=== PATIENT | female | born 1960 | race Caucasian/White ===

== ENCOUNTER 2016-08-28 20:43 | Emergency (ER) | payer OTHER ==
--- NOTE | 2016-08-28 21:31 | UC ---
UC General HPI - HPI Summary HPI Summary: Patient is here tonight seeking Xanax refill- she 14 tabs 4 days ago and took the last one this morning - History of Current Complaint Hx Obtained From: Patient Onset/Duration: Gradual Onset, Still Present Timing: Constant Onset Severity: Moderate Current Severity: Moderate Pain Intensity: 0 Similar Episode/Dx as: hx of add and anxiety <Viv Lentz - Last Filed: 09/01/16 07:05> <Meeta Morel - Last Filed: 09/01/16 07:49> - History of Current Complaint Chief Complaint: UCGeneralIllness Stated Complaint: MED REFILL Time Seen by Provider: 08/28/16 21:00 - Allergy/Home Medications Allergies/Adverse Reactions: Allergies Allergy/AdvReac Type Severity Reaction Status Date / Time No Known Allergies Allergy Verified 08/31/16 15:23 PMH/Surg Hx/FS Hx/Imm Hx Previously Healthy: No Psychological History: Anxiety, Other - Add Other Psychological History: ADD - Surgical History Surgical History: Yes Surgery Procedure, Year, and Place: implants in - then removed - Family History Known Family History: Positive: Unknown - Social History Occupation: Unemployed Lives: With Family Alcohol Use: Rare Substance Use Type: None, Prescribed Smoking Status (MU): Never Smoked Tobacco <Viv Lentz - Last Filed: 09/01/16 07:05> Review of Systems Constitutional: Negative Skin: Negative Eyes: Negative ENT: Negative Respiratory: Negative Cardiovascular: Negative Gastrointestinal: Negative Genitourinary: Negative Motor: Negative Neurovascular: Negative Musculoskeletal: Negative Neurological: Negative Psychological: Anxious - hyper speech and grand explanations of events, denies HI/SI All Other Systems Reviewed And Are Negative: Yes <Viv Lentz - Last Filed: 09/01/16 07:05> Physical Exam Triage Information Reviewed: Yes Appearance: Well-Appearing, No Pain Distress, Well-Nourished Vital Signs: Initial Vital Signs Temp 98 F 08/28/16 20:46 Pulse 91 08/28/16 20:46 Resp 18 08/28/16 20:46 Pulse Ox 100 08/28/16 20:46 Vital Signs Reviewed: Yes Eye Exam: Normal Eyes: Positive: Conjunctiva Clear ENT Exam: Normal ENT: Positive: Normal ENT inspection, Hearing grossly normal. Negative: Nasal congestion, Nasal drainage, Trismus, Muffled/hoarse voice Dental Exam: Normal Neck exam: Normal Neck: Positive: Supple, Nontender Respiratory Exam: Normal Respiratory: Positive: Chest non-tender, Normal breath sounds, No respiratory distress Cardiovascular Exam: Normal Cardiovascular: Positive: RRR, Pulses Normal, Brisk Capillary Refill Musculoskeletal Exam: Normal Musculoskeletal: Positive: Strength Intact, ROM Intact, No Edema Neurological Exam: Normal Neurological: Positive: Alert, Muscle Tone Normal Psychological Exam: Other Psychological: Positive: Other: - pressured denies HI/SI Skin Exam: Normal <Viv Lentz - Last Filed: 09/01/16 07:05> Vital Signs: Initial Vital Signs Temp 98 F 08/28/16 20:46 Pulse 91 08/28/16 20:46 Resp 18 08/28/16 20:46 BP 123/95 08/28/16 20:46 Pulse Ox 100 08/28/16 20:46 <Meeta Morel - Last Filed: 09/01/16 07:49> Course/Dx - Course Course Of Treatment: supportive theraputic conversation for 30 minuntes, offered resourses and referrals for follow up in the community and for detoxing from Xanax - Differential Dx - Multi-Symptom Differential Diagnoses: Metabolic Abnormality, Other - anxiety, Benzodiazapine misuse, bipolar-Manaic Provider Diagnoses: Anxiety, Benzodiazapine misuse <Viv Lentz - Last Filed: 09/01/16 07:05> Discharge <Viv Lentz - Last Filed: 09/01/16 07:05> <Meeta Morel - Last Filed: 09/01/16 07:49> - Discharge Plan Condition: Stable Disposition: AGAINST MEDICAL ADVICE Referrals: Calin MILLER,Jose Laird [Primary Care Provider] - Attestation Statement User Type: Provider - I was available for consult. This patient was seen by the STEVEN. The patient was not presented to, seen by, or examined by me. -Heather <Meeta Morel - Last Filed: 09/01/16 07:49>
[2016-08-28 21:33] VITALS: BP 123/95
== END 2016-08-28 22:05 | disposition left against medical advice (07) ==
LOC: UCEAST 20:43
DX: F41.9 Anxiety disorder, unspecified (principal); F13.10 Sedative, hypnotic or anxiolytic abuse, uncomplicated; F98.8 Other specified behavioral and emotional disorders with onset usually occurring in childhood and adolescence
CPT/HCPCS: 99212; G0463

== ENCOUNTER 2016-08-30 19:29 | Emergency (ER) | payer OTHER ==
[2016-08-30 20:51] LABS: Hematocrit 39 % (35-47); Hemoglobin 12.8 g/dl (12.0-16.0); Mean Corpuscular HGB Conc 33 g/dl (31-36); Mean Corpuscular Hemoglobin 28 pg (27-31); Mean Corpuscular Volume 85 fL (80-97); Mean Platelet Volume 8 um3 (7.4-10.4); Red Blood Count 4.58 10^6/ul (4.0-5.4); Red Cell Distribution Width 15 % (10.5-15); White Blood Count 5.1 10^3/ul (3.5-10.8)
[2016-08-30 20:56] LABS: Urine Bacteria Absent (Absent); Urine Bilirubin Negative (Negative); Urine Glucose Negative (Negative); Urine Nitrite Negative (Negative)
[2016-08-30 21:10] LABS: ALT 13 U/L (7-52); AST 13 U/L (13-39); Albumin 3.6 g/dL (3.2-5.2); Alkaline Phosphatase 78 U/L (34-104); Anion Gap 4 mmol/L (2-11); BUN/Creatinine Ratio 15.5 (8-20); Blood Urea Nitrogen 11 mg/dL (6-24); CO2 Carbon Dioxide 28 mmol/L (22-32); Calcium 9.2 mg/dL (8.6-10.3); Chloride 106 mmol/L (101-111); EGFR African American 109.9 (>60); EGFR Non-African American 85.5 (>60); Globulin 3.1 g/dL (2-4); Glucose 118 mg/dL (70-100); Sodium 138 mmol/L (133-145); Total Protein 6.7 g/dL (6.4-8.9)
[2016-08-30 21:11] LABS: Acetaminophen 38 mcg/mL; Alcohol < 10 mg/dL (<10); Salicylate < 2.50 mg/dL (<30)
[2016-08-30 21:13] LABS: Benzodiazepine Urine Screen Presumptive Positive (None Detect)
[2016-08-30 21:17] LABS: TSH (Thyroid Stimulating Horm) 0.24 mcIU/mL (0.34-5.60)
[2016-08-30 21:58] VITALS: BP 109/61
--- NOTE | 2016-08-31 01:11 | ED ---
Arlen Scuhltz Rebecca, scribed for Mike Travis on 08/30/16 at 1953 . Substance Abuse/Use - HPI Summary HPI Summary: Pt is a 55 y/o F who presents to ED c/o withdrawal from Xanax. Pt reports that she is undergoing "severe withdrawal" from Xanax because she has taken half the prescribed dosage for the last 4 days, taking 1 tablet instead of 2. Pt states "I hate them, they screw around with your head." Notes anxiety at this time. Sx aggravated by medication noncompliance, alleviated by nothing. Denies auditory hallucinations, SIs, CP, SOB. Pt no longer has Xanax at home, reporting she gave them to a friend. PMHx dysthymia. No PMHx schizophrenia, bipolar disorder. - History Of Current Complaint Chief Complaint: EDDetoxRequest Stated Complaint: WITHDRAWAL FROM SEDATIVES Time Seen by Provider: 08/30/16 19:52 Hx Obtained From: Patient Hx Last Menstrual Period: a year ago Ingestion History: Type/Name Of Drug - Xanax, Amount Ingested - 1/2 of prescribed dose Overdose Characteristics: Oral Character: Anxious Aggravating Factor(s): Medication Non-compliance Alleviating Factor(s): Nothing Associated Signs And Symptoms: Other: - Xanax withdrawal - Allergies/Home Medications Allergies/Adverse Reactions: Allergies Allergy/AdvReac Type Severity Reaction Status Date / Time No Known Allergies Allergy Verified 08/30/16 19:36 PMH/Surg Hx/FS Hx/Imm Hx Endocrine/Hematology History: Denies: Hx Diabetes, Hx Thyroid Disease Cardiovascular History: Denies: Hx Hypertension Respiratory History: Denies: Hx Asthma, Hx Chronic Obstructive Pulmonary Disease (COPD) GI History: Denies: Hx Ulcer Psychiatric History: Reports: Other Psychiatric Issues/Disorders - Hx dysthymia Denies: Hx Schizophrenia, Hx Bipolar Disorder - Surgical History Surgery Procedure, Year, and Place: implants in - then removed Infectious Disease History: Reports: Hx Shingles Denies: Hx Clostridium Difficile, Hx Hepatitis, Hx Human Immunodeficiency Virus (HIV), Hx of Known/Suspected MRSA, Hx Tuberculosis, Hx Known/Suspected VRE , Hx Known/Suspected VRSA, History Other Infectious Disease, Traveled Outside the [place] in Last 30 Days - Family History Known Family History: Positive: Other - Lung CA - Social History Alcohol Use: Rare Substance Use Type: Reports: Prescribed Smoking Status (MU): Never Smoked Tobacco Review of Systems Positive: Other - Xanax withdrawal Negative: Chest Pain Negative: Shortness Of Breath Neurological: Other - Denies auditory hallucinations Positive: Anxious, Other - Denies SIs All Other Systems Reviewed And Are Negative: Yes Physical Exam Triage Information Reviewed: Yes Vital Signs On Initial Exam: Initial Vitals Temp Pulse Resp BP Pulse Ox 98.8 F 97 18 140/72 98 08/30/16 19:37 08/30/16 19:37 08/30/16 19:37 08/30/16 19:37 08/30/16 19:37 Vital Signs Reviewed: Yes Appearance: Positive: Well-Appearing, No Pain Distress Skin: Positive: Warm, Skin Color Reflects Adequate Perfusion, Dry Head/Face: Positive: Normal Head/Face Inspection Eyes: Positive: EOMI, DEYSI ENT: Positive: Normal ENT inspection Neck: Positive: Supple, Nontender Respiratory/Lung Sounds: Positive: Clear to Auscultation, Breath Sounds Present Cardiovascular: Positive: RRR, Pulses are Symmetrical in both Upper and Lower Extremities Abdomen Description: Positive: Nontender, Soft Bowel Sounds: Positive: Present Musculoskeletal: Positive: Normal, Strength/ROM Intact Neurological: Positive: Normal, Sensory/Motor Intact, Alert, Oriented to Person Place, Time Psychiatric: Positive: Depressed, Other - No eye contact; No suicidal ideation Diagnostics - Vital Signs Vital Signs Temp Pulse Resp BP Pulse Ox 08/30/16 19:37 98.8 F 97 18 140/72 98 - Laboratory Result Diagrams: 08/30/16 20:36 08/30/16 20:36 Lab Statement: Any lab studies that have been ordered have been reviewed, and results considered in the medical decision making process. Course/Dx - Course Assessment/Plan: Pt is a 55 y/o F who presents to ED c/o withdrawal from Xanax. Pt reports she has taken half the prescribed dosage for the last 4 days, taking 1 tablet instead of 2. Pt states "I hate them, they screw around with your head. " Notes anxiety at this time. Sx aggravated by medication noncompliance. Denies auditory hallucinations, SIs, CP, SOB. Pt no longer has Xanax at home, reporting she gave them to a friend. PMHx dysthymia. No PMHx schizophrenia, bipolar disorder. Medically cleared for MHE at 2142. After MHE, while psych project builder was calling the psychiatrist the pt left AMA, refusing to sign paperwork. Patient medications reviewed this visit. - Diagnoses Provider Diagnoses: Depression Discharge - Discharge Plan Condition: Good Disposition: AGAINST MEDICAL ADVICE Referrals: Calin MILLER,Jose Laird [Primary Care Provider] - The documentation as recorded by the Arlen lopez Rebecca accurately reflects the service I personally performed and the decisions made by , Mike Travis.
== END 2016-08-30 23:05 | disposition left against medical advice (07) ==
LOC: ED 19:29
DX: F32.9 Major depressive disorder, single episode, unspecified (principal); F41.9 Anxiety disorder, unspecified
CPT/HCPCS: 36415; 80053; 80307; 80320; 80329; 81003; 81015; 84443; 85025; 87086; 99283; G0480

== ENCOUNTER 2016-08-31 00:51 | Inpatient (IN) | payer OTHER ==
--- NOTE | 2016-08-31 04:25 | ED ---
Arlen Schultz Rebecca, scribed for Mike Travis on 08/31/16 at 0146 . Psychiatric Complaint - HPI Summary HPI Summary: Pt is a 55 y/o F [employer] who comes to ED p/w anxiety and requesting her typical medications of Effexor, Adderall and Xanax. Reports she has not had Effexor in 2 days. Denies SIs. Pt was evaluated by [facility] earlier today for withdrawal from Xanax after taking half her prescribed dose for the last 4 days. She left AMA and returns today to receive medication. She confirms Radha has filled her prescriptions, but she needs her night doses. Pt reports her friend called the police because she "doesn't understand withdrawal" and "felt nervous" after "scaring the shit out of her at 1130." - History Of Current Complaint Chief Complaint: EDPrescriptionNeeded Hx Obtained From: Patient Hx Last Menstrual Period: a year ago Onset/Duration: Still Present Severity Currently: Moderate Character: Anxious Aggravating Factor(s): Medication Non-compliance Alleviating Factor(s): Nothing Related History: Positive For: Prior Psychiatric Issues - Dysthymia Has Suicidal: Denies: Thoughts - Allergies/Home Medications Allergies/Adverse Reactions: Allergies Allergy/AdvReac Type Severity Reaction Status Date / Time No Known Allergies Allergy Verified 08/30/16 19:36 PMH/Surg Hx/FS Hx/Imm Hx Endocrine/Hematology History: Denies: Hx Diabetes, Hx Thyroid Disease Cardiovascular History: Denies: Hx Hypertension Respiratory History: Denies: Hx Asthma, Hx Chronic Obstructive Pulmonary Disease (COPD) GI History: Denies: Hx Ulcer Psychiatric History: Reports: Other Psychiatric Issues/Disorders - Hx dysthymia Denies: Hx Eating Disorder, Hx Schizophrenia, Hx Bipolar Disorder, Hx of Violent Episodes Against Others - Surgical History Surgery Procedure, Year, and Place: implants in - then removed Infectious Disease History: Reports: Hx Shingles Denies: Hx Clostridium Difficile, Hx Hepatitis, Hx Human Immunodeficiency Virus (HIV), Hx of Known/Suspected MRSA, Hx Tuberculosis, Hx Known/Suspected VRE , Hx Known/Suspected VRSA, History Other Infectious Disease, Traveled Outside the [place] in Last 30 Days - Family History Known Family History: Positive: Other - Lung CA - Social History Alcohol Use: Rare Substance Use Type: Reports: None, Prescribed Smoking Status (MU): Never Smoked Tobacco Review of Systems Positive: Other - Medication request Positive: Anxious, Other - Denies SIs All Other Systems Reviewed And Are Negative: Yes Physical Exam Triage Information Reviewed: Yes Vital Signs On Initial Exam: Initial Vitals Temp Pulse Resp BP Pulse Ox 100 F 79 18 127/76 98 08/31/16 01:07 08/31/16 01:07 08/31/16 01:07 08/31/16 01:07 08/31/16 01:07 Vital Signs Reviewed: Yes Appearance: Positive: Well-Appearing, No Pain Distress Skin: Positive: Warm, Skin Color Reflects Adequate Perfusion, Dry Head/Face: Positive: Normal Head/Face Inspection Eyes: Positive: EOMI, DEYSI ENT: Positive: Normal ENT inspection Neck: Positive: Supple, Nontender Respiratory/Lung Sounds: Positive: Clear to Auscultation, Breath Sounds Present Cardiovascular: Positive: RRR, Pulses are Symmetrical in both Upper and Lower Extremities Musculoskeletal: Positive: Normal, Strength/ROM Intact Neurological: Positive: Normal, Sensory/Motor Intact, Alert, Oriented to Person Place, Time Psychiatric: Positive: Anxious, Depressed, Other - Flight of ideas, no eye contact Diagnostics - Vital Signs Vital Signs Temp Pulse Resp BP Pulse Ox 08/31/16 01:07 100 F 79 18 127/76 98 - Laboratory Lab Statement: Any lab studies that have been ordered have been reviewed, and results considered in the medical decision making process. Course/Dx - Course Assessment/Plan: Pt is a 55 y/o F [employer] who comes to ED p/w anxiety and requesting her typical medications of Effexor, Adderall and Xanax. Reports she has not had Effexor in 2 days. Denies SIs. Pt was evaluated by [facility] earlier today for withdrawal from Xanax after taking half her prescribed dose for the last 4 days. She left AMA and returns today to receive medication. Pt reports her friend called the police because she "doesn't understand withdrawal" and "felt nervous" after "scaring the shit out of her at 1130." After MHE, it was determined the pt would be admitted to mental health with a Dx of acute psychosis. She understands and agrees. Patient medications reviewed this visit. - Differential Dx/Clinical Impression Provider Diagnosis: Acute psychosis Discharge - Discharge Plan Condition: Good Disposition: ADMITTED TO [facility] documentation as recorded by the Arlen lopez Rebecca accurately reflects the service I personally performed and the decisions made by , Mike Travis.
[2016-08-31] MEDS ORDERED: traZODone TAB* 50 MG TAB ONE (05:04)
[2016-08-31] MEDS ORDERED: Al Hydrox/Mg Hydrox/Simet LIQ* 30 ML UDC PO PRN (07:45)
[2016-08-31] MEDS ORDERED: LORazepam PO (enter doses in WAM protocol) PO SCH (08:00)
[2016-08-31] MEDS: Vitamin THERAPEUTIC TAB PO SCH (08:22)
[2016-08-31] MEDS ORDERED: Folic Acid TAB* 1 MG DAILY PO SCH (09:00)
[2016-08-31] MEDS ORDERED: Thiamine TAB* 100 MG TAB DAILY (@ T+1) PO SCH (09:00)
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
[2016-08-31] MEDS ORDERED: ALPRAZolam TAB* 0.5 MG PO SCH (16:00)
[2016-08-31] MEDS ORDERED: Venlafaxine EXT RELEASE CAP* 75 MG PO SCH (16:00)
[2016-08-31] MEDS: Venlafaxine EXT RELEASE CAP* 75 MG PO SCH (16:03)
[2016-08-31] MEDS: ALPRAZolam TAB* 0.5 MG PO SCH (16:04)
[2016-08-31] MEDS: Amphetamine/Dextroamph ER(NF) 10 MG CAP.ER PO SCH (17:13)
[2016-08-31] MEDS: traZODone TAB* 50 MG TAB PO PRN (23:08)
[2016-09-01] MEDS: Amphetamine/Dextroamph ER(NF) 10 MG CAP.ER PO SCH ×2 (08:38→13:15)
[2016-09-01] MEDS: Venlafaxine EXT RELEASE CAP* 75 MG PO SCH (08:39)
[2016-09-01] MEDS: ALPRAZolam TAB* 0.5 MG PO SCH (08:39)
[2016-09-01] MEDS: Vitamin THERAPEUTIC TAB PO SCH (08:40)
[2016-09-01 13:35] VITALS: BP 132/67
--- NOTE | 2016-09-01 13:58 | PN ---
Subjective - Subjective Service Type: 61720 Hosp care 15 min low complexity Subjective: Patient lying in bed on my approach. Patient reports she has been hypersomnolent since admission. Patient is linear and GD in conversation. She is A&Ox3. Patient denies episodes of confusion since admission. She is med compliant and denies benzo w/ d symptoms. Patient reports she believes the generic version of Adderall XR she is on inpatient is not absorbing like the brand name version. Patient reports she has not showered, brushed her teeth or been up for group today. She reports feeling more depressed today. She reports she is usually up after her am dose of Adderall XR and able to take care of ADLs. Patient informed we will monitor this over the weekend. Patient informed by this provider a Tx team meeting will be scheduled with [facility] and inpt SW for refinement of outpt Tx plan as she has hx of irratic and impulsive behavior along with suicidal behavior when in the process of tapering off Benzos. This scenerio was the same scenerio which led to her 2009 suicide attempt by OD on Klonopin while attempting taper by her outpt psychiatrist. Also discharge planning is needed as patient has recently been kicked out of the apartment she shares with her roommate. Patient again denies SI/HI and AH/VH. Appetite is wnl. Objective - Appearance Appearance: Thin Framed Dysmorphic Features: No Hygiene: Dirty Grooming: Disheveled - Behavior Psychomotor Activities: Abnormal-Decreased Exhibits Abnormal Movement: No - Attitude and Relatedness Attitude and Relatedness: Needy Eye Contact: Poor - Speech Quality: Unpressured Latencies: Normal Quantity: Copious - Mood Patient's Decription of Mood: "Upset" - Affect Observed Affect: Depressed Affect Consistent with: Dysphoria - Thought Process Patient's Thought Process: Coherent Thought Content: No Passive Wish, No Suicidal Planning, No Homicidal Ideation, No Paranoid Ideation - Sensorium Experiencing Hallucinations: No, Sensorium is Clear Type of Hallucinations: Visual: No, Auditory: No, Command: No - Level of Consciousness Level of Consciousness: Alert Orientation: Yes Intact, Yes Orientated to Time, Yes Orientated to Place, Yes Orientated to Person - Impulse Control Impulse Control: Intact - Insight and Judgement Insight and Judgement: Poor - Group Participation Particating in Group Activities: No - Medication Management Medication Management Adherence: Yes Assessment - Assessment Merits Inpatient Hospitalization: For Immediate Safety, For Stabilization Inpatient DSM-IV Dx: ASSESSMENT: . 1. Benzodiazepine withdrawal. 2. Amphetamine induced suly, now resolved. 3. MDD, R, S w/o PFs. 4. PTSD. 5. Borderline PD by Hx. 6. Benzodiazepine use d/o, severe. 7. Amphetamine use d/o, severe Plan - Plan Treatment Plan: Name: JOSE GÓMEZ Birthdate: 1960 [id number] PLAN: ------ 1. Continue admission to [facility] for safety and symptom mx. 2. Continue Celexa 20mg po daily for anxiety / mood symptoms. 3. D/C [facility] 4. Continue Xanax taper at next step down dose set in taper schedule set by patient's outpt psychiatrist Dr. Layton. 5. Continue Adderall XR at 60mg po qam and 30mg po q2pm for mx of TRD. 6. Continue home dose Effexor XR 300mg po qam for mood/anxiety. 7. Tx team meeting to be scheduled with patient, this provider, [facility] and inpt SW for refinement of outpt Tx plan. 8. Collateral information obtained from [facility] providers(psychiatrist and therapist). 9. Collateral information obtained from friend who transported patient to ED, [place](#[phone]). 10. Patient to participate in milieu activities and groups. Medications: Current Medications Acetaminophen (Tylenol Tab*) 650 mg PO Q4H PRN PRN Reason: PAIN or TEMP > 101 F Al Hydrox/Mg Hydrox/Simethicone (Maalox Plus*) 30 ml PO Q4H PRN PRN Reason: INDIGESTION Alprazolam (Xanax Tab*) 1.5 mg PO QPM KIRSTEN Amphetamine/Dextroamphetamine (Adderal Xr (Nf)) 60 mg PO 0800 KIRSTEN Last Admin: 09/01/16 08:38 Dose: 60 mg Amphetamine/Dextroamphetamine (Adderal Xr (Nf)) 30 mg PO 1400 KIRSTEN Last Admin: 09/01/16 13:15 Dose: 30 mg Multivitamins (Theragran Tab*) 1 tab PO DAILY KIRSTEN Last Admin: 09/01/16 08:40 Dose: Not Given Trazodone HCl (Desyrel Tab*) 50 mg PO BEDTIME PRN PRN Reason: INSOMNIA Last Admin: 08/31/16 23:08 Dose: 50 mg Venlafaxine HCl (Effexor Xr Cap*) 300 mg PO DAILY [facility] Last Admin: 09/01/16 08:39 Dose: 300 mg - Discharge Plan Discharge Plan: Outpatient Follow Up Outpatient Program: Adriana Phelps [facility]
[2016-09-01] MEDS: Acetaminophen TAB* 325 MG PO PRN ×2 (17:22→21:35)
[2016-09-01] MEDS: traZODone TAB* 50 MG TAB PO PRN (20:39)
[2016-09-01] MEDS ORDERED: traZODone TAB* 50 MG TAB PO ONE (22:30)
[2016-09-02] MEDS: Amphetamine/Dextroamph ER(NF) 10 MG CAP.ER PO SCH ×2 (08:23→14:12)
[2016-09-02] MEDS: Venlafaxine EXT RELEASE CAP* 75 MG PO SCH (08:24)
[2016-09-02] MEDS: Vitamin THERAPEUTIC TAB PO SCH (08:33)
[2016-09-02] MEDS ORDERED: ALPRAZolam TAB* 0.5 MG PO SCH (15:00)
[2016-09-02] MEDS: ALPRAZolam TAB* 0.5 MG PO SCH (15:50)
[2016-09-02] MEDS: Acetaminophen TAB* 325 MG PO PRN (21:10)
[2016-09-02] MEDS: traZODone TAB* 50 MG TAB PO PRN (21:10)
[2016-09-03] MEDS: Vitamin THERAPEUTIC TAB PO SCH ×2 (08:36→08:39)
[2016-09-03] MEDS: Amphetamine/Dextroamph ER(NF) 10 MG CAP.ER PO SCH ×2 (08:37→13:57)
[2016-09-03] MEDS: Venlafaxine EXT RELEASE CAP* 75 MG PO SCH (08:37)
[2016-09-03] MEDS: ALPRAZolam TAB* 0.5 MG PO SCH (15:54)
--- NOTE | 2016-09-03 20:07 | PN ---
Subjective - Subjective Service Type: 70017 Hosp care 15 min low complexity Subjective: Latisha approached me several times to speak with me. During my meeting with her she had a long story to tell and it kept going for more than 1/2 hour requiring interruption. All she was trying was to justify her use of sedatives and stimulants. Requested to make little adjustment to the timing of her meds and I politely asked her to run that by her Attending. Otherwise pleasent and easily redirectable. Objective - Appearance Appearance: Healthy Appearing Dysmorphic Features: No Hygiene: Normal Grooming: Fairly Well Kept - Behavior Psychomotor Activities: Normal Exhibits Abnormal Movement: No - Attitude and Relatedness Attitude and Relatedness: Appropriate Eye Contact: Good - Speech Quality: Pressured Latencies: Short Quantity: Copious - Mood Patient's Decription of Mood: "Fine" - Affect Observed Affect: Expansive - Thought Process Patient's Thought Process: Coherent, Loose Associations, Filght of Ideas, Circumstantial Thought Content: No Passive Wish, No Suicidal Planning, No Homicidal Ideation, No Paranoid Ideation - Sensorium Experiencing Hallucinations: No, Sensorium is Clear Type of Hallucinations: Visual: No, Auditory: No, Command: No - Level of Consciousness Level of Consciousness: Alert Orientation: Yes Intact, Yes Orientated to Time, Yes Orientated to Place, Yes Orientated to Person - Impulse Control Impulse Control: Tenuous - Insight and Judgement Insight and Judgement: Poor - Group Participation Particating in Group Activities: Yes - Medication Management Medication Management Adherence: Yes Assessment - Assessment Merits Inpatient Hospitalization: For Stabilization, Pending Safe DC Plan Inpatient DSM-IV Dx: ASSESSMENT: . 1. Benzodiazepine withdrawal. 2. Amphetamine induced suly, now resolved. 3. MDD, R, S w/o PFs. 4. PTSD. 5. Borderline PD by Hx. 6. Benzodiazepine use d/o, severe. 7. Amphetamine use d/o, severe Clinical Impression: Not stable yet. Plan - Plan Treatment Plan: Name: LATISHA GÓMEZ Birthdate: 1960 [id number] Continued Medication Management: Continue Outpt Medication Medications: Current Medications Acetaminophen (Tylenol Tab*) 650 mg PO Q4H PRN PRN Reason: PAIN or TEMP > 101 F Last Admin: 09/02/16 21:10 Dose: 650 mg Al Hydrox/Mg Hydrox/Simethicone (Maalox Plus*) 30 ml PO Q4H PRN PRN Reason: INDIGESTION Alprazolam (Xanax Tab*) 1.5 mg PO 1500 [facility] Last Admin: 09/03/16 15:54 Dose: 1.5 mg Amphetamine/Dextroamphetamine (Adderal Xr (Nf)) 60 mg PO 0800 KIRSTEN Last Admin: 09/03/16 08:37 Dose: 60 mg Amphetamine/Dextroamphetamine (Adderal Xr (Nf)) 30 mg PO 1400 [facility] Last Admin: 09/03/16 13:57 Dose: 30 mg Multivitamins (Theragran Tab*) 1 tab PO DAILY [facility] Last Admin: 09/03/16 08:39 Dose: Not Given Trazodone HCl (Desyrel Tab*) 50 mg PO BEDTIME PRN PRN Reason: INSOMNIA Last Admin: 09/02/16 21:10 Dose: 50 mg Venlafaxine HCl (Effexor Xr Cap*) 300 mg PO DAILY [facility] Last Admin: 09/03/16 08:37 Dose: 300 mg - Discharge Plan Discharge Plan: Outpatient Follow Up Outpatient Program: Adriana Phelps [facility]
[2016-09-03] MEDS: Acetaminophen TAB* 325 MG PO PRN (21:23)
[2016-09-03] MEDS: traZODone TAB* 50 MG TAB PO PRN (21:23)
[2016-09-04] MEDS: Venlafaxine EXT RELEASE CAP* 75 MG PO SCH (08:06)
[2016-09-04] MEDS: Amphetamine/Dextroamph ER(NF) 10 MG CAP.ER PO SCH ×2 (08:06→13:38)
[2016-09-04] MEDS: Vitamin THERAPEUTIC TAB PO SCH (08:07)
--- NOTE | 2016-09-04 11:37 | PN ---
[facility]: Group Therapy Note - Service Type Service Type: [id number] Group Psychotherapy - Cognitive Behavioral Group Therapy ( CBT):Patient was attentive and participatory in CBT programming this morning, and remained in good behavioral control. Patient expressed positive insights regarding relevant treatment interventions and goals.
[2016-09-04] MEDS: ALPRAZolam TAB* 0.5 MG PO SCH (15:23)
--- NOTE | 2016-09-04 17:17 | PN ---
Subjective - Subjective Service Type: 49971 Hosp care 15 min low complexity Subjective: The patient is no longer confused and presents as having intact abilities to handle her ADLs. Her speech is pressured and she is demanding discharge, so that she can return to her new apartment and follow up with outpatient psychiatrist, Dr. Layton. "I don't need to be here any further. I only came here because I was too eager to get off xanax and was taking one mg instead of two, like Dr. Layton wanted." This clinician spoke with Dr. Layton at [facility] and he states that she is highly demanding and personality disordered at baseline. He has never observed her as having suly, but can be anxious and pressured when not getting what she wants. The patient denies SI or HI. Objective - Appearance Appearance: Well Developed/Nourished Dysmorphic Features: No Hygiene: Normal Grooming: Well Kept - Behavior Psychomotor Activities: Normal Exhibits Abnormal Movement: No - Attitude and Relatedness Attitude and Relatedness: Needy Eye Contact: Good - Speech Quality: Pressured Latencies: Short Quantity: Copious - Mood Patient's Decription of Mood: "Fine" - Affect Observed Affect: Expansive Affect Consistent with: Euphoria - Thought Process Patient's Thought Process: Tangential Thought Content: No Passive Wish, No Suicidal Planning, No Homicidal Ideation, No Paranoid Ideation - Sensorium Experiencing Hallucinations: No, Sensorium is Clear Type of Hallucinations: Visual: No, Auditory: No, Command: No - Level of Consciousness Level of Consciousness: Alert Orientation: Yes Intact, Yes Orientated to Time, Yes Orientated to Place, Yes Orientated to Person - Impulse Control Impulse Control: Tenuous - Insight and Judgement Insight and Judgement: Fair - Group Participation Particating in Group Activities: Yes - Medication Management Medication Management Adherence: Yes Assessment - Assessment Merits Inpatient Hospitalization: For Immediate Safety, For Stabilization Inpatient DSM-IV Dx: ASSESSMENT: . 1. Benzodiazepine withdrawal. 2. Amphetamine induced suly, now resolved. 3. MDD, R, S w/o PFs. 4. PTSD. 5. Borderline PD by Hx. 6. Benzodiazepine use d/o, severe. 7. Amphetamine use d/o, severe Clinical Impression: 55 y.o. single, white female with a history of treatment refractory MDD and borderline PD who arrived seeking treatment for confusion and inability to care for herself in the setting of tapering off alprazolam more quickly than directed by her outpatient psychiatrist, Dr. Layton. Plan - Plan Treatment Plan: Name: JOSE GÓMEZ Birthdate: 1960 [id number] The patient is taking venlafaxine XR 300mg PO qday, alprazolam 1.5mg PO qday and Adderall 60mg PO qam, 30mg PO qnoon. She is pressured and anxious but no longer confused or disoriented. Consider d/c to home tomorrow. Continued Medication Management: Continue Outpt Medication Medications: Current Medications Acetaminophen (Tylenol Tab*) 650 mg PO Q4H PRN PRN Reason: PAIN or TEMP > 101 F Last Admin: 09/03/16 21:23 Dose: 650 mg Al Hydrox/Mg Hydrox/Simethicone (Maalox Plus*) 30 ml PO Q4H PRN PRN Reason: INDIGESTION Alprazolam (Xanax Tab*) 1.5 mg PO 1500 [facility] Last Admin: 09/04/16 15:23 Dose: 1.5 mg Amphetamine/Dextroamphetamine (Adderal Xr (Nf)) 60 mg PO 0800 KIRSTEN Last Admin: 09/04/16 08:06 Dose: 60 mg Amphetamine/Dextroamphetamine (Adderal Xr (Nf)) 30 mg PO 1400 KIRSTEN Last Admin: 09/04/16 13:38 Dose: 30 mg Multivitamins (Theragran Tab*) 1 tab PO DAILY KIRSTEN Last Admin: 09/04/16 08:07 Dose: 1 tab Trazodone HCl (Desyrel Tab*) 50 mg PO BEDTIME PRN PRN Reason: INSOMNIA Last Admin: 09/03/16 21:23 Dose: 50 mg Venlafaxine HCl (Effexor Xr Cap*) 300 mg PO DAILY [facility] Last Admin: 09/04/16 08:06 Dose: 300 mg - Discharge Plan Discharge Plan: Outpatient Follow Up Outpatient Program: Adriana Phelps [facility]
[2016-09-04] MEDS: traZODone TAB* 50 MG TAB PO PRN (20:04)
[2016-09-04] MEDS: Acetaminophen TAB* 325 MG PO PRN (20:04)
[2016-09-04] MEDS ORDERED: Gabapentin CAP(*) 300 MG PO PRN (21:07)
[2016-09-05] MEDS: Venlafaxine EXT RELEASE CAP* 75 MG PO SCH (07:58)
[2016-09-05] MEDS: Vitamin THERAPEUTIC TAB PO SCH (07:58)
[2016-09-05] MEDS: Amphetamine/Dextroamph ER(NF) 10 MG CAP.ER PO SCH (07:59)
--- NOTE | 2016-09-05 17:53 | DS ---
DISCHARGE SUMMARY: DATE OF ADMISSION: 08/31/16 DATE OF DISCHARGE: 09/05/16 DISCHARGE DIAGNOSES: [place] I: Benzodiazepine withdrawal with delirium; major depressive disorder, recurrent, mild. [place] II: Borderline personality disorder. [place] III: None. [place] IV: Moderate primary support and housing stressors. [place] V: At the time of admission was 30 and at the time of discharge is 60. CONDITION AT THE TIME OF DISCHARGE: As follows; the patient is calm and cooperative. She is reality oriented. She shows no further evidence of confusion or delirium and she is back to her psychiatric baseline, which is mildly depressed and anxious, but coherent and able to maintain her own activities of daily living. The patient continues to deny suicidal or homicidal ideations. She is safe on all checks. She has been consistently requesting discharge and she is agreeable to following up on an outpatient basis. The patient is enrolled in treatment with a therapist named Anthony and psychiatrist Dr. Layton, both at [facility] and she is very much agreeable to not making any changes in her medication regimen until she sees Dr. Layton again. MENTAL STATUS EXAM: At the time of discharge, the patient is a middle-aged white female with long brown hair. She is clean and well groomed wearing a black T-shirt and black tights. She is calm, cooperative, easy to establish a rapport with, appears to be less pressured than previously. Speech is mildly over productive, but otherwise fluent. Mood appears to be anxious with corresponding anxious affect. Thought process is linear to tangential. Thought content is significant for her desire to be discharged from the hospital so that she can complete her move into a new apartment. She is denying suicidal or homicidal ideation. She denies auditory or visual hallucinations. Insight and judgment appears to be fair given her willingness to follow up with outpatient treatment in the community. Cognitively she is awake and alert with what would appear to be an average intellect. DISCHARGE INSTRUCTIONS: To the patient are as follows: A. Medications. 1. She takes alprazolam 1.5 mg p.o. daily. 2. She takes Adderall 30 mg 3 times daily. 3. She takes Effexor XR 300 mg p.o. daily. B. Diet: Regular. C. Activities: As tolerated. The patient is a nonsmoker. There are no laboratory or diagnostic studies pending at the time of discharge. D. Followup Care: The patient will follow up later this week with her therapist, Anthony and psychiatrist, Dr. Jose Layton at the [facility]. HOSPITAL COURSE: A: Reason for admission: The patient is a 55-year-old single white female with history of treatment resistant major depressive disorder, PTSD , and borderline personality disorder who presented transported by her friend on a voluntary basis complaining of severe symptoms of Xanax withdrawal. The patient reports that she had been taking Xanax 3 mg daily as prescribed by Dr. Jose Layton at [facility]. However, they had mutually agreed to a taper due to symptoms of poor memory and perhaps an increase in her depressive mood symptoms since going on Xanax. The patient had been tapered down to 2 mg for several weeks, but states that she wanted to be more assertive and more aggressive with the tapering and so unbeknownst to her psychiatrist, she started taking only 1 mg. She notes that she started feeling confused and she was in the middle of a move where several of her belongings were placed in boxes. At the same time, she lost her Effexor prescription bottle in 1 of her packing boxes and started to withdrawal from that as well. When she arrived in our emergency room, she was disoriented, confused, could not calm down, was anxious, and although she was denying thoughts of suicide or homicidal ideations , it was felt that she was unsafe to be discharged and was therefore involuntarily admitted to our service. B. Psychiatric treatment rendered: The patient was admitted to the adult behavioral health unit initially under the service of Dr. Domo Ivy. Dr. Ivy had a long conversation with Dr. Layton and it was determined that they would stabilize the patient by putting her back on her venlafaxine and giving her an intermediate dose of Xanax at approximately 1.5 mg daily. The patient's mentation improved with the resumption of her medications. She had a friend sort through her boxes finding her medication at home, so that she will have that available upon discharge from the hospital. Throughout her hospitalization , she continued to deny any thoughts of hurting herself or others. We did observe her to be demanding and hyperverbal at times, appearing to be uncomfortable with the unit as she was no longer in control of her own medication or her coming and going. She was, however, agreeable with outpatient followup in the community and after speaking with Dr. Layton myself , her history is that she almost never misses appointments and that she is not typically particularly drug seeking. We kept her on her Effexor and her Adderall as currently prescribed by Dr. Layton making no changes in these. She has been safe on all checks and we no longer have rationale for keeping her involuntarily here on our unit. [id number]/[facility] #: [id number] [facility]ENT[facility]atherine
== END 2016-09-05 12:25 | disposition home or self-care (01) | DRG 776 ==
LOC: ED 00:51 → BSU 04:30
PROVIDERS: ADMIT Psychiatry & Neurology Psychiatry; ATTEND Psychiatry & Neurology Psychiatry
PROC: GZHZZZZ Group Psychotherapy (ICD-10-PCS; 2016-09-01)
PROC: HZ2ZZZZ Detoxification Services for Substance Abuse Treatment (ICD-10-PCS; principal; 2016-09-05)
DX: F19.931 Other psychoactive substance use, unspecified with withdrawal delirium (principal); F33.0 Major depressive disorder, recurrent, mild; F15.988 Other stimulant use, unspecified with other stimulant-induced disorder; F60.3 Borderline personality disorder; F43.10 Post-traumatic stress disorder, unspecified; Z62.811 Personal history of psychological abuse in childhood; Z81.8 Family history of other mental and behavioral disorders; F17.210 Nicotine dependence, cigarettes, uncomplicated; Z80.1 Family history of malignant neoplasm of trachea, bronchus and lung; F41.9 Anxiety disorder, unspecified
CPT/HCPCS: 90853; 99222; 99231; 99238; A9270-GY

== ENCOUNTER 2016-10-13 11:13 | Emergency (ER) | payer OTHER ==
[2016-10-13 11:38] VITALS: BP 114/90
[2016-10-13 12:22] LABS: Urine Bacteria Absent (Absent); Urine Bilirubin Negative (Negative); Urine Glucose Negative (Negative); Urine Nitrite Negative (Negative)
[2016-10-13 12:39] LABS: ALT 17 U/L (7-52); AST 13 U/L (13-39); Alkaline Phosphatase 90 U/L (34-104); Anion Gap 6 mmol/L (2-11); BUN/Creatinine Ratio 14.7 (8-20); Blood Urea Nitrogen 10 mg/dL (6-24); CO2 Carbon Dioxide 28 mmol/L (22-32); Calcium 9.4 mg/dL (8.6-10.3); Chloride 102 mmol/L (101-111); EGFR African American 115.1 (>60); EGFR Non-African American 89.5 (>60); Globulin 3.2 g/dL (2-4); Glucose 92 mg/dL (70-100); Potassium 3.7 mmol/L (3.5-5.0); Sodium 136 mmol/L (133-145); Total Protein 7.2 g/dL (6.4-8.9)
[2016-10-13 12:42] LABS: Benzodiazepine Urine Screen Presumptive Positive (None Detect)
[2016-10-13 12:46] LABS: Acetaminophen < 15 mcg/mL; Alcohol < 10 mg/dL (<10); Hematocrit 44 % (35-47); Hemoglobin 15.1 g/dl (12.0-16.0); Mean Corpuscular HGB Conc 34 g/dl (31-36); Mean Corpuscular Hemoglobin 29 pg (27-31); Mean Corpuscular Volume 84 fL (80-97); Mean Platelet Volume 7 um3 (7.4-10.4); Red Blood Count 5.28 10^6/ul (4.0-5.4); Red Cell Distribution Width 15 % (10.5-15); Salicylate < 2.50 mg/dL (<30); White Blood Count 7.5 10^3/ul (3.5-10.8)
[2016-10-13 12:55] LABS: TSH (Thyroid Stimulating Horm) 1.98 mcIU/mL (0.34-5.60)
--- NOTE | 2016-10-13 17:31 | ED ---
Salvador Schultz Alfonso, scribed for Henry Beach MD on 10/13/16 at 1123 . Substance Abuse/Use - HPI Summary HPI Summary: This patient is a 56 year old F brought in by police 945 to [facility] with a chief complaint of prescription substance withdrawal which began two days ago. She states my medicine is due on the 5th (in 4 days) and I am out to early. The patient rates the pain 0/10 in severity. Symptoms alleviated by nothing. Patient reports taking 2 mg of Xanax (prescribed) this morning and finishing her Adderall (prescribed) two days ago. Patient denies SI, and HI. Patient was admitted to [facility] [place] 09/05 with discharge diagnoses of Ashley I: Benzodiazepine withdrawal with delirium; major depressive disorder, recurrent, mild. Ashley II: Borderline personality disorder. Ashley III: None. Ashley IV: Moderate primary support and housing stressors. Ashley V: At the time of admission was 30 and at the time of discharge is 60. PMHx includes anxiety, and depression. Patient medically cleared for MHE at 1200. - History Of Current Complaint Stated Complaint: 945 Hx Obtained From: Patient Hx Last Menstrual Period: a year ago Onset/Duration of Drug/ETOH Abuse: Days - 2 Ingestion History: Type/Name Of Drug - Adderall and Xanax Overdose Characteristics: Oral Timing Of Abuse: Recent Cessation For A Period Of - 2 days Severity Initially: Moderate Severity Currently: Moderate Alleviating Factor(s): Nothing Associated Signs And Symptoms: Other: - Patient denies SI, and HI Related Hx: Prior Drug Abuse Counseling/Admission - [facility] [place] 09/05 with discharge diagnoses of Ashley I: Benzodiazepine withdrawal with delirium; major depressive disorder, recurrent, mild. Ashley II: Borderline personality disorder. Ashley III: None. Ashley IV: Moderate primary support and housing stressors. Ashley V: At the time of admission was 30 and at the time of discharge is 60. - Allergies/Home Medications Allergies/Adverse Reactions: Allergies Allergy/AdvReac Type Severity Reaction Status Date / Time No Known Allergies Allergy Verified 08/31/16 15:23 Home Medications: Home Medications Amphetamine-Dextroamphetamine [Adderall XR 30 mg-] 1 cap PO TID 10/13/16 [ History Confirmed 10/13/16] Venlafaxine ER (NF) [Effexor ER (NF)] 300 mg PO DAILY 10/13/16 [History Confirmed 10/13/16] PMH/Surg Hx/FS Hx/Imm Hx Endocrine/Hematology History: Denies: Hx Diabetes, Hx Thyroid Disease Cardiovascular History: Denies: Hx Hypertension Respiratory History: Denies: Hx Asthma, Hx Chronic Obstructive Pulmonary Disease (COPD) GI History: Denies: Hx Ulcer Sensory History: Denies: Hx Contacts or Glasses, Hx Hearing Aid Opthamlomology History: Denies: Hx Contacts or Glasses Psychiatric History: Reports: Hx Anxiety, Hx Depression, Hx Community Mental Health Tx, Other Psychiatric Issues/Disorders - Hx dysthymia Denies: Hx Eating Disorder, Hx Schizophrenia, Hx Bipolar Disorder, Hx of Violent Episodes Against Others - Surgical History Surgery Procedure, Year, and Place: implants in - then removed Infectious Disease History: Reports: Hx Shingles Denies: Hx Clostridium Difficile, Hx Hepatitis, Hx Human Immunodeficiency Virus (HIV), Hx of Known/Suspected MRSA, Hx Tuberculosis, Hx Known/Suspected VRE , Hx Known/Suspected VRSA, History Other Infectious Disease - Family History Known Family History: Positive: Other - Lung CA - Social History Alcohol Use: patient states that she is a non-drinker Substance Use Type: Reports: Prescribed Smoking Status (MU): Never Smoked Tobacco Have You Smoked in the Last Year: No Review of Systems Negative: Fever Neurological: Other - prescription substance withdrawal; Negative SI and HI. All Other Systems Reviewed And Are Negative: Yes Physical Exam Triage Information Reviewed: Yes Vital Signs On Initial Exam: Initial Vitals Temp Pulse Resp BP Pulse Ox 97.4 F 71 14 114/90 98 10/13/16 11:26 10/13/16 11:26 10/13/16 11:26 10/13/16 11:10/13/16 11:26 Vital Signs Reviewed: Yes Appearance: Positive: Well-Appearing, No Pain Distress Skin: Positive: Warm, Skin Color Reflects Adequate Perfusion, Dry Head/Face: Positive: Normal Head/Face Inspection Eyes: Positive: Normal ENT: Positive: Normal ENT inspection Neck: Positive: Supple, Nontender Respiratory/Lung Sounds: Positive: Clear to Auscultation, Breath Sounds Present Cardiovascular: Positive: RRR Abdomen Description: Positive: Nontender, Soft Bowel Sounds: Positive: Present Musculoskeletal: Positive: Normal Neurological: Positive: Normal, Sensory/Motor Intact, Alert, Oriented to Person Place, Time, CN Intact II-III Psychiatric: Positive: Other - Upset Diagnostics - Vital Signs Vital Signs Temp Pulse Resp BP Pulse Ox 10/13/16 11:26 97.4 F 71 14 114/90 98 - Laboratory Lab Results: Lab Results 10/13/16 10/13/16 10/13/16 Range/Units 11:45 11:45 11:59 WBC (3.5-10.8) 10^3/ul RBC (4.0-5.4) 10^6/ul Hgb (12.0-16.0) g/dl Hct (35-47) % MCV (80-97) fL MCH (27-31) pg MCHC (31-36) g/dl RDW (10.5-15) % Plt Count (150-450) 10^3/ul MPV (7.4-10.4) um3 Neut % (Auto) (38-83) % Lymph % (Auto) (25-47) % [place] % (Auto) (1-9) % Eos % (Auto) (0-6) % Baso % (Auto) (0-2) % Absolute Neuts (auto) (1.5-7.7) 10^3/ul Absolute Lymphs (auto) (1.0-4.8) 10^3/ul Absolute Monos (auto) (0-0.8) 10^3/ul Absolute Eos (auto) (0-0.6) 10^3/ul Absolute Basos (auto) (0-0.2) 10^3/ul Absolute Nucleated RBC 10^3/ul Nucleated RBC % Sodium 136 (133-145) mmol/L Potassium 3.7 (3.5-5.0) mmol/L Chloride 102 (101-111) mmol/L Carbon Dioxide 28 (22-32) mmol/L Anion Gap 6 (2-11) mmol/L BUN 10 (6-24) mg/dL Creatinine 0.68 (0.51-0.95) mg/dL Est GFR ( Amer) 115.1 (>60) Est GFR (Non-Af Amer) 89.5 (>60) BUN/Creatinine Ratio 14.7 (8-20) Glucose 92 (70-100) mg/dL Calcium 9.4 (8.6-10.3) mg/dL Total Bilirubin 0.40 (0.2-1.0) mg/dL AST 13 (13-39) U/L ALT 17 (7-52) U/L Alkaline Phosphatase 90 (34-104) U/L Total Protein 7.2 (6.4-8.9) g/dL Albumin 4.0 (3.2-5.2) g/dL Globulin 3.2 (2-4) g/dL Albumin/Globulin Ratio 1.3 (1-3) TSH 1.98 (0.34-5.60) mcIU/mL Urine Color Yellow Urine Appearance Clear Urine pH 5.0 (5-9) Ur Specific [place] 1.006 L (1.010-1.030) Urine Protein Negative (Negative) Urine Ketones Negative (Negative) Urine Blood Negative (Negative) Urine Nitrate Negative (Negative) Urine Bilirubin Negative (Negative) Urine Urobilinogen Negative (Negative) Ur Leukocyte Esterase 3+ H (Negative) Urine WBC (Auto) Trace(0-5/hpf) (Absent) Urine RBC (Auto) Trace(0-2/hpf) (Absent) Ur Squamous Epith Cells Present H (Absent) Urine Bacteria Absent (Absent) Hyaline Casts Present H (Absent) Urine Glucose Negative (Negative) Salicylates < 2.50 (<30) mg/dL Urine Opiates Screen None detected (None Detect) Acetaminophen < 15 mcg/mL Ur Barbiturates Screen None detected (None Detect) Ur Phencyclidine Scrn None detected (None Detect) Ur Amphetamines Screen Presumptive positive H (None Detect) U Benzodiazepines Scrn Presumptive positive H (None Detect) Urine Cocaine Screen None detected (None Detect) U Cannabinoids Screen None detected (None Detect) Serum Alcohol < 10 (<10) mg/dL 10/13/16 Range/Units 11:59 WBC 7.5 (3.5-10.8) 10^3/ul RBC 5.28 (4.0-5.4) 10^6/ul Hgb 15.1 (12.0-16.0) g/dl Hct 44 (35-47) % MCV 84 (80-97) fL MCH 29 (27-31) pg MCHC 34 (31-36) g/dl RDW 15 (10.5-15) % Plt Count 312 (150-450) 10^3/ul MPV 7 L (7.4-10.4) um3 Neut % (Auto) 66.7 (38-83) % Lymph % (Auto) 24.0 L (25-47) % [place] % (Auto) 6.2 (1-9) % Eos % (Auto) 2.3 (0-6) % Baso % (Auto) 0.8 (0-2) % Absolute Neuts (auto) 5.0 (1.5-7.7) 10^3/ul Absolute Lymphs (auto) 1.8 (1.0-4.8) 10^3/ul Absolute Monos (auto) 0.5 (0-0.8) 10^3/ul Absolute Eos (auto) 0.2 (0-0.6) 10^3/ul Absolute Basos (auto) 0.1 (0-0.2) 10^3/ul Absolute Nucleated RBC 0 10^3/ul Nucleated RBC % 0 Sodium (133-145) mmol/L Potassium (3.5-5.0) mmol/L Chloride (101-111) mmol/L Carbon Dioxide (22-32) mmol/L Anion Gap (2-11) mmol/L BUN (6-24) mg/dL Creatinine (0.51-0.95) mg/dL Est GFR ( Amer) (>60) Est GFR (Non-Af Amer) (>60) BUN/Creatinine Ratio (8-20) Glucose (70-100) mg/dL Calcium (8.6-10.3) mg/dL Total Bilirubin (0.2-1.0) mg/dL AST (13-39) U/L ALT (7-52) U/L Alkaline Phosphatase (34-104) U/L Total Protein (6.4-8.9) g/dL Albumin (3.2-5.2) g/dL Globulin (2-4) g/dL Albumin/Globulin Ratio (1-3) TSH (0.34-5.60) mcIU/mL Urine Color Urine Appearance Urine pH (5-9) Ur Specific [place] (1.010-1.030) Urine Protein (Negative) Urine Ketones (Negative) Urine Blood (Negative) Urine Nitrate (Negative) Urine Bilirubin (Negative) Urine Urobilinogen (Negative) Ur Leukocyte Esterase (Negative) Urine WBC (Auto) (Absent) Urine RBC (Auto) (Absent) Ur Squamous Epith Cells (Absent) Urine Bacteria (Absent) Hyaline Casts (Absent) Urine Glucose (Negative) Salicylates (<30) mg/dL Urine Opiates Screen (None Detect) Acetaminophen mcg/mL Ur Barbiturates Screen (None Detect) Ur Phencyclidine Scrn (None Detect) Ur Amphetamines Screen (None Detect) U Benzodiazepines Scrn (None Detect) Urine Cocaine Screen (None Detect) U Cannabinoids Screen (None Detect) Serum Alcohol (<10) mg/dL Result Diagrams: 10/13/16 11:59 10/13/16 11:59 Lab Statement: Any lab studies that have been ordered have been reviewed, and results considered in the medical decision making process. - EKG 1138 Cardiac Rate: NL - BPM 69 EKG Rhythm: Sinus Rhythm EKG Interpretation: QRS complexs in V1-V2 Course/Dx - Course Course Of Treatment: Ms. Almendarez was brought in 945 with the concern that she had just refilled her meds and taken an OD. She had called the [facility] and C/O that she was out of meds. She admits to having taken too many but not an OD. We called her pharmacy and she refilled her script 12 days ago for a 14 day quantity. Her story checks out and MH saw her and felt that she was safe for D/ C. - Diagnoses Provider Diagnoses: Anxiety and depression Discharge - Discharge Plan Condition: Stable Disposition: HOME Referrals: Calin MILLER,Jose Laird [Primary Care Provider] - The documentation as recorded by the Salvador lopez Alfonso accurately reflects the service I personally performed and the decisions made by me, Henry Beach MD.
== END 2016-10-13 14:36 | disposition home or self-care (01) ==
LOC: ED 11:13
DX: F41.8 Other specified anxiety disorders (principal)
CPT/HCPCS: 36415; 80053; 80307; 80320; 80329; 81003; 81015; 84443; 85025; 87086; 93005; 99282; G0480

== ENCOUNTER 2017-07-04 11:40 | Emergency (ER) | payer OTHER ==
[~2017-07-04 11:40] MED LIST: Amphetamine MIXED SALT TAB* 10 MG TAB ONE
[2017-07-04 12:09] LABS: ABS Basophils 0.1 10^3/ul (0-0.2); ABS Eosinophils 0.1 10^3/ul (0-0.6); ABS Lymphocytes 1.8 10^3/ul (1.0-4.8); ABS Monocytes 0.5 10^3/ul (0-0.8); ABS Neutrophils 6.9 10^3/ul (1.5-7.7); ABS Nucleated RBC 0 10^3/ul; Eosinophil % 1.6 % (0-6); Hematocrit 42 % (35-47); Hemoglobin 14.2 g/dl (12.0-16.0); Lymphocyte % 19.2 % (25-47); Mean Corpuscular HGB Conc 34 g/dl (31-36); Mean Corpuscular Hemoglobin 29 pg (27-31); Mean Corpuscular Volume 84 fL (80-97); Mean Platelet Volume 7.5 um3 (7.4-10.4); Nucleated Red Blood Cells % 0; Platelet Count 264 10^3/ul (150-450); Red Blood Count 4.98 10^6/ul (4.0-5.4); Red Cell Distribution Width 15 % (10.5-15); White Blood Count 9.4 10^3/ul (3.5-10.8)
[2017-07-04 13:29] LABS: Urine Appearance Clear; Urine Blood Negative (Negative); Urine Color Yellow; Urine Ketones Negative (Negative); Urine Protein Negative (Negative); Urine Specific Gravity 1.014 (1.010-1.030); Urine Urobilinogen Negative (Negative)
[2017-07-04] MEDS ORDERED: LORazepam TAB(*) 1 MG PO ONE ×2 (13:42→22:32)
[2017-07-04] MEDS ORDERED: Acetaminophen TAB* 325 MG PO ONE (13:44)
[2017-07-04] MEDS ORDERED: AMPHETAMINE PO ONE (13:44)
[2017-07-04] MEDS ORDERED: DEXTROAMPH PO ONE (13:44)
--- NOTE | 2017-07-04 20:24 | ED ---
Mathieu Schultz Julia, scribed for Keith Steele MD on 07/04/17 at 1152 . Psychiatric Complaint - HPI Summary HPI Summary: This is a 63 year old F BIBA to [facility] with a chief complaint of recently worsening depression. She reports over eating and over sleeping. She denies SI and HI in room. However, the triage note has various quotes indicating SI, with the patient repeating there is no purpose in living or receiving help. She states her regular depression medications are not helping. She has not taken any medication today. However, she does regularly take Adderall for ADHD. Dr. Layton is her psychiatrist. - History Of Current Complaint Time Seen by Provider: 07/04/17 11:44 Hx Obtained From: Patient Hx Last Menstrual Period: a year ago Onset/Duration: Gradual Onset Timing: Constant Character: Depressed Aggravating Factor(s): Medication Non-compliance Associated Signs And Symptoms: Positive: Sleep Disturbance, Appetite Change Has Suicidal: Denies: Thoughts Has Homicidal: Denies: Thoughts - Allergies/Home Medications Allergies/Adverse Reactions: Allergies Allergy/AdvReac Type Severity Reaction Status Date / Time No Known Allergies Allergy Verified 07/04/17 12:15 Home Medications: Home Medications Amphetamine MIXED SALTS TAB* [Adderall TAB*] 30 mg PO BID 07/04/17 [History Confirmed 07/04/17] Amphetamine/Dextroamph ER(NF) [Adderal XR (NF)] 30 mg PO DAILY 07/04/17 [ History Confirmed 07/04/17] clonazePAM TAB(*) [KlonoPIN TAB(*)] 1 mg PO BID 07/04/17 [History Confirmed ] PMH/Surg Hx/FS Hx/Imm Hx Endocrine/Hematology History: Denies: Hx Diabetes, Hx Thyroid Disease Cardiovascular History: Denies: Hx Hypertension Respiratory History: Denies: Hx Asthma, Hx Chronic Obstructive Pulmonary Disease (COPD) GI History: Denies: Hx Ulcer Sensory History: Denies: Hx Contacts or Glasses, Hx Hearing Aid Opthamlomology History: Denies: Hx Contacts or Glasses Psychiatric History: Reports: Hx Anxiety, Hx Attention Deficit Hyperactivity Disorder, Hx Depression, Hx Community Mental Health Tx, Other Psychiatric Issues /Disorders - Hx dysthymia Denies: Hx Eating Disorder, Hx Schizophrenia, Hx Bipolar Disorder, Hx of Violent Episodes Against Others - Surgical History Surgery Procedure, Year, and Place: implants in - then removed Infectious Disease History: Reports: Hx Shingles Denies: Hx Clostridium Difficile, Hx Hepatitis, Hx Human Immunodeficiency Virus (HIV), Hx of Known/Suspected MRSA, Hx Tuberculosis, Hx Known/Suspected VRE , Hx Known/Suspected VRSA, History Other Infectious Disease - Family History Known Family History: Positive: Other - Lung CA - Social History Alcohol Use: patient states that she is a non-drinker Substance Use Type: Reports: Prescribed Smoking Status (MU): Never Smoked Tobacco Have You Smoked in the Last Year: No Review of Systems Constitutional: Negative Positive: Depressed All Other Systems Reviewed And Are Negative: Yes Physical Exam - Summary Physical Exam Summary: VITAL SIGNS: Reviewed. GENERAL: Patient is a well-developed and nourished female who is lying comfortable in the stretcher. Patient is not in any acute respiratory distress. HEAD AND FACE: No signs of trauma. No ecchymosis, hematomas or skull depressions. No sinus tenderness. EYES: PERRLA, EOMI x 2, No injected conjunctiva, no nystagmus. EARS: Hearing grossly intact. Ear canals and tympanic membranes are within normal limits. MOUTH: Oropharynx within normal limits. NECK: Supple, trachea is midline, no adenopathy, no JVD, no carotid bruit, no c- spine tenderness, neck with full ROM. CHEST: Symmetric, no tenderness at palpation LUNGS: Clear to auscultation bilaterally. No wheezing or crackles. CVS: Regular rate and rhythm, S1 and S2 present, no murmurs or gallops appreciated. ABDOMEN: Soft, non-tender. No signs of distention. No rebound no guarding, and no masses palpated. Bowel sounds are normal. EXTREMITIES: FROM in all major joints, no edema, no cyanosis or clubbing. NEURO: Alert and oriented x 3. No acute neurological deficits. Speech is normal and follows commands. SKIN: Dry and warm PSYCH:Crying, Sobbing, Depressed. Denies any suicidal thoughts or plan. No homicidal thoughts or plan. No signs of psychosis or pressure speech. No tangential speech. Triage Information Reviewed: Yes Vital Signs On Initial Exam: Initial Vitals Temp Pulse Resp BP Pulse Ox 98.0 F 104 20 126/71 98 07/04/17 11:50 07/04/17 11:50 07/04/17 11:50 07/04/17 11:50 07/04/17 11:50 Vital Signs Reviewed: Yes Diagnostics - Vital Signs Vital Signs Temp Pulse Resp BP Pulse Ox 07/04/17 11:50 98.0 F 104 20 126/71 98 - Laboratory Lab Results: Lab Results 07/04/17 07/04/17 07/04/17 Range/Units 12:03 12:03 13:03 WBC 9.4 (3.5-10.8) 10^3/ul RBC 4.98 (4.0-5.4) 10^6/ul Hgb 14.2 (12.0-16.0) g/dl Hct 42 (35-47) % MCV 84 (80-97) fL MCH 29 (27-31) pg MCHC 34 (31-36) g/dl RDW 15 (10.5-15) % Plt Count 264 (150-450) 10^3/ul MPV 7.5 (7.4-10.4) um3 Neut % (Auto) 73.2 (38-83) % Lymph % (Auto) 19.2 L (25-47) % [place] % (Auto) 5.0 (0-7) % Eos % (Auto) 1.6 (0-6) % Baso % (Auto) 1.0 (0-2) % Absolute Neuts (auto) 6.9 (1.5-7.7) 10^3/ul Absolute Lymphs (auto) 1.8 (1.0-4.8) 10^3/ul Absolute Monos (auto) 0.5 (0-0.8) 10^3/ul Absolute Eos (auto) 0.1 (0-0.6) 10^3/ul Absolute Basos (auto) 0.1 (0-0.2) 10^3/ul Absolute Nucleated RBC 0 10^3/ul Nucleated RBC % 0 Sodium 139 (139-145) mmol/L Potassium 3.9 (3.5-5.0) mmol/L Chloride 108 (101-111) mmol/L Carbon Dioxide 25 (22-32) mmol/L Anion Gap 6 (2-11) mmol/L BUN 11 (6-24) mg/dL Creatinine 0.64 (0.51-0.95) mg/dL Est GFR ( Amer) 123.4 (>60) Est GFR (Non-Af Amer) 96.0 (>60) BUN/Creatinine Ratio 17.2 (8-20) Glucose 84 (70-100) mg/dL Calcium 9.2 (8.6-10.3) mg/dL Total Bilirubin 0.30 (0.2-1.0) mg/dL AST 15 (13-39) U/L ALT 15 (7-52) U/L Alkaline Phosphatase 108 H (34-104) U/L Total Protein 6.5 (6.4-8.9) g/dL Albumin 3.7 (3.2-5.2) g/dL Globulin 2.8 (2-4) g/dL Albumin/Globulin Ratio 1.3 (1-3) TSH 0.65 (0.34-5.60) mcIU/mL Urine Color Yellow Urine Appearance Clear Urine pH 7.0 (5-9) Ur Specific [place] 1.014 (1.010-1.030) Urine Protein Negative (Negative) Urine Ketones Negative (Negative) Urine Blood Negative (Negative) Urine Nitrate Negative (Negative) Urine Bilirubin Negative (Negative) Urine Urobilinogen Negative (Negative) Ur Leukocyte Esterase 2+ A (Negative) Urine WBC (Auto) 2+(11-20/hpf) A (Absent) Urine RBC (Auto) Trace(0-2/hpf) (Absent) Ur Squamous Epith Cells Present A (Absent) Urine Bacteria Absent (Absent) Urine Glucose Negative (Negative) Salicylates < 2.50 (<30) mg/dL Acetaminophen < 15 mcg/mL Serum Alcohol < 10 (<10) mg/dL Result Diagrams: 07/04/17 12:03 07/04/17 12:03 Lab Statement: Any lab studies that have been ordered have been reviewed, and results considered in the medical decision making process. Course/Dx - Course Assessment/Plan: This patient is a 56-year-old female who presents to the emergency department via ambulance with chief complaint of depression. She reports that she has been having depression for many years and she takes multiple medications. However she reports that these medications are not working and she feels more depressed. She is always sleeping and overeating. Blood work w/o a significant abnormality. She is medically cleared. She is awaiting for a MHE. Patient is hemodynamically stable and A+O x 3. Dr. Beck ecvaluated the patient and he recommends for the patient to be admitted. However, he recommends for the patient to be transferred to another facility. - Differential Dx/Clinical Impression Differential Diagnosis/HQI/PQRI: Positive: Anxiety, Depression Provider Diagnosis: Moderate mood disorder Discharge - Sign-Out/Discharge Documenting (check all that apply): Discharge/Admit/Transfer - Discharge Plan Condition: Stable Disposition: [facility] [place] Referrals: Calin MILLER,Jose Laird [Primary Care Provider] - - Billing Disposition and Condition Condition: STABLE Disposition: [facility] [place] The documentation as recorded by the Mathieu lopez Julia accurately reflects the service I personally performed and the decisions made by Cedric bach Walter, MD.
[2017-07-05 02:09] VITALS: BP 124/73
--- NOTE | 2017-07-05 04:08 | ED ---
Progress - Progress Note Progress Note: Patient was pending transfer when I assumed care. It was elected that she be transferred but bed was not available. Patient has remained stable throughout her stay up to this point. She was given Ativan as needed for sleep. I spoke doctor to doctor with accepting physician at [facility] , who accepted transfer. - Consult/PCP Time Called: 16:45 Course/Dx - Diagnoses Provider Diagnoses: Moderate mood disorder Discharge - Sign-Out/Discharge Documenting (check all that apply): Discharge/Admit/Transfer - Discharge Plan Condition: Stable Disposition: PSYCHIATRIC FACILITY-OTHER Discharge Disposition Comment: [facility], Dr Lugo. Referrals: Calin MILLER,Jose Laird [Primary Care Provider] - - Billing Disposition and Condition Condition: STABLE Disposition: PSY-OTH
== END 2017-07-05 05:50 ==
LOC: ED 11:40
DX: F39 Unspecified mood [affective] disorder (principal); F90.1 Attention-deficit hyperactivity disorder, predominantly hyperactive type; Z79.899 Other long term (current) drug therapy
CPT/HCPCS: 36415; 80053; 80307; 80320; 80329; 81003; 81015; 84443; 85025; 87086; 93005; 99285; A9270-GY; G0480

== ENCOUNTER 2017-07-17 15:29 | Emergency (ER) | payer OTHER ==
[2017-07-17 16:21] LABS: ABS Basophils 0.1 10^3/ul (0-0.2); ABS Eosinophils 0.2 10^3/ul (0-0.6); ABS Lymphocytes 1.7 10^3/ul (1.0-4.8); ABS Monocytes 0.5 10^3/ul (0-0.8); ABS Neutrophils 4.3 10^3/ul (1.5-7.7); ABS Nucleated RBC 0 10^3/ul; Eosinophil % 2.4 % (0-6); Hematocrit 41 % (35-47); Hemoglobin 13.8 g/dl (12.0-16.0); Lymphocyte % 25.7 % (25-47); Mean Corpuscular HGB Conc 34 g/dl (31-36); Mean Corpuscular Hemoglobin 29 pg (27-31); Mean Corpuscular Volume 84 fL (80-97); Mean Platelet Volume 7.3 um3 (7.4-10.4); Nucleated Red Blood Cells % 0; Platelet Count 294 10^3/ul (150-450); Red Blood Count 4.84 10^6/ul (4.0-5.4); Red Cell Distribution Width 15 % (10.5-15); White Blood Count 6.8 10^3/ul (3.5-10.8)
[2017-07-17 18:19] VITALS: BP 109/71
--- NOTE | 2017-07-19 11:50 | ED ---
Ron Schultz Angela, scribed for Keith Steele MD on 07/17/17 at 1615 . Psychiatric Complaint - HPI Summary HPI Summary: This pt is a 56 y/o female presenting to [facility] via EMS for difficulty concentrating and inability to stay focus s/p stopping Xanax medication. Pt reports she was weaned off Xanax successfully at [facility] and was discharged on July 11. She states that the last time she had Xanax was approximately 3 days before her discharge on 07/11. Pt notes that since then she has felt disoriented, uncomfortable, and unable to focus/concentrate. She reports "I just need help to stay off of it." Pt also states she is scared as she does not want to continue to take Xanax and wants to be completely off of it. Pt is on 60 mg Adderall and states the dose she is on feels too high without the Xanax. Pt notes she "cannot take it" and has only been taking as low as 30 mg. Today pt did not take any Adderall. - History Of Current Complaint Chief Complaint: EDGeneral Time Seen by Provider: 07/17/17 15:46 Hx Obtained From: Patient Hx Last Menstrual Period: a year ago Onset/Duration: Lasting Days, Still Present Timing: Days Severity Currently: Moderate Character: Fearful, Anxious Aggravating Factor(s): Nothing Alleviating Factor(s): Nothing Associated Signs And Symptoms: Positive: Paranoid Behavior Related History: Positive For: Prior Psychiatric Issues Has Suicidal: Denies: Thoughts, With A Plan Has Homicidal: Denies: Thoughts, With A Plan - Allergies/Home Medications Allergies/Adverse Reactions: Allergies Allergy/AdvReac Type Severity Reaction Status Date / Time No Known Allergies Allergy Verified 07/17/17 15:38 PMH/Surg Hx/FS Hx/Imm Hx Endocrine/Hematology History: Denies: Hx Diabetes, Hx Thyroid Disease Cardiovascular History: Denies: Hx Hypertension Respiratory History: Denies: Hx Asthma, Hx Chronic Obstructive Pulmonary Disease (COPD) GI History: Denies: Hx Ulcer Sensory History: Denies: Hx Contacts or Glasses, Hx Hearing Aid Opthamlomology History: Denies: Hx Contacts or Glasses Psychiatric History: Reports: Hx Anxiety, Hx Attention Deficit Hyperactivity Disorder, Hx Depression, Hx Community Mental Health Tx, Other Psychiatric Issues /Disorders - Hx dysthymia Denies: Hx Eating Disorder, Hx Schizophrenia, Hx Bipolar Disorder, Hx of Violent Episodes Against Others - Surgical History Surgery Procedure, Year, and Place: implants in - then removed Infectious Disease History: No Infectious Disease History: Reports: Hx Shingles Denies: Hx Clostridium Difficile, Hx Hepatitis, Hx Human Immunodeficiency Virus (HIV), Hx of Known/Suspected MRSA, Hx Tuberculosis, Hx Known/Suspected VRE , Hx Known/Suspected VRSA, History Other Infectious Disease, Traveled Outside the [place] in Last 30 Days - Family History Known Family History: Positive: Other - Lung CA - Social History Alcohol Use: patient states that she is a non-drinker Substance Use Type: Reports: Prescribed Smoking Status (MU): Never Smoked Tobacco Have You Smoked in the Last Year: No Review of Systems Negative: Fever Neurological: Other - difficulty concentration, unable to stay focused Positive: Anxious All Other Systems Reviewed And Are Negative: Yes Physical Exam - Summary Physical Exam Summary: VITAL SIGNS: Reviewed. GENERAL: Patient is a well-developed and nourished female who is lying comfortable in the stretcher. Patient is not in any acute respiratory distress. HEAD AND FACE: No signs of trauma. No ecchymosis, hematomas or skull depressions. No sinus tenderness. EYES: PERRLA, EOMI x 2, No injected conjunctiva, no nystagmus. EARS: Hearing grossly intact. Ear canals and tympanic membranes are within normal limits. MOUTH: Oropharynx within normal limits. NECK: Supple, trachea is midline, no adenopathy, no JVD, no carotid bruit, no c- spine tenderness, neck with full ROM. CHEST: Symmetric, no tenderness at palpation LUNGS: Clear to auscultation bilaterally. No wheezing or crackles. CVS: Regular rate and rhythm, S1 and S2 present, no murmurs or gallops appreciated. ABDOMEN: Soft, non-tender. No signs of distention. No rebound no guarding, and no masses palpated. Bowel sounds are normal. EXTREMITIES: FROM in all major joints, no edema, no cyanosis or clubbing. NEURO: Alert and oriented x 3. No acute neurological deficits. Speech is normal and follows commands. SKIN: Dry and warm PSYCH: anxious Triage Information Reviewed: Yes Vital Signs On Initial Exam: Initial Vitals Temp Pulse Resp BP Pulse Ox 98.2 F 92 16 121/96 96 07/17/17 15:35 07/17/17 15:35 07/17/17 15:35 07/17/17 15:35 07/17/17 15:35 Vital Signs Reviewed: Yes Diagnostics - Vital Signs Vital Signs Temp Pulse Resp BP Pulse Ox 07/17/17 15:35 98.2 F 92 16 121/96 96 - Laboratory Result Diagrams: 07/17/17 16:15 07/17/17 16:15 Lab Statement: Any lab studies that have been ordered have been reviewed, and results considered in the medical decision making process. Course/Dx - Course Assessment/Plan: Pt is a 56 y/o female who presents with difficulty concentrating and inability to stay focus s/p stopping Xanax medication. Pt reports she was weaned off Xanax successfully at [facility] and was discharged on July 11. She states that the last time she had Xanax was approximately 3 days before her discharge on 07/11. Pt notes that since then she has felt disoriented, uncomfortable, and unable to focus/concentrate. She reports "I just need help to stay off of it." Pt also states she is scared as she does not want to continue to take Xanax and wants to be completely off of it. Test results without any significant abnormalities. Toxicology screen is negative. The pt seems to be anxious. Therefore she will be discharged home with follow up from her PCP and her psychiatrist. I discussed all the findings and test results with the patient. All questions were answered to patient satisfaction. There were no further complaints or concerns. She is instructed to return to the ED for any worsening or new symptoms. Pt is hemodynamically stable, alert and oriented x3. - Differential Dx/Clinical Impression Provider Diagnosis: Anxiety Discharge - Sign-Out/Discharge Documenting (check all that apply): Discharge/Admit/Transfer - Discharge - Discharge Plan Condition: Stable Disposition: HOME Patient Education Materials: Anxiety (ED) Referrals: Calin MILLER,Jose Laird [Primary Care Provider] - Additional Instructions: Please follow up with your primary care provider. RETURN TO THE ED FOR ANY NEW OR WORSENING SYMPTOMS. The documentation as recorded by the Ron lopez Angela accurately reflects the service I personally performed and the decisions made by me, Keith Steele MD.
== END 2017-07-17 18:20 | disposition home or self-care (01) ==
LOC: ED 15:29
DX: F90.9 Attention-deficit hyperactivity disorder, unspecified type (principal); F41.9 Anxiety disorder, unspecified; F32.9 Major depressive disorder, single episode, unspecified; Z80.1 Family history of malignant neoplasm of trachea, bronchus and lung
CPT/HCPCS: 36415; 80053; 80320; 80329; 84443; 85025; 99283; G0480

== ENCOUNTER 2017-07-21 13:21 | Emergency (ER) | payer OTHER ==
[2017-07-21 14:03] VITALS: BP 149/61
[2017-07-21 14:03] LABS: ABS Basophils 0.1 10^3/ul (0-0.2); ABS Eosinophils 0.1 10^3/ul (0-0.6); ABS Lymphocytes 1.2 10^3/ul (1.0-4.8); ABS Monocytes 0.3 10^3/ul (0-0.8); ABS Neutrophils 5.6 10^3/ul (1.5-7.7); ABS Nucleated RBC 0 10^3/ul; Eosinophil % 1.2 % (0-6); Hematocrit 39 % (35-47); Hemoglobin 13.3 g/dl (12.0-16.0); Lymphocyte % 16.1 % (25-47); Mean Corpuscular HGB Conc 34 g/dl (31-36); Mean Corpuscular Hemoglobin 29 pg (27-31); Mean Corpuscular Volume 84 fL (80-97); Mean Platelet Volume 7.3 um3 (7.4-10.4); Nucleated Red Blood Cells % 0; Platelet Count 273 10^3/ul (150-450); Red Blood Count 4.64 10^6/ul (4.0-5.4); Red Cell Distribution Width 15 % (10.5-15); White Blood Count 7.3 10^3/ul (3.5-10.8)
[2017-07-21 14:19] LABS: EGFR Non-African American 103.4 (>60)
[2017-07-21 15:05] LABS: Urine Appearance Clear; Urine Blood Negative (Negative); Urine Color Yellow; Urine Ketones Negative (Negative); Urine Protein Negative (Negative); Urine Specific Gravity 1.015 (1.010-1.030); Urine Urobilinogen Negative (Negative)
--- NOTE | 2017-07-21 16:18 | ED ---
Mathieu Schultz Julia, scribed for Kieth Steele MD on 07/21/17 at 1415 . Psychiatric Complaint - HPI Summary HPI Summary: This patient is a 56 year old F BIBA to [facility] because she has been attempting to decrease her medications including Xanax and Adderall, without advisement of a PCP. She states she has not been to therapy recently. Complains of spinning mind. Denies SI and HI. - History Of Current Complaint Chief Complaint: EDMentalHealth Time Seen by Provider: 07/21/17 13:32 Hx Obtained From: Patient Hx Last Menstrual Period: a year ago Onset/Duration: Gradual Onset Timing: Constant Severity Initially: Mild Severity Currently: Moderate Character: Manic Aggravating Factor(s): Medication Non-compliance, Therapy Non-compliance Alleviating Factor(s): Medication, Counseling Related History: Positive For: Prior Psychiatric Issues Has Suicidal: Denies: Thoughts Has Homicidal: Denies: Thoughts - Allergies/Home Medications Allergies/Adverse Reactions: Allergies Allergy/AdvReac Type Severity Reaction Status Date / Time No Known Allergies Allergy Verified 07/17/17 15:38 PMH/Surg Hx/FS Hx/Imm Hx Endocrine/Hematology History: Denies: Hx Diabetes, Hx Thyroid Disease Cardiovascular History: Denies: Hx Hypertension Respiratory History: Denies: Hx Asthma, Hx Chronic Obstructive Pulmonary Disease (COPD) GI History: Denies: Hx Ulcer Sensory History: Denies: Hx Contacts or Glasses, Hx Hearing Aid Opthamlomology History: Denies: Hx Contacts or Glasses Psychiatric History: Reports: Hx Anxiety, Hx Attention Deficit Hyperactivity Disorder, Hx Depression, Hx Community Mental Health Tx, Other Psychiatric Issues /Disorders - Hx dysthymia Denies: Hx Eating Disorder, Hx Schizophrenia, Hx Bipolar Disorder, Hx of Violent Episodes Against Others - Surgical History Surgery Procedure, Year, and Place: implants in - then removed Infectious Disease History: No Infectious Disease History: Reports: Hx Shingles Denies: Hx Clostridium Difficile, Hx Hepatitis, Hx Human Immunodeficiency Virus (HIV), Hx of Known/Suspected MRSA, Hx Tuberculosis, Hx Known/Suspected VRE , Hx Known/Suspected VRSA, History Other Infectious Disease, Traveled Outside the [place] in Last 30 Days - Family History Known Family History: Positive: Other - Lung CA - Social History Alcohol Use: patient states that she is a non-drinker Substance Use Type: Reports: Prescribed Smoking Status (MU): Never Smoked Tobacco Have You Smoked in the Last Year: No Review of Systems Constitutional: Negative Positive: Other - manic All Other Systems Reviewed And Are Negative: Yes Physical Exam - Summary Physical Exam Summary: VITAL SIGNS: Reviewed. GENERAL: Patient is a well-developed and nourished female who is lying comfortable in the stretcher. Patient is not in any acute respiratory distress. HEAD AND FACE: No signs of trauma. No ecchymosis, hematomas or skull depressions. No sinus tenderness. EYES: PERRLA, EOMI x 2, No injected conjunctiva, no nystagmus. EARS: Hearing grossly intact. Ear canals and tympanic membranes are within normal limits. MOUTH: Oropharynx within normal limits. NECK: Supple, trachea is midline, no adenopathy, no JVD, no carotid bruit, no c- spine tenderness, neck with full ROM. CHEST: Symmetric, no tenderness at palpation LUNGS: Clear to auscultation bilaterally. No wheezing or crackles. CVS: Regular rate and rhythm, S1 and S2 present, no murmurs or gallops appreciated. ABDOMEN: Soft, non-tender. No signs of distention. No rebound no guarding, and no masses palpated. Bowel sounds are normal. EXTREMITIES: FROM in all major joints, no edema, no cyanosis or clubbing. NEURO: Alert and oriented x 3. No acute neurological deficits. Speech is normal and follows commands. SKIN: Dry and warm PSYCH: Manic. denies any suicidal thoughts or plan. No homicidal thoughts or plan. No signs of psychosis or pressure speech. No tangential speech. Triage Information Reviewed: Yes Vital Signs On Initial Exam: Initial Vitals Temp Pulse Resp BP Pulse Ox 98.4 F 75 18 149/61 99 07/21/17 13:53 07/21/17 13:53 07/21/17 13:53 07/21/17 13:53 07/21/17 13:53 Vital Signs Reviewed: Yes Diagnostics - Vital Signs Vital Signs Temp Pulse Resp BP Pulse Ox 07/21/17 13:53 98.4 F 75 18 149/61 99 - Laboratory Lab Results: Lab Results 07/21/17 Range/Units 13:57 WBC 7.3 (3.5-10.8) 10^3/ul RBC 4.64 (4.0-5.4) 10^6/ul Hgb 13.3 (12.0-16.0) g/dl Hct 39 (35-47) % MCV 84 (80-97) fL MCH 29 (27-31) pg MCHC 34 (31-36) g/dl RDW 15 (10.5-15) % Plt Count 273 (150-450) 10^3/ul MPV 7.3 L (7.4-10.4) um3 Neut % (Auto) 77.2 (38-83) % Lymph % (Auto) 16.1 L (25-47) % [place] % (Auto) 4.7 (0-7) % Eos % (Auto) 1.2 (0-6) % Baso % (Auto) 0.8 (0-2) % Absolute Neuts (auto) 5.6 (1.5-7.7) 10^3/ul Absolute Lymphs (auto) 1.2 (1.0-4.8) 10^3/ul Absolute Monos (auto) 0.3 (0-0.8) 10^3/ul Absolute Eos (auto) 0.1 (0-0.6) 10^3/ul Absolute Basos (auto) 0.1 (0-0.2) 10^3/ul Absolute Nucleated RBC 0 10^3/ul Nucleated RBC % 0 Result Diagrams: 07/21/17 13:57 07/21/17 13:57 Lab Statement: Any lab studies that have been ordered have been reviewed, and results considered in the medical decision making process. Course/Dx - Course Assessment/Plan: This patient is a 56-year-old female who presents to the emergency room requesting medications adjustment. In the physical exam the patient seems to be manic where she has pressured speech, worse out at a very energetic. Blood test results without any significant abnormality. The patient is medically clear. The patient was awaiting for mental health evaluation. Dr. Rocha from psychiatry did ventilation for the patient. He recommends for the patient to be discharged home with follow-up with primary care physician. - Differential Dx/Clinical Impression Differential Diagnosis/HQI/PQRI: Positive: Anxiety, Bipolar Disorder Provider Diagnosis: Substance use disorder Discharge - Sign-Out/Discharge Documenting (check all that apply): Discharge/Admit/Transfer - Discharge Plan Condition: Stable Disposition: HOME Referrals: Calin MILLER,Jose Laird [Medical Doctor] - - Billing Disposition and Condition Condition: STABLE Disposition: Home The documentation as recorded by the Mathieu lopez Julia accurately reflects the service I personally performed and the decisions made by me, Keith Steele MD.
== END 2017-07-21 17:26 | disposition home or self-care (01) ==
LOC: ED 13:21
DX: F19.10 Other psychoactive substance abuse, uncomplicated (principal)
CPT/HCPCS: 36415; 80053; 80307; 80320; 80329; 81003; 81015; 84443; 85025; 87086; 99284; G0480

== ENCOUNTER 2017-07-23 11:14 | Inpatient (IN) | payer OTHER ==
[2017-07-23 12:01] LABS: ABS Basophils 0.1 10^3/ul (0-0.2); ABS Eosinophils 0.1 10^3/ul (0-0.6); ABS Lymphocytes 1.3 10^3/ul (1.0-4.8); ABS Monocytes 0.3 10^3/ul (0-0.8); ABS Nucleated RBC 0 10^3/ul; Eosinophil % 2.3 % (0-6); Hematocrit 40 % (35-47); Hemoglobin 13.2 g/dl (12.0-16.0); Lymphocyte % 22.1 % (25-47); Mean Corpuscular HGB Conc 33 g/dl (31-36); Mean Corpuscular Hemoglobin 28 pg (27-31); Mean Corpuscular Volume 84 fL (80-97); Mean Platelet Volume 7.3 um3 (7.4-10.4); Nucleated Red Blood Cells % 0; Platelet Count 273 10^3/ul (150-450); Red Blood Count 4.72 10^6/ul (4.00-5.40); Red Cell Distribution Width 15 % (10.5-15); White Blood Count 5.8 10^3/ul (3.5-10.8)
[2017-07-23 12:18] LABS: EGFR Non-African American 75.3 (>60)
[2017-07-23 12:30] LABS: Urine Appearance Cloudy; Urine Blood Negative (Negative); Urine Color Yellow; Urine Ketones Negative (Negative); Urine Protein 1+(30 mg/dL) (Negative); Urine Red Blood Cell 2+(6-10/hpf) (Absent); Urine Urobilinogen Negative (Negative); Urine White Blood Cell 3+(>20/hpf) (Absent)
[2017-07-23] MEDS ORDERED: Venlafaxine EXT RELEASE CAP* 75 MG PO ONE (21:08)
[2017-07-23] MEDS ORDERED: hydrOXYzine HCL TAB* 25 MG PO ONE (22:15)
[2017-07-24] MEDS ORDERED: ALPRAZolam TAB* 0.5 MG PO ONE (03:15)
[2017-07-24] MEDS ORDERED: hydrOXYzine HCL TAB* 50 MG PO ONE ×3 (03:23→22:57)
[2017-07-24] MEDS ORDERED: hydrOXYzine HCL TAB* 50 MG ONE (03:24)
--- NOTE | 2017-07-24 07:34 | PN ---
ED Flex Patient Progress Note Subjective: This is a 56 year-old F who is pending re-evaluation by psychiatry secondary to ____anxiety . She was initially posted for admission here however insurance is not going to cover her stay unless they get more substantial information. Staff is contacting psych provider. Pt is anxious and yelling upon entrance to room - requesting no one else disturb her, she's trying to sleep. Objective: Vitals: Most recent vital signs documented below. General NAD, Alert and oriented x3. Heart: rrr S1/S2 Lungs: CTA BREATHING EASILY AB: +bs, soft NTTP Laboratory: Current laboratory results documented below. Assessment: 1) anxiety Plan: Pending psychiatric re-evaluation. will follow up daily __while in ED___. Vital Signs Temp Pulse Resp BP Pulse Ox 98.6 F 82 18 120/61 100 07/23/17 14:07 07/23/17 14:07 07/23/17 14:07 07/23/17 14:07 07/23/17 14:07 Lab Results - Entire Visit 07/23/17 07/23/17 07/23/17 12:04 12:04 11:53 WBC RBC Hgb Hct MCV MCH MCHC RDW Plt Count MPV Neut % (Auto) Lymph % (Auto) [place] % (Auto) Eos % (Auto) Baso % (Auto) Absolute Neuts (auto) Absolute Lymphs (auto) Absolute Monos (auto) Absolute Eos (auto) Absolute Basos (auto) Absolute Nucleated RBC Nucleated RBC % Sodium 140 Potassium 3.8 Chloride 105 Carbon Dioxide 28 Anion Gap 7 BUN 12 Creatinine 0.79 Est GFR ( Amer) 96.8 Est GFR (Non-Af Amer) 75.3 BUN/Creatinine Ratio 15.2 Glucose 93 Calcium 9.1 Total Bilirubin 0.30 AST 11 L ALT 13 Alkaline Phosphatase 73 Total Protein 6.4 Albumin 3.8 Globulin 2.6 Albumin/Globulin Ratio 1.5 TSH 1.30 Urine Color Yellow Urine Appearance Cloudy Urine pH 5.0 Ur Specific [place] 1.020 Urine Protein 1+(30 mg/dl) A Urine Ketones Negative Urine Blood Negative Urine Nitrate Negative Urine Bilirubin Negative Urine Urobilinogen Negative Ur Leukocyte Esterase 3+ A Urine WBC (Auto) 3+(>20/hpf) A Urine RBC (Auto) 2+(6-10/hpf) A Ur Squamous Epith Cells Present A Urine Bacteria Absent Hyaline Casts Present A Urine Glucose Negative Salicylates < 2.50 Urine Opiates Screen None detected Acetaminophen < 15 Ur Barbiturates Screen None detected Ur Phencyclidine Scrn None detected Ur Amphetamines Screen None detected U Benzodiazepines Scrn None detected Urine Cocaine Screen None detected U Cannabinoids Screen None detected Serum Alcohol < 10 07/23/17 11:53 WBC 5.8 RBC 4.72 Hgb 13.2 Hct 40 MCV 84 MCH 28 MCHC 33 RDW 15 Plt Count 273 MPV 7.3 L Neut % (Auto) 68.7 Lymph % (Auto) 22.1 L [place] % (Auto) 5.6 Eos % (Auto) 2.3 Baso % (Auto) 1.3 Absolute Neuts (auto) 4.0 Absolute Lymphs (auto) 1.3 Absolute Monos (auto) 0.3 Absolute Eos (auto) 0.1 Absolute Basos (auto) 0.1 Absolute Nucleated RBC 0 Nucleated RBC % 0 Sodium Potassium Chloride Carbon Dioxide Anion Gap BUN Creatinine Est GFR ( Amer) Est GFR (Non-Af Amer) BUN/Creatinine Ratio Glucose Calcium Total Bilirubin AST ALT Alkaline Phosphatase Total Protein Albumin Globulin Albumin/Globulin Ratio TSH Urine Color Urine Appearance Urine pH Ur Specific [place] Urine Protein Urine Ketones Urine Blood Urine Nitrate Urine Bilirubin Urine Urobilinogen Ur Leukocyte Esterase Urine WBC (Auto) Urine RBC (Auto) Ur Squamous Epith Cells Urine Bacteria Hyaline Casts Urine Glucose Salicylates Urine Opiates Screen Acetaminophen Ur Barbiturates Screen Ur Phencyclidine Scrn Ur Amphetamines Screen U Benzodiazepines Scrn Urine Cocaine Screen U Cannabinoids Screen Serum Alcohol
[2017-07-24] MEDS ORDERED: hydrOXYzine HCL TAB* 25 MG ONE (10:06)
--- NOTE | 2017-07-24 10:48 | ED ---
Odilon Schultz Tiffany, scribed for Keith Steele MD on 07/23/17 at 1139 . Psychiatric Complaint - HPI Summary HPI Summary: 56 year old F BIB police [facility] requesting to be transferred to [place] for inpatient treatment. Symptoms aggravated by nothing. Symptoms alleviated by nothing. Patient denies SI, HI. Seen here 2 days ago, after which she was discharged. Hx anxiety. Hx using Adderall and Xanax. Patient comes here today because she wants to wean off these meds, wants to go to [place] for rehab. - History Of Current Complaint Time Seen by Provider: 07/23/17 11:24 Hx Obtained From: Patient Onset/Duration: Still Present Aggravating Factor(s): Nothing Alleviating Factor(s): Nothing Associated Signs And Symptoms: Positive: Negative - SI, HI Has Suicidal: Denies: Thoughts Has Homicidal: Denies: Thoughts - Allergies/Home Medications Allergies/Adverse Reactions: Allergies Allergy/AdvReac Type Severity Reaction Status Date / Time No Known Allergies Allergy Verified 07/17/17 15:38 PMH/Surg Hx/FS Hx/Imm Hx Previously Healthy: No Endocrine/Hematology History: Denies: Hx Diabetes, Hx Thyroid Disease Cardiovascular History: Denies: Hx Hypertension Respiratory History: Denies: Hx Asthma, Hx Chronic Obstructive Pulmonary Disease (COPD) GI History: Denies: Hx Ulcer Sensory History: Denies: Hx Contacts or Glasses, Hx Hearing Aid Opthamlomology History: Denies: Hx Contacts or Glasses Psychiatric History: Reports: Hx Anxiety, Hx Attention Deficit Hyperactivity Disorder, Hx Depression, Hx Community Mental Health Tx, Other Psychiatric Issues /Disorders - Hx dysthymia Denies: Hx Eating Disorder, Hx Schizophrenia, Hx Bipolar Disorder, Hx of Violent Episodes Against Others - Surgical History Surgery Procedure, Year, and Place: implants in - then removed Infectious Disease History: Reports: Hx Shingles Denies: Hx Clostridium Difficile, Hx Hepatitis, Hx Human Immunodeficiency Virus (HIV), Hx of Known/Suspected MRSA, Hx Tuberculosis, Hx Known/Suspected VRE , Hx Known/Suspected VRSA, History Other Infectious Disease - Family History Known Family History: Positive: Other - Lung CA - Social History Alcohol Use: patient states that she is a non-drinker Hx Substance Use: Yes Substance Use Type: Reports: Prescribed Hx Tobacco Use: No Smoking Status (MU): Never Smoked Tobacco Have You Smoked in the Last Year: No Review of Systems Negative: Fever Positive: Other - NEGATIVE: SI, HI All Other Systems Reviewed And Are Negative: Yes Physical Exam - Summary Physical Exam Summary: VITAL SIGNS: Reviewed. GENERAL: Patient is a well-developed and nourished female who is lying comfortable in the stretcher. Patient is not in any acute respiratory distress. HEAD AND FACE: No signs of trauma. No ecchymosis, hematomas or skull depressions. No sinus tenderness. EYES: PERRLA, EOMI x 2, No injected conjunctiva, no nystagmus. EARS: Hearing grossly intact. Ear canals and tympanic membranes are within normal limits. MOUTH: Oropharynx within normal limits. NECK: Supple, trachea is midline, no adenopathy, no JVD, no carotid bruit, no c- spine tenderness, neck with full ROM. CHEST: Symmetric, no tenderness at palpation LUNGS: Clear to auscultation bilaterally. No wheezing or crackles. CVS: Regular rate and rhythm, S1 and S2 present, no murmurs or gallops appreciated. ABDOMEN: Soft, non-tender. No signs of distention. No rebound no guarding, and no masses palpated. Bowel sounds are normal. EXTREMITIES: FROM in all major joints, no edema, no cyanosis or clubbing. NEURO: Alert and oriented x 3. No acute neurological deficits. Speech is normal and follows commands. SKIN: Dry and warm PSYCH: Denies any suicidal thoughts or plan. No homicidal thoughts or plan. No signs of psychosis or pressure speech. No tangential speech. Triage Information Reviewed: Yes Vital Signs On Initial Exam: Initial Vitals Temp Pulse Resp BP Pulse Ox 97.5 F 72 16 145/70 96 07/23/17 11:28 07/23/17 11:28 07/23/17 11:28 07/23/17 11:28 07/23/17 11:28 Vital Signs Reviewed: Yes Diagnostics - Vital Signs Vital Signs Temp Pulse Resp BP Pulse Ox 07/23/17 11:28 97.5 F 72 16 145/70 96 - Laboratory Lab Results: Lab Results 07/23/17 Range/Units 11:53 WBC 5.8 (3.5-10.8) 10^3/ul RBC 4.72 (4.00-5.40) 10^6/ul Hgb 13.2 (12.0-16.0) g/dl Hct 40 (35-47) % MCV 84 (80-97) fL MCH 28 (27-31) pg MCHC 33 (31-36) g/dl RDW 15 (10.5-15) % Plt Count 273 (150-450) 10^3/ul MPV 7.3 L (7.4-10.4) um3 Neut % (Auto) 68.7 (38-83) % Lymph % (Auto) 22.1 L (25-47) % [place] % (Auto) 5.6 (0-7) % Eos % (Auto) 2.3 (0-6) % Baso % (Auto) 1.3 (0-2) % Absolute Neuts (auto) 4.0 (1.5-7.7) 10^3/ul Absolute Lymphs (auto) 1.3 (1.0-4.8) 10^3/ul Absolute Monos (auto) 0.3 (0-0.8) 10^3/ul Absolute Eos (auto) 0.1 (0-0.6) 10^3/ul Absolute Basos (auto) 0.1 (0-0.2) 10^3/ul Absolute Nucleated RBC 0 10^3/ul Nucleated RBC % 0 Result Diagrams: 07/23/17 11:53 07/23/17 11:53 Lab Statement: Any lab studies that have been ordered have been reviewed, and results considered in the medical decision making process. Course/Dx - Course Assessment/Plan: Blood work w/o a significant abnormality. She is medically cleared. She is awaiting for a MHE. Patient is hemodynamically stable and A+O x 3. This patient was evaluated by Dr. Leach from psychiatry and he agreed to admit the patient to his services for further workup and management. - Differential Dx/Clinical Impression Differential Diagnosis/HQI/PQRI: Positive: Acute Psychosis, Anxiety Provider Diagnosis: Depressive disorder Discharge - Sign-Out/Discharge Documenting (check all that apply): Discharge/Admit/Transfer - Discharge Plan Condition: Stable Disposition: PSYCHIATRIC FACILITY-[facility] [place] Referrals: No Primary Care Phys,NOPCP [Primary Care Provider] - The documentation as recorded by the Odilon lopez Tiffany accurately reflects the service I personally performed and the decisions made by Cedric bach Walter, MD.
--- NOTE | 2017-07-24 11:06 | PN ---
ED Flex Patient Progress Note Date of Service: 07/24/17 Subjective: ED Flex Day #1 for this 56 y.o. single, white female with a history of affective dysfunction who presents with pressured speech, SI and inability to contract for safety. Objective: Dishevelled, pressured white middle-aged female in ripped scrubs; manic with labile, anxious affect; SI if discharged without help Assessment: Unspecified bipolar DO Plan: Admit to psychiatry. Vital Signs Temp Pulse Resp BP Pulse Ox 97.5 F 79 17 119/77 99 07/24/17 08:18 07/24/17 08:18 07/24/17 08:18 07/24/17 08:18 07/24/17 08:18 Lab Results - Entire Visit 07/24/17 07/24/17 07/23/17 07:55 07:55 12:04 WBC RBC Hgb Hct MCV MCH MCHC RDW Plt Count MPV Neut % (Auto) Lymph % (Auto) [place] % (Auto) Eos % (Auto) Baso % (Auto) Absolute Neuts (auto) Absolute Lymphs (auto) Absolute Monos (auto) Absolute Eos (auto) Absolute Basos (auto) Absolute Nucleated RBC Nucleated RBC % Sodium Potassium Chloride Carbon Dioxide Anion Gap BUN Creatinine Est GFR ( Amer) Est GFR (Non-Af Amer) BUN/Creatinine Ratio Glucose Hemoglobin A1c 5.3 Calcium Total Bilirubin AST ALT Alkaline Phosphatase Total Protein Albumin Globulin Albumin/Globulin Ratio Triglycerides 246 Cholesterol 196 LDL Cholesterol 93 HDL Cholesterol 53.8 TSH Urine Color Urine Appearance Urine pH Ur Specific [place] Urine Protein Urine Ketones Urine Blood Urine Nitrate Urine Bilirubin Urine Urobilinogen Ur Leukocyte Esterase Urine WBC (Auto) Urine RBC (Auto) Ur Squamous Epith Cells Urine Bacteria Hyaline Casts Urine Glucose Salicylates Urine Opiates Screen None detected Acetaminophen Ur Barbiturates Screen None detected Ur Phencyclidine Scrn None detected Ur Amphetamines Screen None detected U Benzodiazepines Scrn None detected Urine Cocaine Screen None detected U Cannabinoids Screen None detected Serum Alcohol 07/23/17 07/23/17 07/23/17 12:04 11:53 11:53 WBC 5.8 RBC 4.72 Hgb 13.2 Hct 40 MCV 84 MCH 28 MCHC 33 RDW 15 Plt Count 273 MPV 7.3 L Neut % (Auto) 68.7 Lymph % (Auto) 22.1 L [place] % (Auto) 5.6 Eos % (Auto) 2.3 Baso % (Auto) 1.3 Absolute Neuts (auto) 4.0 Absolute Lymphs (auto) 1.3 Absolute Monos (auto) 0.3 Absolute Eos (auto) 0.1 Absolute Basos (auto) 0.1 Absolute Nucleated RBC 0 Nucleated RBC % 0 Sodium 140 Potassium 3.8 Chloride 105 Carbon Dioxide 28 Anion Gap 7 BUN 12 Creatinine 0.79 Est GFR ( Amer) 96.8 Est GFR (Non-Af Amer) 75.3 BUN/Creatinine Ratio 15.2 Glucose 93 Hemoglobin A1c Calcium 9.1 Total Bilirubin 0.30 AST 11 L ALT 13 Alkaline Phosphatase 73 Total Protein 6.4 Albumin 3.8 Globulin 2.6 Albumin/Globulin Ratio 1.5 Triglycerides Cholesterol LDL Cholesterol HDL Cholesterol TSH 1.30 Urine Color Yellow Urine Appearance Cloudy Urine pH 5.0 Ur Specific [place] 1.020 Urine Protein 1+(30 mg/dl) A Urine Ketones Negative Urine Blood Negative Urine Nitrate Negative Urine Bilirubin Negative Urine Urobilinogen Negative Ur Leukocyte Esterase 3+ A Urine WBC (Auto) 3+(>20/hpf) A Urine RBC (Auto) 2+(6-10/hpf) A Ur Squamous Epith Cells Present A Urine Bacteria Absent Hyaline Casts Present A Urine Glucose Negative Salicylates < 2.50 Urine Opiates Screen Acetaminophen < 15 Ur Barbiturates Screen Ur Phencyclidine Scrn Ur Amphetamines Screen U Benzodiazepines Scrn Urine Cocaine Screen U Cannabinoids Screen Serum Alcohol < 10
[2017-07-24] MEDS: Amphetamine MIXED SALT TAB* 10 MG TAB PO SCH (13:53)
--- NOTE | 2017-07-25 06:43 | ED ---
Mikaela Schultz Gabriel, scribed for Clement Villalba MD on 07/25/17 at 0634 . Progress - Progress Note Progress Note: This patient was signed out from Dr. Steele awaiting MHE. The patient will be signed out to Dr. Mistry at shift change awaiting MHE. - Consult/PCP Time Called: 15:00 Course/Dx - Diagnoses Provider Diagnoses: Depressive disorder Discharge - Sign-Out/Discharge Documenting (check all that apply): Sign-Out Patient, Receiving Sign-Out Signing out patient TO: Polo Mistry Receiving patient FROM: Keith Steele - Discharge Plan Condition: Stable Disposition: PSYCHIATRIC FACILITY-OTHER Referrals: No Primary Care Phys,NOPCP [Primary Care Provider] - The documentation as recorded by the Mikaela lopez Gabriel accurately reflects the service I personally performed and the decisions made by Orly bach Abdul, MD.
--- NOTE | 2017-07-25 06:59 | PN ---
ED Flex Patient Progress Note Date of Service: 07/23/17 Subjective: This is a 56 year-old F who is pending admission to [facility] / transfer to another psychiatric facility / discharge to home / or being observed secondary to anxiety. Pt. examined at 0655. She is sleeping comfortably. Objective: Laboratory: Current laboratory results documented below. Assessment: Pending BHE and disposition Plan: Pending psychiatric or medical consultation to observe / transfer / admit / discharge will follow up daily . Vital Signs Temp Pulse Resp BP Pulse Ox 98.7 F 99 16 114/40 100 07/24/17 21:29 07/24/17 21:29 07/24/17 21:29 07/24/17 21:29 07/24/17 21:29 Lab Results - Entire Visit 07/24/17 07/24/17 07/23/17 07:55 07:55 12:04 WBC RBC Hgb Hct MCV MCH MCHC RDW Plt Count MPV Neut % (Auto) Lymph % (Auto) [place] % (Auto) Eos % (Auto) Baso % (Auto) Absolute Neuts (auto) Absolute Lymphs (auto) Absolute Monos (auto) Absolute Eos (auto) Absolute Basos (auto) Absolute Nucleated RBC Nucleated RBC % Sodium Potassium Chloride Carbon Dioxide Anion Gap BUN Creatinine Est GFR ( Amer) Est GFR (Non-Af Amer) BUN/Creatinine Ratio Glucose Hemoglobin A1c 5.3 Calcium Total Bilirubin AST ALT Alkaline Phosphatase Total Protein Albumin Globulin Albumin/Globulin Ratio Triglycerides 246 Cholesterol 196 LDL Cholesterol 93 HDL Cholesterol 53.8 TSH Urine Color Urine Appearance Urine pH Ur Specific [place] Urine Protein Urine Ketones Urine Blood Urine Nitrate Urine Bilirubin Urine Urobilinogen Ur Leukocyte Esterase Urine WBC (Auto) Urine RBC (Auto) Ur Squamous Epith Cells Urine Bacteria Hyaline Casts Urine Glucose Salicylates Urine Opiates Screen None detected Acetaminophen Ur Barbiturates Screen None detected Ur Phencyclidine Scrn None detected Ur Amphetamines Screen None detected U Benzodiazepines Scrn None detected Urine Cocaine Screen None detected U Cannabinoids Screen None detected Serum Alcohol 07/23/17 07/23/17 07/23/17 12:04 11:53 11:53 WBC 5.8 RBC 4.72 Hgb 13.2 Hct 40 MCV 84 MCH 28 MCHC 33 RDW 15 Plt Count 273 MPV 7.3 L Neut % (Auto) 68.7 Lymph % (Auto) 22.1 L [place] % (Auto) 5.6 Eos % (Auto) 2.3 Baso % (Auto) 1.3 Absolute Neuts (auto) 4.0 Absolute Lymphs (auto) 1.3 Absolute Monos (auto) 0.3 Absolute Eos (auto) 0.1 Absolute Basos (auto) 0.1 Absolute Nucleated RBC 0 Nucleated RBC % 0 Sodium 140 Potassium 3.8 Chloride 105 Carbon Dioxide 28 Anion Gap 7 BUN 12 Creatinine 0.79 Est GFR ( Amer) 96.8 Est GFR (Non-Af Amer) 75.3 BUN/Creatinine Ratio 15.2 Glucose 93 Hemoglobin A1c Calcium 9.1 Total Bilirubin 0.30 AST 11 L ALT 13 Alkaline Phosphatase 73 Total Protein 6.4 Albumin 3.8 Globulin 2.6 Albumin/Globulin Ratio 1.5 Triglycerides Cholesterol LDL Cholesterol HDL Cholesterol TSH 1.30 Urine Color Yellow Urine Appearance Cloudy Urine pH 5.0 Ur Specific [place] 1.020 Urine Protein 1+(30 mg/dl) A Urine Ketones Negative Urine Blood Negative Urine Nitrate Negative Urine Bilirubin Negative Urine Urobilinogen Negative Ur Leukocyte Esterase 3+ A Urine WBC (Auto) 3+(>20/hpf) A Urine RBC (Auto) 2+(6-10/hpf) A Ur Squamous Epith Cells Present A Urine Bacteria Absent Hyaline Casts Present A Urine Glucose Negative Salicylates < 2.50 Urine Opiates Screen Acetaminophen < 15 Ur Barbiturates Screen Ur Phencyclidine Scrn Ur Amphetamines Screen U Benzodiazepines Scrn Urine Cocaine Screen U Cannabinoids Screen Serum Alcohol < 10
[2017-07-25] MEDS: Amphetamine MIXED SALT TAB* 10 MG TAB PO SCH (10:25)
--- NOTE | 2017-07-25 10:33 | ED ---
Rno Schultz Angela, scribed for Keith Steele MD on 07/24/17 at 0907 . Progress - Progress Note Progress Note: This pt was pending admission to [facility] psychiatric unit. Mental health plant electrical engineer reported Dr. Leach would like to discharge the pt home at this point because pt's insurance does not cover admission. I will speak with Dr. Leach as I don't think pt should be discharged and she needs admission. [10:54] Dr. Leach spoke with the pt's insurance company. Pt now agrees to admission and will be admitted for psychiatry. Currently there are no beds available at [facility] therefore pt will need to be transferred. At this point transfer to another psych facility is still pending. Therefore pt will be signed out to Dr. Villalba pending transfer. Course/Dx - Diagnoses Provider Diagnoses: Depressive disorder Discharge - Sign-Out/Discharge Documenting (check all that apply): Discharge/Admit/Transfer, Sign-Out Patient Signing out patient TO: Clement Villalba - pending transfer - Discharge Plan Condition: Stable Disposition: PSYCHIATRIC FACILITY-OTHER Referrals: No Primary Care Phys,NOPCP [Primary Care Provider] - The documentation as recorded by the Ron lopez Angela accurately reflects the service I personally performed and the decisions made by , Keith Steele MD.
[2017-07-25] MEDS ORDERED: Venlafaxine EXT RELEASE CAP* 75 MG PO ONE (10:55)
--- NOTE | 2017-07-25 13:28 | PN ---
ED Flex Patient Progress Note Date of Service: 07/25/17 Subjective: ED Flex Day #2 for this 56 y.o. single, white female with a history of affective dysfunction who presents with pressured speech, SI and inability to contract for safety. Objective: Dishevelled, pressured white middle-aged female in ripped scrubs; manic with labile, anxious affect; SI if discharged without help Assessment: Unspecified bipolar DO Plan: Admit to psychiatry. Female bed now available. Vital Signs Temp Pulse Resp BP Pulse Ox 97.3 F 96 18 140/79 100 07/25/17 08:55 07/25/17 08:55 07/25/17 08:55 07/25/17 08:55 07/25/17 08:55 Lab Results - Entire Visit 07/24/17 07/24/17 07/23/17 07:55 07:55 12:04 WBC RBC Hgb Hct MCV MCH MCHC RDW Plt Count MPV Neut % (Auto) Lymph % (Auto) [place] % (Auto) Eos % (Auto) Baso % (Auto) Absolute Neuts (auto) Absolute Lymphs (auto) Absolute Monos (auto) Absolute Eos (auto) Absolute Basos (auto) Absolute Nucleated RBC Nucleated RBC % Sodium Potassium Chloride Carbon Dioxide Anion Gap BUN Creatinine Est GFR ( Amer) Est GFR (Non-Af Amer) BUN/Creatinine Ratio Glucose Hemoglobin A1c 5.3 Calcium Total Bilirubin AST ALT Alkaline Phosphatase Total Protein Albumin Globulin Albumin/Globulin Ratio Triglycerides 246 Cholesterol 196 LDL Cholesterol 93 HDL Cholesterol 53.8 TSH Urine Color Urine Appearance Urine pH Ur Specific [place] Urine Protein Urine Ketones Urine Blood Urine Nitrate Urine Bilirubin Urine Urobilinogen Ur Leukocyte Esterase Urine WBC (Auto) Urine RBC (Auto) Ur Squamous Epith Cells Urine Bacteria Hyaline Casts Urine Glucose Salicylates Urine Opiates Screen None detected Acetaminophen Ur Barbiturates Screen None detected Ur Phencyclidine Scrn None detected Ur Amphetamines Screen None detected U Benzodiazepines Scrn None detected Urine Cocaine Screen None detected U Cannabinoids Screen None detected Serum Alcohol 07/23/17 07/23/17 07/23/17 12:04 11:53 11:53 WBC 5.8 RBC 4.72 Hgb 13.2 Hct 40 MCV 84 MCH 28 MCHC 33 RDW 15 Plt Count 273 MPV 7.3 L Neut % (Auto) 68.7 Lymph % (Auto) 22.1 L [place] % (Auto) 5.6 Eos % (Auto) 2.3 Baso % (Auto) 1.3 Absolute Neuts (auto) 4.0 Absolute Lymphs (auto) 1.3 Absolute Monos (auto) 0.3 Absolute Eos (auto) 0.1 Absolute Basos (auto) 0.1 Absolute Nucleated RBC 0 Nucleated RBC % 0 Sodium 140 Potassium 3.8 Chloride 105 Carbon Dioxide 28 Anion Gap 7 BUN 12 Creatinine 0.79 Est GFR ( Amer) 96.8 Est GFR (Non-Af Amer) 75.3 BUN/Creatinine Ratio 15.2 Glucose 93 Hemoglobin A1c Calcium 9.1 Total Bilirubin 0.30 AST 11 L ALT 13 Alkaline Phosphatase 73 Total Protein 6.4 Albumin 3.8 Globulin 2.6 Albumin/Globulin Ratio 1.5 Triglycerides Cholesterol LDL Cholesterol HDL Cholesterol TSH 1.30 Urine Color Yellow Urine Appearance Cloudy Urine pH 5.0 Ur Specific [place] 1.020 Urine Protein 1+(30 mg/dl) A Urine Ketones Negative Urine Blood Negative Urine Nitrate Negative Urine Bilirubin Negative Urine Urobilinogen Negative Ur Leukocyte Esterase 3+ A Urine WBC (Auto) 3+(>20/hpf) A Urine RBC (Auto) 2+(6-10/hpf) A Ur Squamous Epith Cells Present A Urine Bacteria Absent Hyaline Casts Present A Urine Glucose Negative Salicylates < 2.50 Urine Opiates Screen Acetaminophen < 15 Ur Barbiturates Screen Ur Phencyclidine Scrn Ur Amphetamines Screen U Benzodiazepines Scrn Urine Cocaine Screen U Cannabinoids Screen Serum Alcohol < 10
[2017-07-25] MEDS ORDERED: Al Hydrox/Mg Hydrox/Simet LIQ* 30 ML UDC PO PRN (14:15)
[2017-07-25] MEDS ORDERED: hydrOXYzine HCL TAB* 50 MG PO ONE (19:00)
[2017-07-26] MEDS: Vitamin THERAPEUTIC TAB PO SCH (09:15)
[2017-07-26] MEDS: Venlafaxine EXT RELEASE CAP* 75 MG PO SCH (09:16)
[2017-07-26] MEDS: Amphetamine MIXED SALT TAB* 10 MG TAB PO SCH (09:16)
--- NOTE | 2017-07-26 17:20 | HP ---
H&P (Free Text) History and Physical: Psychiatric Attending History and Physical NAME: Latisha Almendarez : 1960 AGE: 56 PROVIDER: Luigi Crespo D.O. DATE OF ADMISSION: 07/26/2017 JUSTIFICATION FOR ADMISSION: deterioration in patient's mental status with multiple ED visits in past week. Patient is in crisis due to multiple stressors. patient texted dSS worker with suicidal ideation. In emergency room patient exhibited agitation, flight of ideas, pressured speech, and was unable to contract for safety. Patient is gravely disabled and requires inpatient psychiatric admission for safety, assessment and stabalization. CHIEF COMPLAINT:".... I'm very impaired.... I need help.....I need to have supervision and adjustment of my medication...my family no longer supports me..." HISTORY OF THE PRESENT ILLNESS: 56 yo woman with history of anxiety, depression, ADHD who has been followed by Dr. Layton at [facility] for past 10 years. Patient has been treated with Adderall , Xanax and Effexor XR for many years. 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 over the past 3 years mental status has deteriorated. she reports cognitive decline and attributes this to effects of high dose adderall and xanax. Discharged from inpatient unit in [place] 2 weeks ago. left after 5 days due to meeting regarding losing her housing. xanax was discontinued (admitted on 0.5 mg xanax). she had been taking xanax for past two years as high as 3 mg daily. Adderall IR was lowered from 90 mg to 60 mg. Patient was discharged on 2017. she reports that she went to [facility] next day and was told that her services were being terminated. this has not been corroborated. patient will not give release of information for us to speak with her providers at that agency. Patient subsequently became increasingly agitated, obsessing about her adderall prescription, insisting that she needed to be in the hospital so her adderall could be further lowered, focused on adderall as being cause of her psychological distress. Patient came multiple times to the emergency room but did not meet criteria for admission and was therefore discharged. Patient called ambulance from home after texting Dss worker that she was suicidal and would committ suicide unless she got help. In emergency room patient was hyperverbal with pressured speech which was difficult to interrupt. mood highly labile. going from crying to laughing. Patient was disheveled, agitated,and highly anxious. She exhibited flight of ideas, rambling speech, tangential speech. family has become estranged from her because she refuses to consider medication change or to accept diagnosis other than depression and ADHD. patient has been living on savings for 3 years. she recently received an eviction notice. PAST PSYCHIATRIC HISTORY: history of adhd, depression, dysthymia. but only began psychiatric treatment at the age of 42. has been on effexor xr for 10 years. extensive psychotherapy history. sent for ECT to [facility] by private psychiatrist. had one treatment and alleges that she has severe cogntivie side effects which were irreversible. first admission was one year ago in august 2016 to [facility]. Patient was incoherent and psychotic. discharge diagnosis was benzodiazepine withdrawal , mood disorder nos stimulant and benzodiazepine abuse (abused prescribed meds). patient reports that she has been told that she has bipolar disorder by multiple psychiatrists. she is vehemently oppositional and refuses to accept this. She tells me that she cant be on any antipsychotic medications because they all make her depressed and suicidal. SHe also tells me that she cannot take lithium or depakote because she developed psychosis. patient is highly invested in believing that her psychiatric impairments are unrelated to psychosis or bipolar illness. denies past history of suicide attempt SUBSTANCE ABUSE HISTORY: denies alcohol or tobacco use history of benzodiazepine and adderall abuse (takes more than prescirbed and runs out early) PAST MEDICAL HISTORY: unremarkable CURRENT MEDICATIONS: Effexor XR 300 mg qam Adderall 40 mg daily ALLERGIES: NKDA FAMILY PSYCHIATRIC HISTORY: Mother committed suicide by overdose. long history of severe depression FAMILY/PSYCHOSOCIAL HISTORY: Grew up in [facility]. two older sisters. Father was murdered when she was 6 years of age. Mother committed suicide when patient was 9 years of age. Patient moved [facility] at the age of 10. raised extended family members. graduated [employer]. 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 denies history of trauma. denies legal problems. REVIEW OF SYSTEMS: 14 point review of systems non contributory PHYSICAL EXAMINATION: VITAL SIGNS: Reviewed. GENERAL: Patient is a well-developed and nourished female who is lying comfortable in the stretcher. Patient is not in any acute respiratory distress. HEAD AND FACE: No signs of trauma. No ecchymosis, hematomas or skull depressions. No sinus tenderness. EYES: PERRLA, EOMI x 2, No injected conjunctiva, no nystagmus. EARS: Hearing grossly intact. Ear canals and tympanic membranes are within normal limits. MOUTH: Oropharynx within normal limits. NECK: Supple, trachea is midline, no adenopathy, no JVD, no carotid bruit, no c- spine tenderness, neck with full ROM. CHEST: Symmetric, no tenderness at palpation LUNGS: Clear to auscultation bilaterally. No wheezing or crackles. CVS: Regular rate and rhythm, S1 and S2 present, no murmurs or gallops appreciated. ABDOMEN: Soft, non-tender. No signs of distention. No rebound no guarding, and no masses palpated. Bowel sounds are normal. EXTREMITIES: FROM in all major joints, no edema, no cyanosis or clubbing. NEURO: Alert and oriented x 3. No acute neurological deficits. Speech is normal and follows commands. SKIN: Dry and warm PSYCH: Denies any suicidal thoughts or plan. No homicidal thoughts or plan. MENTAL STATUS EXAMINATION: disheveled. indiscriminantly related. psychomotor behavior accelerated. adequate hygiene. speech: pressured, hyperverbal, rambling, flight of ideas. Mood: anxious, expansive, dysphoric (severely dysregulated) affect: severe anxiety TP: patient has mild thought disorder with flight of ideas,tangentiality, overinclusive TC: perseverates about medication, obsessional, repetetive theme of medication needing to be adjusted and monitored. loudness and forcefulness of her speech more salient than what she is actually trying to convey. patient displays high amount of psychologiical distress. denies hallucinations. she has overvalued ideas which border on delusions with regard to believing that her adderall dosage and xanax use are the cause of all of her emotional and cogntive deficits. patient denies that she is suicidal at present time. She refuses to consider that she is bipolar even when I point out the symptoms of suly that she displays she reports that she is here to have her adderall safely tapered further than it has already been tapered. she denies paranoid ideation. Alert and fully oriented. short term memory, concentration, attentiton span are all severely impaired. insight and judgment are impaired at present time. LABORATORY DATA: Laboratory Last Values WBC 5.8 10^3/ul (3.5-10.8) 07/23/17 11:53 RBC 4.72 10^6/ul (4.00-5.40) 07/23/17 11:53 Hgb 13.2 g/dl (12.0-16.0) 07/23/17 11:53 Hct 40 % (35-47) 07/23/17 11:53 MCV 84 fL (80-97) 07/23/17 11:53 MCH 28 pg (27-31) 07/23/17 11:53 MCHC 33 g/dl (31-36) 07/23/17 11:53 RDW 15 % (10.5-15) 07/23/17 11:53 Plt Count 273 10^3/ul (150-450) 07/23/17 11:53 MPV 7.3 um3 (7.4-10.4) L 07/23/17 11:53 Neut % (Auto) 68.7 % (38-83) 07/23/17 11:53 Lymph % (Auto) 22.1 % (25-47) L 07/23/17 11:53 [place] % (Auto) 5.6 % (0-7) 07/23/17 11:53 Eos % (Auto) 2.3 % (0-6) 07/23/17 11:53 Baso % (Auto) 1.3 % (0-2) 07/23/17 11:53 Absolute Neuts (auto) 4.0 10^3/ul (1.5-7.7) 07/23/17 11:53 Absolute Lymphs (auto) 1.3 10^3/ul (1.0-4.8) 07/23/17 11:53 Absolute Monos (auto) 0.3 10^3/ul (0-0.8) 07/23/17 11:53 Absolute Eos (auto) 0.1 10^3/ul (0-0.6) 07/23/17 11:53 Absolute Basos (auto) 0.1 10^3/ul (0-0.2) 07/23/17 11:53 Absolute Nucleated RBC 0 10^3/ul 07/23/17 11:53 Nucleated RBC % 0 07/23/17 11:53 Sodium 140 mmol/L (139-145) 07/23/17 11:53 Potassium 3.8 mmol/L (3.5-5.0) 07/23/17 11:53 Chloride 105 mmol/L (101-111) 07/23/17 11:53 Carbon Dioxide 28 mmol/L (22-32) 07/23/17 11:53 Anion Gap 7 mmol/L (2-11) 07/23/17 11:53 BUN 12 mg/dL (6-24) 07/23/17 11:53 Creatinine 0.79 mg/dL (0.51-0.95) 07/23/17 11:53 Est GFR ( Amer) 96.8 (>60) 07/23/17 11:53 Est GFR (Non-Af Amer) 75.3 (>60) 07/23/17 11:53 BUN/Creatinine Ratio 15.2 (8-20) 07/23/17 11:53 Glucose 93 mg/dL (70-100) 07/23/17 11:53 Hemoglobin A1c 5.3 % (4.0-5.6) 07/24/17 07:55 Calcium 9.1 mg/dL (8.6-10.3) 07/23/17 11:53 Total Bilirubin 0.30 mg/dL (0.2-1.0) 07/23/17 11:53 AST 11 U/L (13-39) L 07/23/17 11:53 ALT 13 U/L (7-52) 07/23/17 11:53 Alkaline Phosphatase 73 U/L (34-104) 07/23/17 11:53 Total Protein 6.4 g/dL (6.4-8.9) 07/23/17 11:53 Albumin 3.8 g/dL (3.2-5.2) 07/23/17 11:53 Globulin 2.6 g/dL (2-4) 07/23/17 11:53 Albumin/Globulin Ratio 1.5 (1-3) 07/23/17 11:53 Triglycerides 246 mg/dL 07/24/17 07:55 Cholesterol 196 mg/dL 07/24/17 07:55 LDL Cholesterol 93 mg/dL 07/24/17 07:55 HDL Cholesterol 53.8 mg/dL 07/24/17 07:55 TSH 1.30 mcIU/mL (0.34-5.60) 07/23/17 11:53 Urine Color Yellow 07/23/17 12:04 Urine Appearance Cloudy 07/23/17 12:04 Urine pH 5.0 (5-9) 07/23/17 12:04 Ur Specific [place] 1.020 (1.010-1.030) 07/23/17 12:04 Urine Protein 1+(30 mg/dl) (Negative) A 07/23/17 12:04 Urine Ketones Negative (Negative) 07/23/17 12:04 Urine Blood Negative (Negative) 07/23/17 12:04 Urine Nitrate Negative (Negative) 07/23/17 12:04 Urine Bilirubin Negative (Negative) 07/23/17 12:04 Urine Urobilinogen Negative (Negative) 07/23/17 12:04 Ur Leukocyte Esterase 3+ (Negative) A 07/23/17 12:04 Urine WBC (Auto) 3+(>20/hpf) (Absent) A 07/23/17 12:04 Urine RBC (Auto) 2+(6-10/hpf) (Absent) A 07/23/17 12:04 Ur Squamous Epith Cells Present (Absent) A 07/23/17 12:04 Urine Bacteria Absent (Absent) 07/23/17 12:04 Hyaline Casts Present (Absent) A 07/23/17 12:04 Urine Glucose Negative (Negative) 07/23/17 12:04 Salicylates < 2.50 mg/dL (<30) 07/23/17 11:53 Urine Opiates Screen None detected (None Detect) 07/23/17 12:04 Acetaminophen < 15 mcg/mL 07/23/17 11:53 Ur Barbiturates Screen None detected (None Detect) 07/23/17 12:04 Ur Phencyclidine Scrn None detected (None Detect) 07/23/17 12:04 Ur Amphetamines Screen None detected (None Detect) 07/23/17 12:04 U Benzodiazepines Scrn None detected (None Detect) 07/23/17 12:04 Urine Cocaine Screen None detected (None Detect) 07/23/17 12:04 U Cannabinoids Screen None detected (None Detect) 07/23/17 12:04 Serum Alcohol < 10 mg/dL (<10) 07/23/17 11:53 IMPRESSION: 56 yo with deterioration in mental status characterized by pressured speech, flight of ideas, miild thought disorder, insomnia, increased speech, psychomotor agitation, perseveration, poor insight, poor judgment, alienation of family, termination of services by her outpatient provider, recent eviction notice, inability to work due to emotional and cogntive impairment. Patient has history of episodic and persistent depression, adhd and anxiety. Patient's mental status and history consistent with bipolar disorder. Patient has refused to accept treatment for this disorder. she continues to take stimulant medication and ANGELINA which are both likely exacerbating her symptoms. patient meets criteria for mixed episode of bipolar disorder. she is gravely disabled and requires inpatient level of care for safety, assessment and stabalization. she is unlikely to accept her diagnosis and is unlikely to accept changes to her treatment regimen. DIAGNOSES: Bipolar disorder unspecified (likely type I) ADHD by history anxiety disorder unspecified. history of stimulant abuse history of benzodiazepine abuse. unspecified personality disorder PLAN: patient will be admitted to [facility] on 939 involuntary status. she will be full code. patient will be afforded individual, group, and milieu therapies. social work consult. MMPI and psychological evaluation with Dr. Irvin. Adderall 20 mg BID. effexor XR 300 mg daily. patient insists that she needs these medications. it will be very challenging to convince her that she needs change in her medication regimen. hydroxyzine 50 mg q4h prn anxiety and also qhs prn insomnia. contact family for collateral information. will call [facility] to get psychiatric history and coordinate treatment. patient likely will not meet criteria for involuntary committment on 2pc once 939 has . d/c planning per social worker psychiatric. q 15 min observation for now.
[2017-07-26] MEDS: hydrOXYzine HCL TAB* 50 MG PO PRN ×2 (17:30→22:28)
[2017-07-27] MEDS: Venlafaxine EXT RELEASE CAP* 75 MG PO SCH (08:27)
[2017-07-27] MEDS: Vitamin THERAPEUTIC TAB PO SCH (08:27)
[2017-07-27] MEDS: Amphetamine MIXED SALT TAB* 10 MG TAB PO SCH ×2 (08:27→12:37)
--- NOTE | 2017-07-27 12:53 | PN ---
Subjective - Subjective Subjective: Psychiatric Attending Progress Note keeping to herself mostly. highly oppositional with social service liaison entitled. told social service liaison to make phone calls to DSS which patient can make on her own. Met with patient x 30 min. she is delusional (believes that her cogntive and manic symptoms are all due to "too much adderall and xanax and one ect treatment that she received 7 years ago". MSE: remarkable for excessive speech, obsessional preoccupation with medication (somatic delusion) as cause of her mental illness. profound thought disorder with derailment, tangentiality, irrelvant and illogic reasoning, sense of entitlement, unable to stay on topic, patient also has paranoid ideation she will not allow me to speak to her providers at [facility]. she believes that they terminated services because they are being audited. she told me that they attempted to back date the termination to make it look like they had terminated her earlier. patient has very poor insight and judgment. she agreed to discontinue adderall all togehter. she refuses to take any and all antipsychotic or mood stabalizer drugs. Impression: bipolar disorder suly with psychotic featuers (paranoia) s/p benzodiazepine discontiuation 2 weeks ago patient has been unable to work x 3 years. she is in crisis. she is homeless. she has alienated her family. she has been so difficult to work with that outpatient clinic has terminated services. I explained to patient that I was starting her on trilafon and I explained why I was giving her that medication.. patient agrees with discontinuation of her adderall and lowering of her effexor to 225 mg. I explained that I will re evaluate her next sunday. I explained that depending on her mental status over weekend and on sunday I will determine whether I intend to pursue involuntary committment with treatment over objection. Plan: d/c adderall continue effexor xr 300 mg for now start Trilafon 2 mg BID to target suly and psychosis hydroxyxine prn insomnia and anxiety Plan - Plan Treatment Plan: Name: JOSE GÓMEZ Birthdate: 1960 [id number] Medications: Current Medications Acetaminophen (Tylenol Tab*) 650 mg PO Q4H PRN PRN Reason: PAIN or TEMP > 101 F Al Hydrox/Mg Hydrox/Simethicone (Maalox Plus*) 30 ml PO Q4H PRN PRN Reason: INDIGESTION Amphetamine/Dextroamphetamine (Adderall Tab*) 20 mg PO BID@08,12 [facility] Last Admin: 07/27/17 12:37 Dose: 20 mg Hydroxyzine HCl (Atarax Tab*) 50 mg PO Q4H PRN PRN Reason: ANXIETY Last Admin: 07/26/17 22:28 Dose: 50 mg Hydroxyzine HCl (Atarax Tab*) 50 mg PO BEDTIME PRN PRN Reason: INSOMNIA Multivitamins (Theragran Tab*) 1 tab PO DAILY [facility] Last Admin: 07/27/17 08:27 Dose: 1 tab Venlafaxine HCl (Effexor Xr Cap*) 300 mg PO DAILY [facility] Last Admin: 07/27/17 08:27 Dose: 300 mg
[2017-07-27] MEDS: hydrOXYzine HCL TAB* 50 MG PO PRN ×2 (13:58→20:15)
[2017-07-28] MEDS: Vitamin THERAPEUTIC TAB PO SCH (09:21)
[2017-07-28] MEDS: Venlafaxine EXT RELEASE CAP* 75 MG PO SCH (09:21)
[2017-07-28] MEDS: hydrOXYzine HCL TAB* 50 MG PO PRN ×4 (12:27→22:56)
[2017-07-28] MEDS: Acetaminophen TAB* 325 MG PO PRN (22:56)
[2017-07-29] MEDS: Vitamin THERAPEUTIC TAB PO SCH (10:06)
[2017-07-29] MEDS: Venlafaxine EXT RELEASE CAP* 75 MG PO SCH (10:06)
[2017-07-29] MEDS: Acetaminophen TAB* 325 MG PO PRN ×2 (10:06→16:14)
[2017-07-29] MEDS: hydrOXYzine HCL TAB* 50 MG PO PRN ×4 (10:07→22:28)
--- NOTE | 2017-07-29 16:48 | PN ---
Subjective - Subjective Date of Service: 07/29/17 Service Type: [id number] Hosp care 15 min low complexity Subjective: No change of mental status as she continues to claim that her problems are all resolved as she is not taking Xanax or addrall anymore. Somewhat entitled and grandiose but not a management problem on the unit. Objective - Appearance Appearance: Healthy Appearing Dysmorphic Features: No Hygiene: Normal Grooming: Well Kept - Behavior Psychomotor Activities: Abnormal-Increased Exhibits Abnormal Movement: No - Attitude and Relatedness Attitude and Relatedness: Superficially Cooperative Eye Contact: Good - Speech Quality: Pressured Latencies: Short Quantity: Copious - Mood Patient's Decription of Mood: "Great" - Affect Observed Affect: Expansive Affect Consistent with: Euphoria - Thought Process Patient's Thought Process: Coherent, Filght of Ideas, Circumstantial, Over Inclusive Thought Content: No Passive Wish, No Suicidal Planning, No Homicidal Ideation, No Paranoid Ideation - Sensorium Experiencing Hallucinations: No, Sensorium is Clear Type of Hallucinations: Visual: No, Auditory: No, Command: No - Level of Consciousness Level of Consciousness: Alert Orientation: Yes Intact, Yes Orientated to Time, Yes Orientated to Place, Yes Orientated to Person - Impulse Control Impulse Control: Tenuous - Insight and Judgement Insight and Judgement: Poor - Group Participation Particating in Group Activities: No - Medication Management Medication Management Adherence: No Assessment - Assessment Merits Inpatient Hospitalization: For Stabilization, For Ongoing Evaluation, Pending Safe DC Plan Plan - Plan Treatment Plan: Name: JOSE GÓMEZ Birthdate: 1960 [id number] Continued Medication Management: Continue Outpt Medication Medications: Current Medications Acetaminophen (Tylenol Tab*) 650 mg PO Q4H PRN PRN Reason: PAIN or TEMP > 101 F Last Admin: 07/29/17 16:14 Dose: 650 mg Al Hydrox/Mg Hydrox/Simethicone (Maalox Plus*) 30 ml PO Q4H PRN PRN Reason: INDIGESTION Hydroxyzine HCl (Atarax Tab*) 50 mg PO Q4H PRN PRN Reason: ANXIETY Last Admin: 07/29/17 14:14 Dose: 50 mg Hydroxyzine HCl (Atarax Tab*) 50 mg PO BEDTIME PRN PRN Reason: INSOMNIA Last Admin: 07/28/17 22:56 Dose: 50 mg Multivitamins (Theragran Tab*) 1 tab PO DAILY [facility] Last Admin: 07/29/17 10:06 Dose: 1 tab Venlafaxine HCl (Effexor Xr Cap*) 300 mg PO DAILY [facility] Last Admin: 07/29/17 10:06 Dose: 300 mg - Discharge Plan Discharge Plan: Outpatient Follow Up Outpatient Program: [facility]
[2017-07-30] MEDS: hydrOXYzine HCL TAB* 50 MG PO PRN ×5 (00:51→20:12)
[2017-07-30] MEDS: Venlafaxine EXT RELEASE CAP* 75 MG PO SCH (08:50)
[2017-07-30] MEDS: Vitamin THERAPEUTIC TAB PO SCH (08:50)
[2017-07-30] MEDS ORDERED: Venlafaxine EXT RELEASE CAP* 75 MG ONE (08:52)
--- NOTE | 2017-07-30 12:09 | PN ---
Subjective - Subjective Subjective: Psychiatric Attending Progress Note: over weekend per nurses report patient complained of being more tired during the day then she normally is. Had argument with room mate and was unkind telling room mate "you are evicted". patient did not have visitors. She stayed mostly to herself over weekend. She was not loud, excessively intrusive, disorganized, or expansive. She slept throught the night. normal appetite. I met with Latisha along with floor social science research assistant today. There was a significant change in her overall mental status. speech was not loud, pressured or excessive. patient was better related. her mood was less irritible. thought processes were well organized. there was no agitation. Patient was able to carry on goal directed and linear conversation. she was not overinclusive and repetetive. She listened better and appeared less rigid and more able to accept suggestions from others. She expressed that she prefers not to return to [facility] even though she is aware that she is entitled to return there for services. [facility] However, there is a waiting list at that clinic at the present time. She would like to see PCP in [facility] for medication follow up. We explained that because of complexity of her case it would be preferable to see psychiatrist. She insists on seeing PCP at [place]. She will wait to hear from children and family as social science research assistant will put her on waiting list. we discussed adderall. patient reports that being off adderall, she has noticed greater mental clarity. more stable mood. she feels less pressured and calmer. she does howevere, report that her mood has been sadder, her energy low, and she is lethargic and sleepy during the day. 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 unspecified anxiety disorder history of benzodiazepine and stimulant misuse Plan: restart adderall 10 mg BID continue Effexor XR 300 mg qam hydroxyzine 50 mg q 4 h prn anxiety and qhs prn insomnia patient requires further monitoring on new adderall dosage potential discharge will be sunday08/01/2017 Plan - Plan Treatment Plan: Name: LATISHA GÓMEZ Birthdate: 1960 [id number] Medications: Current Medications Acetaminophen (Tylenol Tab*) 650 mg PO Q4H PRN PRN Reason: PAIN or TEMP > 101 F Last Admin: 07/29/17 16:14 Dose: 650 mg Al Hydrox/Mg Hydrox/Simethicone (Maalox Plus*) 30 ml PO Q4H PRN PRN Reason: INDIGESTION Hydroxyzine HCl (Atarax Tab*) 50 mg PO Q4H PRN PRN Reason: ANXIETY Last Admin: 07/30/17 08:50 Dose: 50 mg Hydroxyzine HCl (Atarax Tab*) 50 mg PO BEDTIME PRN PRN Reason: INSOMNIA Last Admin: 07/29/17 22:28 Dose: 50 mg Multivitamins (Theragran Tab*) 1 tab PO DAILY [facility] Last Admin: 07/30/17 08:50 Dose: 1 tab Venlafaxine HCl (Effexor Xr Cap*) 300 mg PO DAILY [facility] Last Admin: 07/30/17 08:50 Dose: 300 mg
[2017-07-30] MEDS ORDERED: Amphetamine MIXED SALT TAB* 10 MG TAB PO ONE ×2 (12:59→16:00)
[2017-07-30] MEDS: Acetaminophen TAB* 325 MG PO PRN (19:17)
[2017-07-31] MEDS: hydrOXYzine HCL TAB* 50 MG PO PRN ×4 (00:07→19:09)
[2017-07-31] MEDS: Vitamin THERAPEUTIC TAB PO SCH (08:36)
[2017-07-31] MEDS: Amphetamine MIXED SALT TAB* 10 MG TAB PO SCH ×2 (08:36→12:13)
[2017-07-31] MEDS: Venlafaxine EXT RELEASE CAP* 75 MG PO SCH (08:36)
[2017-07-31] MEDS: Acetaminophen TAB* 325 MG PO PRN (10:29)
[2017-07-31] MEDS ORDERED: Amphetamine MIXED SALT TAB* 10 MG TAB PO ONE ×2 (14:12→16:00)
--- NOTE | 2017-07-31 14:19 | ED ---
I, Fitz Andersen, scribed for Polo Mistry MD on 07/25/17 at 1220 . Progress - Progress Note Progress Note: This pt was pending admission to [facility] psychiatric unit. Mental health allergy nurse reported Dr. Leach would like to discharge the pt home at this point because pt's insurance does not cover admission. I will speak with Dr. Leach as I don't think pt should be discharged and she needs admission. [10:54] Dr. Leach spoke with the pt's insurance company. Pt now agrees to admission and will be admitted for psychiatry. Currently there are no beds available at [facility] therefore pt will need to be transferred. At this point transfer to another psych facility is still pending. Therefore pt will be signed out to Dr. Villalba pending transfer. [11:50] Pt is anxious, requesting modification with her meds. Pt is suspected to have SI. - Consult/PCP Time Called: 15:00 Course/Dx - Diagnoses Provider Diagnoses: Depressive disorder Discharge - Sign-Out/Discharge Documenting (check all that apply): Discharge/Admit/Transfer, Receiving Sign-Out Receiving patient FROM: Clement Villalba - awaiting [facility] - Discharge Plan Condition: Stable Disposition: PSYCHIATRIC FACILITY-OTHER Referrals: No Primary Care Phys,NOPCP [Primary Care Provider] - The documentation as recorded by the Ganesh lopez Tenzin accurately reflects the service I personally performed and the decisions made by me, Polo Mistry MD.
--- NOTE | 2017-07-31 14:19 | PN ---
Subjective - Subjective Subjective: PSYCHIATRIC ATTENDING PROGRESS NOTE Patient not showing manic symptoms past two days on unit. mostly entitled, devaluing, demanding that needs be met, critical with nursing, patient has attended only a few groups. she stays in her room most of day, complaining that since lowering her adderall to 20 mg nerissa she is more tired and more depressed. she has not been pressured, loud, or disorganized since first day I saw her. I have spoken with several individuals who have been treatiner her for many years who have informed me that patient has not really presented as manic but can be appear hypomanic at times. She has long history of narcissistic traits. she has been preoccupied with micromanaging her medications and often has used her adderall and xanax up too early. she will then call the clinic relentlessly in an effort to get more medication prescribed-insistent that the only medications for her are adderall and xanax. patient presents now in a similar fashion. she is in crisis. she is obsessed with finding just the right dosage of adderall. she refuses any and all other medications. to nursing patient is hostile, demanding, manipulative. she makes mean comments about other patients. ie. "tell her to stop looking at me". With this provider patient has been pleasant, coooperative, and articulate past two days. no psychotic symptoms at present time. no SI no HI. patient agrees to be discharged tomorrow Impression: mixed personality disroder with narcissistic, borderline and histrionic traits Bipolar disorder unspecified history of stimulant and benzodiazepine misuse Plan: increase adderall back to 20 mg BID effexor xr 300 mg qam hydroxyzine 50 mg q4h prn anxiety or insomnia discharge home tomorrow f/u with PCP. [facility] [place] Plan - Plan Treatment Plan: Name: JOSE GÓMEZ Birthdate: 1960 [id number] Medications: Current Medications Acetaminophen (Tylenol Tab*) 650 mg PO Q4H PRN PRN Reason: PAIN or TEMP > 101 F Last Admin: 07/31/17 10:29 Dose: 650 mg Al Hydrox/Mg Hydrox/Simethicone (Maalox Plus*) 30 ml PO Q4H PRN PRN Reason: INDIGESTION Amphetamine/Dextroamphetamine (Adderall Tab*) 10 mg PO ONCE ONE Stop: 08/01/17 16:01 Amphetamine/Dextroamphetamine (Adderall Tab*) 20 mg PO BID@08,13 [facility] Hydroxyzine HCl (Atarax Tab*) 50 mg PO Q4H PRN PRN Reason: ANXIETY Last Admin: 07/31/17 10:29 Dose: 50 mg Hydroxyzine HCl (Atarax Tab*) 50 mg PO BEDTIME PRN PRN Reason: INSOMNIA Last Admin: 07/30/17 20:12 Dose: 50 mg Multivitamins (Theragran Tab*) 1 tab PO DAILY [facility] Last Admin: 07/31/17 08:36 Dose: 1 tab Venlafaxine HCl (Effexor Xr Cap*) 300 mg PO DAILY [facility] Last Admin: 07/31/17 08:36 Dose: 300 mg
[2017-08-01] MEDS: hydrOXYzine HCL TAB* 50 MG PO PRN ×4 (00:11→10:34)
[2017-08-01] MEDS: Acetaminophen TAB* 325 MG PO PRN (00:15)
[2017-08-01 08:08] VITALS: BP 120/66
[2017-08-01] MEDS: Amphetamine MIXED SALT TAB* 10 MG TAB PO SCH ×2 (08:11→12:07)
[2017-08-01] MEDS: Vitamin THERAPEUTIC TAB PO SCH (08:11)
[2017-08-01] MEDS: Venlafaxine EXT RELEASE CAP* 75 MG PO SCH (08:11)
--- NOTE | 2017-08-01 11:24 | DS ---
Subjective - Subjective Subjective: DISCHARGE SUMMARY PATIENT: Latisha Almendarez : 1960 AGE: 56 PROVIDER: Luigi Crespo D.O DATE OF ADMISSION: 07/23/2017 DATE OF DISCHARGE: 08/01/2017 DISCHARGE DIAGNOSES: Bipolar disorder unspecified anxiety disorder unspecified. history of stimulant abuse history of benzodiazepine abuse. unspecified personality disorder CONDITION AT THE TIME OF DISCHARGE: Stable, Improved MENTAL STATUS EXAM AT DISCHARGE: speech normal rate and volume. mood: hypomanic affect: full range Thought process goal directed, mostly logical with occasional circumstantiality and tangentiality. Thought content: no evidence of hallucinations, delusions, or paranoia. patient has over valued ideas about cause of her mental problems being related to single past ECT treatment and past prescribed xanax. denies SI and HI. insight is limited. judgment fair. Patient is alert and fully oriented in all spheres. She feels ready for discharge and agrees to attend follow up mental health appointments that have been set up for her. DISCHARGE INSTRUCTIONS: A. MEDICATIONS: Adderall 20 mg po BID Effexor XR 300 mg po QAM Hydroxyzine 50 mg po q4-6 hours B. DIET: Regular C. ACTIVITIES: TOLERATED NICOTINE REPLACEMENT THERAPY/SMOKING CESSATION REFERRAL NOT INDICATED PATIENT IS A NONSMOKER. THERE ARE NO LABORATORY OR DIAGNOSTIC STUDIES PENDING AT THE TIME OF DISCHARGE. D. FOLLOW UP CARE: Recommendation would be to follow up with [facility] and to see the clinical social worker aide on staff for mental health follow up. You are scheduled for an initial appointment on: August 14 at 3:40PM with Dr. Odonnell.OW UP CARE: E. SUBSTANCE ABUSE FOLLOWUP: NOT APPLICABLE ATTENDING PSYCHIATRIST HOSPITAL COURSE: PART A. JUSTIFICATION FOR ADMISSION: deterioration in patient's mental status with multiple ED visits in past week. Patient is in crisis due to multiple stressors. patient texted dSS worker with suicidal ideation. In emergency room patient exhibited agitation, flight of ideas, pressured speech, and was unable to contract for safety. Patient is gravely disabled and requires inpatient psychiatric admission for safety, assessment and stabalization. CHIEF COMPLAINT:".... I'm very impaired.... I need help.....I need to have supervision and adjustment of my medication...my family no longer supports me..." HISTORY OF THE PRESENT ILLNESS: 56 yo woman with history of anxiety, depression, ADHD who has been followed by Dr. Layton at [facility] for past 10 years. Patient has been treated with Adderall , Xanax and Effexor XR for many years. 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 over the past 3 years mental status has deteriorated. she reports cognitive decline and attributes this to effects of high dose adderall and xanax. Discharged from inpatient unit in [place] 2 weeks ago. left after 5 days due to meeting regarding losing her housing. xanax was discontinued (admitted on 0.5 mg xanax). she had been taking xanax for past two years as high as 3 mg daily. Adderall IR was lowered from 90 mg to 60 mg. Patient was discharged on 2017. she reports that she went to [facility] next day and was told that her services were being terminated. this has not been corroborated. patient will not give release of information for us to speak with her providers at that agency. Patient subsequently became increasingly agitated, obsessing about her adderall prescription, insisting that she needed to be in the hospital so her adderall could be further lowered, focused on adderall as being cause of her psychological distress. Patient came multiple times to the emergency room but did not meet criteria for admission and was therefore discharged. Patient called ambulance from home after texting Dss worker that she was suicidal and would committ suicide unless she got help. In emergency room patient was hyperverbal with pressured speech which was difficult to interrupt. mood highly labile. going from crying to laughing. Patient was disheveled, agitated,and highly anxious. She exhibited flight of ideas, rambling speech, tangential speech. family has become estranged from her because she refuses to consider medication change or to accept diagnosis other than depression and ADHD. patient has been living on savings for 3 years. she recently received an eviction notice. PAST PSYCHIATRIC HISTORY: history of adhd, depression, dysthymia. but only began psychiatric treatment at the age of 42. has been on effexor xr for 10 years. extensive psychotherapy history. sent for ECT to [place] by private psychiatrist. had one treatment and alleges that she has severe cogntivie side effects which were irreversible. first admission was one year ago in august 2016 to [facility]. Patient was incoherent and psychotic. discharge diagnosis was benzodiazepine withdrawal , mood disorder nos stimulant and benzodiazepine abuse (abused prescribed meds). patient reports that she has been told that she has bipolar disorder by multiple psychiatrists. she is vehemently oppositional and refuses to accept this. She tells me that she cant be on any antipsychotic medications because they all make her depressed and suicidal. SHe also tells me that she cannot take lithium or depakote because she developed psychosis. patient is highly invested in believing that her psychiatric impairments are unrelated to psychosis or bipolar illness. denies past history of suicide attempt SUBSTANCE ABUSE HISTORY: denies alcohol or tobacco use history of benzodiazepine and adderall abuse (takes more than prescirbed and runs out early) PAST MEDICAL HISTORY: unremarkable CURRENT MEDICATIONS: Effexor XR 300 mg qam Adderall 40 mg daily ALLERGIES: NKDA FAMILY PSYCHIATRIC HISTORY: Mother committed suicide by overdose. long history of severe depression FAMILY/PSYCHOSOCIAL HISTORY: Grew up in [place]. two older sisters. Father was murdered when she was 6 years of age. Mother committed suicide when patient was 9 years of age. Patient moved [facility] at the age of 10. raised extended family members. graduated [employer]. 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 denies history of trauma. denies legal problems. PHYSICAL EXAMINATION ON ADMISSION: VITAL SIGNS: Reviewed. GENERAL: Patient is a well-developed and nourished female who is lying comfortable in the stretcher. Patient is not in any acute respiratory distress. HEAD AND FACE: No signs of trauma. No ecchymosis, hematomas or skull depressions. No sinus tenderness. EYES: PERRLA, EOMI x 2, No injected conjunctiva, no nystagmus. EARS: Hearing grossly intact. Ear canals and tympanic membranes are within normal limits. MOUTH: Oropharynx within normal limits. NECK: Supple, trachea is midline, no adenopathy, no JVD, no carotid bruit, no c- spine tenderness, neck with full ROM. CHEST: Symmetric, no tenderness at palpation LUNGS: Clear to auscultation bilaterally. No wheezing or crackles. CVS: Regular rate and rhythm, S1 and S2 present, no murmurs or gallops appreciated. ABDOMEN: Soft, non-tender. No signs of distention. No rebound no guarding, and no masses palpated. Bowel sounds are normal. EXTREMITIES: FROM in all major joints, no edema, no cyanosis or clubbing. NEURO: Alert and oriented x 3. No acute neurological deficits. Speech is normal and follows commands. SKIN: Dry and warm MENTAL STATUS EXAMINATION ON ADMISSION: disheveled. indiscriminantly related. psychomotor behavior accelerated. adequate hygiene. speech: pressured, hyperverbal, rambling, flight of ideas. Mood: anxious, expansive, dysphoric (severely dysregulated) affect: severe anxiety TP: patient has mild thought disorder with flight of ideas,tangentiality, overinclusive TC: perseverates about medication, obsessional, repetetive theme of medication needing to be adjusted and monitored. loudness and forcefulness of her speech more salient than what she is actually trying to convey. patient displays high amount of psychological distress. denies hallucinations. she has overvalued ideas which border on delusions with regard to believing that her adderall dosage and Xanax use are the cause of all of her emotional and cogntive deficits. patient denies that she is suicidal at present time. She refuses to consider that she is bipolar even when I point out the symptoms of suly that she displays she reports that she is here to have her adderall safely tapered further than it has already been tapered. she denies paranoid ideation. Alert and fully oriented. short term memory, concentration, attentiton span are all severely impaired. insight and judgment are impaired at present time. HOSPITAL COURSE : PART B PSYCHIATRIC TREATMENT RENDERED: Patient was admitted to [facility] on voluntary status. She was integrated into the structured milieu and afforded individual and group therapies taught by the units interdisciplinary team of mental health professionals. mental status checks and vitals were closely monitored by 24 hour nursing staff with the assistance of mental health technical staff. Patient was evaluated and reassessed daily by a psychiatrist which included medication adjustment in order to ameliorate target symptoms. Patient was also seen on a daily basisby social worker aide for therapy and to solidify optimal discharge plan. HIstory was gathered by contacting her outpatient providers at [facility] where she has been treated for many years by a therapist and psychiatrist (Dr. Layton). providers reported that patient has long standing history of severe personality disorder with borderline, narcissistic and histrionic traits. Other behavioral symptoms reported by her former providers include: impulsivity, erratic behaviors, overvalued ideas especially related to specific medications (namely, that adderall is the only medication that she requires for her psychiatric symptoms). patient also diagnosed with PTSD from another previous therapist. On the unit patient's initial mental status remarkable for labilify, affective dysregulation, pressured and rambling speech , racing thoughts, tangentiality, flight of ideas, perseveration, hyperverbal speech, inflated self image, inflexible, rigid and obsessional in her thinking paterns. She had great difficult accepting constructinve criticism and hearing professional points of view which differed from her own. She rejected any possibility that she had bipolar disrder. She refused any and all changes to her medication regimen including the use of mood stabalizers and antipsychotic medication. Numerous attempts were made by psychiatrist to help her understand why bipolar disorder was most appropriate diagnosis but patient was impervious and maintained that she has unipolar recurrent depression and insisted on being treated with Adderall only Patient was preoccupied with notion that Adderall needed to be adjusted or tapered and that this required inpatient level of care for close monitoring due to potential for withdrawal syndrome. This overvalued idea persisted and patient was obsessed with adderall medication despite numerous attempts by psychiatrist to explain that there were no withdrawal symptoms with tapering of stimulant medication. Patient agreed to discontinuatin of adderall for two day period to see if her mental status would improve. During this two day period off adderall, she made numerous complaints to nursing taht she felt lethargic, more depressed and had thoughts of suicide. Adderall was therfore restarted at 20 mg po BID. Patient was maintained on her Effexor XR 300 mg once daily. She was also prescribed Hydroxyzine 50 mg q4h prn anxiety or insomnia which she reported was effective. Patient's slept an average of 4 to 7 hours nightly during her hospital stay. During the final several days of her hospital stay, patient's mental status significantly improved. Thought processes reverted to being organized. irritibility remitted and patient's psychomotor behavior went from agitated and accelerated to normal. Patient reported that she felt ready for discharge and denied having any suicidal thoughts or impulses. Patient met with social worker aide on numerous occasions during her hospital stay. patient was high on waiting list for section 8 housing and although facing eviction she had a plan in place for temporary housing in the event that she is evicted in the immediate post hospital discharge period. Patient refused follow up at [facility] which was the recommendation of the treatment team. She was given an appointment to see PCP in [facility] for medication management. Social work services are also provided at this office and an appointment with social worker aide was given to patient prior to discharge from our unit. patient knows she can return to ED or call 911 if she feels unsafe or in need of emergency mental health services. medically patient was cleared by hospitalist on admission. She had normal physical examination. Routine admission blood work including CBC, comprehensive metabolic panel, and lipid profile were within normal limits. Urinalysis revealed 3+ leukoesterase, 3+wbc and 3+RBC negative for all other parameters. reflex urine culture was negative. patient denied all symptoms of UTI. Urine toxicology screen was negative for all substances of abuse. LUIGI CRESPO DO Discharge Planning - Discharge Planning Discharge Planning: Prescriptions provided for discharge [] Yes [] No Follow up care details as per social work arrangements. Patient response to discharge plan: [] eager for discharge [] agreeable with discharge plan [] ambivalent about discharge [] disagrees with discharge today
[2017-08-01] MEDS ORDERED: Amphetamine MIXED SALT TAB* 10 MG TAB PO ONE (16:00)
== END 2017-08-01 13:00 | disposition home or self-care (01) | DRG 753 ==
LOC: ED 11:14 → BSU 07-25 13:35
PROVIDERS: ADMIT Psychiatry & Neurology Psychiatry; ATTEND Psychiatry & Neurology Psychiatry
DX: F31.2 Bipolar disorder, current episode manic severe with psychotic features (principal); R45.851 Suicidal ideations; F90.9 Attention-deficit hyperactivity disorder, unspecified type; F41.9 Anxiety disorder, unspecified; F60.9 Personality disorder, unspecified; Z79.899 Other long term (current) drug therapy; F15.21 Other stimulant dependence, in remission; Z81.8 Family history of other mental and behavioral disorders
CPT/HCPCS: 36415; 80053; 80061; 80307; 80320; 80329; 81003; 81015; 83036; 84443; 85025; 87086; 99222; 99231; 99232; 99238; 99284; A9270-GY; G0480

== ENCOUNTER 2017-08-07 12:26 | Inpatient (IN) | payer OTHER ==
[2017-08-07 13:25] LABS: ABS Basophils 0.1 10^3/ul (0-0.2); ABS Eosinophils 0.1 10^3/ul (0-0.6); ABS Lymphocytes 1.6 10^3/ul (1.0-4.8); ABS Monocytes 0.4 10^3/ul (0-0.8); ABS Neutrophils 4.7 10^3/ul (1.5-7.7); ABS Nucleated RBC 0 10^3/ul; Eosinophil % 1.6 % (0-6); Hematocrit 43 % (35-47); Lymphocyte % 23.9 % (25-47); Mean Corpuscular HGB Conc 35 g/dl (31-36); Mean Corpuscular Hemoglobin 29 pg (27-31); Mean Corpuscular Volume 83 fL (80-97); Mean Platelet Volume 7.1 um3 (7.4-10.4); Nucleated Red Blood Cells % 0.1; Platelet Count 301 10^3/ul (150-450); Red Blood Count 5.17 10^6/ul (4.00-5.40); Red Cell Distribution Width 15 % (10.5-15); White Blood Count 6.8 10^3/ul (3.5-10.8)
[2017-08-07 13:26] LABS: Urine Appearance Clear; Urine Blood Negative (Negative); Urine Color Yellow; Urine Ketones Negative (Negative); Urine Protein Negative (Negative); Urine Specific Gravity 1.014 (1.010-1.030); Urine Urobilinogen Negative (Negative)
[2017-08-07 13:34] LABS: EGFR Non-African American 83.8 (>60)
[2017-08-07] MEDS ORDERED: Venlafaxine EXT RELEASE CAP* 75 MG PO ONE (14:36)
[2017-08-07] MEDS ORDERED: diPHENhydraMINE PO* 50 MG PO ONE (16:13)
[2017-08-07] MEDS ORDERED: Al Hydrox/Mg Hydrox/Simet LIQ* 30 ML UDC PO PRN (19:47)
[2017-08-07] MEDS: Acetaminophen TAB* 325 MG PO PRN (20:29)
[2017-08-07] MEDS: hydrOXYzine HCL TAB* 50 MG PO PRN (20:30)
[2017-08-08] MEDS: hydrOXYzine HCL TAB* 50 MG PO PRN ×5 (01:05→23:45)
[2017-08-08] MEDS ORDERED: chlorproMAZINE TAB* 50 MG PO ONE (02:00)
[2017-08-08] MEDS: Amphetamine MIXED SALT TAB* 10 MG TAB PO SCH ×2 (08:16→13:50)
[2017-08-08] MEDS: Venlafaxine EXT RELEASE CAP* 75 MG PO SCH (08:16)
[2017-08-08] MEDS: Vitamin THERAPEUTIC TAB PO SCH (08:16)
--- NOTE | 2017-08-08 10:13 | HP ---
H&P (Free Text) History and Physical: Psychiatric Attending History and Physical NAME: Latisha Almednarez : 1960 AGE: 56 PROVIDER: Luigi Crespo D.O. DATE OF ADMISSION: 08/07/2017 JUSTIFICATION FOR ADMISSION: Patient came to hospital for severe anxiety, depression, and suicidal ideation. she claims to be overwhelmed by psychologically based symptoms and unable to care for herself she requires admission to inpatient psychiatric unit to for safety and to stabalize her mental status CHIEF COMPLAINT: "Im frightened. Im very stressed. Im in danger, because im dangerously depressed. im unable to function correctly, unable to take care of myself." HISTORY OF THE PRESENT ILLNESS: Patient is a 56 yo single woman well known to me as patient was discharged from our behavioral Health unit last week after one week stay for symptoms similar to those she presented with yesterday. 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 She has a history of PTSD, Severe Personality Disorder, Abuse of Prescription stimulant and benzodiazpine medications, and Bipolar Mood Disorder which patient rejects in favor of a diagnosis of recurrent Major depressive disorder. Significant psychiatric illness which affected her functioining began in her early 40's with recurrent depressive episodes, several suicide attempts, intermittent suicidal ideation necessitating multiple psychiatric hospitalilzations in past 15 years. Patient has been unable to work for many years and has alienated her family. She has extremely poor insight with regard to her psychiatric symptoms. Patient has been followed bypsychiatrist Dr. Layton at [facility] for past 10 years. Patient has been treated with Adderall , Xanax and Effexor XR for many years. She has refused attempt to treat her with psychiatric medication other than adderall and xanax. past 3 years patient has had increased periods of crisis often with mixed symptoms of suly and depression. Patient often obsesses about her stimulant medication, misuses her adderall , taking higher doses than prescirbed, whichcauses her to run out early. she will then show increased goal directed behavior by calling multiple clnic staff in an attempt to have her medications refilled. patient will not take no for an answer and persists in her drug seeking behavior which has resulted in her going to ED due to her severe psychomotor agitation. She further reports cognitive decline and attributes this to effects of high dose adderall and xanax. in the past. patient was other than depression and ADHD. patient has been living on savings for 3 years. she recently received an eviction notice. PAST PSYCHIATRIC HISTORY: Discharged from inpatient unit in [place] 2 weeks ago. left after 5 days due to meeting regarding losing her housing. xanax was discontinued (admitted on 0.5 mg xanax). she had been taking xanax for past two years as high as 3 mg daily. Adderall IR was lowered from 90 mg to 60 mg. Patient was discharged on 2017. she reports that she went to [facility] next day and was told that her services were being terminated. this has not been corroborated. patient will not give release of information for us to speak with her providers at that agency. Patient subsequently became increasingly agitated, obsessing about her adderall prescription, insisting that she needed to be in the hospital so her adderall could be further lowered, focused on adderall as being cause of her psychological distress. Patient came multiple times to the emergency room but did not meet criteria for admission and was therefore discharged. Patient called ambulance from home after texting Dss worker that she was suicidal and would committ suicide unless she got help. In emergency room patient was hyperverbal with pressured speech which was difficult to interrupt. mood highly labile. going from crying to laughing. Patient was disheveled, agitated,and highly anxious. She exhibited flight of ideas, rambling speech, tangential speech. family has become estranged from her because she refuses to consider medication change or to accept diagnosis history of adhd, depression, dysthymia. but only began psychiatric treatment at the age of 42. has been on effexor xr for 10 years. extensive psychotherapy history. sent for ECT to [place] by private psychiatrist. had one treatment and alleges that she has severe cogntivie side effects which were irreversible. first [facility] admission was one year ago in august 2016. Patient was incoherent and psychotic. discharge diagnosis was benzodiazepine withdrawal , mood disorder nos stimulant and benzodiazepine abuse (abused prescribed meds). patient reports that she has been told that she has bipolar disorder by multiple psychiatrists. she is vehemently oppositional and refuses to accept this. She tells me that she cant be on any antipsychotic medications because they all make her depressed and suicidal. SHe also tells me that she cannot take lithium or depakote because she developed psychosis. patient is highly invested in believing that her psychiatric impairments are unrelated to psychosis or bipolar illness. Patient reports several suicide attempts by overdose in past but declined to give details or dates about suicidal behavior. SUBSTANCE ABUSE HISTORY: denies alcohol or tobacco use history of benzodiazepine and adderall abuse (takes more than prescirbed and runs out early) PAST MEDICAL HISTORY: unremarkable CURRENT MEDICATIONS: Effexor XR 300 mg qam Adderall 20 mg po BID ALLERGIES: NKDA FAMILY PSYCHIATRIC HISTORY: Mother committed suicide by overdose. long history of severe depression FAMILY/PSYCHOSOCIAL HISTORY: Grew up in [facility]. two older sisters. Father was murdered when she was 6 years of age. Mother committed suicide when patient was 9 years of age. [facility] the age of 10. raised extended family members. graduated [employer]. 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 denies history of trauma. denies legal problems. REVIEW OF SYSTEMS: 14 point review of systems non contributory PHYSICAL EXAMINATION: VITAL SIGNS: Reviewed. GENERAL: Patient is a well-developed and nourished female who is lying comfortable in the stretcher. Patient is not in any acute respiratory distress. HEAD AND FACE: No signs of trauma. No ecchymosis, hematomas or skull depressions. No sinus tenderness. EYES: PERRLA, EOMI x 2, No injected conjunctiva, no nystagmus. EARS: Hearing grossly intact. Ear canals and tympanic membranes are within normal limits. MOUTH: Oropharynx within normal limits. NECK: Supple, trachea is midline, no adenopathy, no JVD, no carotid bruit, no c- spine tenderness, neck with full ROM. CHEST: Symmetric, no tenderness at palpation LUNGS: Clear to auscultation bilaterally. No wheezing or crackles. CVS: Regular rate and rhythm, S1 and S2 present, no murmurs or gallops appreciated. ABDOMEN: Soft, non-tender. No signs of distention. No rebound no guarding, and no masses palpated. Bowel sounds are normal. EXTREMITIES: FROM in all major joints, no edema, no cyanosis or clubbing. NEURO: Alert and oriented x 3. No acute neurological deficits. Speech is normal and follows commands. SKIN: Dry and warm PSYCH: Denies any suicidal thoughts or plan. No homicidal thoughts or plan. MENTAL STATUS EXAMINATION: 56 yo woman with fair to poor hygiene, uncombed hair, dressed casually but disheveled. patient is relatedness is indiscriminant. she is mildly irritible. psychomotor behavior accelerated. speech: pressured, hyperverbal, rambling, flight of ideas, . Mood: anxious, expansive, dysphoric (severely dysregulated) affect: severe anxiety TP: patient has mild thought disorder with flight of ideas,tangentiality, overinclusiveness, racing thoughts TC: perseverates about medication, obsessional, repetetive theme of medication needing to be adjusted and monitored. loudness and forcefulness of her speech more salient than what she is actually trying to convey. patient displays high amount of psychologiical distress. denies hallucinations. she has overvalued ideas which border on delusions with regard to believing that her adderall dosage and xanax use are the cause of all of her emotional and cogntive deficits. patient denies that she is suicidal at present time. She refuses to consider that she is bipolar even when I point out the symptoms of suly that she displays she reports that she is here because she lacks adequate support services. she denies paranoid ideation but clearly has paranoid thoughts. she believes that something strange is going on at former outpatient clinic where she was receiving mental health services. she will not return there. she tells me like she did last admission, that the clinic therapist came to her house and askedher to sign a paper which stated that they were no longer going to proivde her with sevices. we spoke to staff at clinic who told us that this was false belief and that this never in fact occurred. Alert and fully oriented. short term memory, concentration, attentiton span are all severely impaired. severely distractible. insight and judgment are impaired at present time. LABORATORY DATA: Laboratory Results - last 24 hr 08/07/17 08/07/17 08/07/17 13:05 13:05 13:07 WBC 6.8 RBC 5.17 Hgb 15.0 Hct 43 MCV 83 MCH 29 MCHC 35 RDW 15 Plt Count 301 MPV 7.1 L Neut % (Auto) 68.3 Lymph % (Auto) 23.9 L [place] % (Auto) 5.4 Eos % (Auto) 1.6 Baso % (Auto) 0.8 Absolute Neuts (auto) 4.7 Absolute Lymphs (auto) 1.6 Absolute Monos (auto) 0.4 Absolute Eos (auto) 0.1 Absolute Basos (auto) 0.1 Absolute Nucleated RBC 0 Nucleated RBC % 0.1 Sodium 139 Potassium 4.0 Chloride 104 Carbon Dioxide 24 Anion Gap 11 BUN 12 Creatinine 0.72 Est GFR ( Amer) 101.4 Est GFR (Non-Af Amer) 83.8 BUN/Creatinine Ratio 16.7 Glucose 111 H Calcium 9.8 Total Bilirubin 0.50 AST 13 ALT 18 Alkaline Phosphatase 123 H Total Protein 7.0 Albumin 4.0 Globulin 3.0 Albumin/Globulin Ratio 1.3 Triglycerides 173 Cholesterol 283 LDL Cholesterol 176 HDL Cholesterol 72.7 TSH 1.45 Urine Color Yellow Urine Appearance Clear Urine pH 6.0 Ur Specific [place] 1.014 Urine Protein Negative Urine Ketones Negative Urine Blood Negative Urine Nitrate Negative Urine Bilirubin Negative Urine Urobilinogen Negative Ur Leukocyte Esterase Trace A Urine WBC (Auto) Trace(0-5/hpf) Urine RBC (Auto) Absent Ur Squamous Epith Cells Present A Urine Bacteria Absent Hyaline Casts Present A Urine Glucose Negative Salicylates < 2.50 Urine Opiates Screen Acetaminophen < 15 Ur Barbiturates Screen Ur Phencyclidine Scrn Ur Amphetamines Screen U Benzodiazepines Scrn Urine Cocaine Screen U Cannabinoids Screen Serum Alcohol < 10 08/07/17 13:07 WBC RBC Hgb Hct MCV MCH MCHC RDW Plt Count MPV Neut % (Auto) Lymph % (Auto) [place] % (Auto) Eos % (Auto) Baso % (Auto) Absolute Neuts (auto) Absolute Lymphs (auto) Absolute Monos (auto) Absolute Eos (auto) Absolute Basos (auto) Absolute Nucleated RBC Nucleated RBC % Sodium Potassium Chloride Carbon Dioxide Anion Gap BUN Creatinine Est GFR ( Amer) Est GFR (Non-Af Amer) BUN/Creatinine Ratio Glucose Calcium Total Bilirubin AST ALT Alkaline Phosphatase Total Protein Albumin Globulin Albumin/Globulin Ratio Triglycerides Cholesterol LDL Cholesterol HDL Cholesterol TSH Urine Color Urine Appearance Urine pH Ur Specific [place] Urine Protein Urine Ketones Urine Blood Urine Nitrate Urine Bilirubin Urine Urobilinogen Ur Leukocyte Esterase Urine WBC (Auto) Urine RBC (Auto) Ur Squamous Epith Cells Urine Bacteria Hyaline Casts Urine Glucose Salicylates Urine Opiates Screen None detected Acetaminophen Ur Barbiturates Screen None detected Ur Phencyclidine Scrn None detected Ur Amphetamines Screen Presumptive positive A U Benzodiazepines Scrn None detected Urine Cocaine Screen None detected U Cannabinoids Screen None detected Serum Alcohol Laboratory Last Values WBC 6.8 10^3/ul (3.5-10.8) 08/07/17 13:05 RBC 5.17 10^6/ul (4.00-5.40) 08/07/17 13:05 Hgb 15.0 g/dl (12.0-16.0) 08/07/17 13:05 Hct 43 % (35-47) 08/07/17 13:05 MCV 83 fL (80-97) 08/07/17 13:05 MCH 29 pg (27-31) 08/07/17 13:05 MCHC 35 g/dl (31-36) 08/07/17 13:05 RDW 15 % (10.5-15) 08/07/17 13:05 Plt Count 301 10^3/ul (150-450) 08/07/17 13:05 MPV 7.1 um3 (7.4-10.4) L 08/07/17 13:05 Neut % (Auto) 68.3 % (38-83) 08/07/17 13:05 Lymph % (Auto) 23.9 % (25-47) L 08/07/17 13:05 [place] % (Auto) 5.4 % (0-7) 08/07/17 13:05 Eos % (Auto) 1.6 % (0-6) 08/07/17 13:05 Baso % (Auto) 0.8 % (0-2) 08/07/17 13:05 Absolute Neuts (auto) 4.7 10^3/ul (1.5-7.7) 08/07/17 13:05 Absolute Lymphs (auto) 1.6 10^3/ul (1.0-4.8) 08/07/17 13:05 Absolute Monos (auto) 0.4 10^3/ul (0-0.8) 08/07/17 13:05 Absolute Eos (auto) 0.1 10^3/ul (0-0.6) 08/07/17 13:05 Absolute Basos (auto) 0.1 10^3/ul (0-0.2) 08/07/17 13:05 Absolute Nucleated RBC 0 10^3/ul 08/07/17 13:05 Nucleated RBC % 0.1 08/07/17 13:05 Sodium 139 mmol/L (135-145) 08/07/17 13:05 Potassium 4.0 mmol/L (3.5-5.0) 08/07/17 13:05 Chloride 104 mmol/L (101-111) 08/07/17 13:05 Carbon Dioxide 24 mmol/L (22-32) 08/07/17 13:05 Anion Gap 11 mmol/L (2-11) 08/07/17 13:05 BUN 12 mg/dL (6-24) 08/07/17 13:05 Creatinine 0.72 mg/dL (0.51-0.95) 08/07/17 13:05 Est GFR ( Amer) 101.4 (>60) 08/07/17 13:05 Est GFR (Non-Af Amer) 83.8 (>60) 08/07/17 13:05 BUN/Creatinine Ratio 16.7 (8-20) 08/07/17 13:05 Glucose 111 mg/dL (70-100) H 08/07/17 13:05 Calcium 9.8 mg/dL (8.6-10.3) 08/07/17 13:05 Total Bilirubin 0.50 mg/dL (0.2-1.0) 08/07/17 13:05 AST 13 U/L (13-39) 08/07/17 13:05 ALT 18 U/L (7-52) 08/07/17 13:05 Alkaline Phosphatase 123 U/L (34-104) H 08/07/17 13:05 Total Protein 7.0 g/dL (6.4-8.9) 08/07/17 13:05 Albumin 4.0 g/dL (3.2-5.2) 08/07/17 13:05 Globulin 3.0 g/dL (2-4) 08/07/17 13:05 Albumin/Globulin Ratio 1.3 (1-3) 08/07/17 13:05 Triglycerides 173 mg/dL 08/07/17 13:05 Cholesterol 283 mg/dL 08/07/17 13:05 LDL Cholesterol 176 mg/dL 08/07/17 13:05 HDL Cholesterol 72.7 mg/dL 08/07/17 13:05 TSH 1.45 mcIU/mL (0.34-5.60) 08/07/17 13:05 Urine Color Yellow 08/07/17 13:07 Urine Appearance Clear 08/07/17 13:07 Urine pH 6.0 (5-9) 08/07/17 13:07 Ur Specific [place] 1.014 (1.010-1.030) 08/07/17 13:07 Urine Protein Negative (Negative) 08/07/17 13:07 Urine Ketones Negative (Negative) 08/07/17 13:07 Urine Blood Negative (Negative) 08/07/17 13:07 Urine Nitrate Negative (Negative) 08/07/17 13:07 Urine Bilirubin Negative (Negative) 08/07/17 13:07 Urine Urobilinogen Negative (Negative) 08/07/17 13:07 Ur Leukocyte Esterase Trace (Negative) A 08/07/17 13:07 Urine WBC (Auto) Trace(0-5/hpf) (Absent) 08/07/17 13:07 Urine RBC (Auto) Absent (Absent) 08/07/17 13:07 Ur Squamous Epith Cells Present (Absent) A 08/07/17 13:07 Urine Bacteria Absent (Absent) 08/07/17 13:07 Hyaline Casts Present (Absent) A 08/07/17 13:07 Urine Glucose Negative (Negative) 08/07/17 13:07 Salicylates < 2.50 mg/dL (<30) 08/07/17 13:05 Urine Opiates Screen None detected (None Detect) 08/07/17 13:07 Acetaminophen < 15 mcg/mL 08/07/17 13:05 Ur Barbiturates Screen None detected (None Detect) 08/07/17 13:07 Ur Phencyclidine Scrn None detected (None Detect) 08/07/17 13:07 Ur Amphetamines Screen Presumptive positive (None Detect) A 08/07/17 13:07 U Benzodiazepines Scrn None detected (None Detect) 08/07/17 13:07 Urine Cocaine Screen None detected (None Detect) 08/07/17 13:07 U Cannabinoids Screen None detected (None Detect) 08/07/17 13:07 Serum Alcohol < 10 mg/dL (<10) 08/07/17 13:05 IMPRESSION: 56 yo woman presents with long standing bipolar disorder. patient has past history of multiple recurrent depressive episodes with good psycho social functioning up until past 3 to 4 years when she has had onset of sluy with prominent thought disorder. Patient mental status has deteriorated in past few years with sequelae of homelessness, estrangement from family, separation from health providers. Patient has severely impaired insight and judgment. She has been unable to function in the community in past several mnonths with numerous emergency room visits due to high degree of agitation, mood instability, anxiety. she feels fearful to be alone. DIAGNOSES: Bipolar Disorder unspecified PTSD (by history) Benzodiazepine Use Disorder (last use one month ago) Stimulant Use Disorder Unspecified Personality Disorder with narcissistic, borderline and histrionic traits PLAN: Admit to [facility] on Voluntary status. patient is full code Milieu, individual and group therapy q 15 minute checks and advance observation status according to mental status/ level of safety social work consultation for discharge planning, assessment and therapy psych. med regimen: effexor xr 300 mg qam, hyrdroxyzine 50 mg q4h prn insomnia/ anxiety, Adderall 15 mg po BID, will start Lamictal 25 mg po Qdaily Ativan 1 mg po Q4h prn anxiety/insomnia will continue to approach patient with agreeing to trial of low dose antipsychotic medication. patient will likely require temporary housing by DSS after discharge patient has put in 72 hour letter. will reevaluate mental status daily and determine whether patient's condition warrants application to court for involuntary committment.
--- NOTE | 2017-08-08 12:04 | ED ---
Ron Schultz Angela, scribed for Ahsan Alan MD on 08/07/17 at 1239 . Psychiatric Complaint - HPI Summary HPI Summary: This pt is a 56 y/o female presenting to [facility] via EMS for increased stress and feeling overwhelmed. Pt reports she has been withdrawing from Xanax for the past 2 years. She completely went off Xanax on July 06. Currently pt states she feels very overwhelmed and has cognitive impairment. She reports she is unable to think straight. Pt notes she was admitted last week at [facility] for mental health. PMHx includes depression. Denies tobacco or drug use. She is currently on Effexor. Pt is no longer getting her periods. She is requesting Dr. Leach to be her evaluating psychiatrist today. - History Of Current Complaint Hx Obtained From: Patient Hx Last Menstrual Period: a year ago Onset/Duration: Lasting Days, Still Present Timing: Days Severity Currently: Severe Character: Anxious Aggravating Factor(s): Nothing Alleviating Factor(s): Nothing Associated Signs And Symptoms: Positive: Negative Related History: Positive For: Prior Psychiatric Issues Has Suicidal: Denies: Thoughts, With A Plan Has Homicidal: Denies: Thoughts, With A Plan - Allergies/Home Medications Allergies/Adverse Reactions: Allergies Allergy/AdvReac Type Severity Reaction Status Date / Time No Known Allergies Allergy Verified 07/17/17 15:38 PMH/Surg Hx/FS Hx/Imm Hx Endocrine/Hematology History: Denies: Hx Diabetes, Hx Thyroid Disease Cardiovascular History: Denies: Hx Hypertension Respiratory History: Denies: Hx Asthma, Hx Chronic Obstructive Pulmonary Disease (COPD) GI History: Denies: Hx Ulcer Sensory History: Reports: Hx Contacts or Glasses - reading only Denies: Hx Hearing Aid Opthamlomology History: Reports: Hx Contacts or Glasses - reading only Psychiatric History: Reports: Hx Anxiety, Hx Attention Deficit Hyperactivity Disorder, Hx Depression, Hx Post Traumatic Stress Disorder, Hx Inpatient Treatment - 6th [facility] admission, Hx Community Mental Health Tx, Hx Suicide Attempt , Other Psychiatric Issues/Disorders - Hx dysthymia, Hx ECT Denies: Hx Eating Disorder, Hx Schizophrenia, Hx Bipolar Disorder, Hx of Violent Episodes Against Others - Surgical History Surgery Procedure, Year, and Place: implants in - then removed Infectious Disease History: Reports: Hx Shingles Denies: Hx Clostridium Difficile, Hx Hepatitis, Hx Human Immunodeficiency Virus (HIV), Hx of Known/Suspected MRSA, Hx Tuberculosis, Hx Known/Suspected VRE , Hx Known/Suspected VRSA, History Other Infectious Disease - Family History Known Family History: Positive: Unknown, Other - Lung CA - Social History Alcohol Use: Rare Hx Substance Use: Yes Substance Use Type: Reports: None, Prescribed Hx Tobacco Use: No Smoking Status (MU): Never Smoked Tobacco Have You Smoked in the Last Year: No Review of Systems Negative: Fever, Chills Negative: Erythema Negative: Sore Throat Negative: Chest Pain Negative: Shortness Of Breath, Cough Negative: Abdominal Pain, Vomiting, Nausea Negative: dysuria, hematuria Negative: Myalgia, Edema Negative: Rash Neurological: Other - NEG: dizziness Psychological: Other - overwhelmed, cognitive impaired Positive: Anxious All Other Systems Reviewed And Are Negative: Yes Physical Exam - Summary Physical Exam Summary: Constitutional: Well-developed, Well-nourished, Alert. (-) Distressed Skin: Warm, Dry HENT: Normocephalic; Atraumatic Eyes: Conjunctiva normal Neck: Musculoskeletal ROM normal neck. (-) JVD, (-) Stridor, (-) Tracheal deviation Cardio: Rhythm regular, rate normal, Heart sounds normal; Intact distal pulses; The pedal pulses are 2+ and symmetric. Radial pulses are 2+ and symmetric. (-) Murmur Pulmonary/Chest wall: Effort normal. (-) Respiratory distress, (-) Wheezes, (-) Rales Abd: Soft, (-) Tenderness, (-) Distension, (-) Guarding, (-) Rebound Musculoskeletal: (-) Edema Lymph: (-) Cervical adenopathy Neuro: Alert, Oriented x3 Psych: Anxious appearing Triage Information Reviewed: Yes Vital Signs On Initial Exam: Initial Vitals Temp Pulse Resp BP Pulse Ox 36.7 C 81 16 142/96 98 08/07/17 12:39 08/07/17 12:39 08/07/17 12:39 08/07/17 12:39 08/07/17 12:39 Vital Signs Reviewed: Yes Diagnostics - Vital Signs Vital Signs Temp Pulse Resp BP Pulse Ox 08/07/17 12:39 36.7 C 81 16 142/96 98 - Laboratory Lab Results: Lab Results 08/07/17 08/07/17 08/07/17 Range/Units 13:05 13:05 13:07 WBC 6.8 (3.5-10.8) 10^3/ul RBC 5.17 (4.00-5.40) 10^6/ul Hgb 15.0 (12.0-16.0) g/dl Hct 43 (35-47) % MCV 83 (80-97) fL MCH 29 (27-31) pg MCHC 35 (31-36) g/dl RDW 15 (10.5-15) % Plt Count 301 (150-450) 10^3/ul MPV 7.1 L (7.4-10.4) um3 Neut % (Auto) 68.3 (38-83) % Lymph % (Auto) 23.9 L (25-47) % [place] % (Auto) 5.4 (0-7) % Eos % (Auto) 1.6 (0-6) % Baso % (Auto) 0.8 (0-2) % Absolute Neuts (auto) 4.7 (1.5-7.7) 10^3/ul Absolute Lymphs (auto) 1.6 (1.0-4.8) 10^3/ul Absolute Monos (auto) 0.4 (0-0.8) 10^3/ul Absolute Eos (auto) 0.1 (0-0.6) 10^3/ul Absolute Basos (auto) 0.1 (0-0.2) 10^3/ul Absolute Nucleated RBC 0 10^3/ul Nucleated RBC % 0.1 Sodium 139 (135-145) mmol/L Potassium 4.0 (3.5-5.0) mmol/L Chloride 104 (101-111) mmol/L Carbon Dioxide 24 (22-32) mmol/L Anion Gap 11 (2-11) mmol/L BUN 12 (6-24) mg/dL Creatinine 0.72 (0.51-0.95) mg/dL Est GFR ( Amer) 101.4 (>60) Est GFR (Non-Af Amer) 83.8 (>60) BUN/Creatinine Ratio 16.7 (8-20) Glucose 111 H (70-100) mg/dL Calcium 9.8 (8.6-10.3) mg/dL Total Bilirubin 0.50 (0.2-1.0) mg/dL AST 13 (13-39) U/L ALT 18 (7-52) U/L Alkaline Phosphatase 123 H (34-104) U/L Total Protein 7.0 (6.4-8.9) g/dL Albumin 4.0 (3.2-5.2) g/dL Globulin 3.0 (2-4) g/dL Albumin/Globulin Ratio 1.3 (1-3) Triglycerides 173 mg/dL Cholesterol 283 mg/dL LDL Cholesterol 176 mg/dL HDL Cholesterol 72.7 mg/dL TSH 1.45 (0.34-5.60) mcIU/mL Urine Color Yellow Urine Appearance Clear Urine pH 6.0 (5-9) Ur Specific [place] 1.014 (1.010-1.030) Urine Protein Negative (Negative) Urine Ketones Negative (Negative) Urine Blood Negative (Negative) Urine Nitrate Negative (Negative) Urine Bilirubin Negative (Negative) Urine Urobilinogen Negative (Negative) Ur Leukocyte Esterase Trace A (Negative) Urine WBC (Auto) Trace(0-5/hpf) (Absent) Urine RBC (Auto) Absent (Absent) Ur Squamous Epith Cells Present A (Absent) Urine Bacteria Absent (Absent) Hyaline Casts Present A (Absent) Urine Glucose Negative (Negative) Salicylates < 2.50 (<30) mg/dL Urine Opiates Screen (None Detect) Acetaminophen < 15 mcg/mL Ur Barbiturates Screen (None Detect) Ur Phencyclidine Scrn (None Detect) Ur Amphetamines Screen (None Detect) U Benzodiazepines Scrn (None Detect) Urine Cocaine Screen (None Detect) U Cannabinoids Screen (None Detect) Serum Alcohol < 10 (<10) mg/dL 08/07/17 Range/Units 13:07 WBC (3.5-10.8) 10^3/ul RBC (4.00-5.40) 10^6/ul Hgb (12.0-16.0) g/dl Hct (35-47) % MCV (80-97) fL MCH (27-31) pg MCHC (31-36) g/dl RDW (10.5-15) % Plt Count (150-450) 10^3/ul MPV (7.4-10.4) um3 Neut % (Auto) (38-83) % Lymph % (Auto) (25-47) % [place] % (Auto) (0-7) % Eos % (Auto) (0-6) % Baso % (Auto) (0-2) % Absolute Neuts (auto) (1.5-7.7) 10^3/ul Absolute Lymphs (auto) (1.0-4.8) 10^3/ul Absolute Monos (auto) (0-0.8) 10^3/ul Absolute Eos (auto) (0-0.6) 10^3/ul Absolute Basos (auto) (0-0.2) 10^3/ul Absolute Nucleated RBC 10^3/ul Nucleated RBC % Sodium (135-145) mmol/L Potassium (3.5-5.0) mmol/L Chloride (101-111) mmol/L Carbon Dioxide (22-32) mmol/L Anion Gap (2-11) mmol/L BUN (6-24) mg/dL Creatinine (0.51-0.95) mg/dL Est GFR ( Amer) (>60) Est GFR (Non-Af Amer) (>60) BUN/Creatinine Ratio (8-20) Glucose (70-100) mg/dL Calcium (8.6-10.3) mg/dL Total Bilirubin (0.2-1.0) mg/dL AST (13-39) U/L ALT (7-52) U/L Alkaline Phosphatase (34-104) U/L Total Protein (6.4-8.9) g/dL Albumin (3.2-5.2) g/dL Globulin (2-4) g/dL Albumin/Globulin Ratio (1-3) Triglycerides mg/dL Cholesterol mg/dL LDL Cholesterol mg/dL HDL Cholesterol mg/dL TSH (0.34-5.60) mcIU/mL Urine Color Urine Appearance Urine pH (5-9) Ur Specific [place] (1.010-1.030) Urine Protein (Negative) Urine Ketones (Negative) Urine Blood (Negative) Urine Nitrate (Negative) Urine Bilirubin (Negative) Urine Urobilinogen (Negative) Ur Leukocyte Esterase (Negative) Urine WBC (Auto) (Absent) Urine RBC (Auto) (Absent) Ur Squamous Epith Cells (Absent) Urine Bacteria (Absent) Hyaline Casts (Absent) Urine Glucose (Negative) Salicylates (<30) mg/dL Urine Opiates Screen None detected (None Detect) Acetaminophen mcg/mL Ur Barbiturates Screen None detected (None Detect) Ur Phencyclidine Scrn None detected (None Detect) Ur Amphetamines Screen Presumptive positive A (None Detect) U Benzodiazepines Scrn None detected (None Detect) Urine Cocaine Screen None detected (None Detect) U Cannabinoids Screen None detected (None Detect) Serum Alcohol (<10) mg/dL Result Diagrams: 08/07/17 13:05 08/07/17 13:05 Lab Statement: Any lab studies that have been ordered have been reviewed, and results considered in the medical decision making process. Course/Dx - Course Assessment/Plan: Pt is a 56 y/o female who presents with increased stress and feeling overwhelmed. Pt reports she has been withdrawing from Xanax for the past 2 years. She completely went off Xanax on July 06. Currently pt states she feels very overwhelmed and has cognitive impairment. Pt is medically cleared at 15:24. She is waiting for a mental health evaluation. In the ED course the pt was given Benadryl and Effexor. Pt was evaluated by the mental health heater installer and her case was reviewed by Dr. Leach. Dr. Leach recommends for the pt to be admitted. Pt will be admitted to [facility] psych in stable condition. - Differential Dx/Clinical Impression Provider Diagnosis: Mood disorder Discharge - Sign-Out/Discharge Documenting (check all that apply): Discharge/Admit/Transfer - Admit - Discharge Plan Condition: St[facility] [place] Disposition and Condition Condition: STABLE Disposition: Psychiatric Facility [facility] The documentation as recorded by the Ron lopez Angela accurately reflects the service I personally performed and the decisions made by , Ahsan Alan MD.
[2017-08-08] MEDS: LORazepam TAB(*) 1 MG PO PRN (16:00)
[2017-08-09] MEDS: Venlafaxine EXT RELEASE CAP* 75 MG PO SCH (10:47)
[2017-08-09] MEDS: Vitamin THERAPEUTIC TAB PO SCH (10:47)
[2017-08-09] MEDS: Amphetamine MIXED SALT TAB* 10 MG TAB PO SCH ×2 (10:48→13:25)
[2017-08-09] MEDS: LORazepam TAB(*) 1 MG PO PRN ×3 (12:06→22:58)
[2017-08-09] MEDS: Acetaminophen TAB* 325 MG PO PRN (12:07)
[2017-08-09] MEDS: lamoTRIgine TAB(*) 25 MG PO SCH (13:24)
[2017-08-09] MEDS: hydrOXYzine HCL TAB* 50 MG PO PRN ×2 (17:15→21:40)
--- NOTE | 2017-08-09 18:12 | PN ---
Subjective - Subjective Subjective: Psychiatric Progress Note: Met with patient x 45 min. she continues with significant lability. speech: hyperverbal, racing thoughts, tangential mood: irritible, dysphoric suly very poor insight about her illness. became very angry when I confronted her with past behaviors of calling clinic over and over again in order to get her medication filled. externalizes blame to clinic staff as being incompetent rather than seeing the severity of her addictive behavior. In a similar fashion, I pointed out that her sister no longer is a support to her because Latisha's behavior has alienated sister. She refuses to acknowledge this. she then became angry with me insisting that I had told her that she was crazy. I reiterated that I had only suggested that her diagnosis in my opinion was bipolar. she became very agitated. patient is highly threatened by any version other than her own. she remains very fragile and labile. she is very anxious about discharge disposition as she is homeless. I attempted to allay her anxiety by telling her that licensed social worker will solidify discharge placement even if that is a temporary placement. she did not seem to trust this completely and remains easily agitated, easily frustrated and severely anxious. MSE: no SI no psychotic symptoms Impression: bipolar disorder nos. with mixed symptoms/dysphoric suly severe stressor: homelessness unspecified anxiety disorder Plan: patient requires further stabalization. unfortunately she is resistant to taking antipsychotic medications but has agreed to trial of lamictal which helped her in the past. lamictal 25 mg qam ativan 1 mg q4 h prn anxiety/insomnia (slept better last night with ativan 1 mg before bed) effexor xr 300 mg qam adderall 15 mg po BID Plan - Plan Treatment Plan: Name: LATISHA GÓMEZ Birthdate: 1960 [id number] Medications: Current Medications Acetaminophen (Tylenol Tab*) 650 mg PO Q4H PRN PRN Reason: PAIN or TEMP > 101 F Last Admin: 08/09/17 12:07 Dose: 650 mg Al Hydrox/Mg Hydrox/Simethicone (Maalox Plus*) 30 ml PO Q4H PRN PRN Reason: INDIGESTION Amphetamine/Dextroamphetamine (Adderall Tab*) 15 mg PO BID@0800,1300 KIRSTEN Last Admin: 08/09/17 13:25 Dose: 15 mg Hydroxyzine HCl (Atarax Tab*) 50 mg PO Q4H PRN PRN Reason: ANXIETY/ INSOMNIA Last Admin: 08/09/17 17:15 Dose: 50 mg Lamotrigine (Lamictal Tab(*)) 25 mg PO DAILY [facility] Last Admin: 08/09/17 13:24 Dose: 25 mg Lorazepam (Ativan Tab(*)) 1 mg PO Q4H PRN PRN Reason: anxiety/insomnia Last Admin: 08/09/17 17:15 Dose: 1 mg Multivitamins (Theragran Tab*) 1 tab PO DAILY [facility] Last Admin: 08/09/17 10:47 Dose: 1 tab Venlafaxine HCl (Effexor Xr Cap*) 300 mg PO DAILY [facility] Last Admin: 08/09/17 10:47 Dose: 300 mg
[2017-08-10] MEDS: Amphetamine MIXED SALT TAB* 10 MG TAB PO SCH ×2 (08:47→12:20)
[2017-08-10] MEDS: Vitamin THERAPEUTIC TAB PO SCH (08:47)
[2017-08-10] MEDS: lamoTRIgine TAB(*) 25 MG PO SCH (08:47)
[2017-08-10] MEDS: Venlafaxine EXT RELEASE CAP* 75 MG PO SCH (08:47)
[2017-08-10] MEDS: LORazepam TAB(*) 1 MG PO PRN ×3 (10:45→21:15)
[2017-08-10] MEDS: hydrOXYzine HCL TAB* 50 MG PO PRN ×3 (10:45→20:08)
[2017-08-10] MEDS: Acetaminophen TAB* 325 MG PO PRN ×2 (16:39→21:15)
--- NOTE | 2017-08-10 17:57 | PN ---
Subjective - Subjective Subjective: Pscychiatric Attending Progress Note: patient spends majority of her time in room. she has not attended groups. I reviewed social workers note from today. I met with patient today. she was quite annoyed with me and hostile. she begins conversation in a very adversarial way by pointing out that she still disagrees with me about her diagnosis. insists that she is not bipolar but has "anhedonic depression". I attempted to move conversation to discharge plan. Patient had already had meeting with social insurance analyst earlier in the day and was explained the specific housing options available to her upon discharge. despite this patient began questioning me in a very angry and forceful manner to explain the specific options available to her. I reminded her that she had already spoken with jo earlier today that she would go to [facility] after discharge and [facility]. patient denied that she had ever been provided with this information. she then began an angry tirade about not returning to [facility]. I told patient that I would not be engaging in this discussion as she had already agreed to reengage with [facility] in an earlier conversation today with Jo Acosta. Patient abruptly ended the meeting. I attempted to point out that patient was angry and requested that she this is the exact behavior which has resulted in interpersonal conflict in past. patient did not return to interview. Objective - Appearance Appearance: Healthy Appearing Dysmorphic Features: No Hygiene: Dirty Grooming: Disheveled - Behavior Psychomotor Activities: Normal Exhibits Abnormal Movement: No - Attitude and Relatedness Attitude and Relatedness: Hostile - irritible Eye Contact: Poor - Speech Quality: Pressured Latencies: Normal Quantity: Copious - Mood Patient's Decription of Mood: "Anxious" - irritible - Affect Observed Affect: Expansive - and depressed Affect Consistent with: Dysphoria - Thought Process Patient's Thought Process: Tangential, Filght of Ideas, Circumstantial, Over Inclusive Thought Content: No Passive Wish, No Suicidal Planning, No Homicidal Ideation, No Paranoid Ideation - Sensorium Experiencing Hallucinations: No, Sensorium is Clear Type of Hallucinations: Visual: No, Auditory: No, Command: No - Level of Consciousness Level of Consciousness: Agitated Orientation: Yes Intact, Yes Orientated to Time, Yes Orientated to Place, Yes Orientated to Person - Impulse Control Impulse Control: Impaired - Insight and Judgement Insight and Judgement: Poor - Group Participation Particating in Group Activities: No - Medication Management Medication Management Adherence: Partial Plan - Plan Treatment Plan: Plan: continue medicaton regimen unchanged discharge likely for sunday Medications: Current Medications Acetaminophen (Tylenol Tab*) 650 mg PO Q4H PRN PRN Reason: PAIN or TEMP > 101 F Last Admin: 08/10/17 16:39 Dose: 650 mg Al Hydrox/Mg Hydrox/Simethicone (Maalox Plus*) 30 ml PO Q4H PRN PRN Reason: INDIGESTION Amphetamine/Dextroamphetamine (Adderall Tab*) 15 mg PO BID@0800,1300 [facility] Last Admin: 08/10/17 12:20 Dose: 15 mg Hydroxyzine HCl (Atarax Tab*) 50 mg PO Q4H PRN PRN Reason: ANXIETY/ INSOMNIA Last Admin: 08/10/17 15:34 Dose: 50 mg Lamotrigine (Lamictal Tab(*)) 25 mg PO DAILY [facility] Last Admin: 08/10/17 08:47 Dose: 25 mg Lorazepam (Ativan Tab(*)) 1 mg PO Q4H PRN PRN Reason: anxiety/insomnia Last Admin: 08/10/17 16:38 Dose: 1 mg Multivitamins (Theragran Tab*) 1 tab PO DAILY [facility] Last Admin: 08/10/17 08:47 Dose: 1 tab Venlafaxine HCl (Effexor Xr Cap*) 300 mg PO DAILY [facility] Last Admin: 08/10/17 08:47 Dose: 300 mg
[2017-08-11] MEDS: LORazepam TAB(*) 1 MG PO PRN ×4 (05:16→19:09)
[2017-08-11] MEDS: Amphetamine MIXED SALT TAB* 10 MG TAB PO SCH ×2 (10:35→12:36)
[2017-08-11] MEDS: Venlafaxine EXT RELEASE CAP* 75 MG PO SCH (10:35)
[2017-08-11] MEDS: Vitamin THERAPEUTIC TAB PO SCH (10:38)
[2017-08-11] MEDS: lamoTRIgine TAB(*) 25 MG PO SCH (10:38)
[2017-08-11] MEDS: hydrOXYzine HCL TAB* 50 MG PO PRN ×4 (10:39→23:16)
[2017-08-11] MEDS: Acetaminophen TAB* 325 MG PO PRN ×2 (14:00→18:41)
[2017-08-12] MEDS: hydrOXYzine HCL TAB* 50 MG PO PRN ×3 (07:20→19:22)
[2017-08-12] MEDS: LORazepam TAB(*) 1 MG PO PRN ×3 (07:21→19:22)
[2017-08-12] MEDS: Venlafaxine EXT RELEASE CAP* 75 MG PO SCH (07:25)
[2017-08-12] MEDS: Vitamin THERAPEUTIC TAB PO SCH (07:26)
[2017-08-12] MEDS: Amphetamine MIXED SALT TAB* 10 MG TAB PO SCH ×2 (07:26→13:32)
[2017-08-12] MEDS: lamoTRIgine TAB(*) 25 MG PO SCH (07:26)
[2017-08-12] MEDS: Acetaminophen TAB* 325 MG PO PRN (13:31)
--- NOTE | 2017-08-12 18:21 | PN ---
Subjective - Subjective Date of Service: 08/12/17 Service Type: 28653 Hosp care 15 min low complexity Subjective: No change of thoughts and drug seeking behaviors. Comes out of her room only to the med. window asking for one or other control substance. Insists that the doctor must see her now and increase her Adderall as her doctor is trying to decrease the dose too abruptly. Has taken MDD of her Ativan within hours and wants that to be increased. Claims that she has been anhedonic meaning suicidal because of wrong diagnosis. Overall says she has not been feeling good. Objective - Appearance Appearance: Healthy Appearing Dysmorphic Features: No Hygiene: Normal Grooming: Fairly Well Kept - Behavior Psychomotor Activities: Normal Exhibits Abnormal Movement: No - Attitude and Relatedness Attitude and Relatedness: Manipulative Eye Contact: Poor - Speech Quality: Unpressured Latencies: Normal Quantity: Appropriate - Mood Patient's Decription of Mood: "Terrible" - Affect Observed Affect: Tense Affect Consistent with: Dysphoria - Thought Process Patient's Thought Process: Coherent, Goal Directed Thought Content: Yes Passive Wish, No Suicidal Planning, No Homicidal Ideation, No Paranoid Ideation - Sensorium Experiencing Hallucinations: No, Sensorium is Clear Type of Hallucinations: Visual: No, Auditory: No, Command: No - Level of Consciousness Level of Consciousness: Alert Orientation: Yes Intact, Yes Orientated to Time, Yes Orientated to Place, Yes Orientated to Person - Impulse Control Impulse Control: Tenuous - Insight and Judgement Insight and Judgement: Poor - Group Participation Particating in Group Activities: No - Medication Management Medication Management Adherence: Yes Assessment - Assessment Merits Inpatient Hospitalization: For Immediate Safety, For Stabilization, For Discharge Planning Clinical Impression: Drug seeking behaviors. Plan - Plan Treatment Plan: Name: JOSE GÓMEZ Birthdate: 1960 [id number] Continued Medication Management: Continue Outpt Medication Medications: Current Medications Acetaminophen (Tylenol Tab*) 650 mg PO Q4H PRN PRN Reason: PAIN or TEMP > 101 F Last Admin: 08/12/17 13:31 Dose: 650 mg Al Hydrox/Mg Hydrox/Simethicone (Maalox Plus*) 30 ml PO Q4H PRN PRN Reason: INDIGESTION Amphetamine/Dextroamphetamine (Adderall Tab*) 15 mg PO BID@0800,1300 KIRSTEN Last Admin: 08/12/17 13:32 Dose: 15 mg Hydroxyzine HCl (Atarax Tab*) 50 mg PO Q4H PRN PRN Reason: ANXIETY/ INSOMNIA Last Admin: 08/12/17 11:23 Dose: 50 mg Lamotrigine (Lamictal Tab(*)) 25 mg PO DAILY [facility] Last Admin: 08/12/17 07:26 Dose: 25 mg Lorazepam (Ativan Tab(*)) 1 mg PO Q4H PRN PRN Reason: anxiety/insomnia Last Admin: 08/12/17 11:23 Dose: 1 mg Multivitamins (Theragran Tab*) 1 tab PO DAILY [facility] Last Admin: 08/12/17 07:26 Dose: 1 tab Venlafaxine HCl (Effexor Xr Cap*) 300 mg PO DAILY [facility] Last Admin: 08/12/17 07:25 Dose: 300 mg - Discharge Plan Discharge Plan: Outpatient Follow Up [facility]
[2017-08-12] MEDS: chlorproMAZINE TAB* 25 MG PO PRN (20:14)
[2017-08-13] MEDS: Venlafaxine EXT RELEASE CAP* 75 MG PO SCH (08:53)
[2017-08-13] MEDS: lamoTRIgine TAB(*) 25 MG PO SCH (08:53)
[2017-08-13] MEDS: Vitamin THERAPEUTIC TAB PO SCH (08:53)
[2017-08-13] MEDS: Amphetamine MIXED SALT TAB* 10 MG TAB PO SCH ×2 (08:53→12:57)
[2017-08-13] MEDS: LORazepam TAB(*) 1 MG PO PRN (10:05)
[2017-08-13] MEDS: Acetaminophen TAB* 325 MG PO PRN ×2 (10:05→14:30)
[2017-08-13] MEDS ORDERED: [UNRECOGNIZED DRUG - OTHER] PO ONE (11:08)
[2017-08-13] MEDS ORDERED: Gabapentin CAP(*) 100 MG PO PRN (11:13)
--- NOTE | 2017-08-13 11:15 | PN ---
Subjective - Subjective Subjective: Psychiatric Attending Progress Note: weekend nursing and physician notes reviewed. patient does not actively participate in her own care. Patient secluded herself in her room, slept during the day and did not attend any groups. Patient frequently came up to the medication window requesting prn ativan. Patient requested ativan every 3 hours until maximum daily dose was reached. Her interactions with staff and other patients are highly self centered. mood described as agitated and irritable. Frequent complaints about staff and medications, frequent demands made. Told nurse that she refuses to be discharged on Sunday unless her Adderall dose is increased. Patient sleeps through meals at times she will get up for medication administratin and then return to sleep until the next medication pass. patient is highly entitled. She asks nursing to save a lunch for her in case she sleeps through the meal. She is preoccupied with both prn and schedueled medicaiton She comes up to [place] asking for prn of ativan and hyroxyzine before they are due. Mental STatus Exam: patient was interviewed today. nursing woke patient up from nap She was squinting and holding her hands over her eyes during the entire session. patient is disheveled and has poor hygiene. mood is quite irritible. TP coherent. more organized today. TC denies SI, HI, no evidence of psychotic symptoms. patient immediately began arguing telling this provider that she wasnt ready to leave because she felt too lethargic and needed her adderall adjusted upward. (once again patient has requested numerous changes in her adderall dosage during this admission and last admission. she believes that her psychiatric sympotms will get better if she has just the right amount of adderall in her system. she also believes that all of her psychiatric difficulties have arisen from past medications that she was started on by her very first psychiatrist. she believes past medicaiton trials have caused irreversible damage to her brain (ie. 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 Mood: dysphoric today. affect is incongruent with mood. patient denies hallucinatiuons. she has no paranoid ideation. Patient endorses anhedonia, lethargy, dsyphoria but denies suicidal or homicidal ideaiton. Impression: Narcissistic Personality Disorder Bipolar Disorder currently mixed (with rapid cycling_ severe stressors: homelessnes, estranged from family, no family supports, incapable of working Plan: Effexor XR 300 mg QAM will Increase patient back to Adderall IR 20 mg po BID from 15 mg BID continue Lamictal 25 mg qam Start Wellbutrin SR 100 mg qam patient gave informed consent for the above mediaiton chanliborio. tentative discharge for tomorrow. Patient will be referred to [facility] for emergency housing. she will also get a case specialist through [facility] services.
[2017-08-13] MEDS: hydrOXYzine HCL TAB* 50 MG PO PRN ×3 (12:00→20:27)
[2017-08-13] MEDS: buPROPion SR TAB.SR* 100 MG PO SCH (12:00)
[2017-08-13] MEDS ORDERED: Amphetamine MIXED SALT TAB* 10 MG TAB PO ONE (12:00)
[2017-08-13] MEDS ORDERED: clonazePAM TAB(*) 0.5 MG PO ONE (14:33)
[2017-08-13] MEDS ORDERED: LORazepam TAB(*) 1 MG PO ONE (14:50)
[2017-08-13] MEDS: LORazepam TAB(*) 0.5 MG PO PRN ×2 (16:48→21:02)
[2017-08-13] MEDS: chlorproMAZINE TAB* 25 MG PO PRN (21:24)
[2017-08-14] MEDS: LORazepam TAB(*) 0.5 MG PO PRN ×4 (04:25→22:04)
[2017-08-14] MEDS: hydrOXYzine HCL TAB* 50 MG PO PRN ×4 (04:25→22:04)
[2017-08-14] MEDS: Acetaminophen TAB* 325 MG PO PRN ×3 (05:40→19:01)
[2017-08-14] MEDS: Vitamin THERAPEUTIC TAB PO SCH (08:35)
[2017-08-14] MEDS: lamoTRIgine TAB(*) 25 MG PO SCH (08:35)
[2017-08-14] MEDS: Venlafaxine EXT RELEASE CAP* 75 MG PO SCH (08:35)
[2017-08-14] MEDS: buPROPion SR TAB.SR* 100 MG PO SCH (08:35)
[2017-08-14] MEDS: Amphetamine MIXED SALT TAB* 10 MG TAB PO SCH ×2 (08:36→12:00)
--- NOTE | 2017-08-14 14:06 | PN ---
Subjective - Subjective Subjective: Psychiatric attending progress note: better today than yesterday. out in milieu although she remains very depressed. we had 45 min session today patient shared that she has always had depression, in her 20's and 30's she was able to push through it more. 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 It was called "[employer] [employer]". 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 reports she rented a 1500.00 dollar a month apartment in [facility]. furthermore states that she was friends with Chalino Tsai and Rony Rafy. remembers feeling better on lamictal and elavil and did well with Selegeline patch for a while. Objective - Appearance Appearance: Well Developed/Nourished Dysmorphic Features: No Hygiene: Dirty Grooming: Disheveled - Behavior Psychomotor Activities: Abnormal-Increased Exhibits Abnormal Movement: No - Attitude and Relatedness Attitude and Relatedness: Irritable - dysphoric Eye Contact: Good - Speech Quality: Unpressured Latencies: Normal Quantity: Copious - Mood Patient's Decription of Mood: "Anxious" - Affect Observed Affect: Expansive - and labile Affect Consistent with: Dysphoria - Thought Process Patient's Thought Process: Over Inclusive Thought Content: No Passive Wish, No Suicidal Planning, No Homicidal Ideation, No Paranoid Ideation - Sensorium Experiencing Hallucinations: No, Sensorium is Clear Type of Hallucinations: Visual: No, Auditory: No, Command: No - Level of Consciousness Level of Consciousness: Agitated Orientation: Yes Intact, Yes Orientated to Time, Yes Orientated to Place, Yes Orientated to Person - Impulse Control Impulse Control: Tenuous - Insight and Judgement Insight and Judgement: Fair - Group Participation Particating in Group Activities: Yes - Medication Management Medication Management Adherence: Yes Assessment - Assessment Merits Inpatient Hospitalization: For Stabilization, Consolidate Improvements Plan - Plan Treatment Plan: Taper Effexor and then d/c over next 7 days Replace Effexor with Imipramine as patient did well on Tricyclics in past target dose is 200 mg. increase by 25 mg daily untiil 200 mg reached. Patient was on 300 mg of Lamictal in past. will increase every 10 days rather than every two weeks. increase to 25 mg tomorrow and then by 25 mg every 10 days thereafter continue adderall 20 mg BID Increase Wellbutrin SR from 100 mg to 150 mg QAM Free T4 and T4 still pending. Medications: Current Medications Acetaminophen (Tylenol Tab*) 650 mg PO Q4H PRN PRN Reason: PAIN or TEMP > 101 F Last Admin: 08/14/17 12:00 Dose: 650 mg Al Hydrox/Mg Hydrox/Simethicone (Maalox Plus*) 30 ml PO Q4H PRN PRN Reason: INDIGESTION Amphetamine/Dextroamphetamine (Adderall Tab*) 20 mg PO BID@0800,1300 [facility] Last Admin: 08/14/17 12:00 Dose: 20 mg Bupropion HCl (Wellbutrin Sr Tab*) 100 mg PO DAILY [facility] Last Admin: 08/14/17 08:35 Dose: 100 mg Chlorpromazine HCl (Thorazine Tab*) 25 mg PO Q6H PRN PRN Reason: AGITATION Last Admin: 08/13/17 21:24 Dose: 25 mg Hydroxyzine HCl (Atarax Tab*) 50 mg PO Q4H PRN PRN Reason: ANXIETY/ INSOMNIA Last Admin: 08/14/17 14:01 Dose: 50 mg Imipramine HCl (Imipramine (Nf)) 25 mg PO BEDTIME [facility] Lamotrigine (Lamictal Tab(*)) 25 mg PO DAILY [facility] Last Admin: 08/14/17 08:35 Dose: 25 mg Lorazepam (Ativan Tab(*)) 0.5 mg PO Q4H PRN PRN Reason: ANXIETY Last Admin: 08/14/17 09:44 Dose: 0.5 mg Multivitamins (Theragran Tab*) 1 tab PO DAILY [facility] Last Admin: 08/14/17 08:35 Dose: 1 tab Venlafaxine HCl (Effexor Xr Cap*) 225 mg PO DAILY [facility] Last Admin: 08/14/17 08:35 Dose: 225 mg
[2017-08-14] MEDS ORDERED: CMCS:Imipramine (NF) 25 MG TAB PO SCH (21:00)
[2017-08-15] MEDS: LORazepam TAB(*) 0.5 MG PO PRN ×3 (04:30→17:51)
[2017-08-15] MEDS: hydrOXYzine HCL TAB* 50 MG PO PRN ×4 (04:30→22:18)
[2017-08-15] MEDS: Amphetamine MIXED SALT TAB* 10 MG TAB PO SCH ×2 (08:21→12:51)
[2017-08-15] MEDS: Venlafaxine EXT RELEASE CAP* 75 MG PO SCH (08:21)
[2017-08-15] MEDS: buPROPion SR TAB.SR* 150 MG PO SCH (08:22)
[2017-08-15] MEDS: lamoTRIgine TAB(*) 25 MG PO SCH (08:22)
[2017-08-15] MEDS: Vitamin THERAPEUTIC TAB PO SCH (08:22)
[2017-08-15] MEDS: IMIPRAMINE 25 MG PO SCH (20:40)
[2017-08-15] MEDS: Acetaminophen TAB* 325 MG PO PRN (20:42)
[2017-08-16] MEDS: hydrOXYzine HCL TAB* 50 MG PO PRN ×4 (04:02→22:36)
[2017-08-16] MEDS: LORazepam TAB(*) 0.5 MG PO PRN ×3 (04:02→18:08)
[2017-08-16] MEDS ORDERED: Venlafaxine EXT RELEASE CAP* 75 MG PO SCH (09:00)
[2017-08-16] MEDS: Vitamin THERAPEUTIC TAB PO SCH (09:04)
[2017-08-16] MEDS: Amphetamine MIXED SALT TAB* 10 MG TAB PO SCH ×2 (09:05→12:51)
[2017-08-16] MEDS: buPROPion SR TAB.SR* 150 MG PO SCH (09:05)
[2017-08-16] MEDS: lamoTRIgine TAB(*) 25 MG PO SCH ×2 (09:08→21:06)
[2017-08-16] MEDS: IMIPRAMINE 25 MG PO SCH (21:05)
[2017-08-16] MEDS: Acetaminophen TAB* 325 MG PO PRN (22:35)
[2017-08-17] MEDS: LORazepam TAB(*) 0.5 MG PO PRN ×4 (01:05→22:40)
[2017-08-17] MEDS: Amphetamine MIXED SALT TAB* 10 MG TAB PO SCH ×2 (08:46→14:40)
[2017-08-17] MEDS: lamoTRIgine TAB(*) 25 MG PO SCH ×2 (08:47→21:03)
[2017-08-17] MEDS: buPROPion SR TAB.SR* 150 MG PO SCH (08:47)
[2017-08-17] MEDS: Vitamin THERAPEUTIC TAB PO SCH (08:47)
[2017-08-17] MEDS ORDERED: Venlafaxine EXT RELEASE CAP* 37.5 MG PO ONE (09:00)
--- NOTE | 2017-08-17 10:08 | PN ---
[facility]HU: Group Therapy Note - Service Type Service Type: [id number] Group Psychotherapy - late entry for 08/16/17: Medication Education Group: Patient was attentive and participatory in group, and remained in good behavioral control. Patient expressed positive insights regarding relevant treatment interventions. Patient stated understanding of material discussed and had appropriate questions.
[2017-08-17] MEDS: hydrOXYzine HCL TAB* 50 MG PO PRN ×3 (11:33→22:40)
[2017-08-17] MEDS: Acetaminophen TAB* 325 MG PO PRN ×2 (11:34→21:01)
--- NOTE | 2017-08-17 13:38 | PN ---
Subjective - Subjective Subjective: Psychiatric Attending Progress Note: Mild headache today but otherwise denies any withdrawal symptoms or adverse effects from Effexor taper/Imipramine Titration. Met with patient X 30 minutes. Patient has no manic symptoms. She continues to show prominent narcissistic character flaws. 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 Patient is optimistic that change to Imipramine will help with mood and anxiety symptoms. I explained that she needs to allow the Imipramine time to work as it can take up to 8 weeks. also educated patient about need for serum Imipramine level to be in therapeutic range Vital Signs stable Objective - Appearance Appearance: Healthy Appearing Dysmorphic Features: No Hygiene: Normal Grooming: Fairly Well Kept - Behavior Psychomotor Activities: Normal Exhibits Abnormal Movement: No - Attitude and Relatedness Attitude and Relatedness: Cooperative Eye Contact: Good - Speech Quality: Unpressured Latencies: Normal Quantity: Appropriate - Mood Patient's Decription of Mood: "Okay" - Affect Observed Affect: Good Affect Consistent with: Dysphoria - Thought Process Patient's Thought Process: Coherent Thought Content: No Passive Wish, No Suicidal Planning, No Homicidal Ideation, No Paranoid Ideation - Sensorium Experiencing Hallucinations: No, Sensorium is Clear Type of Hallucinations: Visual: No, Auditory: No, Command: No - Level of Consciousness Level of Consciousness: Alert Orientation: Yes Intact, Yes Orientated to Time, Yes Orientated to Place, Yes Orientated to Person - Impulse Control Impulse Control: Intact - Insight and Judgement Insight and Judgement: Good - Group Participation Particating in Group Activities: Yes - Medication Management Medication Management Adherence: Yes Assessment - Assessment Merits Inpatient Hospitalization: For Stabilization, Consolidate Improvements Plan - Plan Treatment Plan: Continue Effexor XR taper. last dose of effexor 37.5 mg will be on 08/19/2017 Imipramine titration to target moderate depression. Imipramine currently at 75 mg and to increase by 25 mg until it is at 150mg qhs which will be on 08/20/2017 (patient did well on tricyclics in past) Would leave patient on 150 mg QHS and discharge patient on Sunday or Sunday Continue Lamictal 25 mg BID and would increase by 25 mg every 10 days (as an outpatient) Continue Adderall 20 mg po BID Continue Wellbutrin SR 150 mg po QAM Discharge on Sunday or sunday once patient has reached Imipramine 150 mg qhs [facility] with [facility]. Mohamud. patient will need Imipramine trough (late afternoon blood draw as patient takes it at bed) one week after discharge. will get temp penitentiary housing on discharge. Medications: Current Medications Acetaminophen (Tylenol Tab*) 650 mg PO Q4H PRN PRN Reason: PAIN or TEMP > 101 F Last Admin: 08/17/17 11:34 Dose: 650 mg Al Hydrox/Mg Hydrox/Simethicone (Maalox Plus*) 30 ml PO Q4H PRN PRN Reason: INDIGESTION Amphetamine/Dextroamphetamine (Adderall Tab*) 20 mg PO BID@0800,1300 [facility] Last Admin: 08/17/17 08:46 Dose: 20 mg Bupropion HCl (Wellbutrin Sr Tab*) 150 mg PO DAILY [facility] Last Admin: 08/17/17 08:47 Dose: 150 mg Hydroxyzine HCl (Atarax Tab*) 50 mg PO Q4H PRN PRN Reason: ANXIETY/ INSOMNIA Last Admin: 08/17/17 11:33 Dose: 50 mg Imipramine HCl (Imipramine (Nf)) 75 mg PO ONCE ONE; Protocol Stop: 08/17/17 21:01 Imipramine HCl (Imipramine (Nf)) 100 mg PO ONCE ONE; Protocol Stop: 08/18/17 21:01 Imipramine HCl (Imipramine (Nf)) 125 mg PO ONCE ONE; Protocol Stop: 08/19/17 21:01 Imipramine HCl (Imipramine (Nf)) 150 mg PO BEDTIME [facility]; Protocol Lamotrigine (Lamictal Tab(*)) 25 mg PO BID@, [facility] Last Admin: 08/17/17 08:47 Dose: 25 mg Lorazepam (Ativan Tab(*)) 0.5 mg PO Q4H PRN PRN Reason: ANXIETY Last Admin: 08/17/17 11:33 Dose: 0.5 mg Multivitamins (Theragran Tab*) 1 tab PO DAILY [facility] Last Admin: 08/17/17 08:47 Dose: 1 tab Venlafaxine HCl (Effexor Xr Cap*) 75 mg PO ONCE ONE Stop: 08/18/17 09:01 Venlafaxine HCl (Effexor Xr Cap*) 37.5 mg PO ONCE ONE Stop: 08/19/17 09:01
[2017-08-17] MEDS ORDERED: IMIPRAMINE 25 MG PO ONE (21:00)
[2017-08-18] MEDS: Amphetamine MIXED SALT TAB* 10 MG TAB PO SCH ×2 (08:51→12:32)
[2017-08-18] MEDS: lamoTRIgine TAB(*) 25 MG PO SCH ×2 (08:51→21:04)
[2017-08-18] MEDS: Vitamin THERAPEUTIC TAB PO SCH (08:52)
[2017-08-18] MEDS: buPROPion SR TAB.SR* 150 MG PO SCH (08:52)
[2017-08-18] MEDS ORDERED: Venlafaxine EXT RELEASE CAP* 75 MG PO ONE (09:00)
[2017-08-18] MEDS: LORazepam TAB(*) 0.5 MG PO PRN ×3 (11:41→21:04)
[2017-08-18] MEDS: hydrOXYzine HCL TAB* 50 MG PO PRN ×3 (11:41→21:04)
--- NOTE | 2017-08-18 13:11 | PN ---
Subjective - Subjective Date of Service: 08/18/17 Service Type: 71528 Hosp care 15 min low complexity Subjective: Patient is seen per her request due to troubling side effects from imipramine. She notes that as the dose has been titrated her voice has become hoarse and she is having some difficulty swallowing. She requests resumption of venlafaxine XR, albeit at a lower dose than the 300mg she arrived on. She denies SI and states her continued desire to be discharged home this July 21. Objective - Appearance Appearance: Well Developed/Nourished Dysmorphic Features: No Hygiene: Normal Grooming: Well Kept - Behavior Psychomotor Activities: Normal Exhibits Abnormal Movement: No - Attitude and Relatedness Attitude and Relatedness: Cooperative Eye Contact: Good - Speech Quality: Unpressured Latencies: Normal Quantity: Appropriate - Mood Patient's Decription of Mood: "Good" - Affect Observed Affect: Good Affect Consistent with: Euthymia - Thought Process Patient's Thought Process: Coherent Thought Content: No Passive Wish, No Suicidal Planning, No Homicidal Ideation, No Paranoid Ideation - Sensorium Experiencing Hallucinations: No, Sensorium is Clear Type of Hallucinations: Visual: No, Auditory: No, Command: No - Level of Consciousness Level of Consciousness: Alert Orientation: Yes Intact, Yes Orientated to Time, Yes Orientated to Place, Yes Orientated to Person - Impulse Control Impulse Control: Tenuous - Insight and Judgement Insight and Judgement: Fair - Group Participation Particating in Group Activities: Yes - Medication Management Medication Management Adherence: Yes Assessment - Assessment Merits Inpatient Hospitalization: Consolidate Improvements, Pending Safe DC Plan Inpatient DSM-V Dx: F31.81 Clinical Impression: 56 y.o. , white female with a history of bipolar disorder admitted on a voluntary 13 status due to worsening depression, agitation and thoughts of self-harm. Plan - Plan Treatment Plan: Name: JOSE GÓMEZ Birthdate: 1960 [id number] The patient is currently improving on a regimen of lamotrigine 25mg PO BID, bupropion SR 150mg PO qam, Adderall 20mg PO BID, venlafaxine 37.5mg PO qam and imipramine 150mg PO qday, however, the imipramine is having tolerability issues. We will discontinue imipramine and increase her venlafaxine XR to 150mg PO qam. The patient denies SI and we are targeting August 20 for discharge home. Continued Medication Management: Different Medication Medications: Current Medications Acetaminophen (Tylenol Tab*) 650 mg PO Q4H PRN PRN Reason: PAIN or TEMP > 101 F Last Admin: 08/17/17 21:01 Dose: 650 mg Al Hydrox/Mg Hydrox/Simethicone (Maalox Plus*) 30 ml PO Q4H PRN PRN Reason: INDIGESTION Amphetamine/Dextroamphetamine (Adderall Tab*) 20 mg PO BID@0800,1300 [facility] Last Admin: 08/18/17 12:32 Dose: 20 mg Bupropion HCl (Wellbutrin Sr Tab*) 150 mg PO DAILY [facility] Last Admin: 08/18/17 08:52 Dose: 150 mg Hydroxyzine HCl (Atarax Tab*) 50 mg PO Q4H PRN PRN Reason: ANXIETY/ INSOMNIA Last Admin: 08/18/17 11:41 Dose: 50 mg Lamotrigine (Lamictal Tab(*)) 25 mg PO BID@,21 [facility] Last Admin: 08/18/17 08:51 Dose: 25 mg Lorazepam (Ativan Tab(*)) 0.5 mg PO Q4H PRN PRN Reason: ANXIETY Last Admin: 08/18/17 11:41 Dose: 0.5 mg Multivitamins (Theragran Tab*) 1 tab PO DAILY [facility] Last Admin: 08/18/17 08:52 Dose: 1 tab Venlafaxine HCl (Effexor Xr Cap*) 150 mg PO DAILY [facility] - Discharge Plan Discharge Plan: Outpatient Follow Up Outpatient Program: [facility]
[2017-08-18] MEDS ORDERED: IMIPRAMINE 25 MG PO ONE (21:00)
[2017-08-19] MEDS: Amphetamine MIXED SALT TAB* 10 MG TAB PO SCH ×2 (08:34→13:25)
[2017-08-19] MEDS: Vitamin THERAPEUTIC TAB PO SCH (08:35)
[2017-08-19] MEDS: lamoTRIgine TAB(*) 25 MG PO SCH ×2 (08:35→20:35)
[2017-08-19] MEDS: buPROPion SR TAB.SR* 150 MG PO SCH (08:35)
[2017-08-19] MEDS: Venlafaxine EXT RELEASE CAP* 75 MG PO SCH (08:35)
[2017-08-19] MEDS ORDERED: Venlafaxine EXT RELEASE CAP* 37.5 MG PO ONE (09:00)
[2017-08-19] MEDS: hydrOXYzine HCL TAB* 50 MG PO PRN ×3 (11:15→21:53)
[2017-08-19] MEDS: LORazepam TAB(*) 0.5 MG PO PRN ×3 (11:15→21:53)
[2017-08-19] MEDS: Benzocaine/Menthol LOZ* 1 LOZENGE PO PRN ×3 (13:25→20:37)
[2017-08-19] MEDS ORDERED: IMIPRAMINE 25 MG PO ONE (21:00)
[2017-08-20] MEDS: Vitamin THERAPEUTIC TAB PO SCH (09:54)
[2017-08-20] MEDS: Amphetamine MIXED SALT TAB* 10 MG TAB PO SCH ×2 (09:54→12:06)
[2017-08-20] MEDS: Venlafaxine EXT RELEASE CAP* 75 MG PO SCH (09:54)
[2017-08-20 11:28] VITALS: BP 136/78
[2017-08-20] MEDS: buPROPion SR TAB.SR* 150 MG PO SCH (11:35)
[2017-08-20] MEDS: lamoTRIgine TAB(*) 25 MG PO SCH (11:35)
[2017-08-20] MEDS: hydrOXYzine HCL TAB* 50 MG PO PRN (11:38)
[2017-08-20] MEDS: LORazepam TAB(*) 0.5 MG PO PRN (12:48)
--- NOTE | 2017-08-20 13:24 | DS ---
DATE OF ADMISSION: 08/07/2017. DATE OF DISCHARGE: 08/20/2017. DISCHARGE DIAGNOSES: AXIS I: Bipolar disorder type 2. AXIS II: Narcissistic personality disorder. CONDITION AT THE TIME OF DISCHARGE: Stable. Latisha has been safe on all checks. She has been denying suicidal ideations for several days and requesting outpatient treatment. Initially, the patient was reluctant to accept a referral back to the [facility]; however, upon being reassured that they are still willing to work with her, she is agreeable to follow-up. She has been compliant with medications and tolerating them well. She is, in particular, accepting the use of mood stabilizer medication and has been started on Lamotrigine and has no side effects thus far. The patient has also been referred to case management services through the [facility] and she is agreeable to being discharged directly to the Department of Patient Care here in [facility] so that she can pursue emergency housing. The patient is future oriented at the time of discharge, saying that she is looking forward to getting a different place to live, re- engaging in treatment, and perhaps regaining her functioning so that she can begin work again and pay for her own housing in the future. MENTAL STATUS EXAM AT THE TIME OF ADMISSION: Latisha is a middle-aged, white female with brown hair in a white shirt who is clean, well-groomed, calm, cooperative, makes good eye contact, engages well with this observer. She is euthymic with a full affect. Thought process is linear and goal-directed. Thought content is significant for her desire to be discharged from the hospital. She denies suicidal ideations and has done so for several days. She denies homicidality. She denies auditory or visual hallucinations. Insight and judgment are fair given her acceptance of her bipolar diagnosis and her willingness to take mood stabilizer treatments. Cognitively, she is awake and alert with what would appear to be an average intellect. DISCHARGE DIAGNOSES: A. Medications: She is on Venlafaxine XR 150 mg p.o. daily. She is on Wellbutrin SR 150 mg p.o. q.a.m. She is on Lamictal 25 mg p.o. b.i.d. She is on Adderall 20 mg p.o. b.i.d. She is on hydroxyzine 50mg PO TID prn for anxiety. B. Diet: Regular. C. Activities: As tolerated. The patient is a nonsmoker. There are no laboratory or diagnostic studies pending at the time of discharge. D. Follow-up care: The patient will follow-up at the [facility] with psychiatrist Dr. Jose Layton on August 23 at 2: 00 p.m. She also has an appointment with her therapist Anita Middleton on SundayAugust 24 at 10:45 a.m. E. Substance abuse follow-up: Nonapplicable. HOSPITAL COURSE - PART A: Reason for admission: The patient is a 56-year-old, , white female, well- known to our unit as she was recently discharged one week prior from the [facility] who re- presented to the hospital due to anxiety, depression, and suicidal ideation. The patient was stating that she was overwhelmed by psychologically based symptoms and unable to care for herself in the community. She was requesting voluntary psychiatric treatment back on the unit and was admitted for this reason. Her chief complaint was "I'm frightened , I'm very stressed, I'm in danger because I'm dangerously depressed and unable to function correctly; I just can't do this anymore." Apparently, the patient has had a relationship with [facility] for the past ten years that has been problematic, most due to the patient's med seeking behaviors. Although she was recently taken off of controlled Xanax, she remains on Adderall and tends to be quite fixated on this medication. At this time, she is reporting cognitive decline and attributes this to Adderall and she is looking to be weaned off of this; however, she reported comorbid depressive symptoms of low mood, poor energy, difficulty sleeping, irritability , anxiety, psychomotor agitation, and thoughts of taking her own life. HOSPITAL COURSE - PART B: Psychiatric treatment rendered: The patient was admitted to the [facility] Unit under the care of Dr. Luigi Crespo and placed on q.15 minute checks for her own safety. Dr. Crespo did convince her that her diagnosis was more likely to be on the bipolar spectrum and he convinced her further to accept a trial of low dose Lamotrigine which was started at 25 mg once daily and titrated to 25 mg twice daily. The patient was warned of the risks of Noel-Adriel syndrome and never reported any significant rash events throughout her hospitalization. In addition, she was started on a trial of Bupropion SR 150 mg once daily which she tolerated well. Dr. Crespo felt that her Effexor was not helpful and started weaning her off of this, simultaneously starting her on atrial of Imipramine which he titrated as high as 100 mg daily; however, she did not tolerate this medication complaining of some hoarseness in her throat and difficulty swallowing which resolved when Imipramine was discontinued. At that point, we decided to stop tapering off Venlafaxine and to keep her on Venlafaxine XR 150 mg daily. In addition, at times Dr. Crespo tried to reduce her Adderall dose which she claims that she wants; however, every time this was operationalized, she had myriad complaints of difficulty thinking and difficulty with anxiety. For this reason, Adderall was resumed at the dose of 20 mg twice a day. One of the main issues I gather from this hospitalization was her reluctance to accept follow-up treatment at [facility]. We had to assure her that she has not been fired from that clinic and that our conversations with their representatives indicate that they are happy to continue the treatment relationship. The patient finally accepted this and was agreeable to discharge. She is homeless, having unfortunately been evicted from her apartment, and will need to attend an immediate meeting for emergency fci at the Department of Patient Care , which she agrees to. Dr. Crespo is no longer employed by this hospital and for that reason was not here on the Sunday of her discharge. Over the weekend, on the 19 of August, I took over the patient's care and I am now the discharging clinician. In my two interactions with the patient she steadfastly denied thoughts of harming herself and promises that she will return to the hospital in the event that any suicidal thoughts resurface. [id number]/[facility] #: [id number] NORIS
[2017-08-20] MEDS ORDERED: IMIPRAMINE 25 MG PO SCH (21:00)
== END 2017-08-20 13:54 | disposition home or self-care (01) | DRG 753 ==
LOC: ED 12:26 → BSU 17:06
PROVIDERS: ADMIT Psychiatry & Neurology Psychiatry; ATTEND Psychiatry & Neurology Psychiatry
PROC: GZHZZZZ Group Psychotherapy (ICD-10-PCS; principal; 2017-08-17)
DX: F31.81 Bipolar II disorder (principal); R45.851 Suicidal ideations; F60.81 Narcissistic personality disorder; F90.9 Attention-deficit hyperactivity disorder, unspecified type; R51 Headache; F41.9 Anxiety disorder, unspecified; F43.10 Post-traumatic stress disorder, unspecified; Z91.5 Personal history of self-harm; Z81.8 Family history of other mental and behavioral disorders; Z80.1 Family history of malignant neoplasm of trachea, bronchus and lung; Z59.0 Homelessness; Z63.8 Other specified problems related to primary support group
CPT/HCPCS: 36415; 80053; 80061; 80307; 80320; 80329; 81003; 81015; 83036; 84436; 84439; 84443; 85025; 87086; 90853; 99222; 99231; 99232; 99238; 99284; A9270-GY; G0480

== ENCOUNTER 2017-09-03 22:56 | Emergency (ER) | payer OTHER ==
[2017-09-03] MEDS ORDERED: LORazepam TAB(*) 1 MG PO ONE (23:35)
[2017-09-03 23:54] LABS: Urine Appearance Cloudy; Urine Blood Negative (Negative); Urine Color Yellow; Urine Ketones Negative (Negative); Urine Protein 1+(30 mg/dL) (Negative); Urine Red Blood Cell Absent (Absent); Urine Specific Gravity 1.025 (1.010-1.030); Urine Urobilinogen Negative (Negative); Urine White Blood Cell Trace(0-5/hpf) (Absent)
--- NOTE | 2017-09-04 | ED ---
Psychiatric Complaint - HPI Summary HPI Summary: This is mke Luciana Babb documenting for attending physician Clement Villalba M.D. Pt is a 56 y/o female who presents to [facility] c/o depression. She states she stopped taking her Adderall for her depression a few days ago, and now feels suicidal with thoughts of self-harm, anxious, and stressed. She denies any HI. Pt states the Adderall was originally at a dose of 90, and was recently brought down to 40. She has been admitted to [facility] for psych, with a dx of anergic dysthymia. PMHx anxiety, ADHD, depression, PTSD, suicide attempt. - History Of Current Complaint Chief Complaint: EDMentalHealth Time Seen by Provider: 09/03/17 23:17 Hx Obtained From: Patient Hx Last Menstrual Period: a year ago Onset/Duration: Gradual Onset, Lasting Days - 1, Still Present Timing: Constant Character: Depressed, Anxious Aggravating Factor(s): Medication Non-compliance - Stopped taking Adderall Alleviating Factor(s): Nothing Related History: Positive For: Prior Psychiatric Issues - Depression, anergic dysthmia Has Suicidal: Reports: Thoughts Has Homicidal: Denies: Thoughts - Allergies/Home Medications Allergies/Adverse Reactions: Allergies Allergy/AdvReac Type Severity Reaction Status Date / Time No Known Allergies Allergy Verified 09/03/17 23:07 PMH/Surg Hx/FS Hx/Imm Hx Endocrine/Hematology History: Denies: Hx Diabetes, Hx Thyroid Disease Cardiovascular History: Denies: Hx Hypertension Respiratory History: Denies: Hx Asthma, Hx Chronic Obstructive Pulmonary Disease (COPD) GI History: Denies: Hx Ulcer Sensory History: Reports: Hx Contacts or Glasses - reading only Denies: Hx Hearing Aid Opthamlomology History: Reports: Hx Contacts or Glasses - reading only Psychiatric History: Reports: Hx Anxiety, Hx Attention Deficit Hyperactivity Disorder, Hx Depression, Hx Post Traumatic Stress Disorder, Hx Inpatient Treatment - 6th [facility] admission, Hx Community Mental Health Tx, Hx Suicide Attempt , Other Psychiatric Issues/Disorders - Hx dysthymia, Hx ECT Denies: Hx Eating Disorder, Hx Schizophrenia, Hx Bipolar Disorder, Hx of Violent Episodes Against Others - Surgical History Surgery Procedure, Year, and Place: implants in - then removed Infectious Disease History: No Infectious Disease History: Reports: Hx Shingles Denies: Hx Clostridium Difficile, Hx Hepatitis, Hx Human Immunodeficiency Virus (HIV), Hx of Known/Suspected MRSA, Hx Tuberculosis, Hx Known/Suspected VRE , Hx Known/Suspected VRSA, History Other Infectious Disease, Traveled Outside the [place] in Last 30 Days - Family History Known Family History: Positive: Other - Lung CA - Social History Lives: Alone Alcohol Use: Rare Hx Substance Use: Yes Substance Use Type: Reports: None, Prescribed Hx Tobacco Use: No Smoking Status (MU): Never Smoked Tobacco Have You Smoked in the Last Year: No Review of Systems Negative: Fever Positive: Anxious, Depressed, Other - Suicidal, self-harm thoughts All Other Systems Reviewed And Are Negative: Yes Physical Exam - Summary Physical Exam Summary: VITAL SIGNS: Reviewed. GENERAL: Patient is a well-developed and nourished FEMALE who is lying comfortable in the stretcher. Patient is not in any acute respiratory distress. HEAD AND FACE: No signs of trauma. No ecchymosis, hematomas or skull depressions. No sinus tenderness. EYES: PERRLA, EOMI x 2, No injected conjunctiva, no nystagmus. EARS: Hearing grossly intact. Ear canals and tympanic membranes are within normal limits. MOUTH: Oropharynx within normal limits. NECK: Supple, trachea is midline, no adenopathy, no JVD, no carotid bruit, no c- spine tenderness, neck with full ROM. CHEST: Symmetric, no tenderness at palpation LUNGS: Clear to auscultation bilaterally. No wheezing or crackles. CVS: Regular rate and rhythm, S1 and S2 present, no murmurs or gallops appreciated. ABDOMEN: Soft, non-tender. No signs of distention. No rebound no guarding, and no masses palpated. Bowel sounds are normal. EXTREMITIES: FROM in all major joints, no edema, no cyanosis or clubbing. NEURO: Alert and oriented x 3. No acute neurological deficits. Speech is normal and follows commands. SKIN: Dry and warm PSYCH: tearful, suicidal Triage Information Reviewed: Yes Vital Signs On Initial Exam: Initial Vitals Temp Pulse Resp BP Pulse Ox 96.4 F 96 24 147/78 98 09/03/17 23:03 09/03/17 23:03 09/03/17 23:03 09/03/17 23:03 09/03/17 23:03 Vital Signs Reviewed: Yes Diagnostics - Vital Signs Vital Signs Temp Pulse Resp BP Pulse Ox 09/03/17 23:03 96.4 F 96 24 147/78 98 - Laboratory Lab Results: Lab Results 09/03/17 Range/Units 23:25 Urine Color Yellow Urine Appearance Cloudy Urine pH 6.0 (5-9) Ur Specific [place] 1.025 (1.010-1.030) Urine Protein 1+(30 mg/dl) A (Negative) Urine Ketones Negative (Negative) Urine Blood Negative (Negative) Urine Nitrate Negative (Negative) Urine Bilirubin Negative (Negative) Urine Urobilinogen Negative (Negative) Ur Leukocyte Esterase 1+ A (Negative) Urine WBC (Auto) Trace(0-5/hpf) (Absent) Urine RBC (Auto) Absent (Absent) Ur Squamous Epith Cells Present A (Absent) Urine Bacteria Absent (Absent) Hyaline Casts Present A (Absent) Urine Glucose Negative (Negative) Result Diagrams: 09/03/17 23:44 09/03/17 23:44 Lab Statement: Any lab studies that have been ordered have been reviewed, and results considered in the medical decision making process. Re-Evaluation - Re-Evaluation First Eval Re-Evaluation Time: 03:50 Change: Unchanged Comment: Sewer Maintenance Supervisor discussed pt with Ebony. Pt will be held until morning to be re-evaluated and get collatorals. Course/Dx - Course Course Of Treatment: Pt is a 56 y/o female who presents to [facility] c/o depression. She states she stopped taking her Adderall for her depression a few days ago, and now feels suicidal with thoughts of self-harm, anxious, and stressed. She denies any HI. She has been admitted to [facility] for psych, with a dx of anergic dysthymia. PMHx anxiety, ADHD, depression, PTSD, suicide attempt. A physical exam revealed tearful, suicidal. Pt will be signed out to Dr. Alan pending evaluation. - Differential Dx/Clinical Impression Provider Diagnosis: Bipolar disorder, unspecified Discharge - Sign-Out/Discharge Documenting (check all that apply): Sign-Out Patient Signing out patient TO: Ahsan Alan - Discharge Plan Condition: Stable Disposition: HOME Referrals: No Primary Care Phys,NOPCP [Primary Care Provider] - - Billing Disposition and Condition Condition: STABLE Disposition: Home
[2017-09-04 00:12] LABS: ABS Basophils 0.1 10^3/ul (0-0.2); ABS Eosinophils 0.1 10^3/ul (0-0.6); ABS Lymphocytes 1.7 10^3/ul (1.0-4.8); ABS Monocytes 0.5 10^3/ul (0-0.8); ABS Neutrophils 5.6 10^3/ul (1.5-7.7); ABS Nucleated RBC 0 10^3/ul; Eosinophil % 1.3 % (0-6); Hematocrit 42 % (35-47); Hemoglobin 14.1 g/dl (12.0-16.0); Lymphocyte % 21.5 % (25-47); Mean Corpuscular HGB Conc 34 g/dl (31-36); Mean Corpuscular Hemoglobin 28 pg (27-31); Mean Corpuscular Volume 84 fL (80-97); Mean Platelet Volume 7.2 um3 (7.4-10.4); Nucleated Red Blood Cells % 0.1; Platelet Count 336 10^3/ul (150-450); Red Blood Count 5.01 10^6/ul (4.00-5.40); Red Cell Distribution Width 15 % (10.5-15)
[2017-09-04 00:30] LABS: EGFR Non-African American 74.2 (>60)
[2017-09-04 01:28] VITALS: BP 126/73
--- NOTE | 2017-09-04 09:30 | PN ---
ED Flex Patient Progress Note Date of Service: 09/03/17 Subjective: This is a 56 year-old F who is pending admission to [facility] / transfer to another psychiatric facility / discharge to home / or being observed secondary to depression. Pt. examined in F4 around 0830. She is talking to her friend in room. Objective: Vitals: Most recent vital signs documented below. Laboratory: Current laboratory results documented below. Assessment: Pending MHE. Plan: Pending psychiatric or medical consultation to observe / transfer / admit / discharge will follow up daily . Vital Signs Temp Pulse Resp BP Pulse Ox 97.2 F 91 16 126/73 100 09/04/17 01:27 09/04/17 01:27 09/04/17 04:53 09/04/17 01:27 09/04/17 01:27 Lab Results - Entire Visit 09/03/17 09/03/17 09/03/17 23:44 23:44 23:25 WBC 8.0 RBC 5.01 Hgb 14.1 Hct 42 MCV 84 MCH 28 MCHC 34 RDW 15 Plt Count 336 MPV 7.2 L Neut % (Auto) 69.8 Lymph % (Auto) 21.5 L [place] % (Auto) 6.5 Eos % (Auto) 1.3 Baso % (Auto) 0.9 Absolute Neuts (auto) 5.6 Absolute Lymphs (auto) 1.7 Absolute Monos (auto) 0.5 Absolute Eos (auto) 0.1 Absolute Basos (auto) 0.1 Absolute Nucleated RBC 0 Nucleated RBC % 0.1 Sodium 140 Potassium 4.1 Chloride 105 Carbon Dioxide 25 Anion Gap 10 BUN 16 Creatinine 0.80 Est GFR ( Amer) 89.8 Est GFR (Non-Af Amer) 74.2 BUN/Creatinine Ratio 20.0 Glucose 98 Calcium 9.3 Total Bilirubin 0.30 AST 14 ALT 15 Alkaline Phosphatase 116 H Total Protein 7.2 Albumin 4.1 Globulin 3.1 Albumin/Globulin Ratio 1.3 TSH 0.86 Urine Color Urine Appearance Urine pH Ur Specific [place] Urine Protein Urine Ketones Urine Blood Urine Nitrate Urine Bilirubin Urine Urobilinogen Ur Leukocyte Esterase Urine WBC (Auto) Urine RBC (Auto) Ur Squamous Epith Cells Urine Bacteria Hyaline Casts Urine Glucose Salicylates < 2.50 Urine Opiates Screen None detected Acetaminophen < 15 Ur Barbiturates Screen None detected Ur Phencyclidine Scrn None detected Ur Amphetamines Screen Presumptive positive A U Benzodiazepines Scrn None detected Urine Cocaine Screen None detected U Cannabinoids Screen None detected Serum Alcohol < 10 09/03/17 23:25 WBC RBC Hgb Hct MCV MCH MCHC RDW Plt Count MPV Neut % (Auto) Lymph % (Auto) [place] % (Auto) Eos % (Auto) Baso % (Auto) Absolute Neuts (auto) Absolute Lymphs (auto) Absolute Monos (auto) Absolute Eos (auto) Absolute Basos (auto) Absolute Nucleated RBC Nucleated RBC % Sodium Potassium Chloride Carbon Dioxide Anion Gap BUN Creatinine Est GFR ( Amer) Est GFR (Non-Af Amer) BUN/Creatinine Ratio Glucose Calcium Total Bilirubin AST ALT Alkaline Phosphatase Total Protein Albumin Globulin Albumin/Globulin Ratio TSH Urine Color Yellow Urine Appearance Cloudy Urine pH 6.0 Ur Specific [place] 1.025 Urine Protein 1+(30 mg/dl) A Urine Ketones Negative Urine Blood Negative Urine Nitrate Negative Urine Bilirubin Negative Urine Urobilinogen Negative Ur Leukocyte Esterase 1+ A Urine WBC (Auto) Trace(0-5/hpf) Urine RBC (Auto) Absent Ur Squamous Epith Cells Present A Urine Bacteria Absent Hyaline Casts Present A Urine Glucose Negative Salicylates Urine Opiates Screen Acetaminophen Ur Barbiturates Screen Ur Phencyclidine Scrn Ur Amphetamines Screen U Benzodiazepines Scrn Urine Cocaine Screen U Cannabinoids Screen Serum Alcohol
== END 2017-09-04 13:12 | disposition home or self-care (01) ==
LOC: ED 22:56
DX: F31.9 Bipolar disorder, unspecified (principal); R45.851 Suicidal ideations; Z80.1 Family history of malignant neoplasm of trachea, bronchus and lung
CPT/HCPCS: 36415; 80053; 80307; 80320; 80329; 81003; 81015; 84443; 85025; 87086; 99283; A9270-GY; G0480

== ENCOUNTER 2017-09-04 23:47 | Emergency (ER) | payer OTHER ==
--- NOTE | 2017-09-05 02:58 | ED ---
Psychiatric Complaint - HPI Summary HPI Summary: Pt is a 56 y/o F p/w psychiatric complaint. She says she feels "alive but " . Assoc. Sx: Nervous. She was here late last night with the same issue. - History Of Current Complaint Chief Complaint: EDMentalHealth Time Seen by Provider: 09/05/17 00:11 Hx Obtained From: Patient Hx Last Menstrual Period: a year ago Onset/Duration: Gradual Onset, Still Present Timing: Constant Related History: Positive For: Prior Psychiatric Issues Has Suicidal: Reports: Thoughts Ingestion History: Type/Name Of Drug - Tylenol, Approximate Time Of Ingestion - ~8649-4515 last night - Allergies/Home Medications Allergies/Adverse Reactions: Allergies Allergy/AdvReac Type Severity Reaction Status Date / Time No Known Allergies Allergy Verified 09/03/17 23:07 PMH/Surg Hx/FS Hx/Imm Hx Endocrine/Hematology History: Denies: Hx Diabetes, Hx Thyroid Disease Cardiovascular History: Denies: Hx Hypertension Respiratory History: Denies: Hx Asthma, Hx Chronic Obstructive Pulmonary Disease (COPD) GI History: Denies: Hx Ulcer Sensory History: Reports: Hx Contacts or Glasses - reading only Denies: Hx Hearing Aid Opthamlomology History: Reports: Hx Contacts or Glasses - reading only Psychiatric History: Reports: Hx Anxiety, Hx Attention Deficit Hyperactivity Disorder, Hx Depression, Hx Post Traumatic Stress Disorder, Hx Inpatient Treatment - 6th [facility] admission, Hx Community Mental Health Tx, Hx Suicide Attempt , Other Psychiatric Issues/Disorders - Hx dysthymia, Hx ECT Denies: Hx Eating Disorder, Hx Schizophrenia, Hx Bipolar Disorder, Hx of Violent Episodes Against Others - Surgical History Surgery Procedure, Year, and Place: implants in - then removed Infectious Disease History: No Infectious Disease History: Reports: Hx Shingles Denies: Hx Clostridium Difficile, Hx Hepatitis, Hx Human Immunodeficiency Virus (HIV), Hx of Known/Suspected MRSA, Hx Tuberculosis, Hx Known/Suspected VRE , Hx Known/Suspected VRSA, History Other Infectious Disease, Traveled Outside the [place] in Last 30 Days - Family History Known Family History: Positive: Other - Lung CA - Social History Occupation: Unemployed Lives: With Family Alcohol Use: Rare Hx Substance Use: Yes Substance Use Type: Reports: None Hx Tobacco Use: No Smoking Status (MU): Never Smoked Tobacco Have You Smoked in the Last Year: No Review of Systems Negative: Fever Positive: Anxious, Other - nervous All Other Systems Reviewed And Are Negative: Yes Physical Exam - Summary Physical Exam Summary: VITAL SIGNS: Reviewed. GENERAL: Patient is a well-developed and nourished (MALE OR FEMALE) who is lying comfortable in the stretcher. Patient is not in any acute respiratory distress. HEAD AND FACE: No signs of trauma. No ecchymosis, hematomas or skull depressions. No sinus tenderness. EYES: PERRLA, EOMI x 2, No injected conjunctiva, no nystagmus. EARS: Hearing grossly intact. Ear canals and tympanic membranes are within normal limits. MOUTH: Oropharynx within normal limits. NECK: Supple, trachea is midline, no adenopathy, no JVD, no carotid bruit, no c- spine tenderness, neck with full ROM. CHEST: Symmetric, no tenderness at palpation LUNGS: Clear to auscultation bilaterally. No wheezing or crackles. CVS: Regular rate and rhythm, S1 and S2 present, no murmurs or gallops appreciated. ABDOMEN: Soft, non-tender. No signs of distention. No rebound no guarding, and no masses palpated. Bowel sounds are normal. EXTREMITIES: FROM in all major joints, no edema, no cyanosis or clubbing. NEURO: Alert and oriented x 3. No acute neurological deficits. Speech is normal and follows commands. SKIN: Dry and warm Triage Information Reviewed: Yes Vital Signs On Initial Exam: Initial Vitals Temp Pulse Resp BP Pulse Ox 97.8 F 99 24 143/100 99 09/04/17 23:52 09/04/17 23:52 09/04/17 23:52 09/04/17 23:52 09/04/17 23:52 Vital Signs Reviewed: Yes Diagnostics - Vital Signs Vital Signs Temp Pulse Resp BP Pulse Ox 09/04/17 23:52 97.8 F 99 24 143/100 99 - Laboratory Lab Statement: Any lab studies that have been ordered have been reviewed, and results considered in the medical decision making process. - EKG 0350 Cardiac Rate: NL - 79 bpm EKG Rhythm: Sinus Rhythm EKG Interpretation: Normal axis. Normal interval. No T-wave changes Course/Dx - Course Course Of Treatment: Pt was seen in ED for SI. She was medically cleared. An MHE was done at 0303. She will be admitted to Dr. Rocha with a Dx of unspecified psychosis. Pt understands and agrees. Provider ordered bloodwork for patient: Pt refused. - Differential Dx/Clinical Impression Differential Diagnosis/HQI/PQRI: Positive: Depression Discharge - Sign-Out/Discharge Documenting (check all that apply): Patient Departure - Discharge Plan Condition: Stable Disposition: ADMITTED TO [facility] Referrals: No Primary Care Phys,NOPCP [Primary Care Provider] -
[2017-09-05] MEDS ORDERED: hydrOXYzine HCL TAB* 50 MG PO ONE ×2 (03:15→15:29)
[2017-09-05] MEDS ORDERED: LORazepam TAB(*) 1 MG PO ONE ×2 (05:09→13:52)
--- NOTE | 2017-09-05 07:33 | ED ---
Progress - Progress Note Progress Note: This patient is signed out from Dr. Villalba, awaiting disposition. - Consult/PCP Time Called: 00:00 Course/Dx - Course Course Of Treatment: Pt was seen in ED for SI. She was medically cleared. An MHE was done at 0303, prior to shift change and sign out. While in ED patient rested comfortably without complaints. Patient is given Ativan. Patient will be transfered with a diagnosis of suicidal ideation. - Diagnoses Provider Diagnoses: Suicidal ideation Discharge - Sign-Out/Discharge Documenting (check all that apply): Receiving Sign-Out Receiving patient FROM: Clement Villalba - Discharge Plan Condition: Stable Disposition: PSYCHIATRIC FACILITY-OTHER Referrals: No Primary Care Phys,NOPCP [Primary Care Provider] -
--- NOTE | 2017-09-05 11:02 | PN ---
ED Flex Patient Progress Note Date of Service: 09/04/17 Subjective: This is a 56 year-old F who is pending admission to [facility] / transfer to another psychiatric facility / discharge to home / or being observed secondary to SI. Pt. examined in room 7 in the ED. She is resting comfortably and offers no complaints. Request a diet bo belle. Objective: Vitals: Most recent vital signs documented below. General NAD, Alert and oriented x3. Laboratory: Current laboratory results documented below. Assessment: Pending bed placement. Plan: Pending psychiatric or medical consultation to observe / transfer / admit / discharge will follow up daily . Vital Signs Temp Pulse Resp BP Pulse Ox 97.9 F 85 18 130/82 96 09/05/17 05:18 09/05/17 05:18 09/05/17 05:18 09/05/17 05:18 09/05/17 05:18
[2017-09-05 11:07] LABS: ABS Basophils 0 10^3/ul (0-0.2); ABS Eosinophils 0.1 10^3/ul (0-0.6); ABS Lymphocytes 1.8 10^3/ul (1.0-4.8); ABS Monocytes 0.5 10^3/ul (0-0.8); ABS Nucleated RBC 0 10^3/ul; Eosinophil % 1.8 % (0-6); Hematocrit 41 % (35-47); Hemoglobin 13.8 g/dl (12.0-16.0); Lymphocyte % 28.3 % (25-47); Mean Corpuscular HGB Conc 34 g/dl (31-36); Mean Corpuscular Hemoglobin 28 pg (27-31); Mean Corpuscular Volume 83 fL (80-97); Mean Platelet Volume 7.1 um3 (7.4-10.4); Nucleated Red Blood Cells % 0; Platelet Count 307 10^3/ul (150-450); Red Blood Count 4.86 10^6/ul (4.00-5.40); Red Cell Distribution Width 14 % (10.5-15); White Blood Count 6.4 10^3/ul (3.5-10.8)
[2017-09-05 11:26] LABS: EGFR Non-African American 79.9 (>60)
--- NOTE | 2017-09-05 12:15 | PN ---
ED Flex Patient Progress Note Date of Service: 09/05/17 Subjective: This is a 56 year-old F who is pending admission to [facility] / transfer to another psychiatric facility or being observed secondary to feeling depressed and suicidal in the context of trying to stop Adderall XR (After going through a 12-day prescription for 40 mg daily in less then 6 days). She was seen in the ED the day before, she became frustrated as she was not given a prescription for Adderall and left. She continues to decline referral to [facility], "they don't want me there." She called the Mobile Integration Team (KARIN) last night)from a motel she's staying to report feeling depressed, anhedonic and suicidal and she did not contract for safety and she was returned to the ED. She wants to be referred to [facility] in [place] "because I was there before and Dr. Hassan is the only doctor who understands me." Objective: Alert, oriented x 3, irritable affect, dysphoric mood. she endorses suicidal ideation, denies specific plan but does not contract for safety. Assessment: Amphetamines use disorder, severe. Plan: Pending psychiatric transfer / admit . We will follow up daily. Vital Signs Temp Pulse Resp BP Pulse Ox 98 F 76 16 104/46 97 09/05/17 11:05 09/05/17 11:05 09/05/17 11:05 09/05/17 11:05 09/05/17 11:05 Lab Results - Entire Visit 09/05/17 09/05/17 10:54 10:54 WBC 6.4 RBC 4.86 Hgb 13.8 Hct 41 MCV 83 MCH 28 MCHC 34 RDW 14 Plt Count 307 MPV 7.1 L Neut % (Auto) 62.0 Lymph % (Auto) 28.3 Cloud % (Auto) 7.2 H Eos % (Auto) 1.8 Baso % (Auto) 0.7 Absolute Neuts (auto) 4.0 Absolute Lymphs (auto) 1.8 Absolute Monos (auto) 0.5 Absolute Eos (auto) 0.1 Absolute Basos (auto) 0 Absolute Nucleated RBC 0 Nucleated RBC % 0 Sodium 140 Potassium 3.8 Chloride 107 Carbon Dioxide 27 Anion Gap 6 BUN 20 Creatinine 0.75 Est GFR ( Amer) 96.7 Est GFR (Non-Af Amer) 79.9 BUN/Creatinine Ratio 26.7 H Glucose 100 Calcium 9.0 Total Bilirubin 0.20 AST 13 ALT 12 Alkaline Phosphatase 109 H Total Protein 6.7 Albumin 3.8 Globulin 2.9 Albumin/Globulin Ratio 1.3 Salicylates < 2.50 Acetaminophen < 15 Serum Alcohol < 10
[2017-09-05 14:15] LABS: Urine Appearance Cloudy; Urine Blood Negative (Negative); Urine Color Amber; Urine Ketones Trace (Negative); Urine Protein 1+(30 mg/dL) (Negative); Urine Red Blood Cell Absent (Absent); Urine Urobilinogen Negative (Negative); Urine White Blood Cell 3+(>20/hpf) (Absent)
[2017-09-05] MEDS ORDERED: Nitrofurantoin Macrocrystals* 100 MG CAP PO ONE (14:23)
[2017-09-05 16:24] VITALS: BP 113/68
== END 2017-09-05 16:22 ==
LOC: ED 23:47
DX: R45.851 Suicidal ideations (principal)
CPT/HCPCS: 36415; 80053; 80307; 80320; 80329; 81003; 81015; 84443; 85025; 87086; 93005; 99285; A9270-GY; G0480

== ENCOUNTER 2017-09-24 14:47 | Emergency (ER) | payer OTHER ==
[2017-09-24 16:18] LABS: ABS Basophils 0 10^3/ul (0-0.2); ABS Eosinophils 0.1 10^3/ul (0-0.6); ABS Lymphocytes 1.7 10^3/ul (1.0-4.8); ABS Monocytes 0.4 10^3/ul (0-0.8); ABS Neutrophils 4.2 10^3/ul (1.5-7.7); ABS Nucleated RBC 0 10^3/ul; Hematocrit 44 % (35-47); Hemoglobin 14.7 g/dl (12.0-16.0); Lymphocyte % 25.5 % (25-47); Mean Corpuscular HGB Conc 33 g/dl (31-36); Mean Corpuscular Hemoglobin 28 pg (27-31); Mean Corpuscular Volume 85 fL (80-97); Mean Platelet Volume 7.4 um3 (7.4-10.4); Nucleated Red Blood Cells % 0.1; Platelet Count 284 10^3/ul (150-450); Red Cell Distribution Width 15 % (10.5-15); White Blood Count 6.5 10^3/ul (3.5-10.8)
[2017-09-24 17:04] LABS: Urine Appearance Cloudy; Urine Blood Negative (Negative); Urine Color Yellow; Urine Ketones Trace (Negative); Urine Protein Negative (Negative); Urine Urobilinogen Negative (Negative)
[2017-09-24] MEDS ORDERED: hydrOXYzine HCL TAB* 50 MG PO ONE (17:13)
[2017-09-24 17:18] LABS: Urine Red Blood Cell Trace(0-2/hpf) (Absent); Urine White Blood Cell Trace(0-5/hpf) (Absent)
--- NOTE | 2017-09-24 17:27 | ED ---
Psychiatric Complaint - HPI Summary HPI Summary: This is scribe Hay Alonso documenting for attending Keith Steele MD. This patient is a 56 year old F presenting to [facility] with a chief complaint of SI. She reports depression and wanting to harm herself. She states, I cant cope anymore and I just dont want to be here. She is currently on Effexor and Depakote. Patient reported that she stopped taking her usual medications because the sedatives were making her forgetful. She does not have a current counselor. She has been admitted here before. Patient does not smoke, drink alcohol, or use other substances. I, Dr. Steele, personally performed the services described in this documentation as scribed in my presence, and it is both accurate and complete. - History Of Current Complaint Chief Complaint: EDMentalHealth Time Seen by Provider: 09/24/17 15:35 Hx Obtained From: Patient Hx Last Menstrual Period: a year ago Onset/Duration: Still Present Timing: Constant Character: Depressed Aggravating Factor(s): Nothing Alleviating Factor(s): Nothing Has Suicidal: Reports: Thoughts - Allergies/Home Medications Allergies/Adverse Reactions: Allergies Allergy/AdvReac Type Severity Reaction Status Date / Time No Known Allergies Allergy Verified 09/24/17 14:59 Home Medications: Home Medications Amphetamine MIXED SALT TAB* [Adderall TAB*] 20 mg PO DAILY 09/24/17 [History Confirmed 09/24/17] PMH/Surg Hx/FS Hx/Imm Hx Endocrine/Hematology History: Denies: Hx Diabetes, Hx Thyroid Disease Cardiovascular History: Denies: Hx Hypertension Respiratory History: Denies: Hx Asthma, Hx Chronic Obstructive Pulmonary Disease (COPD) GI History: Denies: Hx Ulcer Sensory History: Reports: Hx Contacts or Glasses - reading only Denies: Hx Hearing Aid Opthamlomology History: Reports: Hx Contacts or Glasses - reading only Psychiatric History: Reports: Hx Anxiety, Hx Attention Deficit Hyperactivity Disorder, Hx Depression, Hx Post Traumatic Stress Disorder, Hx Inpatient Treatment - [facility]th [facility] [place], Hx Community Mental Health Tx, Hx Suicide Attempt , Other Psychiatric Issues/Disorders - Hx dysthymia, Hx ECT Denies: Hx Eating Disorder, Hx Schizophrenia, Hx Bipolar Disorder, Hx of Violent Episodes Against Others - Surgical History Surgery Procedure, Year, and Place: implants in - then removed Infectious Disease History: No Infectious Disease History: Reports: Hx Shingles Denies: Hx Clostridium Difficile, Hx Hepatitis, Hx Human Immunodeficiency Virus (HIV), Hx of Known/Suspected MRSA, Hx Tuberculosis, Hx Known/Suspected VRE , Hx Known/Suspected VRSA, History Other Infectious Disease, Traveled Outside the [place] in Last 30 Days - Family History Known Family History: Positive: Other - Lung CA - Social History Occupation: Unemployed Alcohol Use: Rare Hx Substance Use: Yes Substance Use Type: Reports: None Hx Tobacco Use: No Smoking Status (MU): Never Smoked Tobacco Have You Smoked in the Last Year: No Review of Systems Negative: Fever Positive: Depressed, Other - SI. Wants to harm herself. All Other Systems Reviewed And Are Negative: Yes Physical Exam - Summary Physical Exam Summary: VITAL SIGNS: Reviewed. GENERAL: Patient is a well-developed and nourished FEMALE who is lying comfortable in the stretcher. Patient is not in any acute respiratory distress. HEAD AND FACE: No signs of trauma. No ecchymosis, hematomas or skull depressions. No sinus tenderness. EYES: PERRLA, EOMI x 2, No injected conjunctiva, no nystagmus. EARS: Hearing grossly intact. Ear canals and tympanic membranes are within normal limits. MOUTH: Oropharynx within normal limits. NECK: Supple, trachea is midline, no adenopathy, no JVD, no carotid bruit, no c- spine tenderness, neck with full ROM. CHEST: Symmetric, no tenderness at palpation LUNGS: Clear to auscultation bilaterally. No wheezing or crackles. CVS: Regular rate and rhythm, S1 and S2 present, no murmurs or gallops appreciated. ABDOMEN: Soft, non-tender. No signs of distention. No rebound no guarding, and no masses palpated. Bowel sounds are normal. EXTREMITIES: FROM in all major joints, no edema, no cyanosis or clubbing. NEURO: Alert and oriented x 3. No acute neurological deficits. Speech is normal and follows commands. SKIN: Dry and warm PSYCH: Crying, seems to be anxious and depressed. She confirms she wants to harm herself. No homicidal thoughts or plan. No signs of psychosis or pressure speech. No tangential speech. Triage Information Reviewed: Yes Vital Signs On Initial Exam: Initial Vitals Temp Pulse Resp BP Pulse Ox 98.2 F 97 20 173/89 98 09/24/17 14:53 09/24/17 14:53 09/24/17 14:53 09/24/17 14:53 09/24/17 14:53 Vital Signs Reviewed: Yes Diagnostics - Vital Signs Vital Signs Temp Pulse Resp BP Pulse Ox 09/24/17 14:53 98.2 F 97 20 173/89 98 - Laboratory Lab Results: Lab Results 09/24/17 09/24/17 09/24/17 Range/Units 16:08 16:09 16:09 WBC 6.5 (3.5-10.8) 10^3/ul RBC 5.20 (4.00-5.40) 10^6/ul Hgb 14.7 (12.0-16.0) g/dl Hct 44 (35-47) % MCV 85 (80-97) fL MCH 28 (27-31) pg MCHC 33 (31-36) g/dl RDW 15 (10.5-15) % Plt Count 284 (150-450) 10^3/ul MPV 7.4 (7.4-10.4) um3 Neut % (Auto) 65.4 (38-83) % Lymph % (Auto) 25.5 (25-47) % Robertson % (Auto) 6.4 (0-7) % Eos % (Auto) 2.0 (0-6) % Baso % (Auto) 0.7 (0-2) % Absolute Neuts (auto) 4.2 (1.5-7.7) 10^3/ul Absolute Lymphs (auto) 1.7 (1.0-4.8) 10^3/ul Absolute Monos (auto) 0.4 (0-0.8) 10^3/ul Absolute Eos (auto) 0.1 (0-0.6) 10^3/ul Absolute Basos (auto) 0 (0-0.2) 10^3/ul Absolute Nucleated RBC 0 10^3/ul Nucleated RBC % 0.1 Sodium Pending Potassium Pending Chloride Pending Carbon Dioxide Pending Anion Gap Pending BUN Pending Creatinine Pending Est GFR ( Amer) Pending Est GFR (Non-Af Amer) Pending BUN/Creatinine Ratio Pending Glucose Pending Calcium Pending Total Bilirubin Pending AST Pending ALT Pending Alkaline Phosphatase Pending Total Protein Pending Albumin Pending Globulin Pending Albumin/Globulin Ratio Pending TSH 1.93 (0.34-5.60) mcIU/mL Urine Color Yellow Urine Appearance Cloudy Urine pH 5.0 (5-9) Ur Specific [place] 1.030 (1.010-1.030) Urine Protein Negative (Negative) Urine Ketones Trace A (Negative) Urine Blood Negative (Negative) Urine Nitrate Negative (Negative) Urine Bilirubin Negative (Negative) Urine Urobilinogen Negative (Negative) Ur Leukocyte Esterase Negative (Negative) Urine WBC (Auto) Trace(0-5/hpf) (Absent) Urine RBC (Auto) Trace(0-2/hpf) (Absent) Ur Squamous Epith Cells Present A (Absent) Urine Bacteria Absent (Absent) Urine Glucose Negative (Negative) Salicylates < 2.50 (<30) mg/dL Acetaminophen < 15 mcg/mL Serum Alcohol < 10 (<10) mg/dL Result Diagrams: 09/24/17 16:09 09/24/17 16:09 Lab Statement: Any lab studies that have been ordered have been reviewed, and results considered in the medical decision making process. Course/Dx - Course Assessment/Plan: Patient is a 56-year-old female who presents to the emergency department with chief complaint of having depression and suicidal ideation. Patient only takes gabapentin for the depression. Blood test results without any significant abnormality. Patient is awaiting for mental health evaluation. Patient was ablated by Dr. Beck from psychiatry and he recommends for the patient to be discharged home with follow-up with family and childrens at [facility]. - Differential Dx/Clinical Impression Differential Diagnosis/HQI/PQRI: Positive: Anxiety, Depression, Suicidal Ideation Provider Diagnosis: Depression Discharge - Sign-Out/Discharge Documenting (check all that apply): Patient Departure - D/C - Discharge Plan Condition: Stable Disposition: HOME Referrals: Family/[facility] [Outside] - As Soon As Possible (Call tomorrow morning to complete an intake to establish yourself with their office for outpatient treatment and possible medication management.) No Primary Care Phys,NOPCP [Primary Care Provider] -
[2017-09-24 17:38] LABS: EGFR Non-African American 75.3 (>60)
[2017-09-24 18:02] VITALS: BP 108/75
== END 2017-09-24 19:36 | disposition home or self-care (01) ==
LOC: ED 14:47
DX: F32.9 Major depressive disorder, single episode, unspecified (principal); R45.851 Suicidal ideations; Z79.899 Other long term (current) drug therapy
CPT/HCPCS: 36415; 80053; 80307; 80320; 80329; 81003; 84443; 85025; 87086; 99285; A9270-GY; G0480

== ENCOUNTER 2017-09-25 21:44 | Inpatient (IN) | payer OTHER ==
--- NOTE | 2017-09-25 22:14 | ED ---
Psychiatric Complaint - HPI Summary HPI Summary: This is scribe Homer Xiong documenting for attending Dr. Orly Loaiza This patient is a 56 year old F presenting to [facility] with a chief complaint of depression since 1999. Pt endorses passive SI with no plan, I dont want to kill myself, but I want to . She states that she just got off a high dose of Adderall and a sedative, and she stopped after a very long time of being prescribed. Pt is still currently prescribed Depakote as of 1 week ago, 500mg 2x /day, and Effexor, prescribed at her previous stay at [facility] at [facility]. Pt endorses anhedonia; feeling while Im alive. Pt denies drinking tonight, and denies substance abuse. Pt lives alone. I, Dr. Villalba personally performed the services described in this documentation as scribed in my presence and it is both accurate and complete. - History Of Current Complaint Time Seen by Provider: 09/25/17 21:48 Hx Obtained From: Patient Hx Last Menstrual Period: a year ago Onset/Duration: Sudden Onset, Lasting Hours, Still Present Timing: Constant Severity Initially: Moderate Severity Currently: Moderate Character: Depressed Aggravating Factor(s): Other - recent discontinuation of both stimulants and sedatives that she had been taking for a long time. Alleviating Factor(s): Nothing Associated Signs And Symptoms: Positive: Negative Related History: Positive For: Prior Psychiatric Issues Has Suicidal: Reports: Thoughts, Has Prior Attempt(s). Denies: With A Plan, Demonstrates Gesture Has Homicidal: Denies: Thoughts - Allergies/Home Medications Allergies/Adverse Reactions: Allergies Allergy/AdvReac Type Severity Reaction Status Date / Time No Known Allergies Allergy Verified 09/24/17 14:59 Home Medications: Home Medications Depakote 500 mg PO BID 09/25/17 [History Confirmed 09/25/17] Venlafaxine EXT RELEASE CAP* [Effexor Xr CAP*] 300 mg PO DAILY 09/25/17 [ History Confirmed 09/25/17] PMH/Surg Hx/FS Hx/Imm Hx Endocrine/Hematology History: Denies: Hx Diabetes, Hx Thyroid Disease Cardiovascular History: Denies: Hx Hypertension Respiratory History: Denies: Hx Asthma, Hx Chronic Obstructive Pulmonary Disease (COPD) GI History: Denies: Hx Ulcer History: Denies: Hx Dialysis Sensory History: Reports: Hx Contacts or Glasses - reading only Denies: Hx Deafness, Hx Hearing Aid Opthamlomology History: Reports: Hx Contacts or Glasses - reading only EENT History: Denies: Hx Deafness Psychiatric History: Reports: Hx Anxiety, Hx Attention Deficit Hyperactivity Disorder, Hx Depression, Hx Post Traumatic Stress Disorder, Hx Inpatient Treatment - 6th [facility] admission, Hx Community Mental Health Tx, Hx Suicide Attempt , Other Psychiatric Issues/Disorders - Hx dysthymia, Hx ECT Denies: Hx Eating Disorder, Hx Schizophrenia, Hx Bipolar Disorder, Hx of Violent Episodes Against Others - Surgical History Surgery Procedure, Year, and Place: implants in - then removed Infectious Disease History: No Infectious Disease History: Reports: Hx Shingles Denies: Hx Clostridium Difficile, Hx Hepatitis, Hx Human Immunodeficiency Virus (HIV), Hx of Known/Suspected MRSA, Hx Tuberculosis, Hx Known/Suspected VRE , Hx Known/Suspected VRSA, History Other Infectious Disease, Traveled Outside the in Last 30 Days - Family History Known Family History: Positive: Other - Lung CA - Social History Lives: Alone Alcohol Use: None Hx Substance Use: No Substance Use Type: Reports: None Hx Tobacco Use: No Smoking Status (MU): Never Smoked Tobacco Have You Smoked in the Last Year: No Review of Systems Negative: Fever Positive: no symptoms reported Positive: Depressed, Other - Passive SI All Other Systems Reviewed And Are Negative: Yes Physical Exam - Summary Physical Exam Summary: VITAL SIGNS: Reviewed. GENERAL: Patient is a well-developed and nourished female who is lying comfortable in the stretcher. Patient is not in any acute respiratory distress. Tearful. HEAD AND FACE: No signs of trauma. No ecchymosis, hematomas or skull depressions. No sinus tenderness. EYES: PERRLA, EOMI x 2, No injected conjunctiva, no nystagmus. EARS: Hearing grossly intact. Ear canals and tympanic membranes are within normal limits. MOUTH: Oropharynx within normal limits. NECK: Supple, trachea is midline, no adenopathy, no JVD, no carotid bruit, no c- spine tenderness, neck with full ROM. CHEST: Symmetric, no tenderness at palpation LUNGS: Clear to auscultation bilaterally. No wheezing or crackles. CVS: Regular rate and rhythm, S1 and S2 present, no murmurs or gallops appreciated. ABDOMEN: Soft, non-tender. No signs of distention. No rebound no guarding, and no masses palpated. Bowel sounds are normal. EXTREMITIES: FROM in all major joints, no edema, no cyanosis or clubbing. NEURO: Alert and oriented x 3. No acute neurological deficits. Speech is normal and follows commands. SKIN: Dry and warm PSYCH: Depressed, passive SI, tearful. Triage Information Reviewed: Yes Vital Signs On Initial Exam: Initial Vitals Temp Pulse Resp BP Pulse Ox 97.9 F 89 16 129/93 98 09/25/17 21:53 09/25/17 21:53 09/25/17 21:53 09/25/17 21:53 09/25/17 21:53 Vital Signs Reviewed: Yes Diagnostics - Vital Signs Vital Signs Temp Pulse Resp BP Pulse Ox 09/25/17 21:53 97.9 F 89 16 129/93 98 - Laboratory Result Diagrams: 09/25/17 22:09 09/25/17 22:09 Lab Statement: Any lab studies that have been ordered have been reviewed, and results considered in the medical decision making process. Course/Dx - Course Course Of Treatment: A 56-year-old F presents to the ED with a CC of depression since 1999. (+) Passive SI, tearful, deperssed. (-) Plan for SI. She has hx of depression and substance abuse. Recent [facility] admission and has had multiple visits to the ED for depression, Rx effexor and depakote, does not drink or use substances, recently discontinued rx stimulant and sedative. Patient will be signed out to Dr. Alan, awaiting MHE. - Differential Dx/Clinical Impression Differential Diagnosis/HQI/PQRI: Positive: Depression Provider Diagnosis: Depression Discharge - Sign-Out/Discharge Documenting (check all that apply): Sign-Out Patient Signing out patient TO: Ahsan Alan - MHE/hold - Discharge Plan Referrals: No Primary Care Phys,NOPCP [Primary Care Provider] -
[2017-09-25 22:19] LABS: ABS Basophils 0.1 10^3/ul (0-0.2); ABS Eosinophils 0.2 10^3/ul (0-0.6); ABS Lymphocytes 1.9 10^3/ul (1.0-4.8); ABS Monocytes 0.8 10^3/ul (0-0.8); ABS Neutrophils 6.1 10^3/ul (1.5-7.7); ABS Nucleated RBC 0 10^3/ul; Eosinophil % 2.2 % (0-6); Hematocrit 45 % (35-47); Hemoglobin 15.2 g/dl (12.0-16.0); Lymphocyte % 21.1 % (25-47); Mean Corpuscular HGB Conc 34 g/dl (31-36); Mean Corpuscular Hemoglobin 29 pg (27-31); Mean Corpuscular Volume 85 fL (80-97); Mean Platelet Volume 7.4 um3 (7.4-10.4); Nucleated Red Blood Cells % 0.1; Platelet Count 320 10^3/ul (150-450); Red Blood Count 5.32 10^6/ul (4.00-5.40); Red Cell Distribution Width 15 % (10.5-15)
[2017-09-25 22:31] LABS: Urine Appearance Cloudy; Urine Blood Negative (Negative); Urine Color Yellow; Urine Ketones Trace (Negative); Urine Protein 1+(30 mg/dL) (Negative); Urine Red Blood Cell 2+(6-10/hpf) (Absent); Urine Specific Gravity 1.027 (1.010-1.030); Urine Urobilinogen Negative (Negative); Urine White Blood Cell 3+(>20/hpf) (Absent)
[2017-09-26] MEDS ORDERED: hydrOXYzine HCL TAB* 50 MG PO ONE ×2 (00:37→08:40)
--- NOTE | 2017-09-26 08:30 | PN ---
ED Flex Patient Progress Note Date of Service: 09/25/17 Subjective: This is a 56 year-old F who is pending admission to [facility] / transfer to another psychiatric facility / discharge to home / or being observed secondary to depression and SI. Pt. examined in F2 around 0825. She is lying in bed in NAD. Pt. is very irritated though and wants to know what the plan is. She as otherwise no complaints. Objective: Vitals: Most recent vital signs documented below. General NAD, Alert and oriented x3. Laboratory: Current laboratory results documented below. Assessment: Pending MHE. Plan: Pending psychiatric or medical consultation to observe / transfer / admit / discharge will follow up daily . Morning medication ordered-pt. notes she is no longer taking effexor. Depakote ordered. Vital Signs Temp Pulse Resp BP Pulse Ox 97.9 F 89 16 129/93 98 09/25/17 21:53 09/25/17 21:53 09/25/17 21:53 09/25/17 21:53 09/25/17 21:53 Lab Results - Entire Visit 09/25/17 09/25/17 09/25/17 22:15 22:15 22:09 WBC RBC Hgb Hct MCV MCH MCHC RDW Plt Count MPV Neut % (Auto) Lymph % (Auto) Major % (Auto) Eos % (Auto) Baso % (Auto) Absolute Neuts (auto) Absolute Lymphs (auto) Absolute Monos (auto) Absolute Eos (auto) Absolute Basos (auto) Absolute Nucleated RBC Nucleated RBC % Sodium 139 Potassium 3.9 Chloride 103 Carbon Dioxide 30 Anion Gap 6 BUN 16 Creatinine 0.69 Est GFR ( Amer) 106.5 Est GFR (Non-Af Amer) 88.0 BUN/Creatinine Ratio 23.2 H Glucose 85 Calcium 9.2 Total Bilirubin 0.30 AST 13 ALT 12 Alkaline Phosphatase 99 Total Protein 7.4 Albumin 4.2 Globulin 3.2 Albumin/Globulin Ratio 1.3 TSH 1.86 Urine Color Yellow Urine Appearance Cloudy Urine pH 6.0 Ur Specific [place] 1.027 Urine Protein 1+(30 mg/dl) A Urine Ketones Trace A Urine Blood Negative Urine Nitrate Negative Urine Bilirubin Negative Urine Urobilinogen Negative Ur Leukocyte Esterase 3+ A Urine WBC (Auto) 3+(>20/hpf) A Urine RBC (Auto) 2+(6-10/hpf) A Ur Squamous Epith Cells Present A Urine Bacteria Absent Urine Glucose Negative Salicylates < 2.50 Urine Opiates Screen None detected Acetaminophen < 15 Ur Barbiturates Screen None detected Valproic Acid 49.0 L Ur Phencyclidine Scrn None detected Ur Amphetamines Screen None detected U Benzodiazepines Scrn None detected Urine Cocaine Screen None detected U Cannabinoids Screen None detected Serum Alcohol < 10 09/25/17 22:09 WBC 9.0 RBC 5.32 Hgb 15.2 Hct 45 MCV 85 MCH 29 MCHC 34 RDW 15 Plt Count 320 MPV 7.4 Neut % (Auto) 67.5 Lymph % (Auto) 21.1 L Major % (Auto) 8.4 H Eos % (Auto) 2.2 Baso % (Auto) 0.8 Absolute Neuts (auto) 6.1 Absolute Lymphs (auto) 1.9 Absolute Monos (auto) 0.8 Absolute Eos (auto) 0.2 Absolute Basos (auto) 0.1 Absolute Nucleated RBC 0 Nucleated RBC % 0.1 Sodium Potassium Chloride Carbon Dioxide Anion Gap BUN Creatinine Est GFR ( Amer) Est GFR (Non-Af Amer) BUN/Creatinine Ratio Glucose Calcium Total Bilirubin AST ALT Alkaline Phosphatase Total Protein Albumin Globulin Albumin/Globulin Ratio TSH Urine Color Urine Appearance Urine pH Ur Specific [place] Urine Protein Urine Ketones Urine Blood Urine Nitrate Urine Bilirubin Urine Urobilinogen Ur Leukocyte Esterase Urine WBC (Auto) Urine RBC (Auto) Ur Squamous Epith Cells Urine Bacteria Urine Glucose Salicylates Urine Opiates Screen Acetaminophen Ur Barbiturates Screen Valproic Acid Ur Phencyclidine Scrn Ur Amphetamines Screen U Benzodiazepines Scrn Urine Cocaine Screen U Cannabinoids Screen Serum Alcohol
--- NOTE | 2017-09-26 09:47 | ED ---
Progress - Progress Note Progress Note: This is scribe Garrett Romero documenting for attending Ahsan Alan M.D. Patient was received as a sign-out from Dr. Villalba to Dr. Alan. 938 -- Dr. Leach reviewed patient's case with Dr. Alan. Patient will be admitted to hospital by Dr. Leach w/ Dx of depressive disorder, nos. [id number] -- Dr. Alan signs off on involuntary admission of patient. I, Dr. Alan, personally performed the services described in this documentation as scribed in my presence and it is both accurate and complete. - Consult/PCP Time Called: 23:00 Course/Dx - Course Course Of Treatment: A 56-year-old F presents to the ED with a CC of depression since 1999. (+) Passive SI, tearful, deperssed. (-) Plan for SI. She has hx of depression and substance abuse. Recent [facility] admission and has had multiple visits to the ED for depression, Rx effexor and depakote, does not drink or use substances, recently discontinued rx stimulant and sedative. Patient will be signed out to Dr. Alan, awaiting MHE. 0700-- Patient was received as a sign- out from Dr. Villalba to Dr. Alan. 938 -- Dr. Leach reviewed patient's case with Dr. Alan. Patient will be admitted to hospital by Dr. Leach w/ Dx of depressive disorder, nos. [id number] -- Dr. Alan signs off on involuntary admission of patient. - Diagnoses Provider Diagnoses: Depression, Depressive disorder - Provider Notifications Discussed Care Of Patient With: Paramjit Leach Time Discussed With Above Provider: 09:39 Instructed by Provider To: Other - 938 -- Dr. Leach reviewed patient's case with Dr. Alan. Patient will be admitted to hospital by Dr. Leach w/ Dx of depressive disorder, nos. Discharge - Sign-Out/Discharge Documenting (check all that apply): Patient Departure - admit - Discharge Plan Condition: Fair Disposition: ADMITTED TO [facility] Referrals: No Primary Care Phys,NOPCP [Primary Care Provider] -
[2017-09-26] MEDS ORDERED: Divalproex DR TAB(*) 500 MG PO ONE (09:57)
[2017-09-26] MEDS ORDERED: Al Hydrox/Mg Hydrox/Simet LIQ* 30 ML UDC PO PRN (10:00)
[2017-09-26] MEDS ORDERED: Divalproex DR TAB(*) 250 MG PO ONE (15:20)
--- NOTE | 2017-09-26 15:55 | HP ---
H&P (Free Text) History and Physical: JUSTIFICATION FOR ADMISSION: Patient presented to emergency room with suicidal ideation and plan to overdose , questionable Adderall abuse, worsening depression and irritability, feelings of worthless. She requires inpatient psychiatric admission in order to provide treatment and stabilization as she is a danger to herself. CHIEF COMPLAINT: "I want to change my medications HISTORY OF THE PRESENT ILLNESS: Patient is a 56 y/o female, single, living by self, unemployed, with history of disorder. Patient was admitted to inpatient unit for worsening of depression and anxiety, anhedonia, kept perseverating on her struggle with medications abuse of benzodiazepine and stimulant. Patient reports having no to limited support system and also lost her apartment. Patient was overwhelmed with her situation and reports losing all her finances on stimulant and benzodiazepine abuse. Patient was overwhelmed and was having suicidal thoughts and hence came to the hospital. Patient has been compliant with her medication. Patient reports no manic symptoms during this hospitalization but had history of it. Patient reports no psychotic symptoms of delusions and hallucinations. Patient reported suicidal ideation but no intent or plan in the hospital, no homicidal ideation reported on the unit. Patient continued to exhibit behavior in control but is noted to be somewhat irritable and demanding towards staff, dysregulated in her mood and emotions. PAST PSYCHIATRIC HISTORY: Patient was discharged from inpatient psychiatric unit from [facility] about a month ago and also had another visit to [facility] at [facility] before this hospitalization. Patient was discharged from last hospitalization on venlafaxine XR 150 mg PO QAM , Wellbutrin SR 150 mg Po QAM, Lamictal 25 mg BID, Adderall 20 mg BID, Hydroxyzine 50 mg TID PRN for anxiety. Patient has history of being increasingly agitated, obsessing about her adderall prescription. Patient came to the emergency room demanding Adderall but was discharged as she did not meet criteria for admission. Patient has history of personality B traits with pervasive periods of affective instability, warren and white thinking, and poor impulsive behavior. Patient was history of hyperverbal and pressured speech, tangential thoughts with flight of ideas, labile affect, disheveled, agitated, and highly anxious. Patient started psychiatric treatment at the age of 42 and has been on Effexor XR for 10 years with psychotherapy. Patient received ECT at [facility] but reportedly after one treatment she alleges having severe cognitive side effects which were irreversible. Patients first [facility] admission was in August of 2016. Patient was incoherent and psychotic. Discharge diagnosis was benzodiazepine withdrawal, mood disorder nos , stimulant and benzodiazepine abuse (abused prescribed meds). Patient has shown limited insight in her Bipolar Disorder and choice of medications. Patient has been reluctant in the past to be on any antipsychotic medications because they all make her depressed and suicidal. Patient also rationalizes that she cannot try lithium or depakote because she developed psychosis from it. As per records patient has mentioned several suicide attempts by overdose in past but denied during this hospitalization and stated this is the first time I am having suicidal thoughts. Patient denied history of trauma. Patient denied legal problems. SUBSTANCE ABUSE HISTORY: Patient denies alcohol or tobacco use or other illicit substance abuse. Patient has history of benzodiazepine and adderall abuse and reportedly has taken more than prescribed in the past. Urine toxicology was negative. Patient has been in no inpatient and outpatient treatment for drugs. PAST MEDICAL HISTORY: Patient reports having BPPV and requesting 2 pillows ALLERGIES: NKA FAMILY PSYCHIATRIC HISTORY: Patient has family history of depression in her mother that from suicide. No substance abuse in the family reported. FAMILY/PSYCHOSOCIAL HISTORY: Patient grew up in [place]. Patient has two older sisters. Father was murdered when she was 6 years of age. Mother of suicide when patient was 9 years of age. Patient moved [facility] at the age of 10 raised by extended family members. Patient graduated from high school. 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 REVIEW OF SYSTEMS: Patients review of symptoms was negative for any physical complaint. Patient vital signs are stable. Patients ED physical exam was reviewed which is grossly normal with no active medical problem. GENERAL: Patient is a well-developed and nourished female who is lying comfortable in the stretcher. Patient is not in any acute respiratory distress. Tearful. HEAD AND FACE: No signs of trauma. No ecchymosis, hematomas or skull depressions. No sinus tenderness. EYES: PERRLA, EOMI x 2, No injected conjunctiva, no nystagmus. EARS: Hearing grossly intact. Ear canals and tympanic membranes are within normal limits. MOUTH: Oropharynx within normal limits. NECK: Supple, trachea is midline, no adenopathy, no JVD, no carotid bruit, no c- spine tenderness, neck with full ROM. CHEST: Symmetric, no tenderness at palpation LUNGS: Clear to auscultation bilaterally. No wheezing or crackles. CVS: Regular rate and rhythm, S1 and S2 present, no murmurs or gallops appreciated. ABDOMEN: Soft, non-tender. No signs of distention. No rebound no guarding, and no masses palpated. Bowel sounds are normal. EXTREMITIES: FROM in all major joints, no edema, no cyanosis or clubbing. NEURO: Alert and oriented x 3. No acute neurological deficits. Speech is normal and follows commands. SKIN: Dry and warm MENTAL STATUS EXAMINATION: Appearance: appear stated age, dressed in hospital gown, making poor eye contact , fair hygiene Behavior: superficially cooperative Gait: normal Abnormal motor activity: none Speech: normal rate and rhythm Mood: suicidal depressed Affect: depressed to irritable, labile Thought process: goal directed Thought Content: Suicidal/Homicidal ideation: suicidal ideation but no intent or plan, feel safe in the hospital Delusions: none Obsessive thoughts about her stimulant and benzodiazepine abuse Phobia: none Perceptual disturbance: none Attention: fair Orientation: grossly intact Concentration: limited Memory: fair Insight: limited Judgment: poor Impulse control: fair at time of evaluation IMPRESSION: 56 yo woman presents with long standing symptoms of bipolar disorder with recurrent depressive episodes with good psycho social functioning up until past 3 to 4 years when she has had 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 Patient continues to be abusing Adderall despite understanding of it worsening her mood and behavior. Patient mental status has deteriorated in past few years with sequelae of homelessness, estrangement from family, separation from health providers. Patient has severely impaired insight and judgment. She has was recently discharged from inpatient unit and then from E.D. Patient continues to struggle with mood instability, anxiety, demanding to be given Adderall, feelings of worthless and suicidal thoughts. Patient feels fearful to be alone. DIAGNOSES: Bipolar Disorder unspecified, Personality B Disorder, PTSD by history , Stimulant and Benzodiazepine Use Disorder PLAN: [facility] Q 15 min observation. Patient is full code. Patient is on involuntary admission status Integrate patient into the milieu Individual and group psychotherapy MMPI and psychological consult with Dr. Campa. Social work consult for therapy and discharge planning Will hold family meeting to increase Data base. Patient gave informed consent to start the following medications: Depakote was increased to 750 mg BID and was given one dose of 250 mg now. Patient was kept on Hydroxyzine 50 mg PO Q6HRS PRN anxiety. Patient was reduced on Effexor XR to 225 mg a day and educated about 300 mg a day was above recommended dose of the medication. Will continue to monitor and f/u for improvement and side effects. Spike Brasher MD Attending Psychiatrist
[2017-09-26] MEDS: hydrOXYzine HCL TAB* 50 MG PO PRN ×2 (16:07→22:16)
[2017-09-26] MEDS: Venlafaxine EXT RELEASE CAP* 75 MG PO SCH (16:07)
[2017-09-26] MEDS ORDERED: Divalproex DR TAB(*) 500 MG PO SCH (21:00)
[2017-09-26] MEDS: Divalproex DR TAB(*) 250 MG PO SCH (21:20)
[2017-09-27] MEDS: Venlafaxine EXT RELEASE CAP* 75 MG PO SCH (08:47)
[2017-09-27] MEDS: hydrOXYzine HCL TAB* 50 MG PO PRN ×3 (08:50→21:24)
[2017-09-27] MEDS: Divalproex DR TAB(*) 250 MG PO SCH ×2 (09:13→12:02)
[2017-09-27] MEDS: Acetaminophen TAB* 325 MG PO PRN (12:00)
--- NOTE | 2017-09-27 15:19 | PN ---
Subjective - Subjective Date of Service: 09/27/17 Service Type: 16497 Hosp care 15 min low complexity Subjective: Patient was seen by self, discussed with treatment team, chart was reviewed. Patient has been ambivalent about her taking Depakote. Patient was educated about history of manic symptoms in the E.D but patient continues to be resitant and denied any hypomanic or manic symptoms and reportedly has been using Adderall in the past that can mimic symptoms of manic or hypomania. Patient reprots being in depression since she has been off of Stimulant and Benzodiazepine. Patient reported depakote is making her depressed and do not want to take it. Patient continues to be dysregulated in her mood and emotions and asking for Trazodone to help her with sleep. No manic symptoms noted in the hospital. Patient sleeping has been disturbed at night but stays in bed during the day. Patient eating has been fair. Patient has been cooperative with staff. Patient behavior has been in control. Patient mood was anxious and dysphoric with passive suicidal thoughts but no intent or plan. Patient has been reporting no homicidal ideation. No psychotic symptoms of delusions or hallucinations. Objective - Appearance Appearance: Healthy Appearing Dysmorphic Features: No Hygiene: Normal Grooming: Fairly Well Kept - Behavior Psychomotor Activities: Normal Exhibits Abnormal Movement: No - Attitude and Relatedness Attitude and Relatedness: Superficially Cooperative Eye Contact: Fair - Speech Quality: Unpressured Latencies: Normal Quantity: Appropriate - Mood Patient's Decription of Mood: "Upset" - Affect Observed Affect: Depressed Affect Consistent with: Dysphoria - Thought Process Patient's Thought Process: Goal Directed Thought Content: Yes Passive Wish, No Suicidal Planning, No Homicidal Ideation, No Paranoid Ideation - Sensorium Experiencing Hallucinations: No, Sensorium is Clear Type of Hallucinations: Visual: No, Auditory: No, Command: No - Level of Consciousness Level of Consciousness: Alert Orientation: Yes Intact, Yes Orientated to Time, Yes Orientated to Place, Yes Orientated to Person - Impulse Control Impulse Control: Intact - Insight and Judgement Insight and Judgement: Poor - but improving - Medication Management Medication Management Adherence: Partial Assessment - Assessment Merits Inpatient Hospitalization: For Immediate Safety, For Stabilization, For Discharge Planning Inpatient DSM-V Dx: F39 Clinical Impression: 56 yo woman presents with long standing symptoms of bipolar disorder with recurrent depressive episodes with good psycho social functioning up until past 3 to 4 years when she has had 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 Patient continues to be abusing Adderall despite understanding of it worsening her mood and behavior. Patient mental status has deteriorated in past few years with sequelae of homelessness, estrangement from family, separation from health providers. Patient has severely impaired insight and judgment. She has was recently discharged from inpatient unit and then from E.D. Patient continues to struggle with mood instability, anxiety, demanding to be given Adderall, feelings of worthless and suicidal thoughts. Patient feels safe in the hospital. Plan - Plan Treatment Plan: Name: JOSE GÓMEZ Birthdate: 1960 [id number] - Patient continues to be hospitalized due to recent suicidal thoughts with plan , mood instability, anxiety and impulsivity. - Patient's medications were adjusted after informed consent with Effexor XR 225 mg PO QAM, patient still ambivalent about Depakote stating that it is making her feel depressed and wants to lower it down. Patient has personality B traits and demanding of what she thinks is beneficial and requesting Trazodone to help her with sleep. - Patient will be monitored for improvement and side effects. Risk and benefits were discussed. - Patient was encouraged to continue his participation in the milieu, group and individual therapy. Medications: Current Medications Acetaminophen (Tylenol Tab*) 650 mg PO Q4H PRN PRN Reason: for pain; or Temp >101 F Last Admin: 09/27/17 12:00 Dose: 650 mg Al Hydrox/Mg Hydrox/Simethicone (Maalox Plus*) 30 ml PO Q4H PRN PRN Reason: INDIGESTION Divalproex Sodium (Depakote Dr Tab(*)) 750 mg PO BID [facility] Last Admin: 09/27/17 12:02 Dose: 750 mg Hydroxyzine HCl (Atarax Tab*) 50 mg PO Q6H PRN PRN Reason: ANXIETY Last Admin: 09/27/17 15:04 Dose: 50 mg Trazodone HCl (Desyrel Tab*) 50 mg PO BEDTIME [facility] Venlafaxine HCl (Effexor Xr Cap*) 225 mg PO DAILY [facility] Last Admin: 09/27/17 08:47 Dose: 225 mg
[2017-09-27] MEDS ORDERED: traZODone TAB* 100 MG PO SCH (21:00)
[2017-09-27] MEDS ORDERED: traZODone TAB* 50 MG TAB PO SCH (21:00)
[2017-09-27] MEDS ORDERED: Divalproex ER TAB(*) 250 MG PO SCH (21:00)
[2017-09-28] MEDS: hydrOXYzine HCL TAB* 50 MG PO PRN ×3 (04:32→17:40)
[2017-09-28] MEDS: Venlafaxine EXT RELEASE CAP* 75 MG PO SCH (08:19)
[2017-09-28] MEDS: Acetaminophen TAB* 325 MG PO PRN (10:35)
--- NOTE | 2017-09-28 12:01 | PN ---
Subjective - Subjective Date of Service: 09/28/17 Service Type: 94622 Hosp care 15 min low complexity Subjective: Patient was seen by self, discussed with treatment team, chart was reviewed. Patient was adamant about not taking Depakote and is angry about being diagnosed with Bipolar Disorder. Patient has affective and emotional dysregulation with more like of borderline personality disorder in this hospitalization. Patient was again educated about history of manic symptoms in the E.D but patient continues to be resistant and denied any hypomanic or manic symptoms and reportedly has been using Adderall in the past that can mimic symptoms of suly or hypomania. Patient reprots being in depression since she has been off of Stimulant and Benzodiazepine. Patient continues to be dysregulated in her mood and emotions and asking for increment in Trazodone to help her with sleep as it was disturbed last night. Patient is in her bed during the day as well but do come out for meals. Patient is manipulative and do not want to listen about sleep hygeine or therapy to help with her thinking, emotions and behaviors. No manic symptoms noted in the hospital. Patient has been good at splitting to help get her needs from staff. Patient behavior has been in control. Patient makes passive suicidal statement but no intent or plan. Patient behavior has not displayed any dangerous behavior to self and others. Patient has been reporting no homicidal ideation. No psychotic symptoms of delusions or hallucinations. Objective - Appearance Appearance: Healthy Appearing Dysmorphic Features: No Grooming: Disheveled - Behavior Psychomotor Activities: Abnormal-Increased - Attitude and Relatedness Attitude and Relatedness: Minimally Cooperative Eye Contact: Poor - Speech Quality: Unpressured Latencies: Normal Quantity: Appropriate - Mood Patient's Decription of Mood: "Angry" - Affect Observed Affect: Depressed Affect Consistent with: Dysphoria - Thought Process Patient's Thought Process: Coherent, Circumstantial Thought Content: Yes Passive Wish, No Suicidal Planning, No Homicidal Ideation, No Paranoid Ideation - Sensorium Experiencing Hallucinations: No, Sensorium is Clear Type of Hallucinations: Visual: No, Auditory: No, Command: No - Level of Consciousness Level of Consciousness: Alert Orientation: Yes Intact, Yes Orientated to Time, Yes Orientated to Place, Yes Orientated to Person - Impulse Control Impulse Control: Poor - Insight and Judgement Insight and Judgement: Poor - Group Participation Particating in Group Activities: No - Medication Management Medication Management Adherence: Partial Assessment - Assessment Merits Inpatient Hospitalization: For Immediate Safety, For Stabilization, For Discharge Planning Inpatient DSM-V Dx: F39 Clinical Impression: 56 yo woman presents with long standing symptoms of bipolar disorder with recurrent depressive episodes with good psycho social functioning up until past 3 to 4 years when she has had 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 Patient continues to be abusing Adderall despite understanding of it worsening her mood and behavior. Patient mental status has deteriorated in past few years with sequelae of homelessness, estrangement from family, separation from health providers. Patient has severely impaired insight and judgment. She has was recently discharged from inpatient unit and then from E.D. Patient continues to struggle with mood instability, anxiety, demanding to be given Adderall, feelings of worthless and suicidal thoughts. Patient feels safe in the hospital. Plan - Plan Treatment Plan: Name: JOSE GÓMEZ Birthdate: 1960 [id number] - Patient continues to be hospitalized due to recent suicidal thoughts with plan , mood instability, anxiety and impulsivity. - Patient's medications were adjusted after informed consent with Effexor XR 225 mg PO QAM, patient still ambivalent about Depakote stating that it is making her feel depressed and wants to lower it down. Patient Depakote ER was lowered to 500 mg HS. Patient has personality B traits and demanding of what she thinks is beneficial and demanding increment in Trazodone to 100mg HS. - Patient will be monitored for improvement and side effects. Risk and benefits were discussed. - Patient was encouraged to continue his participation in the milieu, group and individual therapy. Medications: Current Medications Acetaminophen (Tylenol Tab*) 650 mg PO Q4H PRN PRN Reason: for pain; or Temp >101 F Last Admin: 09/28/17 10:35 Dose: 650 mg Al Hydrox/Mg Hydrox/Simethicone (Maalox Plus*) 30 ml PO Q4H PRN PRN Reason: INDIGESTION Divalproex Sodium (Depakote Er Tab(*)) 500 mg PO BEDTIME [facility] Hydroxyzine HCl (Atarax Tab*) 50 mg PO Q6H PRN PRN Reason: ANXIETY Last Admin: 09/28/17 10:35 Dose: 50 mg Trazodone HCl (Desyrel Tab*) 100 mg PO BEDTIME [facility] Venlafaxine HCl (Effexor Xr Cap*) 225 mg PO DAILY [facility] Last Admin: 09/28/17 08:19 Dose: 225 mg
[2017-09-28] MEDS: traZODone TAB* 100 MG PO SCH (20:42)
[2017-09-28] MEDS: Divalproex ER TAB(*) 250 MG PO SCH ×2 (20:43→21:28)
[2017-09-29] MEDS: hydrOXYzine HCL TAB* 50 MG PO PRN ×3 (00:11→18:31)
[2017-09-29] MEDS: Venlafaxine EXT RELEASE CAP* 75 MG PO SCH (12:01)
[2017-09-29] MEDS: Acetaminophen TAB* 325 MG PO PRN (17:10)
[2017-09-29] MEDS ORDERED: Ondansetron TAB* 4 MG PO ONE (18:00)
[2017-09-29] MEDS: Divalproex ER TAB(*) 250 MG PO SCH (20:02)
[2017-09-29] MEDS: traZODone TAB* 100 MG PO SCH (20:02)
[2017-09-30] MEDS: hydrOXYzine HCL TAB* 50 MG PO PRN ×3 (03:01→16:41)
[2017-09-30] MEDS: Venlafaxine EXT RELEASE CAP* 75 MG PO SCH (08:32)
[2017-09-30] MEDS: Acetaminophen TAB* 325 MG PO PRN (16:40)
[2017-09-30] MEDS ORDERED: diPHENhydraMINE PO* 25 MG PO PRN (18:00)
--- NOTE | 2017-09-30 18:53 | PN ---
Subjective - Subjective Subjective: Latisha c/o of being too suicidally depressed to leave her room, she expreses irritation when informed that Trazodone and Atarax are being held as hospitalist who consulted for her her rash, suspected either one could be the culprit. She requested Seroquel for sleep. She engages in med-seeking stances and become angry when redirected. Per staff, she has been seclusive to her room. Objective - Appearance Appearance: Healthy Appearing Dysmorphic Features: No Hygiene: Normal Grooming: Well Kept - Behavior Psychomotor Activities: Abnormal-Decreased - Attitude and Relatedness Attitude and Relatedness: Manipulative Eye Contact: Fair - Speech Quality: Unpressured Latencies: Normal Quantity: Appropriate - Mood Patient's Decription of Mood: "Upset" - Affect Observed Affect: Non-labile Affect Consistent with: Dysphoria - Thought Process Patient's Thought Process: Coherent, Goal Directed Thought Content: No Passive Wish, No Suicidal Planning, No Homicidal Ideation, No Paranoid Ideation - Sensorium Experiencing Hallucinations: No, Sensorium is Clear - Level of Consciousness Level of Consciousness: Alert Orientation: Yes Intact - Impulse Control Impulse Control: Intact - Insight and Judgement Insight and Judgement: Poor - Group Participation Particating in Group Activities: No - Medication Management Medication Management Adherence: Yes Assessment - Assessment Merits Inpatient Hospitalization: Consolidate Improvements, For Discharge Planning Inpatient DSM-V Dx: F39 Clinical Impression: poor therapeutic engagement, med seeking, will hold trazodone and hydroxyzine and write a one time dose of Seroquel HS. Patient should be encouraged to participate in treatment as a condition for continued admission. Plan - Plan Treatment Plan: Name: LATISHA GÓMEZ Birthdate: 1960 [id number] Continued Medication Management: Continue Outpt Medication Medications: Current Medications Acetaminophen (Tylenol Tab*) 650 mg PO Q4H PRN PRN Reason: for pain; or Temp >101 F Last Admin: 09/30/17 16:40 Dose: 650 mg Al Hydrox/Mg Hydrox/Simethicone (Maalox Plus*) 30 ml PO Q4H PRN PRN Reason: INDIGESTION Last Admin: 09/29/17 13:43 Dose: 30 ml Diphenhydramine HCl (Benadryl Po*) 25 mg PO Q6H PRN PRN Reason: ITCHING Divalproex Sodium (Depakote Er Tab(*)) 500 mg PO BEDTIME [facility] Last Admin: 09/29/17 20:02 Dose: Not Given Venlafaxine HCl (Effexor Xr Cap*) 225 mg PO DAILY [facility] Last Admin: 09/30/17 08:32 Dose: 225 mg - Discharge Plan Discharge Plan: Outpatient Follow Up Outpatient Program: [facility]
[2017-09-30] MEDS: QUEtiapine TAB* 100 MG PO SCH (21:38)
[2017-09-30] MEDS: Divalproex ER TAB(*) 250 MG PO SCH (21:41)
--- NOTE | 2017-09-30 21:52 | CONS ---
CONSULTATION REPORT: DATE OF CONSULT: 09/30/17 PROVIDER: Darren Bentley NP ATTENDING PHYSICIAN: Dr. Mart (report dictated by Darren Bnetley NP). REASON FOR CONSULT: Rash. CHIEF COMPLAINT: The patient is complaining of rash x2 to 3 days. HISTORY OF PRESENT ILLNESS: Ms. Almendarez is a 57-year-old female who was admitted to the psychiatric unit on 09/26/17 for suicidal ideation and worsening depression. Today, Hospital Medicine was asked to evaluate the patient for a complaint of rash by the psychiatrist corrections nurse. The patient was seen and evaluated in her room in the psych unit where she was found to be lying in bed, alert and oriented x3. She reports that she started to develop small, red, circular rashes first on her right arm, reporting multiple other similar circular red areas popped up on her left arm, leg, and back. She reports that these are very itchy. She reports she started 2 new medications during this hospitalization, Atarax and trazodone. She denies any recent illnesses. Denying any fevers, chills, rhinorrhea, cough. She does report she had some nausea yesterday, but denies vomiting or abdominal pain. Denies any urinary symptoms. Reports normal bowel movements. Denies body aches. Denies headache. Currently, the patient reports that she feels depressed; however, she does state that she feels better than when she was first admitted. Her only complaint at this time is that her "rash itches." She denies ever having a rash like this in the past. PAST MEDICAL HISTORY: 1. History of BPPV. 2. History of depression. 3. Anxiety. 4. Suicidal ideation. 5. PTSD. 6. Personality disorder. 5. Dysosmia. PAST SURGICAL HISTORY: Status post breast augmentation surgery. CURRENT MEDICATIONS: 1. Acetaminophen 650 mg p.o. q.4 hours p.r.n. 2. Depakote 500 mg p.o. at bedtime. 3. Atarax 50 mg p.o. q.6 hours p.r.n. 4. Zofran 4 mg p.o. once. 5. Trazodone 100 mg p.o. at bedtime. 6. Effexor 225 mg p.o. daily. FAMILY HISTORY: Mother with history of CVA. SOCIAL HISTORY: Denies tobacco abuse or alcohol use. Her surrogate decision maker is her sister. REVIEW OF SYSTEMS: A 14-point review of systems was performed. All the pertinent positives and negatives are mentioned in the history of present illness, otherwise are negative. PHYSICAL EXAM: Vital Signs: Temperature 98.3, heart rate 81, respirations 16, O2 sat 100% on room air, blood pressure 99/79. General Appearance: A 57-year- old female, lying in bed, alert and oriented x3, appears to be a good historian , appropriate to situation. Flat affect. HEENT: Head is normocephalic and atraumatic. Pupils are equal and reactive to light. Oropharynx is clear, no noted lesions in oral mucosa. Moist mucous membranes. Neck: Supple. Cardiac : S1, S2. Regular rate and rhythm. No murmur, rub, or gallop appreciated. Lungs are clear to auscultation bilaterally with good aeration throughout. Abdomen: Soft, nontender, nondistended. Extremities: Moves all extremities. Strength is 5/5 throughout. Skin: The patient has multiple 2 to 5 cm round erythema, flat-type areas on her right arm approximately 4 to 5 and 3 to 4 on the left arm as well as 2 noted in her posterior lower lumbar area as well as 2- 3 on her hands bilaterally, appearing to have a darker small dot in the middle of the circular rash. Neuro: Alert and oriented x3. No focal deficits noted. ASSESSMENT AND PLAN: Ms. Almendarez is a 57-year-old female, currently admitted to the psychiatric unit for depression and suicidal ideation, who reports developing a rash starting 2 to 3 days. Hospital Medicine was asked to consult. Rash. This appears to be erythema multiforme, suspect secondary to a drug reaction, appears to be mild at this time. Both Atarax and trazodone can cause this drug reaction, therefore both of these have been discontinued at this time. Discussed this with the charge nurse, who will notify the psychiatric physician corrections nurse to notify that these medications have been discontinued. As well, a virus can cause erythema multiforme; however, I have the patient doesnt appears to have any other viral symptoms. Will send a CBC and CMP. Benadryl p.r.n. as oral histamines can help with symptom relief. If she develops further lesions and has increased symptoms,we could try prednisone course. Hospital Medicine will continue to follow along at this time and will follow up tomorrow with the patient. TIME SPENT: Approximately 60 minutes was spent on this consultation. DARREN BENTLEY, CONCRETE MIXER OPERATOR [id number]/[facility] #: [id number] NORIS
[2017-10-01] MEDS: Venlafaxine EXT RELEASE CAP* 75 MG PO SCH (08:11)
[2017-10-01 11:43] LABS: ABS Basophils 0.1 10^3/ul (0-0.2); ABS Eosinophils 0.2 10^3/ul (0-0.6); ABS Lymphocytes 1.9 10^3/ul (1.0-4.8); ABS Monocytes 0.5 10^3/ul (0-0.8); ABS Nucleated RBC 0 10^3/ul; Eosinophil % 2.8 % (0-6); Hematocrit 40 % (35-47); Hemoglobin 13.3 g/dl (12.0-16.0); Lymphocyte % 33.7 % (25-47); Mean Corpuscular HGB Conc 33 g/dl (31-36); Mean Corpuscular Hemoglobin 28 pg (27-31); Mean Corpuscular Volume 85 fL (80-97); Mean Platelet Volume 8.2 um3 (7.4-10.4); Nucleated Red Blood Cells % 0.2; Platelet Count 226 10^3/ul (150-450); Red Blood Count 4.72 10^6/ul (4.00-5.40); Red Cell Distribution Width 15 % (10.5-15); White Blood Count 5.6 10^3/ul (3.5-10.8)
[2017-10-01 11:56] LABS: EGFR Non-African American 92.3 (>60)
[2017-10-01] MEDS ORDERED: diPHENhydraMINE PO* 50 MG ONE (13:39)
--- NOTE | 2017-10-01 14:45 | PN ---
Subjective - Subjective Date of Service: 10/01/17 Service Type: 40216 Hosp care 15 min low complexity Subjective: Patient was seen by self, discussed with treatment team, chart was reviewed. Patient continues to have long list of complaints against staff at the hospital. Patient continues to use premature defenses including splitting, projection, passive aggressive. Patient over the weekend developed a rash and Trazodone and Atarax were discontinued. Patient has not been taking her Depakote and it was discontinued as well. Patient was started on Seroquel that helped her with sleep. Patient has affective and emotional dysregulation due to her borderline personality disorder and was given psychoeducation around that. Patient is in her bed during the day as well but do come out for meals. Patient is manipulative and do not want to listen about sleep hygeine or therapy to help with her thinking, emotions and behaviors. No manic symptoms noted in the hospital. Patient has been good at splitting to help get her needs from staff. Patient behavior has been in control. Patient behavior has not displayed any dangerous behavior to self and others. Patient has been reporting no suicidal or homicidal ideation. No psychotic symptoms of delusions or hallucinations. Objective - Appearance Appearance: Healthy Appearing Dysmorphic Features: No Hygiene: Normal Grooming: Fairly Well Kept - Behavior Psychomotor Activities: Normal Exhibits Abnormal Movement: No - Attitude and Relatedness Attitude and Relatedness: Dismissive Eye Contact: Fair - Speech Quality: Unpressured Latencies: Normal Quantity: Appropriate - Mood Patient's Decription of Mood: "not good, staff is rude to me" - Affect Observed Affect: Fair Affect Consistent with: Euthymia - Thought Process Patient's Thought Process: Goal Directed Thought Content: No Passive Wish, No Suicidal Planning, No Homicidal Ideation, No Paranoid Ideation - Sensorium Experiencing Hallucinations: No, Sensorium is Clear Type of Hallucinations: Visual: No, Auditory: No, Command: No - Level of Consciousness Level of Consciousness: Alert Orientation: Yes Intact, Yes Orientated to Time, Yes Orientated to Place, Yes Orientated to Person - Impulse Control Impulse Control: Intact - no out of control behavior in the hospital - Insight and Judgement Insight and Judgement: Poor - but improving - Group Participation Particating in Group Activities: No - Medication Management Medication Management Adherence: Yes Assessment - Assessment Merits Inpatient Hospitalization: For Immediate Safety, For Stabilization, For Discharge Planning Inpatient DSM-V Dx: F39 Clinical Impression: 56 yo woman presents with long standing symptoms of Borderline Personality Diosrder with bipolar disorder(Patient denial of having any manic or hypomanic symptoms in the past) recently admitted for depressive episodes. Patient reports getting her off of Adderall. Patient mental status has deteriorated in past few years with sequelae of homelessness, estrangement from family, separation from health providers. Patient has severely impaired insight and judgment. She was recently discharged from inpatient unit and then from E.D. Patient continues to struggle with mood instability, anxiety, feelings of worthless and passive suicidal thoughts. Patient feels safe in the hospital but has been uncooperative with treatment. Plan - Plan Treatment Plan: Name: JOSE GÓMEZ Birthdate: 1960 [id number] - Patient continues to be hospitalized due to recent suicidal thoughts with plan , mood instability, anxiety and impulsivity. - Patient's medications were continued with Effexor XR 225 mg PO QAM, Seroquel 100mg at Bedtime, Depakote was discontinued. Patient requested increment in Benadryl PRN which was increased to 50 mg Q6HRS. Patient has personality B traits and was given psychoeducation on that and offered therapy/DBT on the unit , and also offered substance use treatment and DBT outpatient upon discharge but shows limited interest in any therapy or substance use treatment. - Patient will be monitored for improvement and side effects. Risk and benefits were discussed. - Patient was encouraged to continue his participation in the milieu, group and individual therapy. Medications: Current Medications Acetaminophen (Tylenol Tab*) 650 mg PO Q4H PRN PRN Reason: for pain; or Temp >101 F Last Admin: 09/30/17 16:40 Dose: 650 mg Al Hydrox/Mg Hydrox/Simethicone (Maalox Plus*) 30 ml PO Q4H PRN PRN Reason: INDIGESTION Last Admin: 09/29/17 13:43 Dose: 30 ml Diphenhydramine HCl (Benadryl Po*) 50 mg PO Q6H PRN PRN Reason: ITCHING Quetiapine Fumarate (Seroquel Tab*) 100 mg PO BEDTIME [facility] Last Admin: 09/30/17 21:38 Dose: 100 mg Venlafaxine HCl (Effexor Xr Cap*) 225 mg PO DAILY [facility] Last Admin: 10/01/17 08:11 Dose: 225 mg
[2017-10-01] MEDS: Acetaminophen TAB* 325 MG PO PRN (16:31)
[2017-10-01] MEDS: QUEtiapine TAB* 100 MG PO SCH (19:58)
[2017-10-01] MEDS: diPHENhydraMINE PO* 50 MG PO PRN (20:37)
--- NOTE | 2017-10-01 20:54 | CONS ---
CONSULTATION FOLLOWUP: DATE OF CONSULT: 10/01/17 PROVIDER: Darren Bentley NP ATTENDING PHYSICIAN: Dr. Mart (report dictated by Darren Bentley NP). REASON FOR CONSULT: Rash. HISTORY OF PRESENT ILLNESS: Ms. Almendarez is a 57-year-old female, who was admitted to the psych unit on 09/26/17 for suicidal ideation, worsening depression in which Hospital Medicine was asked for consult yesterday for rash in which she was found to most likely have erythema multiforme secondary to either trazodone or Atarax. The patient was seen on followup today in the psych unit where she was found to be sitting up in a chair, alert and oriented x3, in no acute distress. The patient reports the affected areas are now faded and she has not developed any new areas. The patient reports that she has had Atarax in the past and has not had a reaction and trazodone was the new medication that she was given on this admission. Most likely, the cause of the erythema multiforme is the trazodone. The patient reports that the affected areas are still pruritic, but much less so today. She denies any oropharyngeal involvement. Denies any fevers or chills. I reviewed CBC and CMP today, which were unremarkable. REVIEW OF SYSTEMS: A 14-point review of systems was performed. All the pertinent positives and negatives are mentioned in the HPI, otherwise are negative. PHYSICAL EXAM: Vital Signs: Temperature 98.1, heart rate 68, respirations 18, pulse oximetry 100% on room air, blood pressure 126/55. General Appearance: A 57- year-old female, alert and oriented x3, appears unkempt, in no acute distress. Appropriate to situation, good historian. HEENT: Head is normocephalic, atraumatic. Pupils are equal and reactive to light. Oropharynx is clear. Moist mucous membranes. No noted lesions. Cardiac: S1, S2. Regular rate and rhythm. No murmur, rub, or gallop appreciated. No lower extremity edema noted. Lungs are clear to auscultation bilaterally with good aeration throughout. Skin: The patient has multiple faded 2 to 5 cm round, very light erythematous flat type lesions on her arms bilateral, hands bilateral and 2 noted to be approximately 3 to 5 cm on her lower lumbar area. All of these appear to be much improved from yesterday's assessment. Neuro: Alert and oriented x3. RECOMMENDATIONS: Erythema multiforme. I suspect this is secondary to the trazodone. Discussed with the patient this should be listed as an allergy for her in the future. I did instruct the patient that she could try Atarax again in the future as most likely this is not the causative agent as she has had this before in the past and has tolerated it well. The patient is to follow up with her primary care provider. Hospital Medicine will sign off for now. No further recommendations. The patient can use Benadryl p.r.n. if these continue to be pruritic. TIME SPENT: Approximately 45 minutes was spent on this consultation. DARREN BENTLEY, CHUY [id number]/[facility] #: [id number] NORIS
[2017-10-02] MEDS: diPHENhydraMINE PO* 50 MG PO PRN (04:34)
[2017-10-02] MEDS: Venlafaxine EXT RELEASE CAP* 75 MG PO SCH (08:24)
[2017-10-02 14:10] VITALS: BP 159/117
--- NOTE | 2017-10-02 15:16 | DS ---
Subjective - Subjective Service Types: [address] [facility] Day Mgmt complex over 30 min Discharge Date: 10/02/17 Subjective: JUSTIFICATION FOR ADMISSION: Patient presented to emergency room with suicidal ideation and plan to overdose , questionable Adderall abuse, worsening depression and irritability, feelings of worthless. She requires inpatient psychiatric admission in order to provide treatment and stabilization as she is a danger to herself. CHIEF COMPLAINT: "I want to change my medications HISTORY OF THE PRESENT ILLNESS: Patient is a 56 y/o female, single, living by self, unemployed, with history of disorder. Patient was admitted to inpatient unit for worsening of depression and anxiety, anhedonia, kept perseverating on her struggle with medications abuse of benzodiazepine and stimulant. Patient reports having no to limited support system and also lost her apartment. Patient was overwhelmed with her situation and reports losing all her finances on stimulant and benzodiazepine abuse. Patient was overwhelmed and was having suicidal thoughts and hence came to the hospital. Patient has been compliant with her medication. Patient reports no manic symptoms during this hospitalization but had history of it. Patient reports no psychotic symptoms of delusions and hallucinations. Patient reported suicidal ideation but no intent or plan in the hospital, no homicidal ideation reported on the unit. Patient continued to exhibit behavior in control but is noted to be somewhat irritable and demanding towards staff, dysregulated in her mood and emotions. PAST PSYCHIATRIC HISTORY: Patient was discharged from inpatient psychiatric unit from [facility] about a month ago and also had another visit to Maggie at [facility] before this hospitalization. Patient was discharged from last hospitalization on venlafaxine XR 150 mg PO QAM , Wellbutrin SR 150 mg Po QAM, Lamictal 25 mg BID, Adderall 20 mg BID, Hydroxyzine 50 mg TID PRN for anxiety. Patient has history of being increasingly agitated, obsessing about her adderall prescription. Patient came to the emergency room demanding Adderall but was discharged as she did not meet criteria for admission. Patient has history of personality B traits with pervasive periods of affective instability, warren and white thinking, and poor impulsive behavior. Patient was history of hyperverbal and pressured speech, tangential thoughts with flight of ideas, labile affect, disheveled, agitated, and highly anxious. Patient started psychiatric treatment at the age of 42 and has been on Effexor XR for 10 years with psychotherapy. Patient received ECT at [facility] but reportedly after one treatment she alleges having severe cognitive side effects which were irreversible. Patients first [facility] admission was in August of 2016. Patient was incoherent and psychotic. Discharge diagnosis was benzodiazepine withdrawal, mood disorder nos , stimulant and benzodiazepine abuse (abused prescribed meds). Patient has shown limited insight in her Bipolar Disorder and choice of medications. Patient has been reluctant in the past to be on any antipsychotic medications because they all make her depressed and suicidal. Patient also rationalizes that she cannot try lithium or depakote because she developed psychosis from it. As per records patient has mentioned several suicide attempts by overdose in past but denied during this hospitalization and stated this is the first time I am having suicidal thoughts. Patient denied history of trauma. Patient denied legal problems. SUBSTANCE ABUSE HISTORY: Patient denies alcohol or tobacco use or other illicit substance abuse. Patient has history of benzodiazepine and adderall abuse and reportedly has taken more than prescribed in the past. Urine toxicology was negative. Patient has been in no inpatient and outpatient treatment for drugs. PAST MEDICAL HISTORY: Patient reports having BPPV and requesting 2 pillows ALLERGIES: NKA FAMILY PSYCHIATRIC HISTORY: Patient has family history of depression in her mother that from suicide. No substance abuse in the family reported. FAMILY/PSYCHOSOCIAL HISTORY: Patient grew up in [place]. Patient has two older sisters. Father was murdered when she was 6 years of age. Mother of suicide when patient was 9 years of age. Patient moved [facility] the age of 10 raised by extended family members. Patient graduated from high school. 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 REVIEW OF SYSTEMS: Patients review of symptoms was negative for any physical complaint. Patient vital signs are stable. Patients ED physical exam was reviewed which is grossly normal with no active medical problem. GENERAL: Patient is a well-developed and nourished female who is lying comfortable in the stretcher. Patient is not in any acute respiratory distress. Tearful. HEAD AND FACE: No signs of trauma. No ecchymosis, hematomas or skull depressions. No sinus tenderness. EYES: PERRLA, EOMI x 2, No injected conjunctiva, no nystagmus. EARS: Hearing grossly intact. Ear canals and tympanic membranes are within normal limits. MOUTH: Oropharynx within normal limits. NECK: Supple, trachea is midline, no adenopathy, no JVD, no carotid bruit, no c- spine tenderness, neck with full ROM. CHEST: Symmetric, no tenderness at palpation LUNGS: Clear to auscultation bilaterally. No wheezing or crackles. CVS: Regular rate and rhythm, S1 and S2 present, no murmurs or gallops appreciated. ABDOMEN: Soft, non-tender. No signs of distention. No rebound no guarding, and no masses palpated. Bowel sounds are normal. EXTREMITIES: FROM in all major joints, no edema, no cyanosis or clubbing. NEURO: Alert and oriented x 3. No acute neurological deficits. Speech is normal and follows commands. SKIN: Dry and warm MENTAL STATUS EXAMINATION ON ADMISSION: Appearance: appear stated age, dressed in hospital gown, making poor eye contact , fair hygiene Behavior: superficially cooperative Gait: normal Abnormal motor activity: none Speech: normal rate and rhythm Mood: suicidal depressed Affect: depressed to irritable, labile Thought process: goal directed Thought Content: Suicidal/Homicidal ideation: suicidal ideation but no intent or plan, feel safe in the hospital Delusions: none Obsessive thoughts about her stimulant and benzodiazepine abuse Phobia: none Perceptual disturbance: none Attention: fair Orientation: grossly intact Concentration: limited Memory: fair Insight: limited Judgment: poor Impulse control: fair at time of evaluation DIAGNOSES ON ADMISSION: Bipolar Disorder unspecified, Personality B Disorder, PTSD by history, Stimulant and Benzodiazepine Use Disorder DIAGNOSES ON DISCHARGE: Mood Disorder unspecified, Borderline Personality Disorder, Stimulant and Benzodiazepine Use Disorder in Remission Objective - Appearance Appearance: Healthy Appearing Dysmorphic Features: No Hygiene: Normal Grooming: Fairly Well Kept - Behavior Psychomotor Activities: Normal Exhibits Abnormal Movement: No - Attitude and Relatedness Attitude and Relatedness: Cooperative Eye Contact: Fair - Speech Quality: Unpressured Latencies: Normal Quantity: Appropriate - Affect Observed Affect: Fair Affect Consistent with: Euthymia - Thought Process Patient's Thought Process: Coherent Thought Content: No Passive Wish, No Suicidal Planning, No Homicidal Ideation, No Paranoid Ideation - Sensorium Experiencing Hallucinations: No, Sensorium is Clear Type of Hallucinations: Visual: No, Auditory: No, Command: No - Level of Consciousness Level of Consciousness: Alert Orientation: Yes Intact, Yes Orientated to Time, Yes Orientated to Place, Yes Orientated to Person - Impulse Control Impulse Control: Intact - Insight and Judgement Insight and Judgement: Fair - Medication Management Medication Management Adherence: Yes Treatment Course & Assessment Clinical Course & Impression: 56 yo woman presents with long standing symptoms of Borderline Personality Diosrder with bipolar disorder(Patient denial of having any manic or hypomanic symptoms in the past) recently admitted for depressive episodes. Patient reports getting her off of Adderall. Patient mental status has deteriorated in past few years with sequelae of homelessness, estrangement from family, separation from health providers. Patient has severely impaired insight and judgment. She was recently discharged from inpatient unit and then from E.D. Patient continues to struggle with mood instability, anxiety, feelings of worthless and passive suicidal thoughts. Patient feels safe in the hospital but was uncooperative with treatment during initial days of hospitalization. Shalomn was admit to [facility] on Q 15 min observation. Patient was on involuntary admission status. Patient was encouraged to participate in milieu and therapy but showed limited interest in that and was dismissive to therapy rationalizing that she has done that in the past. Patient gave informed consent to start the following medications initially i.e Depakote which was increased to 750 mg BID and was given one dose of 250 mg now. Patient was kept on Hydroxyzine 50 mg PO Q6HRS PRN anxiety. Patient was reduced on Effexor XR to 225 mg a day and educated about 300 mg a day was above recommended dose of the medication and agreed to it. During the initial days of hospitalization, patient was ambivalent about her taking Depakote. Patient was educated about history of manic symptoms in the E.D but patient continues to be resistant and denied any hypomanic or manic symptoms and reportedly has been using Adderall in the past that can mimic symptoms of manic or hypomania. Patient reported being in depression since she has been off of Stimulant and Benzodiazepine. Patient reported that depakote was making her depressed and do not want to take it. Patient continued to be dysregulated in her mood and emotions and asking for Trazodone to help her with sleep. No manic symptoms were noted in the hospital. Patient was disturbed at night and stayed in bed during the day. Patient eating was fair. Patient mood was anxious and dysphoric with passive suicidal thoughts but no intent or plan. Patient was reporting no homicidal ideation, no psychotic symptoms. Patient's medications were adjusted after informed consent with Effexor XR 225 mg PO QAM, patient was still ambivalent about Depakote stating that it is making her feel depressed and wanted it to be lower down. Patient has personality B traits and demanding of what she thinks is beneficial and requesting Trazodone to help her with sleep. Patient reported that she is too suicidally depressed to leave her room, she expresed irritation when informed that Trazodone and Atarax are being held as hospitalist who consulted for her her rash, suspected either one could be the culprit. Patient requested Seroquel for sleep. She engaged in med-seeking stances and become angry when redirected. Patient continued to have long list of complaints against staff at the hospital. Patient continues to use defenses including splitting, projection, passive aggressive. Patient over the weekend developed a rash and Trazodone and Atarax were discontinued. Patient has not been taking her Depakote and it was discontinued as well. Patient was started on Seroquel that helped her with sleep. Patient likely has affective and emotional dysregulation due to her borderline personality disorder and was given psychoeducation around that. Patient's medications were continued with Effexor XR 225 mg PO QAM, Seroquel 100mg at Bedtime, Depakote was discontinued. Patient requested increment in Benadryl PRN which was increased to 50 mg Q6HRS. Patient was given psychoeducation around personality B traits and offered therapy/DBT on the unit , and also offered substance use treatment and DBT outpatient upon discharge but shows limited interest in any therapy or substance use treatment and reporting that she has never abused her medications and currently has no craving for them but will work with her DSS worker and ACT team for any need for it in the future. Patient was compliant with medications but dismissive to therapy despite of constant educations. Patient mood improved and was stable, patient slept better at the hospital. Patient was able to verbalize her plans following her discharge and to maintain safety. Patient behavior was in control and did not display any self injurious behavior. Patient tolerated her medications well but was resistant to be prescribe Seroquel at bedtime on discharge instead requested for Benadryl 50 mg HS for her sleep. Patient was doing well, was not a danger to self and others, caring for herself. Patient denied si/hi. Patient agreed to follow up with ACT team for her medications management and treatment and also to work with DSS worker to establish her housing. Patient was educated to return to E.D or call 911 in event of safety concern or worsening of her symptoms. Patient was discussed with team and discharged today. Patient was given 2 weeks of medications. Merits Inpatient Hospitalization: Yes Clear for Discharge: Adequate Clinical Respons, Acceptable Safety Profile Inpatient DSM-V Dx: F39 Discharge Planning - Discharge Planning Discharge Plan: Outpatient Follow Up Recommendations for Continuing Care: Medication Management, Psychotherapy Medications: Discharge Medications Diphenhydramine HCl (Benadryl Po*) 50 mg PO HS PRN PRN Reason:Sleep Venlafaxine HCl (Effexor Xr Cap*) 225 mg PO DAILY KIRSTEN Last Admin: 10/02/17 08:24 Dose: 225 mg Patient given 2 weeks of medications Discharge Planning: Prescriptions provided for discharge [x] Yes [] No Follow up care details as per social work arrangements. Patient response to discharge plan: [x] eager for discharge [] agreeable with discharge plan [] ambivalent about discharge [] disagrees with discharge today
== END 2017-10-02 13:46 | disposition home or self-care (01) | DRG 753 ==
LOC: ED 21:44 → BSU 09-26 10:00
PROVIDERS: ADMIT Psychiatry & Neurology Psychiatry; ATTEND Psychiatry & Neurology Psychiatry
DX: F39 Unspecified mood [affective] disorder (principal); R45.851 Suicidal ideations; F32.9 Major depressive disorder, single episode, unspecified; F41.9 Anxiety disorder, unspecified; H81.10 Benign paroxysmal vertigo, unspecified ear; F60.3 Borderline personality disorder; F19.11 Other psychoactive substance abuse, in remission; F90.9 Attention-deficit hyperactivity disorder, unspecified type; F43.10 Post-traumatic stress disorder, unspecified; L51.9 Erythema multiforme, unspecified; Z56.0 Unemployment, unspecified; Z81.8 Family history of other mental and behavioral disorders; Z91.5 Personal history of self-harm; Z80.1 Family history of malignant neoplasm of trachea, bronchus and lung
CPT/HCPCS: 36415; 80053; 80061; 80164; 80307; 80320; 80329; 81003; 81015; 83036; 84443; 85025; 87086; 99222; 99231; 99238; 99285; A9270-GY; G0480

== ENCOUNTER 2017-10-14 01:27 | Inpatient (IN) | payer OTHER ==
[2017-10-14 02:05] LABS: ABS Basophils 0.1 10^3/ul (0-0.2); ABS Eosinophils 0.2 10^3/ul (0-0.6); ABS Lymphocytes 1.9 10^3/ul (1.0-4.8); ABS Monocytes 0.5 10^3/ul (0-0.8); ABS Neutrophils 5.7 10^3/ul (1.5-7.7); ABS Nucleated RBC 0 10^3/ul; Eosinophil % 2.2 % (0-6); Hematocrit 43 % (35-47); Hemoglobin 14.5 g/dl (12.0-16.0); Lymphocyte % 22.7 % (25-47); Mean Corpuscular HGB Conc 34 g/dl (31-36); Mean Corpuscular Hemoglobin 29 pg (27-31); Mean Corpuscular Volume 85 fL (80-97); Mean Platelet Volume 7.5 um3 (7.4-10.4); Nucleated Red Blood Cells % 0.2; Platelet Count 313 10^3/ul (150-450); Red Blood Count 5.03 10^6/ul (4.00-5.40); Red Cell Distribution Width 15 % (10.5-15); White Blood Count 8.3 10^3/ul (3.5-10.8)
[2017-10-14 02:23] LABS: EGFR Non-African American 82.2 (>60)
[2017-10-14] MEDS ORDERED: LORazepam TAB(*) 1 MG PO ONE (03:26)
--- NOTE | 2017-10-14 03:28 | ED ---
Psychiatric Complaint - HPI Summary HPI Summary: Pt is a 57 year old female presenting to the emergency department with a history of mental health issues. She states she is currently more depressed than she has ever been, and keeps saying that she does not want to do this anymore and that she does not want to be in her own skin anymore. She always has to drag herself out of bed to do things, and never has any motivation. Many doctors think she is bipolar, but she has never had an "up side" of the bipolar disorder. The pt denies any other medical problems. - History Of Current Complaint Chief Complaint: EDMentalHealth Time Seen by Provider: 10/14/17 02:19 Hx Obtained From: Patient Hx Last Menstrual Period: a year ago Onset/Duration: Gradual Onset, Lasting Weeks, Still Present Severity Initially: Moderate Severity Currently: Severe Character: Depressed, Anxious Aggravating Factor(s): Nothing Alleviating Factor(s): Nothing Related History: Positive For: Prior Psychiatric Issues Has Suicidal: Reports: Thoughts - Allergies/Home Medications Allergies/Adverse Reactions: Allergies Allergy/AdvReac Type Severity Reaction Status Date / Time No Known Allergies Allergy Verified 09/24/17 14:59 PMH/Surg Hx/FS Hx/Imm Hx Previously Healthy: No Endocrine/Hematology History: Denies: Hx Diabetes, Hx Thyroid Disease Cardiovascular History: Denies: Hx Hypertension Respiratory History: Denies: Hx Asthma, Hx Chronic Obstructive Pulmonary Disease (COPD) GI History: Denies: Hx Ulcer History: Denies: Hx Dialysis Sensory History: Reports: Hx Contacts or Glasses - reading glasses Denies: Hx Deafness, Hx Hearing Aid Opthamlomology History: Reports: Hx Contacts or Glasses - reading glasses Psychiatric History: Reports: Hx Anxiety, Hx Attention Deficit Hyperactivity Disorder, Hx Depression, Hx Post Traumatic Stress Disorder, Hx Inpatient Treatment - 6th [facility] admission, Hx Community Mental Health Tx, Hx Suicide Attempt , Other Psychiatric Issues/Disorders - Hx dysthymia, Hx ECT Denies: Hx Eating Disorder, Hx Schizophrenia, Hx Bipolar Disorder, Hx of Violent Episodes Against Others - Surgical History Surgery Procedure, Year, and Place: implants in - then removed Infectious Disease History: No Infectious Disease History: Reports: Hx Shingles Denies: Hx Clostridium Difficile, Hx Hepatitis, Hx Human Immunodeficiency Virus (HIV), Hx of Known/Suspected MRSA, Hx Tuberculosis, Hx Known/Suspected VRE , Hx Known/Suspected VRSA, History Other Infectious Disease, Traveled Outside the [place] in Last 30 Days - Family History Known Family History: Positive: Other - Lung CA - Social History Alcohol Use: None Hx Substance Use: No Substance Use Type: Reports: None Hx Tobacco Use: No Smoking Status (MU): Never Smoked Tobacco Have You Smoked in the Last Year: No Review of Systems Negative: Fever Positive: Depressed All Other Systems Reviewed And Are Negative: Yes Physical Exam - Summary Physical Exam Summary: Appearance: Well-appearing, Well-nourished, lying in bed comfortable Skin: Warm, dry, no obvious rash Eyes: sclera anicteric, no conjunctival pallor ENT: mucous membranes moist Neck: deferred Respiratory: No signs of respiratory distress Cardiovascular: Appears well perfused, pulses are nml Abdomen: deferred Musculoskeletal: Moving all 4 extremities without obvious discomfort Neurological: Awake and alert, mentation is normal, speech is fluent and appropriate Psychiatric: affect is normal, does not appear anxious or depressed Triage Information Reviewed: Yes Vital Signs On Initial Exam: Initial Vitals Temp Pulse Resp BP Pulse Ox 98 F 102 20 130/69 96 10/14/17 01:30 10/14/17 01:30 10/14/17 01:30 10/14/17 01:30 10/14/17 01:30 Vital Signs Reviewed: Yes Diagnostics - Vital Signs Vital Signs Temp Pulse Resp BP Pulse Ox 10/14/17 01:30 98 F 102 20 130/69 96 - Laboratory Lab Results: Lab Results 10/14/17 10/14/17 Range/Units 01:55 01:55 WBC 8.3 (3.5-10.8) 10^3/ul RBC 5.03 (4.00-5.40) 10^6/ul Hgb 14.5 (12.0-16.0) g/dl Hct 43 (35-47) % MCV 85 (80-97) fL MCH 29 (27-31) pg MCHC 34 (31-36) g/dl RDW 15 (10.5-15) % Plt Count 313 (150-450) 10^3/ul MPV 7.5 (7.4-10.4) um3 Neut % (Auto) 67.9 (38-83) % Lymph % (Auto) 22.7 L (25-47) % Sac % (Auto) 6.3 (0-7) % Eos % (Auto) 2.2 (0-6) % Baso % (Auto) 0.9 (0-2) % Absolute Neuts (auto) 5.7 (1.5-7.7) 10^3/ul Absolute Lymphs (auto) 1.9 (1.0-4.8) 10^3/ul Absolute Monos (auto) 0.5 (0-0.8) 10^3/ul Absolute Eos (auto) 0.2 (0-0.6) 10^3/ul Absolute Basos (auto) 0.1 (0-0.2) 10^3/ul Absolute Nucleated RBC 0 10^3/ul Nucleated RBC % 0.2 Sodium 139 (135-145) mmol/L Potassium 3.5 (3.5-5.0) mmol/L Chloride 104 (101-111) mmol/L Carbon Dioxide 28 (22-32) mmol/L Anion Gap 7 (2-11) mmol/L BUN 13 (6-24) mg/dL Creatinine 0.73 (0.51-0.95) mg/dL Est GFR ( Amer) 99.4 (>60) Est GFR (Non-Af Amer) 82.2 (>60) BUN/Creatinine Ratio 17.8 (8-20) Glucose 120 H (70-100) mg/dL Calcium 9.3 (8.6-10.3) mg/dL Total Bilirubin 0.30 (0.2-1.0) mg/dL AST 13 (13-39) U/L ALT 20 (7-52) U/L Alkaline Phosphatase 105 H (34-104) U/L Total Protein 7.2 (6.4-8.9) g/dL Albumin 4.2 (3.2-5.2) g/dL Globulin 3.0 (2-4) g/dL Albumin/Globulin Ratio 1.4 (1-3) TSH 1.30 (0.34-5.60) mcIU/mL Salicylates < 2.50 (<30) mg/dL Acetaminophen < 15 mcg/mL Serum Alcohol < 10 (<10) mg/dL Result Diagrams: 10/14/17 01:55 10/14/17 01:55 Lab Statement: Any lab studies that have been ordered have been reviewed, and results considered in the medical decision making process. Re-Evaluation - Re-Evaluation First Eval Re-Evaluation Time: 05:42 Change: Unchanged Comment: Pt is stable, will be admitted to [facility] mental health for bipolar disorder, per flex nurse. Course/Dx - Differential Dx/Clinical Impression Provider Diagnosis: Bipolar disorder, unspecified Discharge - Sign-Out/Discharge Documenting (check all that apply): Patient Departure - Discharge Plan Condition: Stable Disposition: ADMITTED TO [facility] - Billing Disposition and Condition Condition: STABLE Disposition: Admitted to [facility] - Attestation Statements Document Initiated by Scribe: Yes Documenting Scribe: Kristie Jackson Provider For Whom Emmanuel is Documenting (Include Credential): Henry Romero MD. Scribe Attestation: Kristie Schultz scribed for Henry Romero MD. on 10/18/17 at 2151. Scribe Documentation Reviewed: Yes Provider Attestation: The documentation as recorded by the scribeKristie accurately reflects the service I personally performed and the decisions made by , Henry Romero MD.
[2017-10-14 04:14] LABS: Urine Appearance Clear; Urine Blood Negative (Negative); Urine Color Yellow; Urine Ketones Negative (Negative); Urine Protein Negative (Negative); Urine Red Blood Cell Trace(0-2/hpf) (Absent); Urine Urobilinogen Negative (Negative); Urine White Blood Cell 1+(6-10/hpf) (Absent)
[2017-10-14] MEDS: QUEtiapine TAB* 25 MG PO SCH (20:27)
[2017-10-14] MEDS: Venlafaxine EXT RELEASE CAP* 75 MG PO SCH (20:28)
--- NOTE | 2017-10-14 22:24 | HP ---
HISTORY AND PHYSICAL: DATE OF ADMISSION: 10/14/17 IDENTIFYING DATA: Latisha is a 57-year-old single, white female who was discharged from this unit about a week ago, came back to the emergency room stating that she was more depressed than before and she wanted to . CHIEF COMPLAINT: "I am suicidal with a secret plan." HISTORY OF PRESENT ILLNESS: This patient known to this unit for repeated hospitalizations comes back to the emergency department within a week of her discharge from this unit seeking hospitalization because she cannot function in the community. She claims to be more depressed than before and her life is a mess. She also states that she has been feeling horrible, feel ugly with self- load and pity on herself. She is hopeless, worthless, and she should kill herself. She is very dramatic and crying continuously during the evaluation. She does not want to get back on her stimulant or sedatives; however, she wants help. She denies any hallucinations, delusions, or homicidal ideation at this time. Reportedly, she was discharged to a motel without any support system. She was supposed to be followed up by ACT team, which they came to see her, but that was not helpful according to Latisha. PAST PSYCHIATRIC HISTORY: Multiple prior psychiatric hospitalizations and trial on different medications including stimulants and sedatives. She started abusing both stimulants and sedatives and she was taken off of everything last time when she was here and she did fairly well without any of those. She was discharged on venlafaxine 225 mg in the morning and diphenhydramine (Benadryl) 50 mg at bedtime p.r.n. for insomnia. Latisha reports that the meds were not helping. She was more depressed and overwhelmed with her emotions and needed to come back for rehospitalization. Past medical history, family history, personal and social history are dictated by Dr. Brasher in detail. Please refer to his admission H and P done on 09/26/17. Physical exam was offered and being postponed because of the patient's request saying that she was not up to it tonight. Review of physical and labs done in the emergency department were unremarkable. She showed a blood pressure of 130/69, pulse 102, temperature 98 degrees Fahrenheit, respirations 20, pulse ox 96% on room air. Labs show WBC count of 8.3, hemoglobin 14.5, hematocrit 43, platelet count 313. Sodium level 139, potassium 3.5, chloride 104, carbon dioxide 28, BUN 13, creatinine 0.73. Rest of the lab reports were unremarkable. Once again, she does not appear to be in any kind of physical distress at the time of evaluation. MENTAL STATUS EXAMINATION: Average height, healthy-appearing, appropriately dressed, fairly groomed female who is alert and oriented to time, place, and person. She describes the mood as terrible. Observed affect is constricted and tearful at the time of evaluation. Her speech is normal in all spheres. She makes poor eye contact. Verbalizes a suicidal ideation with a secret plan, but no homicidal ideation. Also, denies any hallucinations or delusions. Her intelligence appears to be average as evidenced by her vocabulary and fund of knowledge. Memory functions are intact in all spheres. Insight and judgement impaired. SUMMARY: This 57-year-old female with known history of multiple controlled substance abuse in the past, drug-seeking behavior, and emotional lability is readmitted a week after her discharge from this unit in a very labile state. DIAGNOSTIC IMPRESSION: Unspecified mood disorder, rule out bipolar disorder, rule out cluster B personality disorder. There is a history of PTSD, stimulant and sedative hypnotics use disorder. PHYSICAL HEALTH DIAGNOSES: No known physical health diagnoses. TREATMENT/RECOMMENDATIONS: The patient will remain hospitalized on the behavioral science unit for her safety and rapid stabilization of mental health symptoms. Her code status will remain full. Supportive milieu, individual and group therapy will be initiated. A discussion about medication management with risks, benefits, and alteratives resulted in her deciding to switch her antidepressant from Effexor, which she took for 20 years without any benefit to Prozac. Hence, I will lower the dose of Effexor XR 250 mg and then start her on Prozac 10 mg every morning and the cross titration will be deferred to her assigned psychiatrist on the unit. I will prescribe her very low dose of Seroquel 25 mg once daily at bedtime to see how she tolerates it and that can be adjusted up as she tolerates. I will recommend avoiding any controlled substances on her because of the history of controlled substance abuse in the past. [id number]/[facility] #: [id number] [facility]
[2017-10-15] MEDS ORDERED: QUEtiapine TAB* 25 MG PO ONE ×2 (03:40→21:00)
[2017-10-15] MEDS ORDERED: QUEtiapine TAB* 25 MG ONE (03:44)
[2017-10-15] MEDS: Venlafaxine EXT RELEASE CAP* 75 MG PO SCH (09:34)
[2017-10-15] MEDS: FLUoxetine CAP* 10 MG PO SCH (09:35)
[2017-10-15] MEDS: QUEtiapine TAB* 25 MG PO SCH (09:35)
[2017-10-15] MEDS ORDERED: hydrOXYzine HCL TAB* 50 MG PO PRN (15:48)
--- NOTE | 2017-10-15 16:28 | PN ---
Subjective - Subjective Subjective: Latisha complains of high anxiety, depressed mood and suicidal ideation. She contracts for safety. She engages in her typical med-seeking stances but is redirectable. Per staff, she is seclusive to her room. Objective - Appearance Appearance: Healthy Appearing Dysmorphic Features: No Hygiene: Normal Grooming: Well Kept - Behavior Psychomotor Activities: Normal Exhibits Abnormal Movement: No - Attitude and Relatedness Attitude and Relatedness: Manipulative Eye Contact: Fair - Speech Quality: Unpressured Latencies: Normal Quantity: Terse - Mood Patient's Decription of Mood: "Anxious" - Affect Observed Affect: Non-labile - Thought Process Patient's Thought Process: Coherent, Goal Directed Thought Content: No Passive Wish, No Suicidal Planning, No Homicidal Ideation, No Paranoid Ideation - Sensorium Experiencing Hallucinations: No, Sensorium is Clear - Level of Consciousness Level of Consciousness: Alert Orientation: Yes Intact - Impulse Control Impulse Control: Intact - Insight and Judgement Insight and Judgement: Poor - Group Participation Particating in Group Activities: Yes - Medication Management Medication Management Adherence: Yes Assessment - Assessment Inpatient DSM-V Dx: F33.1 Clinical Impression: Poor therapeutic engagement, poor insight, med-seeking. Does not benefit from inpatient care but return to ED seeking readmission after each previous discharges Plan - Plan Treatment Plan: Name: LATISHA GÓMEZ Birthdate: 1960 [id number] Continued Medication Management: Continue Outpt Medication Medications: Current Medications Fluoxetine HCl (Prozac Cap*) 10 mg PO DAILY [facility] Last Admin: 10/15/17 09:35 Dose: 10 mg Quetiapine Fumarate (Seroquel Tab*) 25 mg PO Q6H PRN PRN Reason: ANXIETY/INSOMNIA Venlafaxine HCl (Effexor Xr Cap*) 150 mg PO DAILY [facility] Last Admin: 10/15/17 09:34 Dose: 150 mg - Discharge Plan Discharge Plan: Outpatient Follow Up Outpatient Program: [facility]
[2017-10-15] MEDS: QUEtiapine TAB* 25 MG PO PRN (16:54)
[2017-10-16] MEDS: QUEtiapine TAB* 25 MG PO PRN ×2 (02:25→08:31)
[2017-10-16] MEDS: Venlafaxine EXT RELEASE CAP* 75 MG PO SCH (08:31)
[2017-10-16] MEDS: FLUoxetine CAP* 10 MG PO SCH (08:33)
[2017-10-16] MEDS ORDERED: Venlafaxine EXT RELEASE CAP* 75 MG PO ONE (13:24)
--- NOTE | 2017-10-16 13:48 | PN ---
Subjective - Subjective Date of Service: 10/16/17 Service Type: 16320 Hosp care 15 min low complexity Subjective: Patient was seen by self, discussed with treatment team, chart was reviewed. Patient has been med seeking and dictates her treatment. Patient reported that she started taking more than prescribed amount of Effexor upon discharge and was taking 300 mg a day. Patient have significant emotional dysregulation and is catastrophic in her thinking especially when things are not the way she wants. Patient was having suicidal thoughts when admitted through Emergency department. And today patient was talking and preoccupied with her discharge. Patient has been partially compliant with her PO medications on the unit, refusing Prozac and restrictive of what she think she needs, no reported side effects. Patient reports continued depression, isolated, seclusive, not interested in activities, disturbed sleep. Patient eating has been fair. Patient has been superficially cooperative with staff. Patient behavior requires redirections as gets easily agitated and dysregulated towards staff and complains that they are mean towards her. Patient mood continues to be unstable and anxious. Patient has been reporting no homicidal ideation but when admitted reported having a secret plan. No psychotic symptoms of delusions or hallucinations but has chronic trust issues. Objective - Appearance Appearance: Healthy Appearing Dysmorphic Features: No Hygiene: Normal Grooming: Disheveled - Behavior Psychomotor Activities: Abnormal-Increased Exhibits Abnormal Movement: No - Attitude and Relatedness Attitude and Relatedness: Superficially Cooperative Eye Contact: Poor - Speech Quality: Unpressured Latencies: Normal Quantity: Terse - Mood Patient's Decription of Mood: "Anxious" - Affect Observed Affect: Tense Affect Consistent with: Dysphoria - Thought Process Patient's Thought Process: Goal Directed Thought Content: No Passive Wish, No Suicidal Planning, No Homicidal Ideation, No Paranoid Ideation - Sensorium Experiencing Hallucinations: No, Sensorium is Clear Type of Hallucinations: Visual: No, Auditory: No, Command: No - Level of Consciousness Level of Consciousness: Agitated Orientation: Yes Intact, Yes Orientated to Time, Yes Orientated to Place, Yes Orientated to Person - Impulse Control Impulse Control: Poor - Insight and Judgement Insight and Judgement: Poor - was preoccupied with discharge despite of her recent si and limite engagement in treatment and improvement seen - Group Participation Particating in Group Activities: No - Medication Management Medication Management Adherence: Partial Assessment - Assessment Merits Inpatient Hospitalization: For Immediate Safety, For Stabilization, For Discharge Planning Inpatient DSM-V Dx: F33.1 Clinical Impression: 56 yo woman presents with long standing symptoms of bipolar disorder with recurrent depressive episodes with good psycho social functioning up until past 3 to 4 years when she has had 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 Patient continues to be abusing Adderall despite understanding of it worsening her mood and behavior. Patient mental status has deteriorated in past few years with sequelae of homelessness, estrangement from family, separation from health providers, multiple ED visit and re hospitalization. Patient has severely impaired insight and judgment. She was recently discharged from inpatient unit and failesd to follow up with Health providers recommendations and continues to struggle with mood instability, anxiety, med seeking, and was having suicidal thoughts with "a secret plan". Plan - Plan Treatment Plan: Name: JOSE GÓMEZ Birthdate: 1960 [id number] - Patient continues to be hospitalized due to recent suicidal thoughts with "a secret plan", mood instability, anxiety and impulsivity. - Patient's medications were adjusted after informed consent as patient is very restricted in her choice of medications and gets agitated and dysregulated easily when requests are not made. Patient demanded her Effexor XR to be increased to 300 mg QAM and was educated about its increase to 225 mg QAM will be acceptable due to maximum dosage approved. Patient Seroquel was increased to 100mg at Bedtime and as needed Seroquel was reduced to 25 mg Q8HRS prn for agitation. Also added Benadryl PRN for anxiety. - Patient will be monitored for improvement and side effects. Risk and benefits were discussed. - Patient was encouraged to continue his participation in the milieu, group and individual therapy. Medications: Current Medications Diphenhydramine HCl (Benadryl Po*) 50 mg PO Q6H PRN PRN Reason: ANXIETY Quetiapine Fumarate (Seroquel Tab*) 100 mg PO BEDTIME [facility] Quetiapine Fumarate (Seroquel Tab*) 25 mg PO Q8HR [facility] Venlafaxine HCl (Effexor Xr Cap*) 225 mg PO DAILY [facility]
[2017-10-16] MEDS: QUEtiapine TAB* 25 MG PO SCH ×2 (14:40→21:48)
[2017-10-16] MEDS: diPHENhydraMINE PO* 50 MG PO PRN ×2 (14:40→22:55)
[2017-10-16] MEDS ORDERED: QUEtiapine TAB* 100 MG PO SCH (21:00)
[2017-10-17] MEDS: QUEtiapine TAB* 25 MG PO SCH ×4 (01:48→22:46)
[2017-10-17] MEDS: diPHENhydraMINE PO* 50 MG PO PRN ×3 (04:59→21:21)
[2017-10-17] MEDS: Venlafaxine EXT RELEASE CAP* 75 MG PO SCH (08:58)
--- NOTE | 2017-10-17 12:28 | PN ---
Subjective - Subjective Date of Service: 10/17/17 Service Type: 27055 Hosp care 15 min low complexity Subjective: Patient was seen by self, discussed with treatment team, chart was reviewed. Patient has been less med seeking and is showing some effort to work with team on her treatment and is more accepting. Patient reports "terrified" with idea of being transferred to a state facility. Patient had less emotional dysregulation and was less catastrophic in her thinking. Patient was reporting no suicidal thoughts today and stated that she knows the exact word to get help at the hospital as she was not feeling right. Patient was less preoccupied with her discharge and wanted to work with treatment team and recommendations. Patient has been compliant with her medications, no reported side effects. Patient reports minimal improvement in her depression, still isolated, seclusive , not interested in activities, had better sleep. Patient eating has been fair. Patient has been superficially cooperative with staff. Patient behavior required less redirections, less easily agitated and less dysregulated towards staff and did not complain about staff today. Patient mood showing some more stability and less anxious. Patient reporting no homicidal ideation. No psychotic symptoms of delusions or hallucinations and was able to trust fiction writer more today Objective - Appearance Appearance: Healthy Appearing Dysmorphic Features: No Hygiene: Normal Grooming: Disheveled - less - Behavior Psychomotor Activities: Normal Exhibits Abnormal Movement: No - Attitude and Relatedness Attitude and Relatedness: Cooperative - more Eye Contact: Poor - Speech Quality: Unpressured Latencies: Normal Quantity: Appropriate - Mood Patient's Decription of Mood: "Anxious" - Affect Observed Affect: Fair Affect Consistent with: Dysphoria - Thought Process Patient's Thought Process: Coherent, Goal Directed Thought Content: No Passive Wish, No Suicidal Planning, No Homicidal Ideation, No Paranoid Ideation - Sensorium Experiencing Hallucinations: No, Sensorium is Clear Type of Hallucinations: Visual: No, Auditory: No, Command: No - Level of Consciousness Level of Consciousness: Alert Orientation: Yes Intact, Yes Orientated to Time, Yes Orientated to Place, Yes Orientated to Person - Impulse Control Impulse Control: Intact - Insight and Judgement Insight and Judgement: Poor - but improving - Medication Management Medication Management Adherence: Yes Assessment - Assessment Merits Inpatient Hospitalization: For Immediate Safety, For Stabilization, For Discharge Planning Inpatient DSM-V Dx: F33.1 Clinical Impression: 56 yo woman presents with long standing symptoms of bipolar disorder with recurrent depressive episodes with good psycho social functioning up until past 3 to 4 years when she has had 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 Patient continues to be abusing Adderall despite understanding of it worsening her mood and behavior. Patient mental status has deteriorated in past few years with sequelae of homelessness, estrangement from family, separation from health providers, multiple ED visit and re hospitalization. Patient has severely impaired insight and judgment. She was recently discharged from inpatient unit and failesd to follow up with Health providers recommendations and continues to struggle with mood instability, anxiety, med seeking, and was having suicidal thoughts with "a secret plan". Plan - Plan Treatment Plan: Name: JOSE GÓMEZ Birthdate: 1960 [id number] - Patient continues to be hospitalized due to recent suicidal thoughts, mood instability, anxiety and impulsivity. - Patient's medications were adjusted after informed consent as patient is very restricted in her choice of medications and gets agitated and dysregulated easily. Patient agreed to to 225 mg QAM. Patient Seroquel was increased to 125mg at Bedtime and as needed Seroquel was kept at 25 mg Q8HRS prn for agitation. Also added Benadryl PRN for anxiety. - Patient will be monitored for improvement and side effects. Risk and benefits were discussed. - Patient was encouraged to continue his participation in the milieu, group and individual therapy. Medications: Current Medications Diphenhydramine HCl (Benadryl Po*) 50 mg PO Q6H PRN PRN Reason: ANXIETY Last Admin: 10/17/17 04:59 Dose: 50 mg Quetiapine Fumarate (Seroquel Tab*) 100 mg PO BEDTIME [facility] Last Admin: 10/16/17 20:13 Dose: 100 mg Quetiapine Fumarate (Seroquel Tab*) 25 mg PO Q8HR [facility] Last Admin: 10/17/17 07:37 Dose: 25 mg Venlafaxine HCl (Effexor Xr Cap*) 225 mg PO DAILY [facility] Last Admin: 10/17/17 08:58 Dose: 225 mg
--- NOTE | 2017-10-17 16:03 | PN ---
[facility]: Group Therapy Note - Service Type Service Type: 77204 Group Psychotherapy - Medication Education Group: Patient was attentive and participatory in group, and remained in good behavioral control. Patient expressed positive insights regarding relevant treatment interventions. Patient stated understanding of material discussed and had appropriate questions.
[2017-10-17] MEDS ORDERED: QUEtiapine TAB* 25 MG PO SCH (21:00)
[2017-10-18] MEDS: diPHENhydraMINE PO* 50 MG PO PRN (04:11)
[2017-10-18] MEDS: Venlafaxine EXT RELEASE CAP* 75 MG PO SCH (09:17)
[2017-10-18] MEDS: QUEtiapine TAB* 25 MG PO SCH ×3 (09:17→21:36)
--- NOTE | 2017-10-18 12:34 | PN ---
Subjective - Subjective Date of Service: 10/18/17 Service Type: 33896 Hosp care 15 min low complexity Subjective: Patient was seen by self, discussed with treatment team, chart was reviewed. Patient has been doing much better and putting effort to work with team on her treatment and is more accepting. Patient has difficulty accepting rules setting but has been working around that during this hospitalization. Patient had less emotional dysregulation and was less catastrophic in her thinking. Patient was reporting no suicidal thoughts. Patient was less preoccupied with her discharge and wanted to work with treatment team and recommendations. Patient has been compliant with her medications, no reported side effects. Patient reports more improvement in her depression, less isolated, less seclusive, some interest in activities, had better sleep last night. Patient eating has been fair. Patient has been superficially cooperative with staff. Patient behavior required less redirections, less easily agitated and less dysregulated towards staff and less complains about staff. Patient mood showing some more stability and less anxious. Patient reporting no homicidal ideation. No psychotic symptoms of delusions or hallucinations. Objective - Appearance Appearance: Healthy Appearing Dysmorphic Features: No Hygiene: Normal Grooming: Fairly Well Kept - Behavior Psychomotor Activities: Normal Exhibits Abnormal Movement: No - Attitude and Relatedness Attitude and Relatedness: Cooperative - more Eye Contact: Fair - and improving - Speech Quality: Unpressured Latencies: Normal Quantity: Copious - Mood Patient's Decription of Mood: "Upset" - Affect Observed Affect: Depressed Affect Consistent with: Dysphoria - Thought Process Patient's Thought Process: Goal Directed, Circumstantial Thought Content: No Passive Wish, No Suicidal Planning, No Homicidal Ideation, No Paranoid Ideation - Sensorium Type of Hallucinations: Visual: No, Auditory: No, Command: No - Level of Consciousness Level of Consciousness: Alert Orientation: Yes Intact, Yes Orientated to Time, Yes Orientated to Place, Yes Orientated to Person - Impulse Control Impulse Control: Intact - at time of evaluation - Insight and Judgement Insight and Judgement: Fair - improving - Group Participation Particating in Group Activities: Yes - Medication Management Medication Management Adherence: Yes Assessment - Assessment Merits Inpatient Hospitalization: For Immediate Safety, For Stabilization, For Discharge Planning Inpatient DSM-V Dx: F33.1 Clinical Impression: 56 yo woman presents with long standing symptoms of bipolar disorder with recurrent depressive episodes with good psycho social functioning up until past 3 to 4 years when she has had 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 Patient continues to be abusing Adderall despite understanding of it worsening her mood and behavior. Patient mental status has deteriorated in past few years with sequelae of homelessness, estrangement from family, separation from health providers, multiple ED visit and re hospitalization. Patient has severely impaired insight and judgment. She was recently discharged from inpatient unit and failesd to follow up with Health providers recommendations and continues to struggle with mood instability, anxiety, med seeking, and was having suicidal thoughts with "a secret plan". Plan - Plan Treatment Plan: Name: JOSE GÓMEZ Birthdate: 1960 [id number] - Patient continues to be hospitalized due to recent suicidal thoughts, mood instability, anxiety and impulsivity. - Patient's medications were adjusted after informed consent as patient is very restricted in her choice of medications and gets agitated and dysregulated easily. Patient agreed to to 225 mg QAM. Patient Seroquel was increased to 150mg at Bedtime and as needed Seroquel was kept at 25 mg Q8HRS prn for agitation. Also continued with Benadryl PRN for anxiety. - Patient will be monitored for improvement and side effects. Risk and benefits were discussed. - Patient was encouraged to continue his participation in the milieu, group and individual therapy. Medications: Current Medications Diphenhydramine HCl (Benadryl Po*) 50 mg PO Q6H PRN PRN Reason: ANXIETY Last Admin: 10/18/17 04:11 Dose: 50 mg Quetiapine Fumarate (Seroquel Tab*) 25 mg PO Q8HR [facility] Last Admin: 10/18/17 09:17 Dose: 25 mg Quetiapine Fumarate (Seroquel Tab*) 125 mg PO BEDTIME [facility] Last Admin: 10/17/17 20:34 Dose: 125 mg Venlafaxine HCl (Effexor Xr Cap*) 225 mg PO DAILY [facility] Last Admin: 10/18/17 09:17 Dose: 225 mg
[2017-10-18] MEDS ORDERED: Al Hydrox/Mg Hydrox/Simet LIQ* 30 ML UDC PO PRN (15:36)
[2017-10-18] MEDS ORDERED: QUEtiapine TAB* 25 MG PO SCH (21:00)
[2017-10-19] MEDS: diPHENhydraMINE PO* 50 MG PO PRN ×2 (04:42→12:51)
[2017-10-19] MEDS: QUEtiapine TAB* 25 MG PO SCH ×3 (06:05→23:05)
[2017-10-19] MEDS: Venlafaxine EXT RELEASE CAP* 75 MG PO SCH (08:26)
--- NOTE | 2017-10-19 12:26 | PN ---
Subjective - Subjective Date of Service: 10/19/17 Service Type: 14678 Hosp care 15 min low complexity Subjective: Patient was seen by self, discussed with treatment team, chart was reviewed. Patient has been doing much better and putting effort to work with team on her treatment and is more accepting. Patient has difficulty accepting rules setting but has been working around that during this hospitalization. Patient had less emotional dysregulation and was less catastrophic in her thinking. Patient although last night did not take her Seroquel thinking that it will be too much of a dose at bedtime as it was increased to 150 mg HS. Patient has disrupted sleep and was given education on that and agree to comply with that tonight. Patient was reporting no suicidal thoughts. Patient was less preoccupied with her discharge and wanted to work with treatment team and recommendations. Patient has been compliant with her medications other than last night apprehension about Seroquel increment, no reported side effects. Patient reports more improvement in her depression, less isolated, less seclusive, better interest in activities, had better sleep last night. Patient eating has been fair. Patient has been more cooperative with staff. Patient behavior required less redirections, less easily agitated and less dysregulated towards staff and no complains about staff. Patient mood showing some more stability gradually and less anxious. Patient reporting no homicidal ideation. No psychotic symptoms of delusions or hallucinations. Objective - Appearance Appearance: Healthy Appearing Dysmorphic Features: No Hygiene: Normal Grooming: Fairly Well Kept - Behavior Psychomotor Activities: Abnormal-Decreased Exhibits Abnormal Movement: No - Attitude and Relatedness Attitude and Relatedness: Cooperative - more Eye Contact: Fair - Speech Quality: Unpressured Latencies: Normal Quantity: Appropriate - Mood Patient's Decription of Mood: "Okay" - Affect Observed Affect: Tense - less Affect Consistent with: Dysphoria - less - Thought Process Patient's Thought Process: Coherent Thought Content: No Passive Wish, No Suicidal Planning, No Homicidal Ideation, No Paranoid Ideation - Sensorium Experiencing Hallucinations: No, Sensorium is Clear Type of Hallucinations: Visual: No, Auditory: No, Command: No - Level of Consciousness Level of Consciousness: Alert Orientation: Yes Intact, Yes Orientated to Time, Yes Orientated to Place, Yes Orientated to Person - Impulse Control Impulse Control: Intact - Insight and Judgement Insight and Judgement: Fair - Medication Management Medication Management Adherence: Yes Assessment - Assessment Merits Inpatient Hospitalization: For Immediate Safety, For Stabilization, For Discharge Planning Inpatient DSM-V Dx: F33.1 Clinical Impression: 56 yo woman presents with long standing symptoms of bipolar disorder with recurrent depressive episodes with good psycho social functioning up until past 3 to 4 years when she has had 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 Patient continues to be abusing Adderall despite understanding of it worsening her mood and behavior. Patient mental status has deteriorated in past few years with sequelae of homelessness, estrangement from family, separation from health providers, multiple ED visit and re hospitalization. Patient has severely impaired insight and judgment. She was recently discharged from inpatient unit and failesd to follow up with Health providers recommendations and continues to struggle with mood instability, anxiety, med seeking, and was having suicidal thoughts with "a secret plan". Plan - Plan Treatment Plan: Name: JOSE GÓMEZ Birthdate: 1960 [id number] - Patient continues to be hospitalized due to recent suicidal thoughts, mood instability, anxiety and impulsivity. - Patient's medications were adjusted after informed consent and patient agreed to to 225 mg QAM. Patient Seroquel was switched to extended release 150mg at Bedtime and as needed Seroquel was kept at 25 mg Q8HRS prn for agitation. Also continued with Benadryl PRN for anxiety. - Patient will be monitored for improvement and side effects. Risk and benefits were discussed. - Patient was encouraged to continue his participation in the milieu, group and individual therapy. Medications: Current Medications Al Hydrox/Mg Hydrox/Simethicone (Maalox Plus*) 30 ml PO Q4H PRN PRN Reason: INDIGESTION Last Admin: 10/18/17 16:08 Dose: 30 ml Diphenhydramine HCl (Benadryl Po*) 50 mg PO Q6H PRN PRN Reason: ANXIETY Last Admin: 10/19/17 04:42 Dose: 50 mg Quetiapine Fumarate (Seroquel Tab*) 25 mg PO Q8HR KIRSTEN Last Admin: 10/19/17 06:05 Dose: 25 mg Quetiapine Fumarate (Seroquel Xr Tab*) 150 mg PO QPM KIRSTEN Venlafaxine HCl (Effexor Xr Cap*) 225 mg PO DAILY [facility] Last Admin: 10/19/17 08:26 Dose: 225 mg
[2017-10-19] MEDS: Multivitamins/Minerals TAB PO SCH (14:02)
[2017-10-19] MEDS: QUEtiapine XR TAB* 50 MG PO SCH (17:26)
[2017-10-20] MEDS: Multivitamins/Minerals TAB PO SCH (08:35)
[2017-10-20] MEDS: Venlafaxine EXT RELEASE CAP* 75 MG PO SCH (08:35)
[2017-10-20] MEDS: QUEtiapine TAB* 25 MG PO SCH ×3 (08:36→21:15)
[2017-10-20] MEDS: diPHENhydraMINE PO* 50 MG PO PRN ×3 (09:15→21:18)
[2017-10-20] MEDS: QUEtiapine XR TAB* 50 MG PO SCH (17:39)
[2017-10-21] MEDS: diPHENhydraMINE PO* 50 MG PO PRN ×3 (05:22→21:27)
[2017-10-21] MEDS: Multivitamins/Minerals TAB PO SCH (08:03)
[2017-10-21] MEDS: Venlafaxine EXT RELEASE CAP* 75 MG PO SCH (08:03)
[2017-10-21] MEDS: QUEtiapine TAB* 25 MG PO SCH ×4 (08:05→21:25)
[2017-10-21] MEDS: QUEtiapine XR TAB* 50 MG PO SCH (19:12)
[2017-10-22] MEDS: QUEtiapine TAB* 25 MG PO SCH ×2 (07:53→13:38)
[2017-10-22] MEDS: Venlafaxine EXT RELEASE CAP* 75 MG PO SCH (07:53)
[2017-10-22] MEDS: Multivitamins/Minerals TAB PO SCH (07:53)
[2017-10-22] MEDS ORDERED: Acetaminophen TAB* 325 MG ONE (12:30)
--- NOTE | 2017-10-22 12:30 | PN ---
Subjective - Subjective Date of Service: 10/22/17 Service Type: 68921 Hosp care 15 min low complexity Subjective: Patient was seen by self, discussed with treatment team, chart was reviewed. Patient has been feeling better with low dose of Seroquel. Patient reports that Seroquel XR 150 mg at bedtime got her got her low in energy, seclusive, difficulty getting out of bed. Patient reports doing much better after she took Seroquel 25 mg three times a day. Patient insisted on having it scheduled that way. Patient was not happy with her room change and had many complaints regarding that. Patient has been somewhat working better around rules during this hospitalization. Patient had been regulating her emotions better and using coping strategies to manage her catastrophic thinking. Patient has disrupted sleep last night. Patient was reporting no suicidal thoughts. Patient was preoccupied with her discharge but was redirectable and work with treatment team and recommendations. Patient eating has been fair. Patient has been more cooperative with staff. Patient behavior required less redirections and more in control. Patient mood showing more stability. Patient reporting no homicidal ideation. No psychotic symptoms of delusions or hallucinations. Patient reporting headache and requesting tylenol. Objective - Appearance Appearance: Healthy Appearing Dysmorphic Features: No Hygiene: Normal Grooming: Fairly Well Kept - Behavior Psychomotor Activities: Normal Exhibits Abnormal Movement: No - Attitude and Relatedness Attitude and Relatedness: Cooperative Eye Contact: Fair - Speech Quality: Unpressured Latencies: Normal Quantity: Appropriate - Mood Patient's Decription of Mood: "Upset" - Affect Observed Affect: Fair Affect Consistent with: Dysphoria - Thought Process Patient's Thought Process: Coherent, Goal Directed Thought Content: No Passive Wish, No Suicidal Planning, No Homicidal Ideation, No Paranoid Ideation - Sensorium Experiencing Hallucinations: No, Sensorium is Clear Type of Hallucinations: Visual: No, Auditory: No, Command: No - Level of Consciousness Level of Consciousness: Alert Orientation: Yes Intact, Yes Orientated to Time, Yes Orientated to Place, Yes Orientated to Person - Impulse Control Impulse Control: Intact - Insight and Judgement Insight and Judgement: Fair - Group Participation Particating in Group Activities: Yes - Medication Management Medication Management Adherence: Yes Assessment - Assessment Merits Inpatient Hospitalization: For Immediate Safety, For Stabilization, For Discharge Planning Inpatient DSM-V Dx: F33.1 Clinical Impression: 56 yo woman presents with long standing symptoms of bipolar disorder with recurrent depressive episodes with good psycho social functioning up until past 3 to 4 years when she has had 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 Patient continues to be abusing Adderall despite understanding of it worsening her mood and behavior. Patient mental status has deteriorated in past few years with sequelae of homelessness, estrangement from family, separation from health providers, multiple ED visit and re hospitalization. Patient has severely impaired insight and judgment. She was recently discharged from inpatient unit and failesd to follow up with Health providers recommendations and continues to struggle with mood instability, anxiety, med seeking, and was having suicidal thoughts with "a secret plan". Plan - Plan Treatment Plan: Name: JOSE GÓMEZ Birthdate: 1960 [id number] - Patient continues to be hospitalized due to recent suicidal thoughts, mood instability, anxiety and impulsivity. - Patient's medications were adjusted after informed consent and patient agreed to to 225 mg QAM. Patient Seroquel was adjusted at 25mg Q8AM and 25 mg Q1400 and 50mg at bedtime. Also continued with Benadryl PRN for anxiety. - Patient observation was increased to q30 min checks and was granted staff pass. - Patient will be monitored for improvement and side effects. Risk and benefits were discussed. - Patient was encouraged to continue his participation in the milieu, group and individual therapy. Medications: Current Medications Al Hydrox/Mg Hydrox/Simethicone (Maalox Plus*) 30 ml PO Q4H PRN PRN Reason: INDIGESTION Last Admin: 10/18/17 16:08 Dose: 30 ml Diphenhydramine HCl (Benadryl Po*) 50 mg PO Q6H PRN PRN Reason: ANXIETY Last Admin: 10/21/17 21:27 Dose: 50 mg Multivitamins/Minerals (Theragran/Minerals Tab*) 1 tab PO DAILY [facility]IRSTEN Last Admin: 10/22/17 07:53 Dose: 1 tab Quetiapine Fumarate (Seroquel Tab*) 50 mg PO BEDTIME KIRSTEN Quetiapine Fumarate (Seroquel Tab*) 25 mg PO 0800,1400 KIRSTEN Venlafaxine HCl (Effexor Xr Cap*) 225 mg PO DAILY KIRSTEN Last Admin: 10/22/17 07:53 Dose: 225 mg
[2017-10-22] MEDS ORDERED: QUEtiapine TAB* 25 MG PO SCH (21:00)
[2017-10-23] MEDS: Venlafaxine EXT RELEASE CAP* 75 MG PO SCH (07:25)
[2017-10-23] MEDS: Multivitamins/Minerals TAB PO SCH (07:26)
[2017-10-23] MEDS: QUEtiapine TAB* 25 MG PO SCH (07:26)
[2017-10-23 09:16] VITALS: BP 121/72
--- NOTE | 2017-10-23 14:10 | DS ---
Subjective - Subjective Service Types: [id number] [facility] Day Mgmt simple under 30 min Discharge Date: 10/23/17 Subjective: IDENTIFYING DATA: Latisha is a 57-year-old single, white female who was discharged from this unit about a week ago, came back to the emergency room stating that she was more depressed than before and she wanted to . CHIEF COMPLAINT: "I am suicidal with a secret plan." HISTORY OF PRESENT ILLNESS: This patient known to this unit for repeated hospitalizations comes back to the emergency department within a week of her discharge from this unit seeking hospitalization because she cannot function in the community. She claims to be more depressed than before and her life is a mess. She also states that she has been feeling horrible, feel ugly with self-load and pity on herself. She is hopeless, worthless, and she should kill herself. She is very dramatic and crying continuously during the evaluation. She does not want to get back on her stimulant or sedatives; however, she wants help. She denies any hallucinations, delusions, or homicidal ideation at this time. Reportedly, she was discharged to a motel without any support system. She was supposed to be followed up by ACT team, which they came to see her, but that was not helpful according to Latisha. PAST PSYCHIATRIC HISTORY: Multiple prior psychiatric hospitalizations and trial on different medications including stimulants and sedatives. She started abusing both stimulants and sedatives and she was taken off of everything last time when she was here and she did fairly well without any of those. She was discharged on venlafaxine 225 mg in the morning and diphenhydramine (Benadryl) 50 mg at bedtime p.r.n. for insomnia. Latisha reports that the meds were not helping. She was more depressed and overwhelmed with her emotions and needed to come back for rehospitalization. Past medical history, family history, personal and social history are dictated by Dr. Brasher in detail. Please refer to his admission H and P done on 09/26/17. Physical exam was offered and being postponed because of the patient's request saying that she was not up to it tonight. Review of physical and labs done in the emergency department were unremarkable. She showed a blood pressure of 130/69, pulse 102, temperature 98 degrees Fahrenheit, respirations 20, pulse ox 96% on room air. Labs show WBC count of 8.3, hemoglobin 14.5, hematocrit 43, platelet count 313. Sodium level 139, potassium 3.5, chloride 104, carbon dioxide 28, BUN 13, creatinine 0.73. Rest of the lab reports were unremarkable. Once again, she does not appear to be in any kind of physical distress at the time of evaluation. MENTAL STATUS EXAMINATION ON ADMISSION: Average height, healthy-appearing, appropriately dressed, fairly groomed female who is alert and oriented to time, place, and person. She describes the mood as terrible. Observed affect is constricted and tearful at the time of evaluation. Her speech is normal in all spheres. She makes poor eye contact. Verbalizes a suicidal ideation with a secret plan, but no homicidal ideation. Also, denies any hallucinations or delusions. Her intelligence appears to be average as evidenced by her vocabulary and fund of knowledge. Memory functions are intact in all spheres. Insight and judgement impaired. SUMMARY: This 57-year-old female with known history of multiple controlled substance abuse in the past, drug-seeking behavior, and emotional lability is readmitted a week after her discharge from this unit in a very labile state. DIAGNOSTIC IMPRESSION On ADMISSION: Unspecified mood disorder, rule out bipolar disorder, rule out cluster B personality disorder. There is a history of PTSD, stimulant and sedative hypnotics use disorder. DIAGNOSIS ON DISCHARGE: Major Depression, recurrent; Borderline Personality traits; Anxiety Disorder unspecified; history of PTSD, stimulant and sedative hypnotics use disorder PHYSICAL HEALTH DIAGNOSES: No known physical health diagnoses. Objective - Appearance Appearance: Healthy Appearing Dysmorphic Features: No Hygiene: Normal Grooming: Fairly Well Kept - Behavior Psychomotor Activities: Normal Exhibits Abnormal Movement: No - Attitude and Relatedness Attitude and Relatedness: Cooperative Eye Contact: Fair - Speech Quality: Unpressured Latencies: Normal Quantity: Appropriate - Mood Patient's Decription of Mood: "Fine" - Affect Observed Affect: Fair Affect Consistent with: Euthymia - Thought Process Patient's Thought Process: Coherent Thought Content: No Passive Wish, No Suicidal Planning, No Homicidal Ideation, No Paranoid Ideation - Sensorium Experiencing Hallucinations: No, Sensorium is Clear Type of Hallucinations: Visual: No, Auditory: No, Command: No - Level of Consciousness Level of Consciousness: Alert Orientation: Yes Intact, Yes Orientated to Time, Yes Orientated to Place, Yes Orientated to Person - Impulse Control Impulse Control: Intact - Insight and Judgement Insight and Judgement: Fair - Group Participation Particating in Group Activities: Yes - Medication Management Medication Management Adherence: Yes Treatment Course & Assessment Clinical Course & Impression: 56 yo woman presents with long standing symptoms of bipolar disorder with recurrent depressive episodes with good psycho social functioning up until past 3 to 4 years when she has had 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 Patient continues to be abusing Adderall despite understanding of it worsening her mood and behavior. Patient mental status has deteriorated in past few years with sequelae of homelessness, estrangement from family, separation from health providers, multiple ED visit and re hospitalization. Patient has severely impaired insight and judgment. She was recently discharged from inpatient unit and failed to follow up with Health providers recommendations and continues to struggle with mood instability, anxiety, med seeking, and was having suicidal thoughts with "a secret plan". Patient was admitted on the behavioral science unit for her safety and rapid stabilization of mental health symptoms. Patient was initially admitted on voluntary status and then changed to involuntary due to her limited insight and poor compliance and judgment. Patient was started with supportive milieu, individual and group therapy. A discussion about medication management with risks, benefits, and alternatives resulted in her deciding to switch her antidepressant from Effexor, which she took for 20 years without any benefit to Prozac. But next days requested it to be switched back to Effexor XR. Hence, Effexor XR was initially lowered to 150 mg but later increased back to 225mg PO QAM. Patient was started on very low dose of Seroquel 25 mg once daily at bedtime to see how she tolerates it and that was adjusted up as she tolerated. Patient was accepting of the idea of avoiding any controlled substances on her because of the history of controlled substance abuse in the past. Patient reported that she started taking more than prescribed amount of Effexor upon discharge and was taking 300 mg a day. Patient was med seeking during initial part of hospitalization and dictated her treatment. Patient had significant emotional dysregulation and is catastrophic in her thinking especially when things are not the way she wants. Patient was having suicidal thoughts when admitted through Emergency department and next days was talking and preoccupied with her discharge. Patient was partially compliant with her PO medications on the unit, refusing Prozac and restrictive of what she think she needs, no reported side effects. Patient reported continued depression, isolated, seclusive, not interested in activities, disturbed sleep. Patient was superficially cooperative with staff. Patient behavior required redirections as would get easily agitated and dysregulated towards staff and complains that they are mean towards her. Patient mood continued to be unstable and anxious. No psychotic symptoms of delusions or hallucinations but has chronic trust issues. Patient's medications were adjusted after informed consent as patient was very restricted in her choice of medications and gets agitated and dysregulated easily when requests are not made. Patient demanded her Effexor XR to be increased to 300 mg QAM and was educated about its increase to 225 mg QAM will be acceptable due to maximum dosage approved as per FDA. Patient Seroquel was increased to 100mg at Bedtime and as needed Seroquel was reduced to 25 mg Q8HRS prn for agitation. Also added Benadryl PRN for anxiety. Patient was somewhat responding to treatment with Seroquel, was less med seeking and was showing some effort to work with team on her treatment. Patient reported being "terrified" with idea of being transferred to a state facility. Patient had less emotional dysregulation and was less catastrophic in her thinking. Patient was reporting no suicidal thoughts and stated that she knew the exact word to get help at the hospital as she was not feeling right. Patient was less preoccupied with her discharge and wanted to work with treatment team and recommendations. Patient was reporting minimal improvement in her depression, still isolated, seclusive, not interested in activities, had some better sleep. Patient behavior required less redirections, less easily agitated and less dysregulated towards staff and did not complain about staff. Patient mood was showing some more stability and less anxious. Seroquel was increased to 125mg at Bedtime and as needed Seroquel was kept at 25 mg Q8HRS prn for agitation. Patient was attending groups and was attentive and participatory in group, remained in good behavioral control. Patient expressed positive insights regarding relevant treatment interventions. Patient stated understanding of material discussed and had appropriate questions. Patient Seroquel was adjusted and was increased to XR 150 mg HS. But patient reported that she felt tired, low in energy, more seclusive, difficulty getting out of her bed and instead stated that she was feeling better with low dose of Seroquel. Patient's medications were further adjusted and patient agreed to to Effexor XR 225 mg QAM. Patient's Seroquel was adjusted at 25mg Q8AM and 25 mg Q1400 and 50mg at bedtime. Also continued with Benadryl PRN for anxiety. Patient observation was increased to q30 min checks and was granted staff pass. Patient reported feeling better at her current dose today. Patient offered voluntary stay but wanted to be discharged, and did not meet criteria for involuntary hospitalization. Patient reported mood being stable, improvement in anxiety and depression. Patient reported no suicidal or homicidal ideation. Patient reproted no manic or psychotic symptoms. Patient was willing to work with outpatient treatment. Patient was discussed with team and as she was not danger to self and others, caring for self plan was made to discharge patient today with follow up appointments and supportive services. Merits Inpatient Hospitalization: No Clear for Discharge: Adequate Clinical Respons, Acceptable Safety Profile, Low Utility of In Care Inpatient DSM-V Dx: F33.1 Discharge Planning - Discharge Planning Discharge Plan: Outpatient Follow Up Recommendations for Continuing Care: Medication Management, Psychotherapy Medications: Current Medications Diphenhydramine HCl (Benadryl Po*) 50 mg PO Q6H PRN PRN Reason: ANXIETY Last Admin: 10/21/17 21:27 Dose: 50 mg Multivitamins/Minerals (Theragran/Minerals Tab*) 1 tab PO DAILY [facility] Last Admin: 10/23/17 07:26 Dose: 1 tab Quetiapine Fumarate (Seroquel Tab*) 50 mg PO BEDTIME [facility] Last Admin: 10/22/17 20:21 Dose: 50 mg Quetiapine Fumarate (Seroquel Tab*) 25 mg PO 0800,1400 [facility] Last Admin: 10/23/17 07:26 Dose: 25 mg Venlafaxine HCl (Effexor Xr Cap*) 225 mg PO DAILY [facility] Last Admin: 10/23/17 07:25 Dose: 225 mg 14 days of medications given Discharge Planning: Prescriptions provided for discharge [x] Yes [] No Follow up care details as per social work arrangements. Patient response to discharge plan: [x] eager for discharge [] agreeable with discharge plan [] ambivalent about discharge [] disagrees with discharge today
== END 2017-10-23 14:30 | disposition home or self-care (01) | DRG 751 ==
LOC: ED 01:27 → BSU 09:56
PROVIDERS: ADMIT Psychiatry & Neurology Psychiatry; ATTEND Psychiatry & Neurology Psychiatry
PROC: GZHZZZZ Group Psychotherapy (ICD-10-PCS; principal; 2017-10-17)
DX: F33.1 Major depressive disorder, recurrent, moderate (principal); R45.851 Suicidal ideations; F43.10 Post-traumatic stress disorder, unspecified; F41.9 Anxiety disorder, unspecified; F90.9 Attention-deficit hyperactivity disorder, unspecified type; Z91.5 Personal history of self-harm; Z80.1 Family history of malignant neoplasm of trachea, bronchus and lung; Z59.0 Homelessness; Z63.8 Other specified problems related to primary support group
CPT/HCPCS: 36415; 80053; 80307; 80320; 80329; 81003; 81015; 84443; 85025; 87086; 90853; 99222; 99231; 99238; 99284; A9270-GY; G0480

== ENCOUNTER 2017-12-03 20:01 | Emergency (ER) | payer OTHER ==
[2017-12-03 20:20] VITALS: BP 140/87
--- NOTE | 2017-12-03 20:25 | UC ---
General HPI - HPI Summary HPI Summary: 57 yo female presents with anxiety. She tells me that she has a significant history of depression, anxiety, and "mental issues". She has been admitted multiple times at the hospital for mental health concerns. Today she tells me that about 2 months ago she was placed on seroquel and was doing well with this , however she ran out 2 days ago and, when trying to get a refill, was told that it was too early and to contact her mental health provider. She says that she tried calling their office, but has not received a return call. She is currently asking for Ativan to "get through the next couple of days". She denies SI/HI or desire to inflict harm on herself or others. - History of Current Complaint Chief Complaint: UCGeneralIllness Stated Complaint: MEDICATION REFILL NEEDED Time Seen by Provider: 12/03/17 20:03 Hx Obtained From: Patient Hx Last Menstrual Period: a year ago Current Severity: None Pain Intensity: 0 - Allergy/Home Medications Allergies/Adverse Reactions: Allergies Allergy/AdvReac Type Severity Reaction Status Date / Time divalproex sodium Allergy Severe Rash Verified 12/03/17 20:21 [From Depakote] hydroxyzine [From Atarax] Allergy Severe Rash Verified 12/03/17 20:21 trazodone Allergy Severe Rash Verified 12/03/17 20:21 Home Medications: Home Medications Quetiapine Fumarate [Seroquel 50 mg tab] 50 mg PO BID 12/03/17 [History] PMH/Surg Hx/FS Hx/Imm Hx Psychological History: Anxiety, Depression, Bipolar Disorder, Post Traumatic Stress Disorder - Surgical History Surgical History: Yes Surgery Procedure, Year, and Place: implants in - then removed - Family History Known Family History: Positive: Other - Lung CA - Social History Alcohol Use: None Substance Use Type: None Smoking Status (MU): Never Smoked Tobacco Have You Smoked in the Last Year: No - Immunization History Most Recent Influenza Vaccination: n/a Most Recent Pneumonia Vaccination: n/a Review of Systems Constitutional: Negative Skin: Negative Respiratory: Negative Cardiovascular: Negative Gastrointestinal: Negative Neurovascular: Negative Neurological: Negative Psychological: Anxious All Other Systems Reviewed And Are Negative: Yes Physical Exam - Summary Physical Exam Summary: GENERAL: Hyperverbal. Anxious/Manic appearing SKIN: No streaking, bleeding, or drainage. NECK: Supple. Nontender. No lymphadenopathy. CHEST: No accessory muscle use. Breathing comfortably and in no distress. CV: Pulses intact. Cap refill <2seconds NEURO: Alert. PSYCH: Anxious/Manic appearing Triage Information Reviewed: Yes Vital Signs: Initial Vital Signs Temp 99.1 F 12/03/17 20:15 Pulse 97 12/03/17 20:15 Resp 18 12/03/17 20:15 BP 140/87 12/03/17 20:15 Pulse Ox 100 12/03/17 20:15 Vital Signs Reviewed: Yes Course/Dx - Course Course Of Treatment: I discussed with the pt that, given her hx of overdose and risk of abuse with benzos, I am not going to prescribe this for her. I discussed benadryl and hydroxyzine, but she states that these do not help or she has had bad reactions in the past. Next, I dicussed possible mental health eval in the ED and medications with the ability to be monitored for improvement/ adverse effects. She became frustrated, cursed, and left the exam room abruptly to return to the waiting room where she requested a cab to leave. While in the waiting room I asked her, again, if she had any intentions to harm herself or others and she said "no" and "I don't need to go to the hospital". She left via medicaid cab. - Differential Dx - Multi-Symptom Provider Diagnoses: Anxiety. Depression Discharge - Sign-Out/Discharge Documenting (check all that apply): Patient Departure All imaging exams completed and their final reports reviewed: No Studies - Discharge Plan Condition: Stable Disposition: ELOPEMENT Referrals: No Primary Care Phys,NOPCP [Primary Care Provider] - - Billing Disposition and Condition Condition: STABLE Disposition: Elopement
== END 2017-12-03 20:35 | disposition home or self-care (01) ==
LOC: UCEAST 20:01
DX: F41.9 Anxiety disorder, unspecified (principal); F32.9 Major depressive disorder, single episode, unspecified; Z88.8 Allergy status to other drugs, medicaments and biological substances; Z79.899 Other long term (current) drug therapy
CPT/HCPCS: 99212; G0463

== ENCOUNTER 2017-12-04 00:54 | Emergency (ER) | payer OTHER ==
[2017-12-04 01:04] VITALS: BP 113/76
[2017-12-04] MEDS ORDERED: QUEtiapine TAB* 25 MG PO ONE (01:37)
--- NOTE | 2017-12-04 01:41 | ED ---
Psychiatric Complaint - HPI Summary HPI Summary: Pt is a 57 year old F presenting to the ED going through withdrawal from her Seroquel. She has not taken it the last 2 days and takes 50mg QD BID, has not been able to sleep and has been panicky/having anxiety problems without it. The pt denies having thoughts of hurting herself. - History Of Current Complaint Chief Complaint: EDPrescriptionNeeded Time Seen by Provider: 12/04/17 01:30 Hx Obtained From: Patient Hx Last Menstrual Period: a year ago Onset/Duration: Gradual Onset, Lasting Days, Still Present Timing: Constant Severity Initially: Mild Severity Currently: Mild Character: Depressed, Anxious Aggravating Factor(s): Medication Non-compliance Alleviating Factor(s): Medication Associated Signs And Symptoms: Positive: Paranoid Behavior, Sleep Disturbance Related History: Positive For: Prior Psychiatric Issues Has Suicidal: Denies: Thoughts - Allergies/Home Medications Allergies/Adverse Reactions: Allergies Allergy/AdvReac Type Severity Reaction Status Date / Time divalproex sodium Allergy Severe Rash Verified 12/04/17 01:00 [From Depakote] hydroxyzine [From Atarax] Allergy Severe Rash Verified 12/04/17 01:00 trazodone Allergy Severe Rash Verified 12/04/17 01:00 PMH/Surg Hx/FS Hx/Imm Hx Previously Healthy: No Endocrine/Hematology History: Denies: Hx Diabetes, Hx Thyroid Disease Cardiovascular History: Denies: Hx Hypertension Respiratory History: Denies: Hx Asthma, Hx Chronic Obstructive Pulmonary Disease (COPD) GI History: Denies: Hx Ulcer History: Denies: Hx Dialysis Sensory History: Reports: Hx Contacts or Glasses - reading glasses Denies: Hx Deafness, Hx Hearing Aid Opthamlomology History: Reports: Hx Contacts or Glasses - reading glasses Psychiatric History: Reports: Hx Anxiety, Hx Attention Deficit Hyperactivity Disorder, Hx Depression, Hx Post Traumatic Stress Disorder, Hx Inpatient Treatment - 6th [facility] [place] admission, Hx Community Mental Health Tx, Hx Suicide Attempt , Other Psychiatric Issues/Disorders - Hx dysthymia, Hx ECT Denies: Hx Eating Disorder, Hx Schizophrenia, Hx Bipolar Disorder, Hx of Violent Episodes Against Others - Surgical History Surgery Procedure, Year, and Place: implants in - then removed Infectious Disease History: No Infectious Disease History: Reports: Hx Shingles Denies: Hx Clostridium Difficile, Hx Hepatitis, Hx Human Immunodeficiency Virus (HIV), Hx of Known/Suspected MRSA, Hx Tuberculosis, Hx Known/Suspected VRE , Hx Known/Suspected VRSA, History Other Infectious Disease, Traveled Outside the [place] in Last 30 Days - Family History Known Family History: Positive: Other - Lung CA - Social History Alcohol Use: None Hx Substance Use: No Substance Use Type: Reports: None Hx Tobacco Use: No Smoking Status (MU): Never Smoked Tobacco Have You Smoked in the Last Year: No Review of Systems Negative: Fever Positive: Anxious All Other Systems Reviewed And Are Negative: Yes Physical Exam - Summary Physical Exam Summary: Appearance: Well-appearing, Well-nourished, lying in bed comfortable Skin: Warm, dry, no obvious rash Eyes: sclera anicteric, no conjunctival pallor ENT: mucous membranes moist Neck: deferred Respiratory: No signs of respiratory distress Cardiovascular: Appears well perfused, pulses are nml Abdomen: deferred Musculoskeletal: Moving all 4 extremities without obvious discomfort Neurological: Awake and alert, mentation is normal, speech is fluent and appropriate Psychiatric: affect is normal, does not appear anxious or depressed Triage Information Reviewed: Yes Vital Signs On Initial Exam: Initial Vitals Temp Pulse Resp BP Pulse Ox 97.5 F 95 20 113/76 96 10 00:57 12/04/17 00:57 12/04/17 00:57 12/04/17 00:57 12/04/17 00:57 Vital Signs Reviewed: Yes Diagnostics - Vital Signs Vital Signs Temp Pulse Resp BP Pulse Ox 12/04/17 00:57 97.5 F 95 20 113/76 96 - Laboratory Lab Statement: Any lab studies that have been ordered have been reviewed, and results considered in the medical decision making process. Course/Dx - Course Course Of Treatment: Pt is a 57 y/o F presenting to the ED requesting a refill on her serouel 50mg QD BID. The pt will be given a dose at the ED and sent home with a prescription, with advisory to contact her physician regarding further rx. - Differential Dx/Clinical Impression Provider Diagnosis: Bipolar disorder, unspecified Discharge - Sign-Out/Discharge Documenting (check all that apply): Patient Departure - home - Discharge Plan Condition: Stable Disposition: HOME Prescriptions: Quetiapine Fumarate [Seroquel 50 mg tab] 50 mg PO BID #15 tab Additional Instructions: Contact your psychiatrist at the clinic in the morning so they can handle your medications going forward. - Billing Disposition and Condition Condition: STABLE Disposition: Home - Attestation Statements Document Initiated by John: Yes Documenting Scribe: Kristie Jackson Provider For Whom John is Documenting (Include Credential): Henry Romero MD. Scribe Attestation: Kristie Schultz, scribed for Henry Romero MD. on 12/04/17 at 0610. Scribe Documentation Reviewed: Yes Provider Attestation: The documentation as recorded by the john, Kristie Jackson accurately reflects the service I personally performed and the decisions made by me, Henry Romero MD.
== END 2017-12-04 01:47 | disposition home or self-care (01) ==
LOC: ED 00:54
DX: F31.9 Bipolar disorder, unspecified (principal); Z88.8 Allergy status to other drugs, medicaments and biological substances
CPT/HCPCS: 99282; A9270-GY

== ENCOUNTER 2017-12-19 04:01 | Emergency (ER) | payer OTHER ==
[2017-12-19] MEDS ORDERED: Nicotine Inhaler* 10 MG AMP INH PRN (04:23)
--- NOTE | 2017-12-19 04:25 | ED ---
Psychiatric Complaint - HPI Summary HPI Summary: This patient is a 57 year old F presenting to [facility] with a chief complaint of depression since 20:00. The patient rates the pain 0/10 in severity. Symptoms aggravated by medication change. Symptoms alleviated by nothing. Patient has been taking 100 mg Seroquel daily for 1 month. Patient notes that she increased her dosage to 200 mg daily 5 days ago and her symptoms began then. Patient reports insomnia and tearfulness. Patient denies SI. Patient has hx of depression. Patient also takes Effexor. Patient notes that she also weaned herself off of several other medications recently. Patient notes that she has an appointment with her therapist on 12/21/17. - History Of Current Complaint Hx Obtained From: Patient Hx Last Menstrual Period: a year ago Onset/Duration: Sudden Onset, Lasting Hours, Still Present Timing: Constant Severity Initially: Mild Severity Currently: Mild Character: Depressed Aggravating Factor(s): Other - recent medication change Alleviating Factor(s): Nothing Associated Signs And Symptoms: Positive: Sleep Disturbance Related History: Positive For: Prior Psychiatric Issues Has Suicidal: Denies: Thoughts - Allergies/Home Medications Allergies/Adverse Reactions: Allergies Allergy/AdvReac Type Severity Reaction Status Date / Time divalproex sodium Allergy Severe Rash Verified 12/06/17 00:06 [From Depakote] hydroxyzine [From Atarax] Allergy Severe Rash Verified 12/06/17 00:06 imipramine Allergy Severe Rash Verified 12/19/17 04:12 trazodone Allergy Severe Rash Verified 12/06/17 00:06 PMH/Surg Hx/FS Hx/Imm Hx Endocrine/Hematology History: Denies: Hx Diabetes, Hx Thyroid Disease Cardiovascular History: Denies: Hx Hypertension Respiratory History: Denies: Hx Asthma, Hx Chronic Obstructive Pulmonary Disease (COPD) GI History: Denies: Hx Ulcer History: Denies: Hx Dialysis Sensory History: Reports: Hx Contacts or Glasses - reading glasses Denies: Hx Deafness, Hx Hearing Aid Opthamlomology History: Reports: Hx Contacts or Glasses - reading glasses Psychiatric History: Reports: Hx Anxiety, Hx Attention Deficit Hyperactivity Disorder, Hx Depression, Hx Post Traumatic Stress Disorder, Hx Inpatient Treatment - 6th [facility] [place] admission, Hx Community Mental Health Tx, Hx Suicide Attempt , Other Psychiatric Issues/Disorders - Hx dysthymia, Hx ECT Denies: Hx Eating Disorder, Hx Schizophrenia, Hx Bipolar Disorder, Hx of Violent Episodes Against Others - Surgical History Surgery Procedure, Year, and Place: implants in - then removed Infectious Disease History: No Infectious Disease History: Reports: Hx Shingles Denies: Hx Clostridium Difficile, Hx Hepatitis, Hx Human Immunodeficiency Virus (HIV), Hx of Known/Suspected MRSA, Hx Tuberculosis, Hx Known/Suspected VRE , Hx Known/Suspected VRSA, History Other Infectious Disease, Traveled Outside the [place] in Last 30 Days - Family History Known Family History: Positive: Other - Lung CA - Social History Alcohol Use: None Hx Substance Use: No Substance Use Type: Reports: None Hx Tobacco Use: No Smoking Status (MU): Never Smoked Tobacco Have You Smoked in the Last Year: No Review of Systems Negative: Fever Negative: Epistaxis Negative: Cough Negative: Vomiting Positive: Depressed All Other Systems Reviewed And Are Negative: Yes Physical Exam - Summary Physical Exam Summary: VITAL SIGNS: Reviewed. GENERAL: Patient is a well-developed and nourished FEMALE who is lying comfortable in the stretcher. Patient is not in any acute respiratory distress. HEAD AND FACE: No signs of trauma. No ecchymosis, hematomas or skull depressions. No sinus tenderness. EYES: PERRLA, EOMI x 2, No injected conjunctiva, no nystagmus. EARS: Hearing grossly intact. Ear canals and tympanic membranes are within normal limits. MOUTH: Oropharynx within normal limits. NECK: Supple, trachea is midline, no adenopathy, no JVD, no carotid bruit, no c- spine tenderness, neck with full ROM. CHEST: Symmetric, no tenderness at palpation LUNGS: Clear to auscultation bilaterally. No wheezing or crackles. CVS: Regular rate and rhythm, S1 and S2 present, no murmurs or gallops appreciated. ABDOMEN: Soft, non-tender. No signs of distention. No rebound no guarding, and no masses palpated. Bowel sounds are normal. EXTREMITIES: FROM in all major joints, no edema, no cyanosis or clubbing. NEURO: Alert and oriented x 3. No acute neurological deficits. Speech is normal and follows commands. SKIN: Dry and warm PSYCH: Patient is sad and depressed Triage Information Reviewed: Yes Vital Signs On Initial Exam: Initial Vitals Temp Pulse Resp BP Pulse Ox 97.9 F 92 20 143/87 97 12/19/17 04:03 12/19/17 04:03 12/19/17 04:03 12/19/17 04:03 12/19/17 04:03 Vital Signs Reviewed: Yes Diagnostics - Vital Signs Vital Signs Temp Pulse Resp BP Pulse Ox 12/19/17 04:03 97.9 F 92 20 143/87 97 - Laboratory Result Diagrams: 12/19/17 04:41 Lab Statement: Any lab studies that have been ordered have been reviewed, and results considered in the medical decision making process. Course/Dx - Course Course Of Treatment: This patient is a 57 year old F with hx depression reporting feeling depressed since 20:00. Test results with no significant abnormalities. In the ED course the patient was given Nicotine inhaler. Patient will be signed out to Dr. Seth from Dr. Villalba upon provider shift change pending MHE. - Differential Dx/Clinical Impression Provider Diagnosis: Depression Discharge - Sign-Out/Discharge Documenting (check all that apply): Sign-Out Patient Signing out patient TO: Skyla Seth Receiving patient FROM: Clement Villalba - Discharge Plan Condition: Stable Referrals: Care [facility] [Outside] - Attestation Statements Document Initiated by Scribe: Yes Documenting Scribe: Helga Guillen Provider For Whom Scribe is Documenting (Include Credential): Clement Villalba MD Scribe Attestation: Helga Schultz, scribed for Clement Villalba MD on 12/19/17 at 0508.
[2017-12-19 04:52] LABS: ABS Basophils 0.1 10^3/ul (0-0.2); ABS Eosinophils 0.2 10^3/ul (0-0.6); ABS Lymphocytes 1.8 10^3/ul (1.0-4.8); ABS Monocytes 0.5 10^3/ul (0-0.8); ABS Neutrophils 6.5 10^3/ul (1.5-7.7); ABS Nucleated RBC 0 10^3/ul; Eosinophil % 2.1 % (0-6); Hematocrit 42 % (35-47); Hemoglobin 14.3 g/dl (12.0-16.0); Lymphocyte % 19.4 % (25-47); Mean Corpuscular HGB Conc 34 g/dl (31-36); Mean Corpuscular Hemoglobin 28 pg (27-31); Mean Corpuscular Volume 84 fL (80-97); Mean Platelet Volume 7.8 fL (7.4-10.4); Nucleated Red Blood Cells % 0; Platelet Count 292 10^3/ul (150-450); Red Blood Count 5.02 10^6/ul (4.00-5.40); Red Cell Distribution Width 15 % (10.5-15); White Blood Count 9.1 10^3/ul (3.5-10.8)
[2017-12-19 05:09] LABS: EGFR Non-African American 97.4 (>60)
[2017-12-19 05:40] LABS: Urine Appearance Cloudy; Urine Blood Negative (Negative); Urine Color Yellow; Urine Ketones Negative (Negative); Urine Protein Negative (Negative); Urine Red Blood Cell Trace(0-2/hpf) (Absent); Urine Specific Gravity 1.013 (1.010-1.030); Urine Urobilinogen Negative (Negative); Urine White Blood Cell Trace(0-5/hpf) (Absent)
--- NOTE | 2017-12-19 06:42 | ED ---
Progress - Progress Note Progress Note: Prior to MHE, Patient decided she wants to go home. Denies SI and HI. Course/Dx - Course Course Of Treatment: This patient is a 57 year old F with hx depression reporting feeling depressed since 20:00. Test results with no significant abnormalities. In the ED course the patient was given Nicotine inhaler. Patient decided she wants to go home. Denies SI and HI. Patient will be discharged with follow up from psychiatrist. Patient is agreeable with this plan. - Diagnoses Provider Diagnoses: Depression Discharge - Sign-Out/Discharge Documenting (check all that apply): Patient Departure - discharge home - Discharge Plan Condition: Stable Disposition: HOME Patient Education Materials: Depression (ED) Referrals: [facility] [Outside] - 2 Days Additional Instructions: Follow up with psychiatrist in 2-3 days. Return to the emergency department with any new or worsening symptoms. - Billing Disposition and Condition Condition: STABLE Disposition: Home - Attestation Statements Scribe Documentation Reviewed: Yes
[2017-12-19 06:55] VITALS: BP 128/74
== END 2017-12-19 06:53 | disposition home or self-care (01) ==
LOC: ED 04:01
DX: F32.9 Major depressive disorder, single episode, unspecified (principal); Z88.8 Allergy status to other drugs, medicaments and biological substances
CPT/HCPCS: 36415; 80053; 80307; 80320; 80329; 81003; 81015; 84443; 85025; 87086; 99283; G0480

== ENCOUNTER 2017-12-29 13:22 | Inpatient (IN) | payer OTHER ==
[2017-12-29] MEDS ORDERED: Nicotine Inhaler* 10 MG AMP INH PRN (13:50)
--- NOTE | 2017-12-29 14:00 | ED ---
Psychiatric Complaint - HPI Summary HPI Summary: The pt is 57 y/o female presenting to [facility] c/o acute on chronic SI without a plan. She currently takes antipsychotics for bipolar disorder but is concerned that she is on the wrong medications because they increase her SI. She also takes 20 mg of Aderall IR, and 10 mg of Aderall XR PO. The pt stopped taking the latter due to its adverse mood effects. The pt reports frustration by the multiple hospital visits she has made for the same sx. Taking stimulants alleviate her sx. effects. Home Medications Medication Instructions Recorded Confirmed Type Venlafaxine EXT RELEASE CAP* 225 mg PO DAILY #42 cap.sr 10/23/17 12/19/17 Rx [Effexor Xr CAP*] Quetiapine Fumarate [Seroquel 50 200 mg PO BID 12/03/17 12/19/17 History mg tab] Ciprofloxacin TAB* [Cipro 500 MG 500 mg PO BID #10 tab 12/06/17 12/19/17 Rx TAB*] - History Of Current Complaint Chief Complaint: EDMentalHealth Time Seen by Provider: 12/29/17 13:45 Hx Obtained From: Patient Hx Last Menstrual Period: a year ago Onset/Duration: Still Present, Other - Acute on chronic Timing: Constant Alleviating Factor(s): Nothing Related History: Positive For: Prior Psychiatric Issues Has Suicidal: Reports: Thoughts. Denies: With A Plan - Allergies/Home Medications Allergies/Adverse Reactions: Allergies Allergy/AdvReac Type Severity Reaction Status Date / Time divalproex sodium Allergy Severe Rash Verified 12/06/17 00:06 [From Depakote] hydroxyzine [From Atarax] Allergy Severe Rash Verified 12/06/17 00:06 imipramine Allergy Severe Rash Verified 12/19/17 04:12 trazodone Allergy Severe Rash Verified 12/06/17 00:06 Home Medications: Home Medications Dextroamphetamine/Amphetamine [Adderall Xr 20 mg Capsule] 20 mg PO DAILY [History Confirmed 12/29/17] PMH/Surg Hx/FS Hx/Imm Hx Previously Healthy: No Endocrine/Hematology History: Denies: Hx Diabetes, Hx Thyroid Disease Cardiovascular History: Denies: Hx Hypertension Respiratory History: Denies: Hx Asthma, Hx Chronic Obstructive Pulmonary Disease (COPD) GI History: Denies: Hx Ulcer History: Denies: Hx Dialysis Sensory History: Reports: Hx Contacts or Glasses - reading glasses Denies: Hx Deafness, Hx Hearing Aid Opthamlomology History: Reports: Hx Contacts or Glasses - reading glasses Psychiatric History: Reports: Hx Anxiety, Hx Attention Deficit Hyperactivity Disorder, Hx Depression, Hx Post Traumatic Stress Disorder, Hx Inpatient Treatment - 6th [facility] [place] admission, Hx Community Mental Health Tx, Hx Suicide Attempt , Other Psychiatric Issues/Disorders - Hx dysthymia, Hx ECT Denies: Hx Eating Disorder, Hx Schizophrenia, Hx Bipolar Disorder, Hx of Violent Episodes Against Others - Cancer History Cancer Type, Location and Year: None reported - Surgical History Surgery Procedure, Year, and Place: implants in - then removed Infectious Disease History: Yes Infectious Disease History: Reports: Hx Shingles Denies: Hx Clostridium Difficile, Hx Hepatitis, Hx Human Immunodeficiency Virus (HIV), Hx of Known/Suspected MRSA, Hx Tuberculosis, Hx Known/Suspected VRE , Hx Known/Suspected VRSA, History Other Infectious Disease, Traveled Outside the in Last 30 Days - Family History Known Family History: Positive: Other - Lung CA, Depression-sister - Social History Occupation: Unemployed Lives: Alone Alcohol Use: None Hx Substance Use: No Substance Use Type: Reports: None Hx Tobacco Use: No Smoking Status (MU): Never Smoked Tobacco Have You Smoked in the Last Year: No Review of Systems Negative: Fever Psychological: Other - Positive: SI without a plan Positive: Depressed All Other Systems Reviewed And Are Negative: Yes Physical Exam - Summary Physical Exam Summary: Appearance: The patient is well-nourished in no acute respiratory distress and in no acute pain. Skin: The skin is warm and dry and skin color reflects adequate perfusion. HEENT: The head is normocephalic and atraumatic. The pupils are equal and reactive. The conjunctivae are clear and without drainage. Nares are patent and without drainage. Mouth reveals moist mucous membranes and the throat is without erythema and exudate. The external ears are intact. The ear canals are patent and without drainage. The tympanic membranes are intact. Neck: The neck is supple with full range of motion and non-tender. There are no carotid bruits. There is no neck vein distension. Respiratory: Chest is non-tender. Lungs are clear to auscultation and breath sounds are symmetrical and equal. Cardiovascular: Heart is regular rate and rhythm. There is no murmur or rub auscultated. There is no peripheral edema and pulses are symmetrical and equal. Abdomen: The abdomen is soft and non-tender. There are normal bowel sounds heard in all four quadrants and there is no organomegaly palpated. Musculoskeletal: There is no back tenderness noted. Extremities are non-tender with full range of motion. There is good capillary refill. There is no peripheral edema or calf tenderness elicited. Neurological: Patient is alert and oriented to person, place and time. The patient has symmetrical motor strength in all four extremities. Cranial nerves are grossly intact. Deep tendon reflexes are symmetrical and equal in all four extremities. Psychiatric: The patient has a labile mood. Triage Information Reviewed: Yes Vital Signs On Initial Exam: Initial Vitals Temp Pulse Resp BP Pulse Ox 97.5 F 93 20 127/82 96 12/29/17 13:26 12/29/17 13:26 12/29/17 13:26 12/29/17 13:26 12/29/17 13:26 Vital Signs Reviewed: Yes Diagnostics - Vital Signs Vital Signs Temp Pulse Resp BP Pulse Ox 12/29/17 13:26 97.5 F 93 20 127/82 96 - Laboratory Result Diagrams: 12/29/17 14:07 12/29/17 14:07 Lab Statement: Any lab studies that have been ordered have been reviewed, and results considered in the medical decision making process. Course/Dx - Course Course Of Treatment: 16:14- The pt is medically cleared for a MHE. She was evaluated in the pod and they requested to hold her overnight and have the psychiatrist see her in the morning. - Differential Dx/Clinical Impression Provider Diagnosis: Persistent mood [affective] disorder, unspecified Discharge - Sign-Out/Discharge Documenting (check all that apply): Sign-Out Patient Signing out patient TO: Henry Romero - Discharge Plan Condition: Stable Referrals: Care [facility] [Outside] - Billing Disposition and Condition Condition: STABLE - Attestation Statements Document Initiated by Scribe: Yes Documenting Scribe: Ladonna Falcon Provider For Whom Emmanuel is Documenting (Include Credential): Dr. Henry Beach MD Scribe Attestation: Ladonna Schultz , scribed for Dr. Henry Beach MD on 12/29/17 at 2028. Scribe Documentation Reviewed: Yes Provider Attestation: The documentation as recorded by the scribeLadonna accurately reflects the service I personally performed and the decisions made by me, Dr. Henry Beach MD
[2017-12-29 14:38] LABS: ABS Basophils 0.1 10^3/ul (0-0.2); ABS Eosinophils 0.1 10^3/ul (0-0.6); ABS Lymphocytes 1.5 10^3/ul (1.0-4.8); ABS Monocytes 0.4 10^3/ul (0-0.8); ABS Neutrophils 4.3 10^3/ul (1.5-7.7); ABS Nucleated RBC 0 10^3/ul; Eosinophil % 2.1 % (0-6); Hematocrit 42 % (35-47); Hemoglobin 14.1 g/dl (12.0-16.0); Lymphocyte % 22.9 % (25-47); Mean Corpuscular HGB Conc 34 g/dl (31-36); Mean Corpuscular Hemoglobin 28 pg (27-31); Mean Corpuscular Volume 84 fL (80-97); Mean Platelet Volume 7.8 fL (7.4-10.4); Nucleated Red Blood Cells % 0.1; Platelet Count 342 10^3/ul (150-450); Red Blood Count 4.96 10^6/ul (4.00-5.40); Red Cell Distribution Width 15 % (10.5-15); White Blood Count 6.3 10^3/ul (3.5-10.8)
[2017-12-29 14:48] LABS: Urine Appearance Cloudy; Urine Blood Negative (Negative); Urine Color Yellow; Urine Ketones Trace (Negative); Urine Protein Negative (Negative); Urine Red Blood Cell 1+(3-5/hpf) (Absent); Urine Specific Gravity 1.026 (1.010-1.030); Urine Urobilinogen Negative (Negative); Urine White Blood Cell 3+(>20/hpf) (Absent)
[2017-12-29 14:54] LABS: EGFR Non-African American 87.7 (>60)
[2017-12-29] MEDS ORDERED: diPHENhydraMINE PO* 25 MG PO ONE (15:54)
[2017-12-29] MEDS ORDERED: QUEtiapine TAB* 100 MG PO ONE (16:22)
--- NOTE | 2017-12-30 06:21 | ED ---
Progress - Progress Note Progress Note: Patient was signed out from Dr. Beach upon shift change pending MHE and disposition - Consult/PCP Time Called: 16:30 Course/Dx - Course Course Of Treatment: 16:14- The pt is medically cleared for a MHE. She was evaluated in the pod and they requested to hold her overnight and have the psychiatrist see her in the morning. Patient was signed out from Dr. Beach upon shift change pending MHE and disposition. Patient will be signed out to Dr. Steele upon shift change pending MHE and disposition. - Diagnoses Provider Diagnoses: Persistent mood [affective] disorder, unspecified Discharge - Sign-Out/Discharge Documenting (check all that apply): Sign-Out Patient, Receiving Sign-Out Signing out patient TO: Keith Steele - Upon shift change pending MHE and disposition Receiving patient FROM: Henry Beach - Upon shift change pending MHE and disposition - Discharge Plan Condition: Stable Referrals: [facility] [Outside] - Attestation Statements Document Initiated by Scribe: Yes Documenting Scribe: Jaki Teixeira Provider For Whom Scribe is Documenting (Include Credential): Dr. Henry Romero MD Scribe Attestation: Jaki Schultz, scribed for Dr. Henry Romero MD on 12/30/17 at 0620.
[2017-12-30] MEDS ORDERED: Al Hydrox/Mg Hydrox/Simet LIQ* 30 ML UDC PO PRN (12:12)
--- NOTE | 2017-12-30 12:25 | PN ---
ED Flex Patient Progress Note Date of Service: 12/30/17 Subjective: The patient is a 57 y.o. , white female with a history of bipolar disorder who arrives making suicidal statements without plan. "I just can't take it anymore. I can't do this. I need help." She is tearful and sobbing, requesting admission, saying outpatient treatment is not working. She cannot contract for safety. Objective: middle-aged, white female with reddish brown hair dressed in paper scrubs; anxious and tearful, depressed with passive SI; denies AH/VH Assessment: Bipolar Mixed, severe without psychotic features Plan: Admit to BSU on voluntary 10.25 legal status. Vital Signs Temp Pulse Resp BP Pulse Ox 97.4 F 93 16 144/76 96 12/30/17 02:00 12/30/17 02:00 12/30/17 02:00 12/30/17 02:00 12/30/17 02:00 Lab Results - Entire Visit 12/29/17 12/29/17 12/29/17 14:07 14:07 14:06 WBC 6.3 RBC 4.96 Hgb 14.1 Hct 42 MCV 84 MCH 28 MCHC 34 RDW 15 Plt Count 342 MPV 7.8 Neut % (Auto) 68.4 Lymph % (Auto) 22.9 L Story % (Auto) 5.8 Eos % (Auto) 2.1 Baso % (Auto) 0.8 Absolute Neuts (auto) 4.3 Absolute Lymphs (auto) 1.5 Absolute Monos (auto) 0.4 Absolute Eos (auto) 0.1 Absolute Basos (auto) 0.1 Absolute Nucleated RBC 0 Nucleated RBC % 0.1 Sodium 139 Potassium 3.8 Chloride 106 Carbon Dioxide 24 Anion Gap 9 BUN 17 Creatinine 0.69 Est GFR ( Amer) 106.1 Est GFR (Non-Af Amer) 87.7 BUN/Creatinine Ratio 24.6 H Glucose 96 Calcium 9.3 Total Bilirubin 0.20 AST 13 ALT 15 Alkaline Phosphatase 108 H Total Protein 7.0 Albumin 3.9 Globulin 3.1 Albumin/Globulin Ratio 1.3 TSH 0.63 Urine Color Urine Appearance Urine pH Ur Specific [place] Urine Protein Urine Ketones Urine Blood Urine Nitrate Urine Bilirubin Urine Urobilinogen Ur Leukocyte Esterase Urine WBC (Auto) Urine RBC (Auto) Ur Squamous Epith Cells Urine Bacteria Urine Glucose Urine Ascorbic Acid Salicylates < 2.50 Urine Opiates Screen None detected Acetaminophen < 15 Ur Barbiturates Screen None detected Ur Phencyclidine Scrn None detected Ur Amphetamines Screen Presumptive positive A U Benzodiazepines Scrn None detected Urine Cocaine Screen None detected U Cannabinoids Screen None detected Serum Alcohol < 10 12/29/17 14:06 WBC RBC Hgb Hct MCV MCH MCHC RDW Plt Count MPV Neut % (Auto) Lymph % (Auto) Story % (Auto) Eos % (Auto) Baso % (Auto) Absolute Neuts (auto) Absolute Lymphs (auto) Absolute Monos (auto) Absolute Eos (auto) Absolute Basos (auto) Absolute Nucleated RBC Nucleated RBC % Sodium Potassium Chloride Carbon Dioxide Anion Gap BUN Creatinine Est GFR ( Amer) Est GFR (Non-Af Amer) BUN/Creatinine Ratio Glucose Calcium Total Bilirubin AST ALT Alkaline Phosphatase Total Protein Albumin Globulin Albumin/Globulin Ratio TSH Urine Color Yellow Urine Appearance Cloudy Urine pH 5.0 Ur Specific [place] 1.026 Urine Protein Negative Urine Ketones Trace A Urine Blood Negative Urine Nitrate Negative Urine Bilirubin Negative Urine Urobilinogen Negative Ur Leukocyte Esterase 3+ A Urine WBC (Auto) 3+(>20/hpf) A Urine RBC (Auto) 1+(3-5/hpf) A Ur Squamous Epith Cells Present A Urine Bacteria Absent Urine Glucose Negative Urine Ascorbic Acid * A Salicylates Urine Opiates Screen Acetaminophen Ur Barbiturates Screen Ur Phencyclidine Scrn Ur Amphetamines Screen U Benzodiazepines Scrn Urine Cocaine Screen U Cannabinoids Screen Serum Alcohol
--- NOTE | 2017-12-30 12:34 | ED ---
Progress - Progress Note Progress Note: Patient was signed out to Dr. Steele via Dr. Romero, pending MHE and disposition , during shift change on 12/30/17 at 0700. - Consult/PCP Time Called: 16:30 Course/Dx - Diagnoses Provider Diagnoses: Bipolar depression - Provider Notifications Discussed Care Of Patient With: Paramjit Leach Time Discussed With Above Provider: 12:02 Instructed by Provider To: Other - Accepts patient for admission. Discharge - Sign-Out/Discharge Documenting (check all that apply): Patient Departure - ADMIT, Sign-Out Patient - Paramjit Leach Signing out patient TO: Paramjit Leach Receiving patient FROM: Keith Steele - Discharge Plan Condition: Stable Disposition: ADMITTED TO [facility] - Attestation Statements Document Initiated by Scribe: Yes Documenting Scribe: Willard Ho Provider For Whom Scribe is Documenting (Include Credential): Keith Steele MD Scribe Attestation: Willard Schultz, scribed for Keith Steele MD on 12/30/17 at 1234.
[2017-12-30] MEDS: Amphetamine MIXED SALT TAB* 10 MG TAB PO SCH (13:54)
[2017-12-30] MEDS: Venlafaxine EXT RELEASE CAP* 75 MG PO SCH (13:54)
[2017-12-30] MEDS: lamoTRIgine TAB(*) 25 MG PO SCH ×2 (13:55→20:31)
[2017-12-30] MEDS: cloNIDine TAB* 0.1 MG PO PRN (17:07)
[2017-12-30] MEDS: QUEtiapine TAB* 25 MG ONE ×2 (18:30→20:31)
--- NOTE | 2017-12-30 20:11 | HP ---
PSYCHIATRIC HISTORY AND PHYSICAL: DATE OF ADMISSION: 12/30/17 JUSTIFICATION FOR ADMISSION: The patient is in need of 24-hour supervision and care secondary to suicidal ideations and inability to contract for her own safety. CHIEF COMPLAINT: "I just can't take it anymore. I don't know what I am going to do. I can't go on living like this." HISTORY OF PRESENT ILLNESS: The patient is a 57-year-old white female with a history of bipolar disorder and multiple recent hospitalizations on the BSU, who arrives complaining of "unbearable depression and anxiety" and demanding help. The patient was sobbing in the emergency room, telling staff members "you should know what to do, I need different meds." She was resistant to any suggestions to assist with her anxiety and depression except for medications. She was holding her face and her hands, accusing staff of being cold and not caring, and demanding to see the psychiatrist. She went back and forth numerous times in terms of her safety, at times stating that she was imminently at risk of suicide, other times stating that she could be safe and demanding discharge. Ultimately, I saw her in the emergency room, where she continued to be quite emotionally labile. Her story is that she has been on high-dose antidepressant therapy in the form of venlafaxine for several months as well as Seroquel and low-dose Adderall. She blames her current symptoms on the increase in Seroquel; however, it is notable that she has a clear history of bipolarity and it may be that her antidepressants are making her worse. When I brought this up with the patient, she did calm down and seem to accept a plan in which she could be hospitalized and have her antidepressant discontinued in favor of mood stabilizer therapy. My understanding is that she is living in emergency housing through the [facility]. She has significant financial stressors at this time, is unemployed, and has experienced a considerable loss of occupational and financial resources over the past 15 to 20 years. She meets criteria for mixed manic phase given the fact that she is endorsing sleep difficulty, anhedonia, guilt, decreased energy, poor concentration along with symptoms of distractibility, indiscretion , grandiosity, elevated thought rate, and extreme irritability and anxiety. PAST PSYCHIATRIC HISTORY: This is the patient's 9th total BSU admission. She had 1 admission in 2008, 2 in 2009, 1 admission in 2016, and she has had 4 previous admissions in 2018 with the most recent being in October 2017 under the service of Dr. Spike Brasher. Medications have included numerous trials of antidepressants. She states that she could not tolerate DEPAKOTE. She has also been on venlafaxine, Wellbutrin, low- dose Lamictal, Adderall, hydroxyzine, high-dose Xanax. At one point, she received ECT at [facility]. SUBSTANCE ABUSE HISTORY: The patient denies alcohol, tobacco, or illicit substance abuse. In the past, she has been considered for abuse of benzodiazepines and stimulants. Urine drug screen is positive only for amphetamines at this time. PAST MEDICAL HISTORY: Noncontributory. ALLERGIES: Include DEPAKOTE, HYDROXYZINE, IMIPRAMINE, and TRAZODONE. FAMILY PSYCHIATRIC HISTORY: The patient has a long history of depression and it is notable the patient's family has a long history of depression and it is notable that her mother of suicide. There is no substance abuse reported in the family. PSYCHOSOCIAL HISTORY: The patient grew up in [place]. She has 2 older sisters. Her father was murdered when she was 6 years old and was alleged to have mafia connections. Her mother of suicide when the patient was 9. Thereafter, the patient moved to [facility] and was raised by extended family members. 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 REVIEW OF SYSTEMS: She denies headache or double vision. She denies sore throat, cough, chest pain, difficulty breathing. She denies abdominal pain, nausea, vomiting, diarrhea, or constipation. Denies difficulty ambulating, enlarged lymph nodes, rashes, fevers, or changes in weight. PHYSICAL EXAMINATION VITAL SIGNS: Blood pressure is 144/76, heart rate 93, respiratory rate 16, temperature 97.4 degrees Fahrenheit, oxygen saturations are 96% on room air. HEENT: Head is normocephalic and atraumatic. NECK: Supple. CHEST: Clear to auscultation bilaterally. CARDIAC: Reveals normal heart sounds. ABDOMEN: Soft and nontender. MUSCULOSKELETAL: Exam reveals no sign of edema. NEUROLOGICAL: She is grossly intact with no focal deficits. SKIN: Warm and dry. MENTAL STATUS EXAM: The patient is a middle-aged white female with reddish brown hair, who is dressed in blue paper scrubs with fair grooming. She is cooperative but appears somewhat desperate with this clinician. Her speech has normal rate, tone, and volume. Mood is anxious and depressed with a tearful, somewhat labile affect. Thought process is tangential. Thought content is significant for her concern over her medications. She goes back and forth in terms of suicidality, but ultimately cannot contract for safety, expressing passive suicidal ideations with no specific plan for self-harm. She denies homicidal thoughts at this time. Insight and judgment appear to be limited. Cognitively, she is awake and alert with what would appear to be an average intellect. LABORATORY DATA: Complete blood count is within normal limits as is her complete metabolic panel. TSH normal at 0.63. Urinalysis significant for 3+ white blood cells, 3+ leukocyte esterase, 1+ red blood cells. Urine drug screen positive only for amphetamines. DIAGNOSES: [place] I: Bipolar disorder, type 1, current episode mixed, severe, without psychotic features. [place] II: Borderline personality traits. ASSESSMENT: The patient is a 57-year-old white female with a history of bipolarity as well as numerous recent psychiatric admissions here to [facility], who now returns to the emergency room for the fourth time in 2 weeks seeking admission and arrangement of her medications due to depression and anxiety as well as passive suicidality. The patient is taking high-dose antidepressants and it may be that these are making her worse. I am advocating at this time for inpatient hospitalization on a voluntary basis with some changes to her medications in that we discontinue antidepressant therapy in favor of mood stabilizers. The patient is agreeable to this and willing to sign a 9.13 legal document. PLAN: The patient is admitted to the adult behavioral health unit and placed on q.15-minute checks for her own safety. We will decrease Effexor XR from 225 to 150 mg with the thoughts of tapering it off completely. I will start a trial of lamotrigine 25 mg twice daily. I will leave her on at least some Adderall only 20 mg once in the morning and we will reduce her Seroquel to 200 mg q.h.s. instead of the b.i.d. dosing that she has most recently been taking. While she is here, she is certainly encouraged to avail herself of all milieu activities including individual and group psychotherapies. We will be reaching out to [facility] for further collateral information and to make sure that she has comprehensive followup after discharge. [id number]/[facility] #: [id number] NORIS
[2017-12-30] MEDS ORDERED: QUEtiapine TAB* 25 MG ONE (20:30)
[2017-12-30] MEDS ORDERED: QUEtiapine TAB* 100 MG PO SCH (21:00)
[2017-12-31] MEDS: Venlafaxine EXT RELEASE CAP* 75 MG PO SCH (08:47)
[2017-12-31] MEDS: Amphetamine MIXED SALT TAB* 10 MG TAB PO SCH (08:47)
[2017-12-31] MEDS: lamoTRIgine TAB(*) 25 MG PO SCH ×2 (08:47→21:36)
--- NOTE | 2017-12-31 13:40 | PN ---
Subjective - Subjective Date of Service: 12/31/17 Service Type: 69592 Hosp care 35 min high complexity Subjective: Carmen talks quite hyperverbally about her past history with various treatment providers in the community; in particular, local psychiatrist Dr. Oliver. She recalls that when she was put on venlafaxine 15 years ago "It gave me this burst of energy and this edge of anger. 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 She continues to present with classic mixed symptoms including distractability, grandiosity, irritability, elevated thought rate, overtalkativeness, hypergraphia, dysphoria, decreased sleep, poor energy, amotivation and increased appetite. She denies SI in this setting but endorses that she would likely be quickly overwhelmed if discharged back into the community. Objective - Appearance Appearance: Obese Dysmorphic Features: No Hygiene: Normal Grooming: Fairly Well Kept - Behavior Psychomotor Activities: Abnormal-Increased Exhibits Abnormal Movement: No - Attitude and Relatedness Attitude and Relatedness: Cooperative Eye Contact: Good - Speech Quality: Pressured Latencies: Short Quantity: Copious - Mood Patient's Decription of Mood: "Anxious" - Affect Observed Affect: Expansive Affect Consistent with: Dysphoria - Thought Process Patient's Thought Process: Tangential Thought Content: Yes Passive Wish, No Suicidal Planning, No Homicidal Ideation, No Paranoid Ideation - Sensorium Experiencing Hallucinations: No, Sensorium is Clear Type of Hallucinations: Visual: No, Auditory: No, Command: No - Level of Consciousness Level of Consciousness: Alert Orientation: Yes Intact, Yes Orientated to Time, Yes Orientated to Place, Yes Orientated to Person - Impulse Control Impulse Control: Poor - Insight and Judgement Insight and Judgement: Impaired - Group Participation Particating in Group Activities: Yes - Medication Management Medication Management Adherence: Yes Assessment - Assessment Merits Inpatient Hospitalization: For Immediate Safety, For Stabilization Inpatient DSM-V Dx: F31.63 Clinical Impression: 57 y.o. single, white female with a history of bipolar disorder arrives at the hospital voluntarily seeking hospitalization for intense anxiety and dysphoria as well as passive SI. MHU: Problem List - Patient Problems (1) Bipolar affective, mixed, severe Current Visit: Yes Status: Acute Priority: High Code(s): F31.63 - BIPOLAR DISORD, CRNT EPSD MIXED, SEVERE, W/O PSYCH FEATURES SNOMED Code(s): 981739309480 Plan - Plan Treatment Plan: Name: JOSE GÓMEZ Birthdate: 1960 [id number] The patient presents with a mixed phase of bipolar disorder. It is imperative that we get her off antidepressant medication completely and on to a mood stabilizer regimen. We have decreased venlafaxine XR from 300 to 150mg PO qday and started a trial of lamotrigine 25mg PO BID. She is receiving clonidine 0.1mg PO TID as a prn for anxiety and we are augmenting her regimen with quetiapine 50mg PO qhs. She is currently getting Adderall IR 20mg PO qam but we should consider discontinuing this as the hospitalization progresses. Continue inpatient treatment. Continued Medication Management: Different Medication Medications: Current Medications Acetaminophen (Tylenol Tab*) 650 mg PO Q4H PRN PRN Reason: for pain; or Temp >101 F Al Hydrox/Mg Hydrox/Simethicone (Maalox Plus*) 30 ml PO Q4H PRN PRN Reason: INDIGESTION Amphetamine/Dextroamphetamine (Adderall Tab*) 20 mg PO DAILY [facility] Last Admin: 12/31/17 08:47 Dose: 20 mg Clonidine HCl (Catapres Tab*) 0.1 mg PO TID PRN PRN Reason: ANXIETY Last Admin: 12/30/17 17:07 Dose: 0.1 mg Lamotrigine (Lamictal Tab(*)) 25 mg PO BID [facility] Last Admin: 12/31/17 08:47 Dose: 25 mg Nicotine (Nicotine Inhaler*) 10 mg INH Q2H PRN PRN Reason: CRAVING Quetiapine Fumarate (Seroquel Tab*) 50 mg PO BEDTIME [facility] Venlafaxine HCl (Effexor Xr Cap*) 150 mg PO DAILY [facility] Last Admin: 12/31/17 08:47 Dose: 150 mg - Discharge Plan Discharge Plan: Inpatient Hospitalization Lab Results - Lab Results Lab Results: 12/29/17 12/29/17 12/29/17 14:06 14:06 14:07 WBC 6.3 RBC 4.96 Hgb 14.1 Hct 42 MCV 84 MCH 28 MCHC 34 RDW 15 Plt Count 342 MPV 7.8 Neut % (Auto) 68.4 Lymph % (Auto) 22.9 L [place] % (Auto) 5.8 Eos % (Auto) 2.1 Baso % (Auto) 0.8 Absolute Neuts (auto) 4.3 Absolute Lymphs (auto) 1.5 Absolute Monos (auto) 0.4 Absolute Eos (auto) 0.1 Absolute Basos (auto) 0.1 Absolute Nucleated RBC 0 Nucleated RBC % 0.1 Sodium Potassium Chloride Carbon Dioxide Anion Gap BUN Creatinine Est GFR ( Amer) Est GFR (Non-Af Amer) BUN/Creatinine Ratio Glucose Hemoglobin A1c Calcium Total Bilirubin AST ALT Alkaline Phosphatase Total Protein Albumin Globulin Albumin/Globulin Ratio Triglycerides Cholesterol LDL Cholesterol HDL Cholesterol TSH Urine Color Yellow Urine Appearance Cloudy Urine pH 5.0 Ur Specific [place] 1.026 Urine Protein Negative Urine Ketones Trace A Urine Blood Negative Urine Nitrate Negative Urine Bilirubin Negative Urine Urobilinogen Negative Ur Leukocyte Esterase 3+ A Urine WBC (Auto) 3+(>20/hpf) A Urine RBC (Auto) 1+(3-5/hpf) A Ur Squamous Epith Cells Present A Urine Bacteria Absent Urine Glucose Negative Urine Ascorbic Acid * A Salicylates Urine Opiates Screen None detected Acetaminophen Ur Barbiturates Screen None detected Ur Phencyclidine Scrn None detected Ur Amphetamines Screen Presumptive positive A U Benzodiazepines Scrn None detected Urine Cocaine Screen None detected U Cannabinoids Screen None detected Serum Alcohol 12/29/17 12/31/17 12/31/17 14:07 07:29 07:29 WBC RBC Hgb Hct MCV MCH MCHC RDW Plt Count MPV Neut % (Auto) Lymph % (Auto) [place] % (Auto) Eos % (Auto) Baso % (Auto) Absolute Neuts (auto) Absolute Lymphs (auto) Absolute Monos (auto) Absolute Eos (auto) Absolute Basos (auto) Absolute Nucleated RBC Nucleated RBC % Sodium 139 Potassium 3.8 Chloride 106 Carbon Dioxide 24 Anion Gap 9 BUN 17 Creatinine 0.69 Est GFR ( Amer) 106.1 Est GFR (Non-Af Amer) 87.7 BUN/Creatinine Ratio 24.6 H Glucose 96 Hemoglobin A1c 5.3 Calcium 9.3 Total Bilirubin 0.20 AST 13 ALT 15 Alkaline Phosphatase 108 H Total Protein 7.0 Albumin 3.9 Globulin 3.1 Albumin/Globulin Ratio 1.3 Triglycerides 122 Cholesterol 252 LDL Cholesterol 164 HDL Cholesterol 63.4 TSH 0.63 Urine Color Urine Appearance Urine pH Ur Specific [place] Urine Protein Urine Ketones Urine Blood Urine Nitrate Urine Bilirubin Urine Urobilinogen Ur Leukocyte Esterase Urine WBC (Auto) Urine RBC (Auto) Ur Squamous Epith Cells Urine Bacteria Urine Glucose Urine Ascorbic Acid Salicylates < 2.50 Urine Opiates Screen Acetaminophen < 15 Ur Barbiturates Screen Ur Phencyclidine Scrn Ur Amphetamines Screen U Benzodiazepines Scrn Urine Cocaine Screen U Cannabinoids Screen Serum Alcohol < 10
[2017-12-31] MEDS: QUEtiapine TAB* 25 MG PO SCH (21:36)
[2018-01-01] MEDS: cloNIDine TAB* 0.1 MG PO PRN (04:05)
[2018-01-01] MEDS: Amphetamine MIXED SALT TAB* 10 MG TAB PO SCH (08:06)
[2018-01-01] MEDS: lamoTRIgine TAB(*) 25 MG PO SCH ×2 (08:07→20:46)
[2018-01-01] MEDS: Venlafaxine EXT RELEASE CAP* 75 MG PO SCH (08:07)
--- NOTE | 2018-01-01 14:40 | PN ---
Subjective - Subjective Date of Service: 01/01/18 Service Type: 11445 Hosp care 25 min moderate complexity Subjective: Carmen is invited to share a bit about her family dynamics. She has an older sister, Renetta, who resides in [place] and has never been too close to the patient. The middle sister, Makayla, lives in [place] and has been close at times but appears to be alienated by the patient's use of psychiatric substances, which were a complicating factor in the of their mother, and does not have involvement recently with Carmen. The patient is tearful discussing these relationships and it's clear that this is part of the cluster of losses she has sustained over the past 15 years as her mental health has deteriorated. Carmen remains depressed with hyperkinesis and other paradoxical mixed features of bipolar illness. Objective - Appearance Appearance: Obese Dysmorphic Features: No Hygiene: Normal Grooming: Well Kept - Behavior Psychomotor Activities: Abnormal-Increased Exhibits Abnormal Movement: No - Attitude and Relatedness Attitude and Relatedness: Cooperative Eye Contact: Good - Speech Quality: Pressured Latencies: Short Quantity: Copious - Mood Patient's Decription of Mood: "Sad" - Affect Observed Affect: Expansive Affect Consistent with: Dysphoria - Thought Process Patient's Thought Process: Tangential Thought Content: Yes Passive Wish, No Suicidal Planning, No Homicidal Ideation, No Paranoid Ideation - Sensorium Experiencing Hallucinations: No, Sensorium is Clear Type of Hallucinations: Visual: No, Auditory: No, Command: No - Level of Consciousness Level of Consciousness: Alert Orientation: Yes Intact, Yes Orientated to Time, Yes Orientated to Place, Yes Orientated to Person - Impulse Control Impulse Control: Tenuous - Insight and Judgement Insight and Judgement: Fair - Group Participation Particating in Group Activities: Yes - Medication Management Medication Management Adherence: Yes Assessment - Assessment Merits Inpatient Hospitalization: For Immediate Safety, For Stabilization Inpatient DSM-V Dx: F31.63 Clinical Impression: 57 y.o. single, white female with a history of bipolar disorder arrives at the hospital voluntarily seeking hospitalization for intense anxiety and dysphoria as well as passive SI. MHU: Problem List - Patient Problems (1) Bipolar affective, mixed, severe Current Visit: Yes Status: Acute Priority: High Code(s): F31.63 - BIPOLAR DISORD, CRNT EPSD MIXED, SEVERE, W/O PSYCH FEATURES SNOMED Code(s): 016117505886 Plan - Plan Treatment Plan: Name: JOSE GÓMEZ Birthdate: 1960 [id number] The patient presents with a mixed phase of bipolar disorder. It is imperative that we get her off antidepressant medication completely and on to a mood stabilizer regimen. We have decreased venlafaxine XR from 300 to 150mg PO qday and started a trial of lamotrigine 25mg PO BID. She is receiving clonidine 0.1mg PO TID as a prn for anxiety and we are augmenting her regimen with quetiapine 50mg PO qhs. She is currently getting Adderall IR 20mg PO qam but we should consider discontinuing this as the hospitalization progresses. Continue inpatient treatment. Continued Medication Management: Different Medication Medications: Current Medications Acetaminophen (Tylenol Tab*) 650 mg PO Q4H PRN PRN Reason: for pain; or Temp >101 F Al Hydrox/Mg Hydrox/Simethicone (Maalox Plus*) 30 ml PO Q4H PRN PRN Reason: INDIGESTION Amphetamine/Dextroamphetamine (Adderall Tab*) 20 mg PO DAILY [facility] Last Admin: 01/01/18 08:06 Dose: 20 mg Clonidine HCl (Catapres Tab*) 0.1 mg PO TID PRN PRN Reason: ANXIETY Last Admin: 01/01/18 04:05 Dose: 0.1 mg Lamotrigine (Lamictal Tab(*)) 25 mg PO BID [facility] Last Admin: 01/01/18 08:07 Dose: 25 mg Nicotine (Nicotine Inhaler*) 10 mg INH Q2H PRN PRN Reason: CRAVING Quetiapine Fumarate (Seroquel Tab*) 50 mg PO BEDTIME [facility] Last Admin: 12/31/17 21:36 Dose: 50 mg Venlafaxine HCl (Effexor Xr Cap*) 150 mg PO DAILY [facility] Last Admin: 01/01/18 08:07 Dose: 150 mg - Discharge Plan Discharge Plan: Inpatient Hospitalization Lab Results - Lab Results Lab Results: 12/29/17 12/29/17 12/29/17 14:06 14:06 14:07 Sodium 139 Potassium 3.8 Chloride 106 Carbon Dioxide 24 Anion Gap 9 BUN 17 Creatinine 0.69 Est GFR ( Amer) 106.1 Est GFR (Non-Af Amer) 87.7 BUN/Creatinine Ratio 24.6 H Glucose 96 Hemoglobin A1c Calcium 9.3 Total Bilirubin 0.20 AST 13 ALT 15 Alkaline Phosphatase 108 H Total Protein 7.0 Albumin 3.9 Globulin 3.1 Albumin/Globulin Ratio 1.3 Triglycerides Cholesterol LDL Cholesterol HDL Cholesterol TSH 0.63 Urine Color Yellow Urine Appearance Cloudy Urine pH 5.0 Ur Specific [place] 1.026 Urine Protein Negative Urine Ketones Trace A Urine Blood Negative Urine Nitrate Negative Urine Bilirubin Negative Urine Urobilinogen Negative Ur Leukocyte Esterase 3+ A Urine WBC (Auto) 3+(>20/hpf) A Urine RBC (Auto) 1+(3-5/hpf) A Ur Squamous Epith Cells Present A Urine Bacteria Absent Urine Glucose Negative Urine Ascorbic Acid * A Salicylates < 2.50 Urine Opiates Screen None detected Acetaminophen < 15 Ur Barbiturates Screen None detected Ur Phencyclidine Scrn None detected Ur Amphetamines Screen Presumptive positive A U Benzodiazepines Scrn None detected Urine Cocaine Screen None detected U Cannabinoids Screen None detected Serum Alcohol < 10 12/31/17 12/31/17 07:29 07:29 Sodium Potassium Chloride Carbon Dioxide Anion Gap BUN Creatinine Est GFR ( Amer) Est GFR (Non-Af Amer) BUN/Creatinine Ratio Glucose Hemoglobin A1c 5.3 Calcium Total Bilirubin AST ALT Alkaline Phosphatase Total Protein Albumin Globulin Albumin/Globulin Ratio Triglycerides 122 Cholesterol 252 LDL Cholesterol 164 HDL Cholesterol 63.4 TSH Urine Color Urine Appearance Urine pH Ur Specific E[place] Urine Protein Urine Ketones Urine Blood Urine Nitrate Urine Bilirubin Urine Urobilinogen Ur Leukocyte Esterase Urine WBC (Auto) Urine RBC (Auto) Ur Squamous Epith Cells Urine Bacteria Urine Glucose Urine Ascorbic Acid Salicylates Urine Opiates Screen Acetaminophen Ur Barbiturates Screen Ur Phencyclidine Scrn Ur Amphetamines Screen U Benzodiazepines Scrn Urine Cocaine Screen U Cannabinoids Screen Serum Alcohol
[2018-01-01] MEDS: Acetaminophen TAB* 325 MG PO PRN (19:38)
[2018-01-01] MEDS: QUEtiapine TAB* 25 MG PO SCH (20:46)
[2018-01-02] MEDS: cloNIDine TAB* 0.1 MG PO PRN (05:55)
[2018-01-02] MEDS: Venlafaxine EXT RELEASE CAP* 75 MG PO SCH (07:20)
[2018-01-02] MEDS: Amphetamine MIXED SALT TAB* 10 MG TAB PO SCH (07:20)
[2018-01-02] MEDS: lamoTRIgine TAB(*) 25 MG PO SCH ×2 (07:22→21:02)
--- NOTE | 2018-01-02 16:22 | PN ---
Subjective - Subjective Date of Service: 01/02/18 Service Type: 22717 Hosp care 35 min high complexity Subjective: Patient talks at length about her concerns that the [facility] is forcing her to go to inpatient drug treatment after hospitalization. "I'm not addicted to stimulants and sedatives. It was my idea to get off of them!" She also voices upset that she experienced the ending of her relationship with Dr. Layton at the clinic to be an abandonment. She is tolerating the multiple changes in her medications well so far, although she admits to being nervous about being off antidepressants. She is calm and cooperative on the unit. She denies SI here on the unit but cannot contract for safety on the outpatient side if discharged. Objective - Appearance Appearance: Obese Dysmorphic Features: No Hygiene: Normal Grooming: Well Kept - Behavior Psychomotor Activities: Abnormal-Increased Exhibits Abnormal Movement: No - Attitude and Relatedness Attitude and Relatedness: Cooperative Eye Contact: Good - Speech Quality: Pressured Latencies: Short Quantity: Copious - Mood Patient's Decription of Mood: "Sad" - Affect Observed Affect: Expansive Affect Consistent with: Dysphoria - Thought Process Patient's Thought Process: Tangential Thought Content: Yes Passive Wish, No Suicidal Planning, No Homicidal Ideation, No Paranoid Ideation - Sensorium Experiencing Hallucinations: No, Sensorium is Clear Type of Hallucinations: Visual: No, Auditory: No, Command: No - Level of Consciousness Level of Consciousness: Alert Orientation: Yes Intact, Yes Orientated to Time, Yes Orientated to Place, Yes Orientated to Person - Impulse Control Impulse Control: Tenuous - Insight and Judgement Insight and Judgement: Fair - Group Participation Particating in Group Activities: Yes - Medication Management Medication Management Adherence: Yes Assessment - Assessment Merits Inpatient Hospitalization: For Immediate Safety, For Stabilization Inpatient DSM-V Dx: F31.63 Clinical Impression: 57 y.o. single, white female with a history of bipolar disorder arrives at the hospital voluntarily seeking hospitalization for intense anxiety and dysphoria as well as passive SI. MHU: Problem List - Patient Problems (1) Bipolar affective, mixed, severe Current Visit: Yes Status: Acute Priority: High Code(s): F31.63 - BIPOLAR DISORD, CRNT EPSD MIXED, SEVERE, W/O PSYCH FEATURES SNOMED Code(s): 469609581033 Plan - Plan Treatment Plan: Name: JOSE GÓMEZ Birthdate: 1960 [id number] The patient presents with a mixed phase of bipolar disorder. It is imperative that we get her off antidepressant medication completely and on to a mood stabilizer regimen. We have decreased venlafaxine XR from 300 to 150mg PO qday and started a trial of lamotrigine 25mg PO BID. She is receiving clonidine 0.1mg PO TID as a prn for anxiety and we are augmenting her regimen with quetiapine 50mg PO qhs. She is currently getting Adderall IR 20mg PO qam but we will decrease the dose to 15mg in advance of tapering it to discontinuation. Continue inpatient treatment. Continued Medication Management: Different Medication Medications: Current Medications Acetaminophen (Tylenol Tab*) 650 mg PO Q4H PRN PRN Reason: for pain; or Temp >101 F Last Admin: 01/01/18 19:38 Dose: 650 mg Al Hydrox/Mg Hydrox/Simethicone (Maalox Plus*) 30 ml PO Q4H PRN PRN Reason: INDIGESTION Amphetamine/Dextroamphetamine (Adderall Tab*) 15 mg PO DAILY [facility] Clonidine HCl (Catapres Tab*) 0.1 mg PO TID PRN PRN Reason: ANXIETY Last Admin: 01/02/18 05:55 Dose: 0.1 mg Lamotrigine (Lamictal Tab(*)) 25 mg PO BID [facility] Last Admin: 01/02/18 07:22 Dose: 25 mg Nicotine (Nicotine Inhaler*) 10 mg INH Q2H PRN PRN Reason: CRAVING Quetiapine Fumarate (Seroquel Tab*) 50 mg PO BEDTIME [facility] Last Admin: 01/01/18 20:46 Dose: 50 mg Venlafaxine HCl (Effexor Xr Cap*) 150 mg PO DAILY [facility] Last Admin: 01/02/18 07:20 Dose: 150 mg - Discharge Plan Discharge Plan: Inpatient Hospitalization Lab Results - Lab Results Lab Results: 12/31/17 12/31/17 07:29 07:29 Hemoglobin A1c 5.3 Triglycerides 122 Cholesterol 252 LDL Cholesterol 164 HDL Cholesterol 63.4
[2018-01-02] MEDS: Acetaminophen TAB* 325 MG PO PRN (18:21)
[2018-01-02] MEDS: QUEtiapine TAB* 25 MG PO SCH (21:02)
[2018-01-03] MEDS: lamoTRIgine TAB(*) 25 MG PO SCH ×2 (10:09→20:06)
[2018-01-03] MEDS: Amphetamine MIXED SALT TAB* 10 MG TAB PO SCH (10:09)
[2018-01-03] MEDS: Venlafaxine EXT RELEASE CAP* 75 MG PO SCH (10:09)
--- NOTE | 2018-01-03 13:13 | PN ---
Subjective - Subjective Date of Service: 01/03/18 Service Type: [id number] Hosp care 15 min low complexity Subjective: Carmen is doing adequately. Complains about a headache that she attributes to her medication tapers, but denies SI. She is agreeable with another reduction in venlafaxine starting tomorrow. Objective - Appearance Appearance: Obese Dysmorphic Features: No Hygiene: Normal Grooming: Well Kept - Behavior Psychomotor Activities: Abnormal-Increased Exhibits Abnormal Movement: No - Attitude and Relatedness Attitude and Relatedness: Cooperative Eye Contact: Good - Speech Quality: Pressured Latencies: Short Quantity: Copious - Mood Patient's Decription of Mood: "Anxious" - Affect Observed Affect: Expansive Affect Consistent with: Dysphoria - Thought Process Patient's Thought Process: Tangential Thought Content: Yes Passive Wish, No Suicidal Planning, No Homicidal Ideation, No Paranoid Ideation - Sensorium Experiencing Hallucinations: No, Sensorium is Clear Type of Hallucinations: Visual: No, Auditory: No, Command: No - Level of Consciousness Level of Consciousness: Alert Orientation: Yes Intact, Yes Orientated to Time, Yes Orientated to Place, Yes Orientated to Person - Impulse Control Impulse Control: Tenuous - Insight and Judgement Insight and Judgement: Fair - Group Participation Particating in Group Activities: Yes - Medication Management Medication Management Adherence: Yes Assessment - Assessment Merits Inpatient Hospitalization: For Immediate Safety, For Stabilization Inpatient DSM-V Dx: F31.63 Clinical Impression: 57 y.o. single, white female with a history of bipolar disorder arrives at the hospital voluntarily seeking hospitalization for intense anxiety and dysphoria as well as passive SI. MHU: Problem List - Patient Problems (1) Bipolar affective, mixed, severe Current Visit: Yes Status: Acute Priority: High Code(s): F31.63 - BIPOLAR DISORD, CRNT EPSD MIXED, SEVERE, W/O PSYCH FEATURES SNOMED Code(s): 677980640866 Plan - Plan Treatment Plan: Name: JOSE GÓMEZ Birthdate: 1960 [id number] The patient presents with a mixed phase of bipolar disorder. It is imperative that we get her off antidepressant medication completely and on to a mood stabilizer regimen. We have decreased venlafaxine XR from 300 steadily down to 112.5mg PO qday and started a trial of lamotrigine 25mg PO BID. She is receiving clonidine 0.1mg PO TID as a prn for anxiety and we are augmenting her regimen with quetiapine 50mg PO qhs. She is currently getting Adderall IR 15mg PO qam in advance of tapering it to discontinuation. Continue inpatient treatment. Continued Medication Management: Different Medication Medications: Current Medications Acetaminophen (Tylenol Tab*) 650 mg PO Q4H PRN PRN Reason: for pain; or Temp >101 F Last Admin: 01/02/18 18:21 Dose: 650 mg Al Hydrox/Mg Hydrox/Simethicone (Maalox Plus*) 30 ml PO Q4H PRN PRN Reason: INDIGESTION Amphetamine/Dextroamphetamine (Adderall Tab*) 15 mg PO DAILY [facility] Last Admin: 01/03/18 10:09 Dose: 15 mg Clonidine HCl (Catapres Tab*) 0.1 mg PO TID PRN PRN Reason: ANXIETY Last Admin: 01/02/18 05:55 Dose: 0.1 mg Lamotrigine (Lamictal Tab(*)) 25 mg PO BID [facility] Last Admin: 01/03/18 10:09 Dose: 25 mg Nicotine (Nicotine Inhaler*) 10 mg INH Q2H PRN PRN Reason: CRAVING Quetiapine Fumarate (Seroquel Tab*) 50 mg PO BEDTIME [facility] Last Admin: 01/02/18 21:02 Dose: 50 mg - Discharge Plan Discharge Plan: Inpatient Hospitalization
[2018-01-03] MEDS: QUEtiapine TAB* 25 MG PO SCH (21:14)
[2018-01-04] MEDS: Venlafaxine EXT RELEASE CAP* 37.5 MG PO SCH (07:27)
[2018-01-04] MEDS: lamoTRIgine TAB(*) 25 MG PO SCH ×2 (07:27→20:32)
[2018-01-04] MEDS: Amphetamine MIXED SALT TAB* 10 MG TAB PO SCH (07:27)
[2018-01-04] MEDS: Venlafaxine EXT RELEASE CAP* 75 MG PO SCH (07:28)
--- NOTE | 2018-01-04 10:38 | PN ---
Subjective - Subjective Date of Service: 01/04/18 Service Type: [id number] Hosp care 15 min low complexity Subjective: Patient seen for holiday coverage for Dr Leach. Patient reports feeling less irritable today than yesterday. She reports agreement with medication changes, thus far. She denies anxiety. Patient then goes on to describe frustration with current psychosocial stressors and experiencing "skid row." We discuss how this impacts her view of self. Objective - Appearance Appearance: Well Developed/Nourished Dysmorphic Features: No Hygiene: Normal Grooming: Fairly Well Kept - Behavior Psychomotor Activities: Normal Exhibits Abnormal Movement: No - Attitude and Relatedness Attitude and Relatedness: Cooperative Eye Contact: Good - Speech Quality: Pressured Latencies: Short Quantity: Copious - Mood Patient's Decription of Mood: "Okay" - Affect Observed Affect: Tense Affect Consistent with: Dysphoria - Thought Process Patient's Thought Process: Tangential, Over Inclusive Thought Content: No Passive Wish, No Suicidal Planning, No Homicidal Ideation, No Paranoid Ideation - Sensorium Experiencing Hallucinations: No, Sensorium is Clear Type of Hallucinations: Visual: No, Auditory: No, Command: No - Level of Consciousness Level of Consciousness: Alert Orientation: Yes Intact, Yes Orientated to Time, Yes Orientated to Place, Yes Orientated to Person - Impulse Control Impulse Control: Tenuous - Insight and Judgement Insight and Judgement: Fair - Group Participation Particating in Group Activities: Yes - Medication Management Medication Management Adherence: Yes Assessment - Assessment Merits Inpatient Hospitalization: For Immediate Safety, For Stabilization, Consolidate Improvements Inpatient DSM-V Dx: F31.63 Clinical Impression: 57 y.o. single, white female with a history of bipolar disorder arrives at the hospital voluntarily seeking hospitalization for intense anxiety and dysphoria as well as passive SI. Plan - Plan Treatment Plan: Name: JOSE GÓMEZ Birthdate: 1960 [id number] The patient presents with a mixed phase of bipolar disorder. It is imperative that we get her off antidepressant medication completely and on to a mood stabilizer regimen. We have decreased venlafaxine XR from 300 steadily down to 112.5mg PO qday and started a trial of lamotrigine 25mg PO BID. She is receiving clonidine 0.1mg PO TID as a prn for anxiety and we are augmenting her regimen with quetiapine 50mg PO qhs. She is currently getting Adderall IR 15mg PO qam in advance of tapering it to discontinuation. Continue inpatient treatment. Continued Medication Management: Different Medication Medications: Current Medications Acetaminophen (Tylenol Tab*) 650 mg PO Q4H PRN PRN Reason: for pain; or Temp >101 F Last Admin: 01/02/18 18:21 Dose: 650 mg Al Hydrox/Mg Hydrox/Simethicone (Maalox Plus*) 30 ml PO Q4H PRN PRN Reason: INDIGESTION Amphetamine/Dextroamphetamine (Adderall Tab*) 15 mg PO DAILY [facility] Last Admin: 01/04/18 07:27 Dose: 15 mg Clonidine HCl (Catapres Tab*) 0.1 mg PO TID PRN PRN Reason: ANXIETY Last Admin: 01/02/18 05:55 Dose: 0.1 mg Lamotrigine (Lamictal Tab(*)) 25 mg PO BID [facility] Last Admin: 01/04/18 07:27 Dose: 25 mg Nicotine (Nicotine Inhaler*) 10 mg INH Q2H PRN PRN Reason: CRAVING Quetiapine Fumarate (Seroquel Tab*) 50 mg PO BEDTIME [facility] Last Admin: 01/03/18 21:14 Dose: 50 mg Venlafaxine HCl (Effexor Xr Cap*) 75 mg PO DAILY [facility] Last Admin: 01/04/18 07:28 Dose: 75 mg Venlafaxine HCl (Effexor Xr Cap*) 37.5 mg PO DAILY [facility] Last Admin: 01/04/18 07:27 Dose: 37.5 mg - Discharge Plan Discharge Plan: Inpatient Hospitalization
[2018-01-04] MEDS: Acetaminophen TAB* 325 MG PO PRN (16:13)
[2018-01-04] MEDS: QUEtiapine TAB* 25 MG PO SCH (22:49)
[2018-01-05] MEDS: Amphetamine MIXED SALT TAB* 10 MG TAB PO SCH (07:53)
[2018-01-05] MEDS: Venlafaxine EXT RELEASE CAP* 75 MG PO SCH (07:53)
[2018-01-05] MEDS: Venlafaxine EXT RELEASE CAP* 37.5 MG PO SCH (07:53)
[2018-01-05] MEDS: lamoTRIgine TAB(*) 25 MG PO SCH ×2 (07:54→20:52)
[2018-01-05] MEDS: QUEtiapine TAB* 25 MG PO SCH (22:52)
[2018-01-06] MEDS: Amphetamine MIXED SALT TAB* 10 MG TAB PO SCH (08:35)
[2018-01-06] MEDS: Venlafaxine EXT RELEASE CAP* 37.5 MG PO SCH (08:36)
[2018-01-06] MEDS: lamoTRIgine TAB(*) 25 MG PO SCH ×2 (08:36→21:21)
[2018-01-06] MEDS: Venlafaxine EXT RELEASE CAP* 75 MG PO SCH (08:36)
[2018-01-06] MEDS: Acetaminophen TAB* 325 MG PO PRN (15:58)
[2018-01-06] MEDS: QUEtiapine TAB* 25 MG PO SCH (22:27)
[2018-01-07] MEDS: cloNIDine TAB* 0.1 MG PO PRN (05:05)
[2018-01-07] MEDS: Venlafaxine EXT RELEASE CAP* 37.5 MG PO SCH (10:13)
[2018-01-07] MEDS: Venlafaxine EXT RELEASE CAP* 75 MG PO SCH (10:13)
[2018-01-07] MEDS: lamoTRIgine TAB(*) 25 MG PO SCH ×2 (10:13→21:14)
[2018-01-07] MEDS: Amphetamine MIXED SALT TAB* 10 MG TAB PO SCH (10:14)
--- NOTE | 2018-01-07 13:16 | PN ---
Subjective - Subjective Date of Service: 01/07/18 Service Type: [id number] Hosp care 25 min moderate complexity Subjective: Carmen remains skeptical of her bipolar diagnosis but is willing to give this clinician and the treatment team the benefit of the doubt. She self- discontinued her quetiapine last night because of a mild rash on her bilateral thighs that she attributes to quetiapine. "I had this before I started the Lamictal so I'm pretty sure it's the Seroquel. It's already better now after skipping only one dose." She denies SI and feels good about her psychosocial situation, as social work is assisting in finding her an apartment. She denies untoward withdrawal effects from venlafaxine at this pace. Objective - Appearance Appearance: Obese Dysmorphic Features: No Hygiene: Normal Grooming: Well Kept - Behavior Psychomotor Activities: Normal Exhibits Abnormal Movement: No - Attitude and Relatedness Attitude and Relatedness: Cooperative Eye Contact: Fair - Speech Quality: Pressured Latencies: Short Quantity: Copious - Mood Patient's Decription of Mood: "Anxious" - Affect Observed Affect: Tense Affect Consistent with: Dysphoria - Thought Process Patient's Thought Process: Tangential Thought Content: No Passive Wish, No Suicidal Planning, No Homicidal Ideation, No Paranoid Ideation - Sensorium Experiencing Hallucinations: No, Sensorium is Clear Type of Hallucinations: Visual: No, Auditory: No, Command: No - Level of Consciousness Level of Consciousness: Alert Orientation: Yes Intact, Yes Orientated to Time, Yes Orientated to Place, Yes Orientated to Person - Impulse Control Impulse Control: Tenuous - Insight and Judgement Insight and Judgement: Fair - Group Participation Particating in Group Activities: Yes - Medication Management Medication Management Adherence: Yes Assessment - Assessment Merits Inpatient Hospitalization: For Immediate Safety, For Stabilization Inpatient DSM-V Dx: F31.63 Clinical Impression: 57 y.o. single, white female with a history of bipolar disorder arrives at the hospital voluntarily seeking hospitalization for intense anxiety and dysphoria as well as passive SI. MHU: Problem List - Patient Problems (1) Bipolar affective, mixed, severe Current Visit: Yes Status: Acute Priority: High Code(s): F31.63 - BIPOLAR DISORD, CRNT EPSD MIXED, SEVERE, W/O PSYCH FEATURES SNOMED Code(s): 253790051660 Plan - Plan Treatment Plan: Name: JOSE GÓMEZ Birthdate: 1960 [id number] The patient presents with a mixed phase of bipolar disorder. It is imperative that we get her off antidepressant medication completely and on to a mood stabilizer regimen. We have decreased venlafaxine XR from 300 steadily down to 112.5mg PO qday and we will further reduce this to 75mg daily. We have also started a trial of lamotrigine 25mg PO BID and will increase this today to 50mg PO BID. She is receiving clonidine 0.1mg PO TID as a prn for anxiety and we are augmenting her regimen with quetiapine 50mg PO qhs. She is currently getting Adderall IR 15mg PO qam in advance of tapering it to discontinuation. Continue inpatient treatment. Continued Medication Management: Different Medication Medications: Current Medications Acetaminophen (Tylenol Tab*) 650 mg PO Q4H PRN PRN Reason: for pain; or Temp >101 F Last Admin: 01/06/18 15:58 Dose: 650 mg Al Hydrox/Mg Hydrox/Simethicone (Maalox Plus*) 30 ml PO Q4H PRN PRN Reason: INDIGESTION Amphetamine/Dextroamphetamine (Adderall Tab*) 15 mg PO DAILY [facility] Last Admin: 01/07/18 10:14 Dose: 15 mg Clonidine HCl (Catapres Tab*) 0.1 mg PO TID PRN PRN Reason: ANXIETY Last Admin: 01/07/18 05:05 Dose: 0.1 mg Lamotrigine (Lamictal Tab(*)) 50 mg PO BID [facility] Nicotine (Nicotine Inhaler*) 10 mg INH Q2H PRN PRN Reason: CRAVING Quetiapine Fumarate (Seroquel Tab*) 50 mg PO BEDTIME [facility] Last Admin: 01/06/18 22:27 Dose: Not Given Venlafaxine HCl (Effexor Xr Cap*) 75 mg PO DAILY [facility] Last Admin: 01/07/18 10:13 Dose: 75 mg - Discharge Plan Discharge Plan: Inpatient Hospitalization
[2018-01-07] MEDS: Acetaminophen TAB* 325 MG PO PRN (21:13)
[2018-01-07] MEDS: QUEtiapine TAB* 25 MG PO SCH (21:14)
[2018-01-08] MEDS: Acetaminophen TAB* 325 MG PO PRN ×5 (01:32→22:21)
[2018-01-08] MEDS: Venlafaxine EXT RELEASE CAP* 75 MG PO SCH (08:23)
[2018-01-08] MEDS: lamoTRIgine TAB(*) 25 MG PO SCH ×2 (08:23→20:01)
[2018-01-08] MEDS: Amphetamine MIXED SALT TAB* 10 MG TAB PO SCH (08:23)
--- NOTE | 2018-01-08 13:20 | PN ---
MHU: Group Therapy Note - Service Type Service Type: [id number] Group Psychotherapy - Cognitive behavioral group note: Latisha remains an attentive and intested cbt group particpant. She discusse remote historical familial issues, describing how she has spent a lot of time in treatment addressing the loss of her father at a young age and how that negatively impacted her relationship with her mother as well. She discussed how historically she was more invested in developing family relationships with her partner's parents than in her various relationships directly. She presents with good affect and is well related and empathic with staff and peers.
--- NOTE | 2018-01-08 17:12 | PN ---
Subjective - Subjective Date of Service: 01/08/18 Service Type: [id number] Hosp care 15 min low complexity Subjective: Carmen complains of antidepressant withdrawal symptoms of "zapping" in her head and a headache that is no longer responding to prn Tylenol. We discussed the possibility of temporary low-dose fluoxetine to relieve these symptoms and she is agreeable. She denies SI and is participating well in [employer] culture. Objective - Appearance Appearance: Well Developed/Nourished, Obese Dysmorphic Features: No Hygiene: Normal Grooming: Well Kept - Behavior Psychomotor Activities: Normal Exhibits Abnormal Movement: No - Attitude and Relatedness Attitude and Relatedness: Cooperative Eye Contact: Good - Speech Quality: Pressured Latencies: Short Quantity: Copious - Mood Patient's Decription of Mood: "Anxious" - Affect Observed Affect: Tense Affect Consistent with: Dysphoria - Thought Process Patient's Thought Process: Coherent Thought Content: No Passive Wish, No Suicidal Planning, No Homicidal Ideation, No Paranoid Ideation - Sensorium Experiencing Hallucinations: No, Sensorium is Clear Type of Hallucinations: Visual: No, Auditory: No, Command: No - Level of Consciousness Level of Consciousness: Alert Orientation: Yes Intact, Yes Orientated to Time, Yes Orientated to Place, Yes Orientated to Person - Impulse Control Impulse Control: Tenuous - Insight and Judgement Insight and Judgement: Fair - Group Participation Particating in Group Activities: Yes - Medication Management Medication Management Adherence: Yes Assessment - Assessment Merits Inpatient Hospitalization: For Immediate Safety, For Stabilization Inpatient DSM-V Dx: F31.63 Clinical Impression: 57 y.o. single, white female with a history of bipolar disorder arrives at the hospital voluntarily seeking hospitalization for intense anxiety and dysphoria as well as passive SI. MHU: Problem List - Patient Problems (1) Bipolar affective, mixed, severe Current Visit: Yes Status: Acute Priority: High Code(s): F31.63 - BIPOLAR DISORD, CRNT EPSD MIXED, SEVERE, W/O PSYCH FEATURES SNOMED Code(s): 943822630040 Plan - Plan Treatment Plan: Name: JOSE GÓMEZ Birthdate: 1960 [id number] The patient presents with a mixed phase of bipolar disorder. It is imperative that we get her off antidepressant medication completely and on to a mood stabilizer regimen. We have decreased venlafaxine XR from 300 steadily down to 75mg PO qday. We have also started a trial of lamotrigine 50mg PO BID. She is receiving clonidine 0.1mg PO TID as a prn for anxiety and we are augmenting her regimen with quetiapine 50mg PO qhs. She is currently getting Adderall IR 15mg PO qam in advance of tapering it to discontinuation. Will start fluoxetine 10mg PO qday for antidepressant withdrawal symptoms. Continue inpatient treatment. Continued Medication Management: Different Medication Medications: Current Medications Acetaminophen (Tylenol Tab*) 650 mg PO Q4H PRN PRN Reason: for pain; or Temp >101 F Last Admin: 01/08/18 16:47 Dose: 650 mg Al Hydrox/Mg Hydrox/Simethicone (Maalox Plus*) 30 ml PO Q4H PRN PRN Reason: INDIGESTION Amphetamine/Dextroamphetamine (Adderall Tab*) 15 mg PO DAILY [facility] Last Admin: 01/08/18 08:23 Dose: 15 mg Clonidine HCl (Catapres Tab*) 0.1 mg PO TID PRN PRN Reason: ANXIETY Last Admin: 01/07/18 05:05 Dose: 0.1 mg Lamotrigine (Lamictal Tab(*)) 50 mg PO BID [facility] Last Admin: 01/08/18 08:23 Dose: 50 mg Nicotine (Nicotine Inhaler*) 10 mg INH Q2H PRN PRN Reason: CRAVING Quetiapine Fumarate (Seroquel Tab*) 50 mg PO BEDTIME [facility] Last Admin: 01/07/18 21:14 Dose: Not Given Venlafaxine HCl (Effexor Xr Cap*) 75 mg PO DAILY [facility] Last Admin: 01/08/18 08:23 Dose: 75 mg - Discharge Plan Discharge Plan: Inpatient Hospitalization
[2018-01-08] MEDS: FLUoxetine CAP* 10 MG PO SCH (18:42)
[2018-01-08] MEDS: QUEtiapine TAB* 25 MG PO SCH (20:04)
[2018-01-08] MEDS: cloNIDine TAB* 0.1 MG PO PRN (23:45)
[2018-01-09] MEDS: Amphetamine MIXED SALT TAB* 10 MG TAB PO SCH ×2 (07:00→07:27)
[2018-01-09] MEDS: lamoTRIgine TAB(*) 25 MG PO SCH ×3 (07:00→20:34)
[2018-01-09] MEDS: Venlafaxine EXT RELEASE CAP* 75 MG PO SCH ×2 (07:00→07:28)
[2018-01-09] MEDS: FLUoxetine CAP* 10 MG PO SCH ×2 (07:00→07:27)
--- NOTE | 2018-01-09 11:53 | PN ---
Subjective - Subjective Date of Service: 01/09/18 Service Type: [id number] Hosp care 15 min low complexity Subjective: Carmen reports that her venlafaxine-withdrawal headache went away yesterday with the introduction of low-dose fluoxetine. She is otherwise tolerating the changes in her medications well and ready to further decrease her stimulant medication. She voices no complaints today and is meeting with a instruments sales representative of [employer] to seek housing services in the community. Objective - Appearance Appearance: Well Developed/Nourished, Obese Dysmorphic Features: No Hygiene: Normal Grooming: Well Kept - Behavior Psychomotor Activities: Normal Exhibits Abnormal Movement: No - Attitude and Relatedness Attitude and Relatedness: Cooperative Eye Contact: Fair - Speech Quality: Pressured Latencies: Short Quantity: Copious - Mood Patient's Decription of Mood: "Anxious" - Affect Observed Affect: Tense Affect Consistent with: Dysphoria - Thought Process Patient's Thought Process: Tangential Thought Content: No Passive Wish, No Suicidal Planning, No Homicidal Ideation, No Paranoid Ideation - Sensorium Experiencing Hallucinations: No, Sensorium is Clear Type of Hallucinations: Visual: No, Auditory: No, Command: No - Level of Consciousness Level of Consciousness: Alert Orientation: Yes Intact, Yes Orientated to Time, Yes Orientated to Place, Yes Orientated to Person - Impulse Control Impulse Control: Tenuous - Insight and Judgement Insight and Judgement: Fair - Group Participation Particating in Group Activities: Yes - Medication Management Medication Management Adherence: Yes Assessment - Assessment Merits Inpatient Hospitalization: For Immediate Safety, For Stabilization Inpatient DSM-V Dx: F31.63 Clinical Impression: 57 y.o. single, white female with a history of bipolar disorder arrives at the hospital voluntarily seeking hospitalization for intense anxiety and dysphoria as well as passive SI. MHU: Problem List - Patient Problems (1) Bipolar affective, mixed, severe Current Visit: Yes Status: Acute Priority: High Code(s): F31.63 - BIPOLAR DISORD, CRNT EPSD MIXED, SEVERE, W/O PSYCH FEATURES SNOMED Code(s): 131117522609 Plan - Plan Treatment Plan: Name: JOSE GÓMEZ Birthdate: 1960 [id number] The patient presents with a mixed phase of bipolar disorder. It is imperative that we get her off antidepressant medication completely and on to a mood stabilizer regimen. We have decreased venlafaxine XR from 300 steadily down to 75mg PO qday. We have also started a trial of lamotrigine 50mg PO BID. She is receiving clonidine 0.1mg PO TID as a prn for anxiety. We discontinued quetiapine due to rash. She is currently getting Adderall IR 15mg PO qam and we will lower this to 10mg. Additionally, we're giving her fluoxetine 10mg PO qday to reduce antidepressant withdrawal symptoms from the venlafaxine, which is notoriously difficult to ween off of because of it's short half-life. Continue inpatient treatment. Continued Medication Management: Different Medication Medications: Current Medications Acetaminophen (Tylenol Tab*) 650 mg PO Q4H PRN PRN Reason: for pain; or Temp >101 F Last Admin: 01/08/18 22:21 Dose: 650 mg Al Hydrox/Mg Hydrox/Simethicone (Maalox Plus*) 30 ml PO Q4H PRN PRN Reason: INDIGESTION Amphetamine/Dextroamphetamine (Adderall Tab*) 10 mg PO DAILY [facility] Clonidine HCl (Catapres Tab*) 0.1 mg PO TID PRN PRN Reason: ANXIETY Last Admin: 01/08/18 23:45 Dose: 0.1 mg Fluoxetine HCl (Prozac Cap*) 10 mg PO DAILY [facility] Last Admin: 01/09/18 07:27 Dose: Not Given Lamotrigine (Lamictal Tab(*)) 50 mg PO BID [facility] Last Admin: 01/09/18 07:28 Dose: Not Given Nicotine (Nicotine Inhaler*) 10 mg INH Q2H PRN PRN Reason: CRAVING Venlafaxine HCl (Effexor Xr Cap*) 75 mg PO DAILY [facility] Last Admin: 01/09/18 07:28 Dose: Not Given - Discharge Plan Discharge Plan: Inpatient Hospitalization
[2018-01-09] MEDS: cloNIDine TAB* 0.1 MG PO PRN ×2 (13:31→21:42)
--- NOTE | 2018-01-09 15:55 | PN ---
MHU: Group Therapy Note - Service Type Service Type: [id number] Group Psychotherapy - Group Participation Patient Participating in Group: Yes Level of Group Participation: Spontaneously Participate Relatedness to Group: Well Related - Carmen participated well and openly. She was proud of her knowledge and shared her approach to educating herself about medication and her relationship with her prescribers.
[2018-01-10] MEDS: cloNIDine TAB* 0.1 MG PO PRN (04:00)
[2018-01-10] MEDS: FLUoxetine CAP* 10 MG PO SCH (08:08)
[2018-01-10] MEDS: Venlafaxine EXT RELEASE CAP* 75 MG PO SCH (08:08)
[2018-01-10] MEDS: Amphetamine MIXED SALT TAB* 10 MG TAB PO SCH (08:09)
[2018-01-10] MEDS: lamoTRIgine TAB(*) 25 MG PO SCH ×2 (11:12→19:58)
--- NOTE | 2018-01-10 11:25 | PN ---
MHU: Group Therapy Note - Service Type Service Type: [id number] Group Psychotherapy - Cognitive Behavioral Group Therapy ( CBT):Patient was attentive and participatory in CBT programming this morning, and remained in good behavioral control. Patient expressed positive insights regarding relevant treatment interventions and goals.
[2018-01-10] MEDS: Hydrocortisone 1% CREAM* 1.5 GM PAK TOPICAL SCH ×2 (14:54→21:17)
[2018-01-10] MEDS: diPHENhydraMINE PO* 50 MG PO PRN ×2 (17:20→21:16)
[2018-01-10] MEDS: Benzocaine/Menthol LOZ* 1 LOZENGE PO PRN ×2 (17:20→19:33)
[2018-01-11] MEDS: cloNIDine TAB* 0.1 MG PO PRN (00:40)
[2018-01-11] MEDS: Venlafaxine EXT RELEASE CAP* 37.5 MG PO SCH (08:11)
[2018-01-11] MEDS: FLUoxetine CAP* 10 MG PO SCH (08:11)
[2018-01-11] MEDS: Amphetamine MIXED SALT TAB* 10 MG TAB PO SCH (08:11)
[2018-01-11] MEDS: lamoTRIgine TAB(*) 25 MG PO SCH ×2 (08:11→20:14)
[2018-01-11] MEDS: Hydrocortisone 1% CREAM* 1.5 GM PAK TOPICAL SCH (08:12)
[2018-01-11] MEDS: Benzocaine/Menthol LOZ* 1 LOZENGE PO PRN ×5 (09:35→17:54)
--- NOTE | 2018-01-11 14:44 | PN ---
Subjective - Subjective Date of Service: 01/11/18 Service Type: [id number] Hosp care 25 min moderate complexity Subjective: Carmen is tearful when discussing the losses she's experienced over the past 15 years, largely because of her illness. She is tolerating the rapid changes in her medication regimen and denies withdrawal effects. She denies SI or HI. I understand that she had a good meeting with [facility] yesterday and has been accepted into their residential services, pending Sunday of next week. The patient expresses gratitude for the services she has received here. Objective - Appearance Appearance: Obese Dysmorphic Features: No Hygiene: Normal Grooming: Well Kept - Behavior Psychomotor Activities: Normal Exhibits Abnormal Movement: No - Attitude and Relatedness Attitude and Relatedness: Cooperative Eye Contact: Fair - Speech Quality: Unpressured Latencies: Normal Quantity: Appropriate - Mood Patient's Decription of Mood: "Anxious" - Affect Observed Affect: Tearful Affect Consistent with: Euthymia - Thought Process Patient's Thought Process: Coherent Thought Content: No Passive Wish, No Suicidal Planning, No Homicidal Ideation, No Paranoid Ideation - Sensorium Experiencing Hallucinations: No, Sensorium is Clear Type of Hallucinations: Visual: No, Auditory: No, Command: No - Level of Consciousness Level of Consciousness: Alert Orientation: Yes Intact, Yes Orientated to Time, Yes Orientated to Place, Yes Orientated to Person - Impulse Control Impulse Control: Tenuous - Insight and Judgement Insight and Judgement: Fair - Group Participation Particating in Group Activities: Yes - Medication Management Medication Management Adherence: Yes Assessment - Assessment Merits Inpatient Hospitalization: Consolidate Improvements, Pending Safe DC Plan Inpatient DSM-V Dx: F31.63 Clinical Impression: 57 y.o. single, white female with a history of bipolar disorder arrives at the hospital voluntarily seeking hospitalization for intense anxiety and dysphoria as well as passive SI. MHU: Problem List - Patient Problems (1) Bipolar affective, mixed, severe Current Visit: Yes Status: Acute Priority: High Code(s): F31.63 - BIPOLAR DISORD, CRNT EPSD MIXED, SEVERE, W/O PSYCH FEATURES SNOMED Code(s): 093961399893 Plan - Plan Treatment Plan: Name: JOSE GÓMEZ Birthdate: 1960 [id number] The patient presents with a mixed phase of bipolar disorder. It is imperative that we get her off antidepressant medication completely and on to a mood stabilizer regimen. We have decreased venlafaxine XR from 300 steadily down to 37.5mg PO qday. Her last dose will be this Sunday (01/13). We have also started a trial of lamotrigine 50mg PO BID. She is receiving clonidine 0.1mg PO TID as a prn for anxiety. We discontinued quetiapine due to rash. She is currently getting Adderall IR 10mg PO qam and we will lower this to 5mg. Additionally, we're giving her fluoxetine 10mg PO qday to reduce antidepressant withdrawal symptoms from the venlafaxine, which is notoriously difficult to ween off of because of it's short half-life. Continue inpatient treatment. Continued Medication Management: Different Medication Medications: Current Medications Acetaminophen (Tylenol Tab*) 650 mg PO Q4H PRN PRN Reason: for pain; or Temp >101 F Last Admin: 01/08/18 22:21 Dose: 650 mg Al Hydrox/Mg Hydrox/Simethicone (Maalox Plus*) 30 ml PO Q4H PRN PRN Reason: INDIGESTION Amphetamine/Dextroamphetamine (Adderall Tab*) 5 mg PO DAILY [facility] Clonidine HCl (Catapres Tab*) 0.1 mg PO TID PRN PRN Reason: ANXIETY Last Admin: 01/11/18 00:40 Dose: 0.1 mg Diphenhydramine HCl (Benadryl Po*) 50 mg PO BID PRN PRN Reason: Allergy Symptoms Last Admin: 01/10/18 21:16 Dose: 50 mg Fluoxetine HCl (Prozac Cap*) 10 mg PO DAILY [facility] Last Admin: 01/11/18 08:11 Dose: 10 mg Hydrocortisone (Hydrocortisone 1% Cream*) 1 applic TOPICAL BID [facility] Last Admin: 01/11/18 08:12 Dose: Not Given Lamotrigine (Lamictal Tab(*)) 50 mg PO BID [facility] Last Admin: 01/11/18 08:11 Dose: 50 mg Nicotine (Nicotine Inhaler*) 10 mg INH Q2H PRN PRN Reason: CRAVING Throat Lozenges (Chloraseptic Santana*) 1 santana PO Q2H PRN PRN Reason: SORE THROAT Last Admin: 01/11/18 12:07 Dose: 1 santana Venlafaxine HCl (Effexor Xr Cap*) 37.5 mg PO DAILY [facility] Stop: 01/13/18 13:00 Last Admin: 01/11/18 08:11 Dose: 37.5 mg - Discharge Plan Discharge Plan: Inpatient Hospitalization
[2018-01-11] MEDS: diPHENhydraMINE PO* 50 MG PO PRN ×2 (17:54→20:19)
[2018-01-12] MEDS: Hydrocortisone 1% CREAM* 1.5 GM PAK TOPICAL SCH ×3 (00:41→20:29)
[2018-01-12] MEDS: FLUoxetine CAP* 10 MG PO SCH (07:49)
[2018-01-12] MEDS: lamoTRIgine TAB(*) 25 MG PO SCH ×2 (07:50→19:57)
[2018-01-12] MEDS: Amphetamine MIXED SALT TAB* 10 MG TAB PO SCH (07:50)
[2018-01-12] MEDS: Venlafaxine EXT RELEASE CAP* 37.5 MG PO SCH (07:50)
[2018-01-12] MEDS: Acetaminophen TAB* 325 MG PO PRN ×2 (11:34→16:43)
[2018-01-12] MEDS: diPHENhydraMINE PO* 50 MG PO PRN ×2 (17:59→22:17)
[2018-01-13] MEDS: cloNIDine TAB* 0.1 MG PO PRN ×2 (00:39→22:33)
[2018-01-13] MEDS: FLUoxetine CAP* 10 MG PO SCH (07:49)
[2018-01-13] MEDS: Amphetamine MIXED SALT TAB* 10 MG TAB PO SCH (07:50)
[2018-01-13] MEDS: Venlafaxine EXT RELEASE CAP* 37.5 MG PO SCH (07:50)
[2018-01-13] MEDS: lamoTRIgine TAB(*) 25 MG PO SCH ×2 (07:50→19:47)
[2018-01-13] MEDS: Hydrocortisone 1% CREAM* 1.5 GM PAK TOPICAL SCH ×2 (07:52→19:53)
[2018-01-13] MEDS: diPHENhydraMINE PO* 50 MG PO PRN ×2 (13:48→17:02)
[2018-01-13] MEDS: hydrOXYzine HCL TAB* 25 MG PO PRN ×2 (19:47→23:11)
[2018-01-14] MEDS: Amphetamine MIXED SALT TAB* 10 MG TAB PO SCH (09:59)
[2018-01-14] MEDS: FLUoxetine CAP* 10 MG PO SCH (10:00)
[2018-01-14] MEDS: lamoTRIgine TAB(*) 25 MG PO SCH ×2 (10:00→20:24)
[2018-01-14] MEDS: Hydrocortisone 1% CREAM* 1.5 GM PAK TOPICAL SCH ×2 (10:03→23:52)
--- NOTE | 2018-01-14 16:55 | PN ---
Subjective - Subjective Date of Service: 01/14/18 Service Type: [id number] Hosp care 15 min low complexity Subjective: Carmen is in good spirits and feeling optimistic about her discharge tomorrow. She denies any further rash problems from the lamotrigine and denies SI or HI. She is cooperative in the milieu setting. Objective - Appearance Appearance: Well Developed/Nourished Dysmorphic Features: No Hygiene: Normal Grooming: Well Kept - Behavior Psychomotor Activities: Normal Exhibits Abnormal Movement: No - Attitude and Relatedness Attitude and Relatedness: Cooperative Eye Contact: Good - Speech Quality: Unpressured Latencies: Normal Quantity: Appropriate - Mood Patient's Decription of Mood: "Good" - Affect Observed Affect: Good Affect Consistent with: Euthymia - Thought Process Patient's Thought Process: Coherent Thought Content: No Passive Wish, No Suicidal Planning, No Homicidal Ideation, No Paranoid Ideation - Sensorium Experiencing Hallucinations: No, Sensorium is Clear Type of Hallucinations: Visual: No, Auditory: No, Command: No - Level of Consciousness Level of Consciousness: Alert Orientation: Yes Intact, Yes Orientated to Time, Yes Orientated to Place, Yes Orientated to Person - Impulse Control Impulse Control: Tenuous - Insight and Judgement Insight and Judgement: Fair - Group Participation Particating in Group Activities: Yes - Medication Management Medication Management Adherence: Yes Assessment - Assessment Merits Inpatient Hospitalization: Consolidate Improvements, Pending Safe DC Plan Inpatient DSM-V Dx: F31.63 Clinical Impression: 57 y.o. single, white female with a history of bipolar disorder arrives at the hospital voluntarily seeking hospitalization for intense anxiety and dysphoria as well as passive SI. MHU: Problem List - Patient Problems (1) Bipolar affective, mixed, severe Current Visit: Yes Status: Acute Priority: High Code(s): F31.63 - BIPOLAR DISORD, CRNT EPSD MIXED, SEVERE, W/O PSYCH FEATURES SNOMED Code(s): 513429565593 Plan - Plan Treatment Plan: Name: JOSE GÓMEZ Birthdate: 1960 [id number] The patient presents with a mixed phase of bipolar disorder. It is imperative that we get her off antidepressant medication completely and on to a mood stabilizer regimen. Towards this end, we have completely weened her off venlafaxine and started fluoxetine 10mg PO qday to reduce antidepressant withdrawal symptoms. She is to continue this for 20 days following discharge. We have also started a trial of lamotrigine 50mg PO BID. She is receiving clonidine 0.1mg PO TID as a prn for anxiety. She is currently getting Adderall IR 5mg PO qam and we will discontinue this now. Discharge tomorrow to the [facility] respite program. Continued Medication Management: Different Medication Medications: Current Medications Acetaminophen (Tylenol Tab*) 650 mg PO Q4H PRN PRN Reason: for pain; or Temp >101 F Last Admin: 01/12/18 16:43 Dose: 650 mg Al Hydrox/Mg Hydrox/Simethicone (Maalox Plus*) 30 ml PO Q4H PRN PRN Reason: INDIGESTION Clonidine HCl (Catapres Tab*) 0.1 mg PO TID PRN PRN Reason: ANXIETY Last Admin: 01/13/18 22:33 Dose: 0.1 mg Fluoxetine HCl (Prozac Cap*) 10 mg PO DAILY [facility] Last Admin: 01/14/18 10:00 Dose: 10 mg Hydrocortisone (Hydrocortisone 1% Cream*) 1 applic TOPICAL BID [facility] Last Admin: 01/14/18 10:03 Dose: Not Given Hydroxyzine HCl (Atarax Tab*) 25 mg PO Q4H PRN PRN Reason: ANXIETY Last Admin: 01/13/18 23:11 Dose: 25 mg Lamotrigine (Lamictal Tab(*)) 50 mg PO BID [facility] Last Admin: 01/14/18 10:00 Dose: 50 mg Nicotine (Nicotine Inhaler*) 10 mg INH Q2H PRN PRN Reason: CRAVING Throat Lozenges (Chloraseptic Santana*) 1 santana PO Q2H PRN PRN Reason: SORE THROAT Last Admin: 01/11/18 17:54 Dose: 1 santana - Discharge Plan Discharge Plan: Outpatient Follow Up Outpatient Program: Adriana Phel[facility]
[2018-01-14] MEDS: hydrOXYzine HCL TAB* 25 MG PO PRN ×2 (16:57→20:24)
[2018-01-14] MEDS: cloNIDine TAB* 0.1 MG PO PRN (18:18)
[2018-01-14] MEDS: Acetaminophen TAB* 325 MG PO PRN (21:25)
[2018-01-15] MEDS: lamoTRIgine TAB(*) 25 MG PO SCH (09:05)
[2018-01-15] MEDS: FLUoxetine CAP* 10 MG PO SCH (09:05)
[2018-01-15] MEDS: Hydrocortisone 1% CREAM* 1.5 GM PAK TOPICAL SCH (09:06)
[2018-01-15] MEDS: Acetaminophen TAB* 325 MG PO PRN (09:33)
[2018-01-15] MEDS: hydrOXYzine HCL TAB* 25 MG PO PRN (09:33)
[2018-01-15 09:37] VITALS: BP 109/79
--- NOTE | 2018-01-16 05:49 | DS ---
DISCHARGE SUMMARY: DATE OF ADMISSION: 12/30/17 DATE OF DISCHARGE: 01/15/18 DISCHARGE DIAGNOSES: Turner I: Bipolar disorder, type 1, current episode mixed, severe without psychotic features. Turner II: Deferred. CONDITION AT THE TIME OF DISCHARGE: Stable. The patient is denying suicidal ideations. She has been calm, cooperative, interactive with staff, attending groups, socializing with peers. She is very much future oriented, indicating that she is looking forward to getting into a respite apartment through the [employer]. She is also looking forward to getting enrolled in the [facility] program through [facility]. She feels much better on her current medication regimen and denies any symptoms of rash with her prescribed lamotrigine. The patient is very grateful for the services that she has received here and looking forward to getting her life back together now that she is off antidepressants and controlled substances. We have come a long way in a short period of time with her medications. However, she has tolerated the cross titrations of her medicine quite well. She is appropriately requesting discharge at this time and we see no barrier to her receiving successful treatment in the outpatient setting. MENTAL STATUS EXAM AT THE TIME OF DISCHARGE: The patient is a middle-aged white female with david brown hair, who is dressed in black long-sleeved shirt and black pants. She is calm, cooperative, makes good eye contact, has excellent posture. Her speech has normal rate, tone, and volume. Mood is euthymic with a full affect. Thought process is linear and goal-directed. Thought content is significant for her desire to leave the hospital. She denies suicidal or homicidal ideations. She denies auditory or visual hallucinations. Insight and judgment appear to be fair given her willingness to follow up with outpatient treatment. Cognitively, she is awake and alert with what would appear to be an average intellect. DISCHARGE INSTRUCTIONS: To the patient are as follows: A. Medications: 1. She is on lamotrigine 50 mg p.o. b.i.d. 2. She is on fluoxetine 10 mg p.o. daily which she is to take for the next 20 days and then discontinue. 3. She is on clonidine 0.1 mg up to 3 times daily as a p.r.n. for anxiety. 4. She is also on hydroxyzine 50 mg every 6 hours as needed for pruritus. B. Diet is regular. C. Activity is as tolerated. The patient is a nonsmoker. There are no laboratory or diagnostic studies pending at the time of discharge. D. Followup Care: The patient will follow up tomorrow which is 01/16/18 at noon at the [facility] where she will be seeing Isabella of the [facility] program. E. Substance abuse followup is nonapplicable. HOSPITAL COURSE: Part A: Reason for admission: The patient is a 57-year-old single white female with a history of bipolar disorder and multiple recent hospitalizations on the [facility], who arrives complaining of "unbearable depression and anxiety" and demanding help. The patient was sobbing in the emergency room, telling staff members "you should know what to do, I need different meds." She was resistant to any suggestions to assist with her anxiety and depression except for medications. She was holding her face in her hands, accusing staff of being cold and not caring and demanding to see the psychiatrist. She went back and forth numerous times in terms of her safety at times stating that she was imminently at risk of suicide, other times stating that she could be safe and demanding discharge. Ultimately, this clinician saw her in the emergency room where she continued to be quite emotionally labile. Her story is that she has been on high-dose antidepressant therapy in the form of venlafaxine for several months as well as Seroquel and low-dose Adderall. She blames her current symptoms on the increase in Seroquel; however, it is notable that she has had a clear history of bipolarity and it may be that her antidepressants are making her worse. When I brought this up with the patient, she did calm down and seem to accept the plan in which she could be hospitalized and have her antidepressant discontinued in favor of mood stabilizer therapy. My understanding is that she is living in emergency housing through the [facility] [employer]. She has significant financial stressors at this time and is unemployed and has experienced a considerable loss of occupational and financial resources over the past 15 to 20 years. She meets criteria for mixed manic phase given the fact that she is endorsing sleep difficulty, anhedonia, guilt, decreased energy, poor concentration along with symptoms of distractibility, indiscretion, grandiosity, elevated thought rate, and extreme irritability and anxiety. Part B: Psychiatric treatment rendered: The patient was admitted to the adult behavioral health unit where she was placed on q.15-minute checks for her own safety. We gradually tapered her venlafaxine from 300 mg daily down to nothing because she was having emergent antidepressant withdrawal symptoms. We started a trial of low-dose fluoxetine 10 mg daily, which she tolerated well, which took the withdrawal symptoms away. She is instructed to continue taking this for 20 days after discharge and then discontinue it. In addition, we started her on lamotrigine originally 25 mg twice daily, then titrated to 50 mg twice daily. We tried to augment this with low-dose Seroquel; however, she did not tolerate this and this was discontinued. Her amphetamine, Adderall was continued at the low dose of 20 mg in the morning, but this was gradually tapered off as well and she has completely discontinued it at the time of discharge. For anxiety, she received a combination of as-needed clonidine as well as as-needed hydroxyzine. The patient became progressively more euthymic throughout the hospitalization. She did well on her new regimen and we feel strongly that mood stabilizer unopposed by antidepressants is the right approach for her particularly in the absence of amphetamines or benzodiazepines. At this time, she is much more future oriented, talking about getting a job, getting her own apartment, and becoming more independent again. The patient was not a behavioral problem on the unit and was actually quite pleasant to work with during this hospitalization. At this time, we see no barrier to her receiving definitive care in the community and we wish her the best for a safe and healthy future. [id number]/[facility] #: [id number] [facility]ITAL[facility]
== END 2018-01-15 12:54 | disposition home or self-care (01) | DRG 753 ==
LOC: ED 13:22 → BSU 12-30 12:12
PROVIDERS: ADMIT Psychiatry & Neurology Psychiatry; ATTEND Psychiatry & Neurology Psychiatry
PROC: GZHZZZZ Group Psychotherapy (ICD-10-PCS; principal; 2017-12-30)
DX: F31.63 Bipolar disorder, current episode mixed, severe, without psychotic features (principal); R45.851 Suicidal ideations; F41.9 Anxiety disorder, unspecified; F90.9 Attention-deficit hyperactivity disorder, unspecified type; F43.10 Post-traumatic stress disorder, unspecified; E66.9 Obesity, unspecified; F34.1 Dysthymic disorder; R21 Rash and other nonspecific skin eruption; Z88.8 Allergy status to other drugs, medicaments and biological substances; Z91.5 Personal history of self-harm; Z80.1 Family history of malignant neoplasm of trachea, bronchus and lung; Z81.8 Family history of other mental and behavioral disorders; Z56.0 Unemployment, unspecified; Z86.19 Personal history of other infectious and parasitic diseases; Z68.27 Body mass index [BMI] 27.0-27.9, adult; Z79.899 Other long term (current) drug therapy
CPT/HCPCS: 36415; 80053; 80061; 80307; 80320; 80329; 81003; 81015; 83036; 84443; 85025; 87086; 90853; 99222; 99231; 99232; 99233; 99284; A9270-GY; G0480

== ENCOUNTER 2018-02-21 04:49 | Emergency (ER) | payer OTHER ==
[2018-02-21 04:56] VITALS: BP 127/89
--- NOTE | 2018-02-21 05:18 | ED ---
Psychiatric Complaint - HPI Summary HPI Summary: This patient is a 57 year old F presenting to [facility] with a chief complaint of depression that began approximately one month ago. The patient rates the pain 0/ 10 in severity. Symptoms aggravated by nothing. Symptoms alleviated by nothing. Patient denies HI and SI. - History Of Current Complaint Chief Complaint: EDMentalHealth Time Seen by Provider: 02/21/18 05:04 Hx Obtained From: Patient Hx Last Menstrual Period: a year ago ?: No Onset/Duration: Sudden Onset, Lasting Weeks, Still Present Timing: Constant Severity Initially: Mild Severity Currently: Mild Character: Depressed Aggravating Factor(s): Nothing Alleviating Factor(s): Nothing Has Suicidal: Denies: Thoughts Has Homicidal: Denies: Thoughts - Allergies/Home Medications Allergies/Adverse Reactions: Allergies Allergy/AdvReac Type Severity Reaction Status Date / Time divalproex sodium Allergy Severe Rash Verified 02/21/18 04:56 [From Depakote] imipramine Allergy Severe Rash Verified 02/21/18 04:56 trazodone Allergy Severe Rash Verified 02/21/18 04:56 Home Medications: Home Medications Venlafaxine ER (NF) [Effexor ER (NF)] 150 mg PO BID 02/21/18 [History Confirmed 02/21/18] PMH/Surg Hx/FS Hx/Imm Hx Previously Healthy: No Endocrine/Hematology History: Denies: Hx Diabetes, Hx Thyroid Disease Cardiovascular History: Denies: Hx Hypertension Respiratory History: Denies: Hx Asthma, Hx Chronic Obstructive Pulmonary Disease (COPD) GI History: Denies: Hx Ulcer History: Denies: Hx Dialysis Sensory History: Reports: Hx Contacts or Glasses - reading glasses Denies: Hx Deafness, Hx Hearing Aid Opthamlomology History: Reports: Hx Contacts or Glasses - reading glasses Psychiatric History: Reports: Hx Anxiety, Hx Attention Deficit Hyperactivity Disorder, Hx Depression, Hx Panic Disorder, Hx Post Traumatic Stress Disorder, Hx Inpatient Treatment - Multiple [facility] admissions in the past 2 years, Hx Community Mental Health Tx, Hx Suicide Attempt, Hx Substance Abuse - Stimulants and sedatives, Other Psychiatric Issues/Disorders - Hx dysthymia, Hx ECT Denies: Hx Eating Disorder, Hx Schizophrenia, Hx Bipolar Disorder, Hx of Violent Episodes Against Others - Cancer History Cancer Type, Location and Year: None reported - Surgical History Surgery Procedure, Year, and Place: implants in - then removed Infectious Disease History: No Infectious Disease History: Reports: Hx Shingles Denies: Hx Clostridium Difficile, Hx Hepatitis, Hx Human Immunodeficiency Virus (HIV), Hx of Known/Suspected MRSA, Hx Tuberculosis, Hx Known/Suspected VRE , Hx Known/Suspected VRSA, History Other Infectious Disease, Traveled Outside the [place] in Last 30 Days - Family History Known Family History: Positive: Other - Lung CA, Depression-sister - Social History Occupation: Unemployed Lives: Alone Alcohol Use: None Hx Substance Use: No Substance Use Type: Reports: None Hx Tobacco Use: No Smoking Status (MU): Never Smoked Tobacco Have You Smoked in the Last Year: No Review of Systems Negative: Fever Psychological: Other - Negative HI and SI Positive: Depressed All Other Systems Reviewed And Are Negative: Yes Physical Exam - Summary Physical Exam Summary: VITAL SIGNS: Reviewed. GENERAL: Patient is a well-developed and nourished female who is lying comfortable in the stretcher. Patient is not in any acute respiratory distress. HEAD AND FACE: No signs of trauma. No ecchymosis, hematomas or skull depressions. No sinus tenderness. EYES: PERRLA, EOMI x 2, No injected conjunctiva, no nystagmus. EARS: Hearing grossly intact. Ear canals and tympanic membranes are within normal limits. MOUTH: Oropharynx within normal limits. NECK: Supple, trachea is midline, no adenopathy, no JVD, no carotid bruit, no c- spine tenderness, neck with full ROM. CHEST: Symmetric, no tenderness at palpation LUNGS: Clear to auscultation bilaterally. No wheezing or crackles. CVS: Regular rate and rhythm, S1 and S2 present, no murmurs or gallops appreciated. ABDOMEN: Soft, non-tender. No signs of distention. No rebound no guarding, and no masses palpated. Bowel sounds are normal. EXTREMITIES: FROM in all major joints, no edema, no cyanosis or clubbing. NEURO: Alert and oriented x 3. No acute neurological deficits. Speech is normal and follows commands. SKIN: Dry and warm PSYCH: Depressed and anxious Triage Information Reviewed: Yes Vital Signs On Initial Exam: Initial Vitals Temp Pulse Resp BP Pulse Ox 97.9 F 106 16 127/89 96 02/21/18 04:50 02/21/18 04:50 02/21/18 04:50 02/21/18 04:50 02/21/18 04:50 Vital Signs Reviewed: Yes Diagnostics - Vital Signs Vital Signs Temp Pulse Resp BP Pulse Ox 02/21/18 04:50 97.9 F 106 16 127/89 96 - Laboratory Result Diagrams: 02/21/18 05:31 02/21/18 05:31 Lab Statement: Any lab studies that have been ordered have been reviewed, and results considered in the medical decision making process. Course/Dx - Course Course Of Treatment: This patient is a 57 year old F presenting to [facility] with a chief complaint of depression that began approximately one month ago. Physical Exam Findings: Anxious. Depressed. Bloodwork obtained. Patient will signed out to Dr. Marquez upon shift change pending MHE. The patient is agreeable with this plan. - Differential Dx/Clinical Impression Provider Diagnosis: Depression Discharge - Sign-Out/Discharge Documenting (check all that apply): Sign-Out Patient Signing out patient TO: Parviz Marquez - Upon shift change pending MHE - Discharge Plan Condition: Stable Referrals: No Primary Care Phys,NOPCP [Medical Doctor] - - Attestation Statements Document Initiated by Scribe: Yes Documenting Scribe: Jaki Teixeira Provider For Whom Scribe is Documenting (Include Credential): Dr. Clement Villalba MD Scribe Attestation: I, hakeem Quintanilla for Dr. Clement Villalba MD on 02/21/18 at 0640. Status of Scribe Document: Ready
[2018-02-21] MEDS ORDERED: Nicotine Inhaler* 10 MG AMP INH PRN (05:19)
[2018-02-21 05:37] LABS: ABS Basophils 0.1 10^3/ul (0-0.2); ABS Eosinophils 0.1 10^3/ul (0-0.6); ABS Lymphocytes 1.6 10^3/ul (1.0-4.8); ABS Monocytes 0.5 10^3/ul (0-0.8); ABS Neutrophils 7.5 10^3/ul (1.5-7.7); ABS Nucleated RBC 0 10^3/ul; Eosinophil % 1.3 %; Hematocrit 42 % (35-47); Hemoglobin 14.3 g/dl (12.0-16.0); Lymphocyte % 16.2 %; Mean Corpuscular HGB Conc 34 g/dl (31-36); Mean Corpuscular Hemoglobin 28 pg (27-31); Mean Corpuscular Volume 82 fL (80-97); Mean Platelet Volume 7.5 fL (7.4-10.4); Nucleated Red Blood Cells % 0; Platelet Count 336 10^3/ul (150-450); Red Blood Count 5.14 10^6/ul (4.00-5.40); Red Cell Distribution Width 15 % (10.5-15); White Blood Count 9.7 10^3/ul (3.5-10.8)
[2018-02-21 05:53] LABS: ALT 19 U/L (7-52); AST 18 U/L (13-39); Albumin 3.9 g/dL (3.2-5.2); Albumin/Globulin Ratio 1.2 (1-3); Alkaline Phosphatase 133 U/L (34-104); Anion Gap 12 mmol/L (2-11); BUN/Creatinine Ratio 19.1 (8-20); Blood Urea Nitrogen 13 mg/dL (6-24); CO2 Carbon Dioxide 22 mmol/L (22-32); Calcium 9.5 mg/dL (8.6-10.3); Chloride 103 mmol/L (101-111); EGFR Non-African American 89.2 (>60); Globulin 3.3 g/dL (2-4); Glucose 121 mg/dL (70-100); Potassium 3.8 mmol/L (3.5-5.0); Sodium 137 mmol/L (135-145); Total Protein 7.2 g/dL (6.4-8.9)
[2018-02-21 06:02] LABS: Acetaminophen < 15 mcg/mL; Alcohol < 10 mg/dL (<10); Salicylate < 2.50 mg/dL (<30)
[2018-02-21 06:17] LABS: TSH (Thyroid Stimulating Horm) 1.34 mcIU/mL (0.34-5.60)
--- NOTE | 2018-02-21 07:46 | ED ---
Progress - Progress Note Progress Note: Patient is received as a sign out from Dr. Villalba to Dr. Marquez at 0700 02/21/18 shift change pending MHE and disposition of this mental health patient. 0855 - Patient's case had been reviewed by Dr. Leach, Dr. Leach recommends discharge to home, Dr. Marquez is agreeable with this. - Consult/PCP Time Called: 06:15 Course/Dx - Diagnoses Provider Diagnoses: Bipolar disorder - Provider Notifications Discussed Care Of Patient With: Paramjit Leach Time Discussed With Above Provider: 08:55 Instructed by Provider To: Other - 0855 - Patient's case had been reviewed by Dr. Leach, Dr. Leach recommends discharge to home, Dr. Marquez is agreeable with this. Discharge - Sign-Out/Discharge Documenting (check all that apply): Patient Departure - discharge - Discharge Plan Condition: Stable Disposition: HOME Patient Education Materials: Depression (ED), Anxiety (ED) Referrals: No Primary Care Phys,NOPCP [Medical Doctor] - - Billing Disposition and Condition Condition: STABLE Disposition: Home - Attestation Statements Document Initiated by Scribe: Yes Documenting Scribe: MILADYS TROY Provider For Whom Scribe is Documenting (Include Credential): GRETA MARQUEZ MD Scribe Attestation: MILADYS Schultz scribed for GRETA MARQUEZ MD on 02/21/18 at 1041. Scribe Documentation Reviewed: Yes Provider Attestation: The documentation as recorded by the MILADYS lopez accurately reflects the service I personally performed and the decisions made by me, GRETA MARQUEZ MD Status of Scribe Document: Viewed
== END 2018-02-21 09:46 | disposition home or self-care (01) ==
LOC: ED 04:49
DX: F31.9 Bipolar disorder, unspecified (principal); F32.9 Major depressive disorder, single episode, unspecified
CPT/HCPCS: 36415; 80053; 80320; 80329; 84443; 85025; 99284; G0480

== ENCOUNTER 2018-10-29 05:46 | Emergency (ER) | payer OTHER ==
[2018-10-29] MEDS ORDERED: NS 0.9% 1000 ML** 1,000 ML IV ONE (05:53)
[2018-10-29] MEDS ORDERED: Morphine 4 MG/ML VIAL (1 ml) 4 MG/ML VIAL IV ONE (05:56)
[2018-10-29] MEDS ORDERED: Ketorolac INJ* 30 MG/ML 1 ML VIAL IV PUSH ONE (05:56)
[2018-10-29] MEDS ORDERED: Ondansetron INJ* 2 MG/ML VIAL IV ONE (05:56)
--- NOTE | 2018-10-29 06:04 | ED ---
Abdominal Pain/Female - HPI Summary HPI Summary: Patient is a 58 y/o F presenting to [facility] with complaints of throbbing left sided flank pain. She reports that the pain has been present for the past week intermittently but worsened this morning. She denies N/V/D. Patient reports no similar prior episodes of Sx. She denies Hx of kidney stones or infections. Patient denies PSHx as well and reports no other medical issues. On triage, pain is rated 10/10. Home medications and allergies are reviewed. - History of Current Complaint Stated Complaint: ABD PAIN PER EMS Hx Obtained From: Patient Hx Last Menstrual Period: a year ago Onset/Duration: Lasting Weeks, Still Present, Worse Since Timing: Intermittent Episode Lasting Severity Currently: Severe Pain Scale Used: 0-10 Numeric Location: Flank - left Character: Other: - throbbing Associated Signs and Symptoms: Negative: Nausea, Vomiting, Diarrhea Allergies/Adverse Reactions: Allergies Allergy/AdvReac Type Severity Reaction Status Date / Time divalproex sodium Allergy Severe Rash Verified 10/29/18 06:23 [From Depakote] imipramine Allergy Severe Rash Verified 10/29/18 06:23 trazodone Allergy Severe Rash Verified 10/29/18 06:23 Home Medications: Home Medications buPROPion HCl [Bupropion HCl Sr] 150 mg PO DAILY 10/29/18 [History Confirmed ] PMH/Surg Hx/FS Hx/Imm Hx Endocrine/Hematology History: Denies: Hx Diabetes, Hx Thyroid Disease Cardiovascular History: Denies: Hx Hypertension Respiratory History: Denies: Hx Asthma, Hx Chronic Obstructive Pulmonary Disease (COPD) GI History: Denies: Hx Ulcer History: Denies: Hx Dialysis Sensory History: Reports: Hx Contacts or Glasses - reading glasses Denies: Hx Deafness, Hx Hearing Aid Opthamlomology History: Reports: Hx Contacts or Glasses - reading glasses Psychiatric History: Reports: Hx Anxiety, Hx Attention Deficit Hyperactivity Disorder, Hx Depression, Hx Panic Disorder, Hx Post Traumatic Stress Disorder, Hx Inpatient Treatment - Multiple [facility] admissions in the past 2 years, Hx Community Mental Health Tx, Hx Suicide Attempt, Hx Substance Abuse - Stimulants and sedatives, Other Psychiatric Issues/Disorders - Hx dysthymia, Hx ECT Denies: Hx Eating Disorder, Hx Schizophrenia, Hx Bipolar Disorder, Hx of Violent Episodes Against Others - Cancer History Cancer Type, Location and Year: None reported - Surgical History Surgery Procedure, Year, and Place: implants in - then removed Infectious Disease History: Reports: Hx Shingles Denies: Hx Clostridium Difficile, Hx Hepatitis, Hx Human Immunodeficiency Virus (HIV), Hx of Known/Suspected MRSA, Hx Tuberculosis, Hx Known/Suspected VRE , Hx Known/Suspected VRSA, History Other Infectious Disease - Family History Known Family History: Positive: Other - Lung CA, Depression-sister - Social History Alcohol Use: None Hx Substance Use: No Substance Use Type: Reports: None Hx Tobacco Use: No Smoking Status (MU): Never Smoked Tobacco Have You Smoked in the Last Year: No Review of Systems Negative: Vomiting, Diarrhea, Nausea Positive: flank pain - left All Other Systems Reviewed And Are Negative: Yes Physical Exam - Summary Physical Exam Summary: Appearance: Well-appearing, Well-nourished, Colicky appearing woman holding her left side. Skin: Warm, dry, no obvious rash Eyes: sclera anicteric, no conjunctival pallor ENT: mucous membranes moist, pharynx appears normal Neck: Supple, nontender Respiratory: Clear to auscultation, no signs of respiratory distress Cardiovascular: Normal S1, S2. No murmurs. Normal distal pulses in tibial and radial bilaterally. Abdomen: Soft, nontender, normal active bowel sounds present Musculoskeletal: Normal, Strength/ROM Intact Neurological: A&Ox3, awake and alert, mentation is normal, speech is fluent and appropriate Psychiatric: affect is normal, does not appear anxious or depressed Triage Information Reviewed: Yes Vital Signs On Initial Exam: Initial Vitals Temp Pulse Resp BP Pulse Ox 97.6 F 89 20 171/102 98 10/29/18 05:54 10/29/18 05:54 10/29/18 05:54 10/29/18 05:54 10/29/18 05:54 Vital Signs Reviewed: Yes Diagnostics - Laboratory Result Diagrams: 10/29/18 06:08 10/29/18 06:08 Lab Statement: Any lab studies that have been ordered have been reviewed, and results considered in the medical decision making process. Abdominal Pain Fem Course/Dx - Course Course Of Treatment: Patient is a 58 y/o F presenting to [facility] with complaints of throbbing left sided flank pain. She reports that the pain has been present for the past week intermittently but worsened this morning. She denies N/V/D. Patient reports no similar prior episodes of Sx. She denies Hx of kidney stones or infections. Patient denies PSHx as well and reports no other medical issues. On physical, patient is noted to be a colicky appearing woman holding her left side. Bloodwork was obtained. Abnormal values include WBC 12, RDW 16, absolute neuts 8.8, BUN 25, BUN/creatinine ratio 35.2, alk phos 133. During ED course, patient received 1 L NS, 8 mg Zofran, 10 mg morphine IV, and toradol 10 mg IV. Patient is signed out to Dr. Oshea at 0700 10/29/18 shift change pending results of CT ABD/PEL. - Diagnoses Provider Diagnoses: LUQ pain, Flank pain, Splenic artery aneurysm Discharge ED - Sign-Out/Discharge Documenting (check all that apply): Sign-Out Patient Signing out patient TO: Dawson Oshea Patient Received Moderate/Deep Sedation with Procedure: No - Discharge Plan Condition: Stable Disposition: HOME Prescriptions: Acetaminophen with Codeine [Acetaminophen-Cod #3 Tablet] 1 each PO Q6HR #12 tablet MDD 4 tablets Patient Education Materials: Abdominal Pain (ED), Flank Pain (ED) Referrals: Lory Elizabeth MD [Primary Care Provider] - Additional Instructions: You have a splenic artery aneurysm measuring 1.5cm. You need to follow up with your primary care provider within the next 1-3 days to discuss this and to discuss a possible vascular surgery referral. Return to the emergency department with any worsening abdominal pain, feeling like you're going to faint, or other concerning symptoms. - Billing Disposition and Condition Condition: STABLE Disposition: Home - Attestation Statements Document Initiated by Emmanuel: Yes Documenting Scribe: MILADYS TROY Provider For Whom Emmanuel is Documenting (Include Credential): BUBBA LAYTON MD Scribe Attestation: MILADYS Schultz, scribed for BUBBA LAYTON MD on 11/02/18 at 0628. Scribe Documentation Reviewed: Yes Provider Attestation: The documentation as recorded by the MILADYS lopez accurately reflects the service I personally performed and the decisions made by me, BUBBA LAYTON MD Status of Scribe Document: Viewed
[2018-10-29 06:21] LABS: ABS Basophils 0.1 10^3/ul (0-0.2); ABS Eosinophils 0.2 10^3/ul (0-0.6); ABS Lymphocytes 2.1 10^3/ul (1.0-4.8); ABS Monocytes 0.8 10^3/ul (0-0.8); ABS Neutrophils 8.8 10^3/ul (1.5-7.7); Eosinophil % 1.5 %; Hematocrit 40 % (35-47); Hemoglobin 13.2 g/dL (12.0-16.0); Lymphocyte % 17.2 %; Mean Corpuscular HGB Conc 34 g/dL (31-36); Mean Corpuscular Hemoglobin 28 pg (27-31); Mean Corpuscular Volume 84 fL (80-97); Mean Platelet Volume 7.4 fL (7.4-10.4); Platelet Count 327 10^3/uL (150-450); Red Blood Count 4.72 10^6 /uL (3.70-4.87); Red Cell Distribution Width 16 % (10-15)
[2018-10-29 06:38] LABS: Albumin 4.2 g/dL (3.2-5.2); Albumin/Globulin Ratio 1.4 (1-3); BUN/Creatinine Ratio 35.2 (8-20); Calcium 9.4 mg/dL (8.6-10.3); EGFR African American 102.3 (>60); EGFR Non-African American 84.6 (>60); Globulin 2.9 g/dL (2-4); Potassium 4.2 mmol/L (3.5-5.0); Total Bilirubin 0.3 mg/dL (0.2-1.0); Total Protein 7.1 g/dL (6.4-8.9)
--- NOTE | 2018-10-29 07:25 | ED ---
Progress - Progress Note Progress Note: Pt is a signout from Dr. Romero at 0700 on 10/29/[address] a/p results and reassessment. - Results/Orders Results/Orders: CT a/p shows: 1. Mild hiatal hernia. 2. Minimal colonic diverticulosis without diverticulitis. 3. Otherwise negative CT abdomen/pelvis. No renal or ureteral calculi are evident and there is no evidence of obstructive uropathy. ED physician has reviewed this report. EKG at 0755 shows NSR at 87bpm with Q wave in lead III and inverted T wave in lead III. No STEMI. CTA Chest/Thorax shows: 1. NO PULMONARY ARTERIAL FILLING DEFECT TO SUGGEST PULMONARY EMBOLISM. 2. HIATAL HERNIA. 3. HEPATOMEGALY WITH FATTY INFILTRATION OF LIVER. 4. 1.4 CM SPLENIC ARTERY ANEURYSM. ED physician has reviewed this report. Re-Evaluation - Re-Evaluation 1st re-eval Re-Evaluation Time: 07:15 Change: Unchanged Comment: Pt still complaining of pleuritic L-sided chest pain as well as slight LUQ pain. 2nd re-eval Re-Evaluation Time: 08:45 Comment: I facilitated a follow-up appointment for the 10/31/18 at 1600. Course/Dx - Course Course Of Treatment: Patient was signed out from Dr. Sarmiento. Patient with 1 week of left flank pain that relates into her left upper quadrant. Patient's pain is pertinent in nature. Patient had a CT scan of her abdomen/pelvis without contrast which was negative for any abnormality. Given patient's pleuritic pain and borderline hypoxemia in the room, a CT was ordered which showed no evidence of PE. Patient does have a 1.5 cm splenic artery aneurysm. Given the small size of patient's aneurysm, I do not believe this is the cause of patient's pain. Patient had her thyroid studies checked as well given her 40 pounds of weight gain the past 2 years which was negative. I personally called patient's PCP and arranged follow-up on at 4 PM. Patient states she is available at this time for her appointment for follow-up and vascular surgery referral. - Diagnoses Provider Diagnoses: LUQ pain, Flank pain, Splenic artery aneurysm Discharge ED - Sign-Out/Discharge Documenting (check all that apply): Patient Departure, Receiving Sign-Out Receiving patient FROM: Henry Romero Patient Received Moderate/Deep Sedation with Procedure: No - Discharge Plan Condition: Stable Disposition: HOME Prescriptions: Acetaminophen with Codeine [Acetaminophen-Cod #3 Tablet] 1 each PO Q6HR PRN #12 tablet MDD 4 tablets PRN Reason: Pain - Moderate Patient Education Materials: Abdominal Pain (ED), Flank Pain (ED) Referrals: Lory Elizabeth MD [Primary Care Provider] - Additional Instructions: You have a splenic artery aneurysm measuring 1.5cm. You need to follow up with your primary care provider within the next 1-3 days to discuss this and to discuss a possible vascular surgery referral. Return to the emergency department with any worsening abdominal pain, feeling like you're going to faint, or other concerning symptoms. - Billing Disposition and Condition Condition: STABLE Disposition: Home - Attestation Statements Document Initiated by Vonibgav[place]: Yes Documenting Scribe: Kristie Jackson Provider For Whom Emmanuel is Documenting (Include Credential): Dawson Oshea MD. Scribe Attestation: Kristie Schultz, mked for Dawson Oshea MD. on 10/29/18 at 0859. Scribe Documentation Reviewed: Yes Provider Attestation: The documentation as recorded by the vonibe, Kristie Jackson accurately reflects the service I personally performed and the decisions made by , Dawson Oshea MD. Status of Scribe Document: Viewed
[2018-10-29] MEDS ORDERED: Iohexol 350* (CONTRAST) 500 ML MDV IV ONE (08:00)
[2018-10-29 08:21] LABS: TSH (Thyroid Stimulating Horm) 2.72 mcIU/mL (0.34-5.60)
[2018-10-29 08:25] LABS: Free T4 0.75 ng/dL (0.61-1.12)
[2018-10-29 08:38] VITALS: BP 106/41
== END 2018-10-29 08:48 | disposition home or self-care (01) ==
LOC: ED 05:46
DX: I72.8 Aneurysm of other specified arteries (principal); K44.9 Diaphragmatic hernia without obstruction or gangrene; K57.30 Diverticulosis of large intestine without perforation or abscess without bleeding; K76.0 Fatty (change of) liver, not elsewhere classified; F41.9 Anxiety disorder, unspecified; F90.9 Attention-deficit hyperactivity disorder, unspecified type; F43.10 Post-traumatic stress disorder, unspecified; Z79.899 Other long term (current) drug therapy; Z88.8 Allergy status to other drugs, medicaments and biological substances
CPT/HCPCS: 36415; 71275; 74176; 80053; 84439; 84443; 84484; 85025; 93005; 96361; 96374; 96375; 99283; J1885; J2270; J2405; Q9967

== ENCOUNTER 2019-01-01 22:37 | Inpatient (IN) | payer OTHER ==
[2019-01-01] MEDS ORDERED: Ondansetron INJ* 2 MG/ML VIAL IV ONE (22:46)
[2019-01-01] MEDS ORDERED: Morphine 4 MG/ML VIAL (1 ml) 4 MG/ML VIAL IV ONE (22:46)
[2019-01-01] MEDS ORDERED: Ketorolac INJ* 30 MG/ML 1 ML VIAL IV PUSH ONE (22:46)
[2019-01-01] MEDS ORDERED: NS 0.9% 1000 ML** 1,000 ML IV ONE (22:46)
--- NOTE | 2019-01-01 22:50 | ED ---
Abdominal Pain/Female - HPI Summary HPI Summary: 58 year old F [place] in by EMS [place] [facility] complains of sudden onset sharp RUQ abdominal pain rated 10/10 in severity that started at 21:45 today. States she was fine all day. Never had these sx before. No abdominal surgical hx. Symptoms aggravated by nothing. Symptoms alleviated by nothing. - History of Current Complaint Chief Complaint: EDAbdPain Stated Complaint: ABD PAIN PER EMS Time Seen by Provider: 01/01/19 22:43 Hx Obtained From: Patient Onset/Duration: Sudden Onset, Lasting Hours - 1, Still Present Timing: Constant Severity Currently: Severe Pain Intensity: 10 Pain Scale Used: 0-10 Numeric Location: Discrete At: RUQ Character: Sharp Aggravating Factor(s): Nothing Alleviating Factor(s): Nothing Allergies/Adverse Reactions: Allergies Allergy/AdvReac Type Severity Reaction Status Date / Time divalproex sodium Allergy Severe Rash Verified 10/29/18 06:23 [From Depakote] imipramine Allergy Severe Rash Verified 10/29/18 06:23 trazodone Allergy Severe Rash Verified 10/29/18 06:23 piperacillin [From Zosyn] Allergy Rash Verified 01/05/19 20:44 tazobactam [From Zosyn] Allergy Rash Verified 01/05/19 20:44 PMH/Surg Hx/FS Hx/Imm Hx Endocrine/Hematology History: Denies: Hx Diabetes, Hx Thyroid Disease Cardiovascular History: Denies: Hx Hypertension Respiratory History: Denies: Hx Asthma, Hx Chronic Obstructive Pulmonary Disease (COPD) GI History: Denies: Hx Ulcer History: Denies: Hx Dialysis Sensory History: Reports: Hx Contacts or Glasses - reading glasses Denies: Hx Deafness, Hx Hearing Aid Opthamlomology History: Reports: Hx Contacts or Glasses - reading glasses Psychiatric History: Reports: Hx Anxiety, Hx Attention Deficit Hyperactivity Disorder, Hx Depression, Hx Panic Disorder, Hx Post Traumatic Stress Disorder, Hx Inpatient Treatment - [place] [facility] [place] in [place] past 2 years, Hx Community Mental Health Tx, Hx Suicide Attempt, Hx Substance Abuse - Stimulants and sedatives, Other Psychiatric Issues/Disorders - Hx dysthymia, Hx ECT Denies: Hx Eating Disorder, Hx Schizophrenia, Hx Bipolar Disorder, Hx of Violent Episodes Against Others - Cancer History Cancer Type, Location and Year: None reported - Surgical History Surgery Procedure, Year, and Place: implants in - then removed Infectious Disease History: No Infectious Disease History: Reports: Hx Shingles Denies: Hx Clostridium Difficile, Hx Hepatitis, Hx Human Immunodeficiency Virus (HIV), Hx of Known/Suspected MRSA, Hx Tuberculosis, Hx Known/Suspected VRE , Hx Known/Suspected VRSA, History Other Infectious Disease, Traveled Outside the [place] in Last 30 Days - Family History Known Family History: Positive: Other - Lung CA, Depression-sister - Social History Alcohol Use: None Hx Substance Use: No Substance Use Type: Reports: None Hx Tobacco Use: No Smoking Status (MU): Never Smoked Tobacco Have You Smoked in the Last Year: No Review of Systems Negative: Fever Positive: Abdominal Pain - RUQ All Other Systems Reviewed And Are Negative: Yes Physical Exam - Summary Physical Exam Summary: Appearance: Very uncomfortable, colic-y appearing female who is lying in bed in obvious discomfort Skin: Warm, dry, no obvious rash Eyes: sclera anicteric, no conjunctival pallor ENT: mucous membranes moist, pharynx appears normal Neck: Supple, nontender Respiratory: Clear to auscultation, no signs of respiratory distress Cardiovascular: Normal S1, S2. No murmurs. Normal distal pulses in tibial and radial bilaterally. Abdomen: Patient is unable to relax for proper exam. I will have to repeat exam after medications Musculoskeletal: Normal, Strength/ROM Intact Neurological: A&Ox3, awake and alert, mentation is normal, speech is fluent and appropriate Psychiatric: affect is normal, does not appear anxious or depressed Triage Information Reviewed: Yes Vital Signs On Initial Exam: Initial Vitals Temp Pulse Resp BP Pulse Ox 98.0 F 100 18 118/71 98 01/01/19 22:38 01/01/19 22:38 01/01/19 22:38 01/01/19 22:38 01/01/19 22:38 Vital Signs Reviewed: Yes Procedures - Sedation Patient Received Moderate/Deep Sedation with Procedure: No Diagnostics - Vital Signs Vital Signs Temp Pulse Resp BP Pulse Ox 01/01/19 22:38 98.0 F 100 18 118/71 98 - Laboratory Result Diagrams: 01/05/19 12:32 01/05/19 12:31 Lab Statement: Any lab studies that have been ordered have been reviewed, and results considered in the medical decision making process. - Radiology CXR Radiology Interpretation Completed By: ED Physician Summary of Radiographic Findings: limited film. there is increased density of R base but technique makes more definite read difficult. pending official report - CT Abd/Pel CT Interpretation Completed By: Radiologist Summary of CT Findings: 1. There is new small to moderate right pleural effusion and right base. pneumonitis. 2. Stable moderate hiatal hernia. 3. No other acute CT pathology. ED physician has reviewed this report. Chest CT Interpretation Completed By: Radiologist Summary of CT Findings: 1. Consolidation of the right lower lung with air bronchograms and a moderate sized pleural effusion. This is associated with a lesion in the left upper lung which abuts the pleural surface. These may represent a pneumonia. These abnormalities were not seen on prior CT scan on . 2. Fluid tracking into the right major and minor fissures. ED physician has reviewed this report. - Ultrasound Gallbladder Ultrasound Interpretation Completed By: Radiologist Summary of Ultrasound Findings: No acute sonographic pathology. ED physician has reviewed this report. Re-Evaluation - Re-Evaluation First Eval Re-Evaluation Time: 04:06 Abdominal Pain Fem Course/Dx - Course Course Of Treatment: 58 year old F brought in by EMS complains of sudden onset sharp RUQ abdominal pain that started at 21:45 today. Never had these sx before. No abdominal surgical hx. Bloodwork results with no significant abnormalities except for WBC 13.6, Hgb 10.9, Hct 33, MPV 7.0, absolute neuts 11.8, BUN/creatinine 23.7, calcium 7.8, AST 8, alkaline phosphatase 110, CRP 82.95, albumin 3.1, albumin/globulin 0.9. Urinalysis results with no significant abnormalities except for _. US Gallbladder shows, per radiologist: No acute sonographic pathology. CT Abd/Pel shows, per radiologist: 1. There is new small to moderate right pleural effusion and right base pneumonitis. 2. Stable moderate hiatal hernia. 3. No other acute CT pathology. CXR shows limited film, there is increased density of R base but technique makes more definite read difficult. In the ED course, the patient was given ketorolac 10 mg IV, morphine 4 mg, normal saline fluids 1 L IV, ondansetron 8 mg IV, Haldol 5 mg IV x2, lorazepam 1 mg IV, albuterol. Patient started on azithromycin and ceftriaxone. CHEST CT shows per radiologist: 1. Consolidation of the right lower lung with air bronchograms and a moderate sized pleural effusion. This is associated with a lesion in the left upper lung which abuts the pleural surface. These may represent a pneumonia. These abnormalities were not seen on prior CT scan on 10/29/2018. 2. Fluid tracking into the right major and minor fissures. Dr. Blount hospitalist agrees to admit patient. - Diagnoses Provider Diagnoses: Pneumonia - Provider Notifications Discussed Care Of Patient With: Davina Blount Time Discussed With Above Provider: 05:25 Instructed by Provider To: Admit As Inpatient Discharge ED - Sign-Out/Discharge Documenting (check all that apply): Patient Departure - Admit - Discharge Plan Condition: Stable Disposition: ADMITTED TO [facility] - Billing Disposition and Condition Condition: STABLE Disposition: Admitted to [facility] - Attestation Statements Document Initiated by Emmanuel: Yes Documenting Scribe: Jaylin Donald Provider For Whom Emmanuel is Documenting (Include Credential): Henry Romero MD Scribe Attestation: Jaylin Schultz, scribed for Henry Romero MD on 01/06/19 at 0014. Scribe Documentation Reviewed: Yes Provider Attestation: The documentation as recorded by the Jaylin lopez accurately reflects the service I personally performed and the decisions made by Henry bach MD Status of Scribe Document: Viewed
[2019-01-01] MEDS ORDERED: Haloperidol INJ IV/IM* 5 MG/ML AMP IV SLOW PU ONE (23:02)
[2019-01-01 23:39] LABS: ABS Eosinophils 0.2 10^3/ul (0-0.6); ABS Monocytes 0.5 10^3/ul (0-0.8); ABS Neutrophils 11.8 10^3/ul (1.5-7.7); Eosinophil % 1.7 %; Hematocrit 33 % (35-47); Hemoglobin 10.9 g/dL (12.0-16.0); Lymphocyte % 7.5 %; Mean Corpuscular HGB Conc 34 g/dL (31-36); Mean Corpuscular Hemoglobin 28 pg (27-31); Mean Corpuscular Volume 84 fL (80-97); Platelet Count 395 10^3/uL (150-450); Red Blood Count 3.89 10^6 /uL (3.70-4.87); Red Cell Distribution Width 14 % (10-15); White Blood Count 13.6 10^3/uL (3.5-10.8)
[2019-01-01 23:56] LABS: Albumin 3.1 g/dL (3.2-5.2); Albumin/Globulin Ratio 0.9 (1-3); BUN/Creatinine Ratio 23.7 (8-20); C Reactive Protein 82.95 mg/L (<8.01); Calcium 7.8 mg/dL (8.6-10.3); EGFR African American 126.7 (>60); EGFR Non-African American 104.7 (>60); Globulin 3.4 g/dL (2-4); Potassium 3.8 mmol/L (3.5-5.0); Total Bilirubin 0.2 mg/dL (0.2-1.0); Total Protein 6.5 g/dL (6.4-8.9)
[2019-01-02] MEDS: Morphine 4 MG/ML VIAL (1 ml) 4 MG/ML VIAL IV PRN ×4 (01:05→12:21)
[2019-01-02] MEDS ORDERED: Iohexol 300* (CONTRAST) 10 ML SDV IV ONE (01:18)
[2019-01-02] MEDS ORDERED: Haloperidol INJ IV/IM* 5 MG/ML AMP IV SLOW PU ONE (04:09)
[2019-01-02] MEDS ORDERED: LORazepam INJ* 2 MG/ML 1 ML VIAL IV PUSH ONE (04:10)
[2019-01-02] MEDS ORDERED: Morphine 10 MG/ML VIAL (1 ml) IV ONE (04:10)
[2019-01-02] MEDS ORDERED: Lorazepam PYXIS KEY PRN ×2 (04:10→17:37)
[2019-01-02] MEDS ORDERED: cefTRIAXone(*) 1 GM in NS 0.9% 50 ML* 50 ML IVPB ONE (04:11)
[2019-01-02] MEDS ORDERED: Azithromycin 500 mg/250 ml NS 500 MG/250 ML BAG IVPB ONE (04:11)
[2019-01-02] MEDS ORDERED: Lorazepam PYXIS KEY ONE (04:17)
[2019-01-02] MEDS ORDERED: Albuterol 2.5 MG/3 ML NEB.SOL* (0.083%) INH ONE (05:18)
[2019-01-02] MEDS ORDERED: NS 0.9% 1000 ML** 1,000 ML IV SCH (06:00)
--- NOTE | 2019-01-02 07:06 | HP ---
History of Present Illness - History of Present Illness Reason for Visit: abdominal pain History of Present Illness: 58 year old female with multiple psychiatric problems came to the ED with complaints of LUQ pain. She was so distressed that she could not offer much history. She was taken to get a CT abdomen done, no intra abdominal pathology but the lower cuts of the lung showed a new left sided pleural effusion and pneumonitis/pneumonia. She was then taken to get a CT done but she was so distressed and animated that she was given haldol, ativan and morphine. When i saw her, again, not very communicative, more sedated now but with labored breathing. Her initial lab showed leukocytosis. - Past Medical History Psych: Anxiety, Bipolar, Depression Review of Systems - Measurements Intake and Output: Intake and Output Last 24 Hours 12/31/18 01/01/19 01/02/19 01/03/19 06:59 06:59 06:59 06:59 Weight 200 lb - Review of Systems General Comments: unable to obtain ROS from patient Objective Active Medications: Bupropion HCl (Wellbutrin Sr Tab*) 150 mg PO DAILY KIRSTEN Sodium Chloride (Ns 0.9% 1000 Ml) 1,000 mls @ 75 mls/hr IV PER RATE KIRSTEN Miscellaneous (Ativan Pyxis Richardson) 1 ea N/A .ATIVAN IV RICHARDSON PRN PRN Reason: PYXIS RICHARDSON Morphine Sulfate (Morphine 4 Mg/Ml Vial (1 Ml)) 4 mg IV Q1H PRN PRN Reason: PAIN - MODERATE Last Admin: 01/02/19 03:52 Dose: 4 mg Oxycodone/Acetaminophen (Percocet 5/325 Tab*) 1 tab PO Q4H PRN PRN Reason: PAIN - MODERATE Venlafaxine HCl (Effexor Er (Nf)) 150 mg PO BID [facility] Vital Signs - 8 hr 01/01/19 01/01/19 01/01/19 23:09 23:34 23:46 Pulse Rate 96 88 87 Respiratory 25 26 25 Rate Blood Pressure 129/61 119/60 (mmHg) O2 Sat by Pulse 93 96 98 Oximetry 01/02/19 01/02/19 01/02/19 00:00 00:16 00:45 Pulse Rate 89 90 Respiratory 22 22 23 Rate Blood Pressure 122/71 114/71 (mmHg) O2 Sat by Pulse 97 97 Oximetry 01/02/19 01/02/19 01/02/19 01:00 01:04 01:05 Pulse Rate Respiratory 29 32 18 Rate Blood Pressure 114/71 (mmHg) O2 Sat by Pulse Oximetry 01/02/19 01/02/19 01/02/19 01:16 01:46 02:00 Pulse Rate 91 Respiratory 25 27 27 Rate Blood Pressure 112/63 98/74 (mmHg) O2 Sat by Pulse 95 Oximetry 01/02/19 01/02/19 01/02/19 02:36 02:46 03:00 Pulse Rate 103 97 96 Respiratory 21 29 24 Rate Blood Pressure 134/79 117/87 (mmHg) O2 Sat by Pulse 88 95 95 Oximetry 01/02/19 01/02/19 01/02/19 03:16 03:52 04:29 Pulse Rate 97 Respiratory 27 22 Rate Blood Pressure 130/78 109/80 (mmHg) O2 Sat by Pulse 95 Oximetry 01/02/19 01/02/19 01/02/19 04:32 04:52 05:09 Pulse Rate 94 Respiratory 18 25 Rate Blood Pressure 113/66 (mmHg) O2 Sat by Pulse 95 Oximetry 01/02/19 01/02/19 01/02/19 05:12 05:22 05:23 Pulse Rate 95 96 96 Respiratory 20 26 30 Rate Blood Pressure 120/75 141/66 141/66 (mmHg) O2 Sat by Pulse 93 96 95 Oximetry 01/02/19 01/02/19 05:29 05:56 Pulse Rate 95 102 Respiratory 28 32 Rate Blood Pressure 141/66 125/75 (mmHg) O2 Sat by Pulse 96 93 Oximetry Oxygen Devices in Use Now: OxyMask Appearance: distressed, labored breathing Eyes: No Scleral Icterus, PERRLA Ears/Nose/Mouth/Throat: Mucous Membranes Moist Neck: Trachea Midline Respiratory: - - tenderness ( left ), crackles Cardiovascular: RRR, No Edema Abdominal: No Hepatosplenomegaly - L upper quadrant tenderness, - Skin: No Rash or Ulcers, No Nodules or Sclerosis - alert, pt is not responding to my questions Result Diagrams: 01/01/19 23:33 01/01/19 23:33 Assess/Plan/Problems-Billing Assessment: - Patient Problems (1) Pneumonia Current Visit: Yes Status: Acute Code(s): J18.9 - PNEUMONIA, UNSPECIFIED ORGANISM SNOMED Code(s): 996163817 Comment: pleuritic pain, hypoxemia on oxymask, CT chest shows consolidation azithromycin, ceftriaxone cultures pending (2) Full code status Current Visit: Yes Status: Acute Code(s): Z78.9 - OTHER SPECIFIED HEALTH STATUS SNOMED Code(s): 943086908 (3) DVT prophylaxis Current Visit: Yes Status: Acute Code(s): Z29.9 - ENCOUNTER FOR PROPHYLACTIC MEASURES, UNSPECIFIED SNOMED Code(s): 718546457 (4) Bipolar 2 disorder Current Visit: No Status: Acute Code(s): F31.81 - BIPOLAR II DISORDER SNOMED Code(s): 02618832 (5) Borderline personality disorder Current Visit: No Status: Acute Code(s): F60.3 - BORDERLINE PERSONALITY DISORDER SNOMED Code(s): 03873788 (6) Major depression Current Visit: No Status: Acute Code(s): F32.9 - MAJOR DEPRESSIVE DISORDER, SINGLE EPISODE, UNSPECIFIED SNOMED Code(s): 439391398 Comment: bupropion (7) Personality disorder, unspecified Current Visit: No Status: Acute Code(s): F60.9 - PERSONALITY DISORDER, UNSPECIFIED SNOMED Code(s): 46700151
[2019-01-02] MEDS: oxyCODONE/Acetamin 5/325 MG* TAB PO PRN ×3 (07:57→17:15)
[2019-01-02] MEDS: Venlafaxine EXT RELEASE CAP* 75 MG PO SCH ×2 (07:57→20:50)
[2019-01-02] MEDS ORDERED: Azithromycin 500 mg/250 ml NS 500 MG/250 ML BAG IVPB SCH (08:00)
[2019-01-02] MEDS ORDERED: cefTRIAXone(*) 1 GM in NS 0.9% 50 ML* 50 ML IVPB SCH (08:00)
[2019-01-02] MEDS: buPROPion SR TAB.SR* 150 MG PO SCH (10:05)
[2019-01-02] MEDS: Morphine INJ* 4 MG/ML 1 ML SYRINGE (NEW SYRINGE VERSION) IV PRN ×3 (13:08→21:06)
--- NOTE | 2019-01-02 16:55 | PN ---
Hospitalist Progress Note Date of Service: 01/02/19 Patient refused exam today and was not particularly forthcoming with any information. She reports that she was SOB and had associated chest wall pain with deep breathing and movement, and she is fearful that if she moves now, the pain with recur. She would like to sleep and is frustrated that staff is waking her up throughout the day. Remains on oxygen. Morphine decreased to q4h and full liquid diet ordered. Will reevaluate tomorrow.
[2019-01-02] MEDS: LORazepam INJ* 2 MG/ML 1 ML VIAL IV PUSH PRN (17:50)
[2019-01-02] MEDS: lamoTRIgine TAB(*) 100 MG PO SCH (20:51)
[2019-01-03] MEDS: LORazepam INJ* 2 MG/ML 1 ML VIAL IV PUSH PRN ×3 (00:11→15:38)
[2019-01-03] MEDS: Morphine INJ* 4 MG/ML 1 ML SYRINGE (NEW SYRINGE VERSION) IV PRN ×4 (02:45→21:10)
[2019-01-03] MEDS: oxyCODONE/Acetamin 5/325 MG* TAB PO PRN ×2 (04:14→15:37)
[2019-01-03] MEDS: cefTRIAXone(*) 1 GM in NS 0.9% 50 ML* 50 ML IVPB SCH (05:09)
[2019-01-03] MEDS: Azithromycin 500 mg/250 ml NS 500 MG/250 ML BAG IVPB SCH (07:41)
[2019-01-03] MEDS: Venlafaxine EXT RELEASE CAP* 75 MG PO SCH ×2 (08:43→21:12)
[2019-01-03] MEDS: buPROPion SR TAB.SR* 150 MG PO SCH (08:43)
[2019-01-03] MEDS: lamoTRIgine TAB(*) 100 MG PO SCH ×2 (08:43→21:12)
[2019-01-03 09:12] LABS: ABS Basophils 0.1 10^3/ul (0-0.2); ABS Eosinophils 0.1 10^3/ul (0-0.6); ABS Lymphocytes 0.9 10^3/ul (1.0-4.8); ABS Monocytes 0.8 10^3/ul (0-0.8); ABS Neutrophils 15.8 10^3/ul (1.5-7.7); Eosinophil % 0.7 %; Hematocrit 32 % (35-47); Hemoglobin 10.5 g/dL (12.0-16.0); Lymphocyte % 5.1 %; Mean Corpuscular HGB Conc 33 g/dL (31-36); Mean Corpuscular Hemoglobin 28 pg (27-31); Mean Corpuscular Volume 85 fL (80-97); Mean Platelet Volume 7.1 fL (7.4-10.4); Platelet Count 413 10^3/uL (150-450); Red Blood Count 3.78 10^6 /uL (3.70-4.87); Red Cell Distribution Width 14 % (10-15); White Blood Count 17.7 10^3/uL (3.5-10.8)
[2019-01-03 09:25] LABS: BUN/Creatinine Ratio 26.3 (8-20); Calcium 8.4 mg/dL (8.6-10.3); EGFR African American 131.8 (>60); EGFR Non-African American 108.9 (>60); Potassium 4.1 mmol/L (3.5-5.0)
[2019-01-03] MEDS ORDERED: Albuterol 2.5 MG/3 ML NEB.SOL* (0.083%) INH PRN (10:09)
--- NOTE | 2019-01-03 12:43 | PN ---
Subjective Date of Service: 01/03/19 Interval History: Ms. Almendarez is not feeling well. She is feeling very SOB and is anxious. Nebulizer was helpful. She is not entirely present for our conversation, and it is unclear if she is retaining any information. Still having R lower chest wall pain. Poor appetite. Nursing reports very labile moods and periods of thrashing in bed when she is anxious. Family History: Unchanged from Admission Social History: Unchanged from Admission Past Medical History: Unchanged from Admission Objective Active Medications: Albuterol (Ventolin 2.5 Mg/3 Ml Neb.Tara*) 2.5 mg INH Q6H PRN SOB/WHEEZING Bupropion HCl (Wellbutrin Sr Tab*) 150 mg PO DAILY KIRSTEN Azithromycin (Zithromax 500 Mg/250 Ml) 500 mg in 250 mls @ 250 mls/hr IVPB 0600 KIRSTEN Ceftriaxone Sodium 1 gm/ (Sodium Chloride) 50 mls @ 100 mls/hr IVPB 0500 [facility] Lamotrigine (Lamictal Tab(*)) 100 mg PO BID KIRSTEN Lorazepam (Ativan Inj*) 1 mg IV PUSH Q6H PRN ANXIETY Morphine Sulfate (Morphine Inj (Syringe)*) 4 mg IV Q4H PRN PAIN - MODERATE Oxycodone/Acetaminophen (Percocet 5/325 Tab*) 1 tab PO Q4H PRN PAIN - MODERATE Venlafaxine HCl (Effexor Xr Cap*) 150 mg PO BID [facility] Vital Signs - 8 hr 01/03/19 01/03/19 01/03/19 06:14 08:00 08:38 Pulse Rate Respiratory 22 28 26 Rate O2 Sat by Pulse Oximetry 01/03/19 01/03/19 01/03/19 08:42 09:40 09:45 Pulse Rate Respiratory 26 26 26 Rate O2 Sat by Pulse Oximetry 01/03/19 10:39 Pulse Rate 101 Respiratory 18 Rate O2 Sat by Pulse 94 Oximetry Oxygen Devices in Use Now: OxyMask - 4L Appearance: Middle-aged female sitting in bed in NAD Ears/Nose/Mouth/Throat: Mucous Membranes Moist Neck: NL Appearance and Movements; NL JVP, Trachea Midline Respiratory: Symmetrical Chest Expansion and Respiratory Effort, - - R lung diminished throughout, L lung clear Cardiovascular: NL Sounds; No Murmurs; No JVD, RRR Abdominal: NL Sounds; No Tenderness; No Distention Extremities: No Edema Neurological: - - Oriented to self and place Lines/Tubes/Other Access: Clean, Dry and Intact Peripheral IV Result Diagrams: 01/03/19 08:51 01/03/19 08:51 Assess/Plan/Problems-Billing Assessment: Ms. Almendarez is a 58 yo F with PMH of anxiety, bipolar, depression; who presented to the ED with c/o abdominal pain and was found to have pneumonia, but no acute abdominal pathology. - Patient Problems (1) Pneumonia Code(s): J18.9 - PNEUMONIA, UNSPECIFIED ORGANISM Comment: - Requiring 4L oxygen to maintain sat >90% - CT chest shows RLL consolidation and effusion - Continue azithromycin, ceftriaxone (2) Acute respiratory failure with hypoxia Code(s): J96.01 - ACUTE RESPIRATORY FAILURE WITH HYPOXIA Comment: - Requiring 4L oxygen at rest - Secondary to pneumonia - Continue azithromycin, ceftriaxone; start scheduled nebs (3) Sepsis Comment: - Improving - Met criteria on admission with leukocytosis, tachycardia, tachypnea - Plan as above (4) Bipolar disorder, unspecified Code(s): F31.9 - BIPOLAR DISORDER, UNSPECIFIED Comment: - Labile mood - Continue bupropion, venlafaxine, Lamictal, lorazepam (5) DVT prophylaxis Code(s): Z29.9 - ENCOUNTER FOR PROPHYLACTIC MEASURES, UNSPECIFIED Comment: - Lovenox (6) Full code status Code(s): Z78.9 - OTHER SPECIFIED HEALTH STATUS Comment: Status and Disposition: Inpatient. Anticipate d/c home when medically stable and maintaining sats on RA. Attending: Tom Medina
[2019-01-03] MEDS ORDERED: Enoxaparin(*) 40 MG/0.4 ML SYR SUBCUT SCH (13:00)
[2019-01-03] MEDS: Albuterol 2.5 MG/3 ML NEB.SOL* (0.083%) INH SCH ×4 (13:45→23:08)
[2019-01-04] MEDS: Morphine INJ* 4 MG/ML 1 ML SYRINGE (NEW SYRINGE VERSION) IV PRN ×5 (00:03→20:49)
[2019-01-04] MEDS: LORazepam INJ* 2 MG/ML 1 ML VIAL IV PUSH PRN (02:42)
[2019-01-04] MEDS: Albuterol 2.5 MG/3 ML NEB.SOL* (0.083%) INH SCH ×6 (03:19→22:53)
[2019-01-04] MEDS ORDERED: QUEtiapine TAB* 25 MG PO ONE (04:02)
[2019-01-04] MEDS: cefTRIAXone(*) 1 GM in NS 0.9% 50 ML* 50 ML IVPB SCH (04:31)
[2019-01-04] MEDS ORDERED: LORazepam TAB(*) 1 MG PO ONE ×2 (08:01→14:52)
[2019-01-04] MEDS: Venlafaxine EXT RELEASE CAP* 75 MG PO SCH ×2 (08:43→20:25)
[2019-01-04] MEDS: buPROPion SR TAB.SR* 150 MG PO SCH (08:43)
[2019-01-04] MEDS: lamoTRIgine TAB(*) 100 MG PO SCH ×3 (08:43→19:38)
[2019-01-04 09:27] LABS: ABS Basophils 0.1 10^3/ul (0-0.2); ABS Eosinophils 0.2 10^3/ul (0-0.6); ABS Monocytes 0.7 10^3/ul (0-0.8); ABS Neutrophils 14.5 10^3/ul (1.5-7.7); Eosinophil % 0.9 %; Hematocrit 32 % (35-47); Hemoglobin 10.7 g/dL (12.0-16.0); Mean Corpuscular HGB Conc 33 g/dL (31-36); Mean Corpuscular Hemoglobin 28 pg (27-31); Mean Corpuscular Volume 83 fL (80-97); Mean Platelet Volume 7.3 fL (7.4-10.4); Nucleated Red Blood Cells % 0.1; Platelet Count 453 10^3/uL (150-450); Red Blood Count 3.85 10^6 /uL (3.70-4.87); Red Cell Distribution Width 14 % (10-15); White Blood Count 16.5 10^3/uL (3.5-10.8)
[2019-01-04] MEDS: Azithromycin 500 mg/250 ml NS 500 MG/250 ML BAG IVPB SCH (10:59)
[2019-01-04] MEDS ORDERED: Furosemide IV* 10 MG/ML 2 ML VIAL (20 MG) IV ONE (11:01)
[2019-01-04] MEDS ORDERED: Albuterol 2.5 MG/3 ML NEB.SOL* (0.083%) INH SCH (13:00)
--- NOTE | 2019-01-04 13:08 | PN ---
Subjective Date of Service: 01/04/19 Interval History: Ms. Almendarez is not feeling well today. She continuously complaints that she "cannot breathe." She was up attempting to ambulate to the bathroom, by herself , without oxygen, on my arrival. She is notably anxious and very difficult to console. Unable to answer any further questions. Nursing reports anxiety, dyspnea, and an unwitnessed fall this afternoon. Family History: Unchanged from Admission Social History: Unchanged from Admission Past Medical History: Unchanged from Admission Objective Active Medications: Albuterol (Ventolin 2.5 Mg/3 Ml Neb.Tara*) 2.5 mg INH Q4H KIRSTEN Bupropion HCl (Wellbutrin Sr Tab*) 150 mg PO DAILY [facility] Azithromycin (Zithromax 500 Mg/250 Ml) 500 mg in 250 mls @ 250 mls/hr IVPB 0600 [facility] Ceftriaxone Sodium 1 gm/ (Sodium Chloride) 50 mls @ 100 mls/hr IVPB 0500 [facility] Lamotrigine (Lamictal Tab(*)) 100 mg PO BID [facility] Lorazepam (Ativan Inj*) 1 mg IV PUSH Q6H PRN ANXIETY Morphine Sulfate (Morphine Inj (Syringe)*) 4 mg IV Q4H PRN PAIN - MODERATE Oxycodone/Acetaminophen (Percocet 5/325 Tab*) 1 tab PO Q4H PRN PAIN - MODERATE Venlafaxine HCl (Effexor Xr Cap*) 150 mg PO BID [facility] Vital Signs - 8 hr 01/04/19 01/04/19 01/04/19 05:16 07:14 07:15 Temperature 98.9 F Pulse Rate 108 105 Respiratory 20 17 22 Rate Blood Pressure 105/46 (mmHg) O2 Sat by Pulse 98 98 Oximetry 01/04/19 01/04/19 01/04/19 08:42 10:50 10:58 Temperature Pulse Rate Respiratory 24 22 26 Rate Blood Pressure (mmHg) O2 Sat by Pulse Oximetry 01/04/19 01/04/19 12:00 12:18 Temperature Pulse Rate 106 Respiratory 22 18 Rate Blood Pressure (mmHg) O2 Sat by Pulse 95 Oximetry Oxygen Devices in Use Now: Simple Face Mask - 8L Appearance: Middle-aged female sitting in bed, dyspneic and anxious, but stable Ears/Nose/Mouth/Throat: Mucous Membranes Moist Neck: NL Appearance and Movements; NL JVP, Trachea Midline Respiratory: Symmetrical Chest Expansion and Respiratory Effort, - - RML and RLL very diminished, RUL slighly diminished, L lung throughout with mild wheezing Cardiovascular: NL Sounds; No Murmurs; No JVD, - - Tachycardic Abdominal: NL Sounds; No Tenderness; No Distention Extremities: No Edema Neurological: - - Oriented to self, unable to determine further orientation Lines/Tubes/Other Access: Clean, Dry and Intact Peripheral IV Result Diagrams: 01/04/19 09:00 01/03/19 08:51 Assess/Plan/Problems-Billing Assessment: Ms. Almendarez is a 58 yo F with PMH of anxiety, bipolar, depression; who presented to the ED with c/o abdominal pain and was found to have pneumonia, but no acute abdominal pathology. - Patient Problems (1) Parapneumonic effusion Code(s): J18.9 - PNEUMONIA, UNSPECIFIED ORGANISM; J91.8 - PLEURAL EFFUSION IN OTHER CONDITIONS CLASSIFIED ELSEWHERE Comment: - CXR on admission showing small to moderate right sided effusion - Repeat CXR this morning showing increased effusion and US shows loculation - Thoracentesis today - Change to Zosyn and vanco (2) Acute respiratory failure with hypoxia Code(s): J96.01 - ACUTE RESPIRATORY FAILURE WITH HYPOXIA Comment: - Episode of respiratory distress overnight and now requiring 8L oxygen - Secondary to pneumonia and pleural effusion - Continue nebs; change to Zosyn and vanco (3) Pneumonia Code(s): J18.9 - PNEUMONIA, UNSPECIFIED ORGANISM Comment: - Requiring 8L oxygen to maintain sat >90% - CT chest shows RLL consolidation and effusion - Change to Zosyn and vanco (4) Sepsis Comment: - Still meeting criteria, but not worsening - Met criteria on admission with leukocytosis, tachycardia, tachypnea - Plan as above (5) Bipolar disorder, unspecified Code(s): F31.9 - BIPOLAR DISORDER, UNSPECIFIED Comment: - Labile mood - Continue bupropion, venlafaxine, Lamictal, lorazepam (6) DVT prophylaxis Code(s): Z29.9 - ENCOUNTER FOR PROPHYLACTIC MEASURES, UNSPECIFIED Comment: - SCDs (7) Full code status Code(s): Z78.9 - OTHER SPECIFIED HEALTH STATUS Comment: Status and Disposition: Inpatient. Anticipate d/c home when medically stable. Attending: Shan Alvarez
[2019-01-04] MEDS ORDERED: Piperacillin/Tazobac ADVAN(*) 3.375 GM in NS 0.9% 100 ML* 100 ML IVPB ONE (13:30)
[2019-01-04] MEDS ORDERED: Vancomycin per Pharmacy* NOTE FOLLOW UP SCH (14:00)
[2019-01-04] MEDS ORDERED: Vancomycin(*) 1,500 MG in NS 0.9% 250 ML* 250 ML IVPB ONE (14:00)
[2019-01-04] MEDS ORDERED: Zosyn per Pharmacy* NOTE FOLLOW UP SCH (14:00)
[2019-01-04] MEDS ORDERED: Iohexol 300* (CONTRAST) 10 ML SDV IV ONE (16:00)
--- NOTE | 2019-01-04 19:12 | PN ---
Progress Note - Progress Note Date of Service: 01/04/19 Note: Procedure Note: Patient with RT parapneumonic effusion, progressive, dyspneic, SOB. Location of effusion marked by ultrasound, and size of effusion assessed w/ CT, appears free-flowing. Patient consented to thoracentesis. Time out completed. Area prepped and draped in sterile fashion. 9 ml of 2% lidocaine infiltrated superficially and deep, RT posterior scapular line, between 9th and 10th rib (est) 8 F catheter with 14F needle passed into pleural space. 400 ml yellow fluid aspirated Samples sent for cytology, cell count, culture, and chemistries. Patient tolerated procedure well. Portable CXR ordered.
[2019-01-04 19:21] LABS: Body Fluid Source Pleural Fluid
[2019-01-04 20:21] LABS: Body Fluid Mono 14 %
[2019-01-05] MEDS: ZOSYN 3.375 GM Q8H per EXTENDED INFUSION IVPB SCH ×8 (00:13→20:57)
[2019-01-05] MEDS: LORazepam INJ* 2 MG/ML 1 ML VIAL IV PUSH PRN ×2 (00:40→19:19)
[2019-01-05] MEDS: Albuterol 2.5 MG/3 ML NEB.SOL* (0.083%) INH SCH ×6 (02:38→23:01)
[2019-01-05] MEDS: Morphine INJ* 4 MG/ML 1 ML SYRINGE (NEW SYRINGE VERSION) IV PRN ×2 (04:16→10:44)
[2019-01-05] MEDS: buPROPion SR TAB.SR* 150 MG PO SCH (08:51)
[2019-01-05] MEDS: lamoTRIgine TAB(*) 100 MG PO SCH ×2 (08:51→21:18)
[2019-01-05] MEDS: Venlafaxine EXT RELEASE CAP* 75 MG PO SCH (08:51)
[2019-01-05] MEDS: Vancomycin(*) 1,000 MG in NS 0.9% 250 ML* 250 ML IV SCH ×3 (11:13→23:26)
--- NOTE | 2019-01-05 11:44 | PN ---
Subjective Date of Service: 01/05/19 Interval History: Ms. Almendarez is feeling better today. SOB is greatly improved. She is still having some anterior right lower chest pain, but it is resolved with positioning. She is pleased with her improvement and is curious what the pleural fluid shows. No concerns from nursing. Family History: Unchanged from Admission Social History: Unchanged from Admission Past Medical History: Unchanged from Admission Objective Active Medications: Albuterol (Ventolin 2.5 Mg/3 Ml Neb.Tara*) 2.5 mg INH Q4H KIRSTEN Bupropion HCl (Wellbutrin Sr Tab*) 150 mg PO DAILY KIRSTEN Piperacillin Sod/Tazobactam (Sod 3.375 gm/ Sodium Chloride) 100 mls @ 25 mls/ hr IVPB Q8H KIRSTEN Vancomycin HCl 1,000 mg/ (Sodium Chloride) 250 mls @ 166.667 mls/hr IV Q8H KIRSTEN Lamotrigine (Lamictal Tab(*)) 100 mg PO BID KIRSTEN Lorazepam (Ativan Inj*) 1 mg IV PUSH Q6H PRN ANXIETY Morphine Sulfate (Morphine Inj (Syringe)*) 4 mg IV Q4H PRN PAIN - MODERATE Oxycodone/Acetaminophen (Percocet 5/325 Tab*) 1 tab PO Q4H PRN PAIN - MODERATE Venlafaxine HCl (Effexor Xr Cap*) 150 mg PO BID [facility] Vital Signs - 8 hr 01/05/19 01/05/19 01/05/19 03:50 04:16 07:08 Temperature 97.9 F Pulse Rate 97 Respiratory 26 26 24 Rate Blood Pressure 107/51 (mmHg) O2 Sat by Pulse 92 Oximetry 01/05/19 01/05/19 08:00 10:44 Temperature 99.1 F Pulse Rate 102 Respiratory 24 17 Rate Blood Pressure 124/47 (mmHg) O2 Sat by Pulse 97 Oximetry Oxygen Devices in Use Now: High Flow Nasal Cannula - 8L Appearance: Middle-aged female lying in bed in NAD Ears/Nose/Mouth/Throat: Mucous Membranes Moist Neck: NL Appearance and Movements; NL JVP, Trachea Midline Respiratory: Symmetrical Chest Expansion and Respiratory Effort, Clear to Auscultation - Right side diminished throughout, but improved from yesterday Cardiovascular: NL Sounds; No Murmurs; No JVD, RRR Extremities: No Edema Neurological: Alert and Oriented x 3 Lines/Tubes/Other Access: Clean, Dry and Intact Peripheral IV Nutrition: Taking PO's Result Diagrams: 01/04/19 09:00 01/03/19 08:51 Assess/Plan/Problems-Billing Assessment: Ms. Almendarez is a 58 yo F with PMH of anxiety, bipolar, depression; who presented to the ED with c/o abdominal pain and was found to have pneumonia, but no acute abdominal pathology. - Patient Problems (1) Parapneumonic effusion Code(s): J18.9 - PNEUMONIA, UNSPECIFIED ORGANISM; J91.8 - PLEURAL EFFUSION IN OTHER CONDITIONS CLASSIFIED ELSEWHERE Comment: - CXR on admission showing small to moderate right sided effusion - Repeat CXR and CT yesterday showing increased effusion - Thoracentesis yesterday with CXR showing improvement afterward; results pending - Continue az Ralpho (2) Acute respiratory failure with hypoxia Code(s): J96.01 - ACUTE RESPIRATORY FAILURE WITH HYPOXIA Comment: - Previously with respiratory distress and now requiring 8L oxygen - Secondary to pneumonia and pleural effusion - Continue nebs, az Ralpho (3) Pneumonia Code(s): J18.9 - PNEUMONIA, UNSPECIFIED ORGANISM Comment: - Requiring 8L oxygen to maintain sat >90% - CT chest shows RLL consolidation and effusion - Continue kaveh Ralph (4) Sepsis Comment: - Improving - Met criteria on admission with leukocytosis, tachycardia, tachypnea - Plan as above (5) Bipolar disorder, unspecified Code(s): F31.9 - BIPOLAR DISORDER, UNSPECIFIED Comment: - Labile mood - Continue bupropion, venlafaxine, Lamictal, lorazepam (6) DVT prophylaxis Code(s): Z29.9 - ENCOUNTER FOR PROPHYLACTIC MEASURES, UNSPECIFIED Comment: - SCDs (7) Full code status Code(s): Z78.9 - OTHER SPECIFIED HEALTH STATUS Comment: Status and Disposition: Inpatient. Anticipate d/c home when medically stable, timeframe to be determined by clinical course. Attending: Tom Medina
[2019-01-05 12:38] LABS: ABS Basophils 0.1 10^3/ul (0-0.2); ABS Eosinophils 0.3 10^3/ul (0-0.6); ABS Lymphocytes 0.9 10^3/ul (1.0-4.8); ABS Monocytes 0.6 10^3/ul (0-0.8); ABS Neutrophils 10.4 10^3/ul (1.5-7.7); Eosinophil % 2.6 %; Hematocrit 31 % (35-47); Hemoglobin 10.1 g/dL (12.0-16.0); Lymphocyte % 7.6 %; Mean Corpuscular HGB Conc 33 g/dL (31-36); Mean Corpuscular Hemoglobin 27 pg (27-31); Mean Corpuscular Volume 84 fL (80-97); Mean Platelet Volume 6.9 fL (7.4-10.4); Platelet Count 469 10^3/uL (150-450); Red Blood Count 3.72 10^6 /uL (3.70-4.87); Red Cell Distribution Width 15 % (10-15); White Blood Count 12.4 10^3/uL (3.5-10.8)
[2019-01-05 12:49] LABS: Calcium 8.2 mg/dL (8.6-10.3); Potassium 3.2 mmol/L (3.5-5.0)
[2019-01-05 12:55] LABS: C Reactive Protein 298.67 mg/L (<8.01); EGFR African American 143.4 (>60); EGFR Non-African American 118.5 (>60)
--- NOTE | 2019-01-05 20:43 | PN ---
Progress Note - Progress Note Date of Service: 01/05/19 Note: I was called by nursing that the patient has a rash to her legs. I was told there was slight red dots on her legs last night. This evening it is noted that the rash on her legs is much worse. There was concern for landy syndrome but the rash did not come with the infusion of the vancomycin and did not go away after the infusion completed. I am more suspicious the rash is a drug rash from zosyn. Will stop the zosyn and change to aztreonam for gram negative coverage.
[2019-01-05] MEDS: Aztreonam (*) 1 GM in NS 0.9% 50 ML* 50 ML IVPB SCH (21:18)
[2019-01-06] MEDS: Albuterol 2.5 MG/3 ML NEB.SOL* (0.083%) INH SCH ×4 (04:02→15:57)
[2019-01-06] MEDS: Aztreonam (*) 1 GM in NS 0.9% 50 ML* 50 ML IVPB SCH ×2 (04:59→18:47)
[2019-01-06] MEDS ORDERED: Vancomycin Trough Check NOTE FOLLOW UP ONE (05:00)
[2019-01-06] MEDS: Morphine INJ* 4 MG/ML 1 ML SYRINGE (NEW SYRINGE VERSION) IV PRN (05:33)
[2019-01-06] MEDS: LORazepam INJ* 2 MG/ML 1 ML VIAL IV PUSH PRN (05:34)
[2019-01-06] MEDS: buPROPion SR TAB.SR* 150 MG PO SCH (08:16)
[2019-01-06] MEDS: lamoTRIgine TAB(*) 100 MG PO SCH (08:17)
[2019-01-06] MEDS ORDERED: Venlafaxine EXT RELEASE CAP* 75 MG PO SCH (09:00)
[2019-01-06 10:43] LABS: Hematocrit 33 % (35-47); Hemoglobin 10.8 g/dL (12.0-16.0); Mean Corpuscular HGB Conc 33 g/dL (31-36); Mean Corpuscular Hemoglobin 28 pg (27-31); Mean Corpuscular Volume 83 fL (80-97); Platelet Count 474 10^3/uL (150-450); Red Blood Count 3.92 10^6 /uL (3.70-4.87); Red Cell Distribution Width 15 % (10-15); White Blood Count 13.4 10^3/uL (3.5-10.8)
[2019-01-06 10:54] LABS: INR 1.45 (0.82-1.09)
[2019-01-06 11:03] LABS: Calcium 8.1 mg/dL (8.6-10.3); EGFR African American 153.3 (>60); EGFR Non-African American 126.7 (>60); Potassium 3.2 mmol/L (3.5-5.0)
[2019-01-06 11:08] LABS: Activated Partial Thrombo Time 28.7 seconds (26.0-38.0)
[2019-01-06] MEDS: Vancomycin(*) 1,000 MG in NS 0.9% 250 ML* 250 ML IV SCH ×2 (11:30→14:27)
[2019-01-06] MEDS ORDERED: fentaNYL* 50 MCG/ML 2 ML VIAL (100 MCG VIAL) ONE (12:19)
[2019-01-06] MEDS ORDERED: Naloxone* 0.4 MG/ML 1 ML VIAL ONE (12:19)
[2019-01-06 12:53] LABS: ABS Basophils 0.1 10^3/ul (0-0.2); ABS Eosinophils 0.3 10^3/ul (0-0.6); ABS Lymphocytes 1.2 10^3/ul (1.0-4.8); ABS Monocytes 0.9 10^3/ul (0-0.8); ABS Neutrophils 10.8 10^3/ul (1.5-7.7); Eosinophil % 2.5 %; Lymphocyte % 9.2 %
--- NOTE | 2019-01-06 15:37 | PN ---
Subjective Date of Service: 01/06/19 Interval History: Ms. Almendarez is feeling better today. Her breathing is slightly improved, but she remains SOB. Continues to have anterior right lower chest wall pain, worse with inspiration and movement. She is agreeable to another thoracentesis today. She is concerned about her dog and not having anyone to care for it. Developed a rash overnight which was thought to be r/t Zosyn by fabrics and material cutter. Nursing reports labile moods. Family History: Unchanged from Admission Social History: Unchanged from Admission Past Medical History: Unchanged from Admission Objective Active Medications: Albuterol (Ventolin 2.5 Mg/3 Ml Neb.Tara*) 2.5 mg INH Q4H KIRSTEN Bupropion HCl (Wellbutrin Sr Tab*) 150 mg PO DAILY KIRSTEN Vancomycin HCl 1,000 mg/ (Sodium Chloride) 250 mls @ 166.667 mls/hr IV Q8H KIRSTEN Aztreonam 1 gm/ Sodium (Chloride) 50 mls @ 200 mls/hr IVPB Q8H KIRSTEN Lamotrigine (Lamictal Tab(*)) 100 mg PO BID KIRSTEN Lorazepam (Ativan Inj*) 1 mg IV PUSH Q6H PRN ANXIETY Morphine Sulfate (Morphine Inj (Syringe)*) 4 mg IV Q4H PRN PAIN - MODERATE Oxycodone/Acetaminophen (Percocet 5/325 Tab*) 1 tab PO Q4H PRN PAIN - MODERATE Potassium Chloride (Klor Con Er Tab*) 20 meq PO Q4H KIRSTEN Venlafaxine HCl (Effexor Xr Cap*) 300 mg PO DAILY [facility] Vital Signs - 8 hr 01/06/19 01/06/19 07:38 08:00 Temperature 97.9 F Pulse Rate 91 Respiratory 20 20 Rate Blood Pressure 120/80 (mmHg) O2 Sat by Pulse 99 96 Oximetry Oxygen Devices in Use Now: Nasal Cannula - 6L Appearance: Middle-aged female lying in bed in NAD Neck: NL Appearance and Movements; NL JVP, Trachea Midline Respiratory: Symmetrical Chest Expansion and Respiratory Effort, - - RML and RLL diminished, otherwise clear Cardiovascular: NL Sounds; No Murmurs; No JVD, RRR Abdominal: NL Sounds; No Tenderness; No Distention Skin: - - Diffuse maculopapular rash to BLE only Neurological: Alert and Oriented x 3 Lines/Tubes/Other Access: Clean, Dry and Intact Peripheral IV Result Diagrams: 01/06/19 10:34 01/06/19 10:34 Assess/Plan/Problems-Billing Assessment: Ms. Almendarez is a 58 yo F with PMH of anxiety, bipolar, depression; who presented to the ED with c/o abdominal pain and was found to have pneumonia, but no acute abdominal pathology. - Patient Problems (1) Parapneumonic effusion Code(s): J18.9 - PNEUMONIA, UNSPECIFIED ORGANISM; J91.8 - PLEURAL EFFUSION IN OTHER CONDITIONS CLASSIFIED ELSEWHERE Comment: - CXR on admission showing small to moderate right sided effusion - Repeat CXR and CT yesterday showing increased effusion - Bedside thoracentesis 01/04/19 with CXR showing improvement afterward; results pending - Repeat thora with IR today - Continue vanco, aztreonam (2) Acute respiratory failure with hypoxia Code(s): J96.01 - ACUTE RESPIRATORY FAILURE WITH HYPOXIA Comment: - Previously with respiratory distress and now requiring 6L oxygen - Secondary to pneumonia and pleural effusion - Continue nebs, vanco, aztreonam (3) Pneumonia Code(s): J18.9 - PNEUMONIA, UNSPECIFIED ORGANISM Comment: - Requiring 6L oxygen to maintain sat >90% - CT chest shows RLL consolidation and effusion - Continue vanco, aztreonam (4) Rash Code(s): R21 - RASH AND OTHER NONSPECIFIC SKIN ERUPTION Comment: - Maculopapular rash to BLE, developed overnight - Suspected secondary to Zosyn which was d/c'd; does not appear to be Solomon Syndrome - Continue to monitor (5) Sepsis Comment: - Improving - Met criteria on admission with leukocytosis, tachycardia, tachypnea - Plan as above (6) Bipolar disorder, unspecified Code(s): F31.9 - BIPOLAR DISORDER, UNSPECIFIED Comment: - Labile mood - Continue bupropion, venlafaxine, Lamictal, lorazepam (7) DVT prophylaxis Code(s): Z29.9 - ENCOUNTER FOR PROPHYLACTIC MEASURES, UNSPECIFIED Comment: - SCDs (8) Full code status Code(s): Z78.9 - OTHER SPECIFIED HEALTH STATUS Comment: Status and Disposition: Inpatient. Anticipate d/c home when medically stable, timeframe to be determined by clinical course. Attending: Brain Stein
[2019-01-06] MEDS ORDERED: Potassium Chlor TAB* 20 MEQ TAB.ER PO SCH (16:00)
--- NOTE | 2019-01-06 17:24 | CONSULT ---
Identification - Patient Identification Reason for Psychiatric Consultation: Other - Capacity to make informed medical decisions, including leaving the hospital AMA. -: Patient is a 58 year old, F admitted on 01/02/19. History - Objective HPI: Fielded this request for a stat psychiatric consult to evaluate capacity of a patient attempting to leave AMA. This journalists and other writers's understanding: this request emanated from 4th floor staff to [facility], to have a psychiatrist come down stat to the hospital entrance, as a patient was attempting to leave AMA. 4th floor staff briefed Adarsh Farley, Glory Bell, (both [facility] RNs who offered to accompany me) and myself. Ms. Almendarez was reportedly admitted on 01/02/19 for abdominal pain and thoraco- centeshis (She is known to [facility]), She reportedly became agitated after learning a neighbor was no longer willing to watch her animal(s) and 4th floor social work service explored options such as the [employer] with her, wich were unsatisfying to her. She gor dressed and left the floor. The concern was that she was hypoxic, saturating only at 87% on room air. I joined Ms. Almendarez, fully clothed, sitting on a bench in front of the hospital , waiting for a cab she had called. She expressed irritation "about a psychiatrist being called." She expressed feeling ok, said her priority was to care for her animal(s). I did not observe her to be in any acute medical distress. She assured me she will seek emergency care if needed and she planned to return to the hospital tomorrow for follow-up. Exam Appearance: Healthy Appearing Hygiene: Normal Grooming: Well Kept Psychomotor Activities: Normal Exhibits Abnormal Movement: No Attitude and Relatedness: Irritable Eye Contact: Good - Speech Quality: Unpressured Observed Affect: Non-labile Affect Consistent with: Dysphoria Patient's Thought Process: Coherent, Goal Directed Thought Content: No Passive Wish, No Suicidal Planning, No Homicidal Ideation, No Paranoid Ideation Experiencing Hallucinations: No, Sensorium is Clear Level of Consciousness: Alert Orientation: Yes Intact Impulse Control: Intact Insight and Judgement: Fair Impression - Impression Clinical Impression: The patient has full capacity to make informed medical decisions, shows a good understanding of the risks Merits Inpatient Hospitalization: No Plan - Treatment Plan Continued Medication Management: Continue Outpt Medication Medications: Current Medications Albuterol (Ventolin 2.5 Mg/3 Ml Neb.Tara*) 2.5 mg INH Q4H [facility] Last Admin: 01/06/19 15:57 Dose: Not Given Bupropion HCl (Wellbutrin Sr Tab*) 150 mg PO DAILY [facility] Last Admin: 01/06/19 08:16 Dose: 150 mg Vancomycin HCl 1,000 mg/ (Sodium Chloride) 250 mls @ 166.667 mls/hr IV Q8H [facility] Last Admin: 01/06/19 14:27 Dose: Not Given Aztreonam 1 gm/ Sodium (Chloride) 50 mls @ 200 mls/hr IVPB Q8H [facility] Last Admin: 01/06/19 04:59 Dose: 200 mls/hr Lamotrigine (Lamictal Tab(*)) 100 mg PO BID [facility] Last Admin: 01/06/19 08:17 Dose: 100 mg Lorazepam (Ativan Inj*) 1 mg IV PUSH Q6H PRN PRN Reason: ANXIETY Last Admin: 01/06/19 05:34 Dose: 1 mg Miscellaneous (Ativan Pyxis Hidalgo) 1 ea N/A .ATIVAN IV HIDALGO PRN PRN Reason: PYXIS HIDALGO Morphine Sulfate (Morphine Inj (Syringe)*) 4 mg IV Q4H PRN PRN Reason: PAIN - MODERATE Last Admin: 01/06/19 05:33 Dose: 4 mg Oxycodone/Acetaminophen (Percocet 5/325 Tab*) 1 tab PO Q4H PRN PRN Reason: PAIN - MODERATE Last Admin: 01/03/19 15:37 Dose: 1 tab Pharmacy Consult (Vancomycin Per Pharmacy*) 1 note FOLLOW UP .VANC PER PHARMACY [facility]; Protocol Potassium Chloride (Klor Con Er Tab*) 20 meq PO Q4H [facility] Stop: 01/06/19 20:01 Venlafaxine HCl (Effexor Xr Cap*) 300 mg PO DAILY [facility] Last Admin: 01/06/19 08:17 Dose: 300 mg - Discharge Plan Discharge Plan: Outpatient Follow Up Outpatient Program: TBD
[2019-01-06 17:57] VITALS: BP 121/73
--- NOTE | 2019-01-06 22:05 | DS ---
CC: Dr. Lory Elizabeth; Dr. Maikel Ragland * DISCHARGE SUMMARY: DATE OF ADMISSION: 01/02/19 DATE OF DISCHARGE AGAINST MEDICAL ADVICE: 01/06/19 PRIMARY CARE PROVIDER: Dr. Lory Elizabeth. ATTENDING PHYSICIAN: Dr. Josee Butterfield.* (DICTATED BY BEHZAD GARCES NP) PRIMARY DIAGNOSES: 1. Community-acquired pneumonia complicated by parapneumonic effusion. 2. Acute hypoxic respiratory failure. 3. Rash due to drug reaction. 4. Sepsis. SECONDARY DIAGNOSES: 1. Bipolar disorder. 2. Depression. 3. Anxiety. STUDIES WHILE IN THE HOSPITAL: 1. Gallbladder ultrasound on 01/01/19 reads as no acute sonographic pathology. 2. Abdomen and pelvis CT on 01/02/19 reads as there is new small to moderate right pleural effusion and right base pneumonitis. Stable moderate hiatal hernia. No other acute CT pathology. 3. Chest x-ray on 01/02/19 reads as no active cardiopulmonary disease. 4. Chest CT on 01/02/19 reads as consolidation of the right lower lung with bronchograms and a moderate sized pleural effusion. This is associated with a lesion in the left upper lung, which abuts the pleural surface. This may represent a pneumonia. These abnormalities were not seen on prior CT scan on . Fluid tracking into the right major and minor fissures. 5. Chest x-ray on 01/04/19 reads as increasing right pleural effusion. 6. Chest ultrasound on 01/04/19 reads as loculated right pleural effusion. 7. Brain CT on 01/04/19 reads as no intracranial mass or hemorrhage, although evaluation is limited due to motion artifact. 8. Chest x-ray on 01/04/19 reads as increasing right pleural effusion. 9. Chest x-ray on 01/04/19 reads as no pneumothorax after right thoracentesis. 10. Chest x-ray on 01/06/19 reads as large right pleural effusion with right basilar atelectasis. Left lung field is clear. HISTORY OF PRESENT ILLNESS AND HOSPITAL COURSE: Ms. Almendarez is a 58-year-old female with a significant psychiatric history including admission to the psychiatric unit here in the hospital, who presented to the emergency room on with complaints of abdominal pain. Please see the history and physical by Dr. Blount for a complete summary of the events leading up to this hospitalization. In short, the patient came in complaining of abdominal pain, though no acute pathology was found. Chest imaging was done, which did show pneumonia and a pleural effusion. At that point, she was meeting sepsis criteria with leukocytosis, tachycardia and tachypnea. She was placed on ceftriaxone and azithromycin and admitted by the hospitalist service. The next couple of days were difficult for the patient. She experienced significant shortness of breath and was requiring up to 8 L of oxygen to maintain saturations in the 90s. She experienced anterior right lower chest pain, which was worse with deep breathing and worse with movement. On the laminating machine offbearer of 01/04/19, the patient had an episode of respiratory distress. A chest x-ray at that time showed a worsening right pleural effusion and a nearly completely xavi out right lung field on chest x-ray. It was determined that the patient would require a thoracentesis, though it became unclear if the pleural effusion was loculated or not as the ultrasound did show some loculation and it was suspected that this was going to be a complicated thoracentesis. At that point, she had a repeat chest CT which did not show any loculation of the pleural effusion and so a bedside thoracentesis was performed at that time, approximately 400 mL of straw colored fluid was aspirated from the right lung. Laboratory results on that pleural fluid are still pending at this point, though fluid did show WBCs of 83, RBCs of 75, white count was neutrophil predominant. At this point, there is preliminary cytology on that fluid showing inflammation, negative for malignant cells. The patient did moderately better after that thoracentesis and oxygen requirements did decrease to 6 L. Shortness of breath had improved, but she remained symptomatic. At that point, she was switched over to vanco and Zosyn for more aggressive treatment. Overnight last night, the patient did develop a drug reaction. She was noted to have a maculopapular rash to bilateral lower extremities. The instructional consultant who saw the patient that night felt as though the reaction was due to Zosyn and not vanco as it did not worsen when she received another dose of vanco. The Zosyn was stopped and she was placed on aztreonam for gram-negative coverage. This morning, the patient still had a drug rash, though she indicated that the rash was improving and was asymptomatic. She has remained short of breath, though respiratory status was stable. I did speak with Interventional Radiology this morning and ultimately, the patient was taken down to Interventional Radiology for a repeat thoracentesis today. At that time, approximately 550 mL of fluid was drained from the right lung. The radiologist suspected that there was still approximately 100 mL of loculated fluid at the base of the right lung. The patient did report feeling significantly improved after that thoracentesis. She did express some concern in the morning as she had her neighbor caring for her dog and apparently the neighbor told her that she was no longer able to care for the dog. I did advise the patient that social work would see her and we would arrange for care of the dog. Upon speaking with social work, they tried to see the patient midday today, although the patient was off the floor at that time down in Interventional Radiology and so the family welfare social work professor did come back around 4 p.m. today. At that point, the patient had become irate and was adamant that she needed to leave the hospital to take care of her dog. Nursing staff and myself personally spoke with the patient regarding options and advised her that the [employer] was available to take in her dog and that could be arranged with social work, though the patient was adamant that that was not acceptable and that she needed to go home and get her dog. I did speak at length with the patient about her diagnosis, treatment and risks of leaving against medical advice. I advised the patient that I was recommended that she remain in the hospital for further treatment with aggressive IV antibiotics, supplemental oxygen and possibly need for repeat thoracentesis. I did advise her that if she were to leave the hospital, risks included hypoxia, acute respiratory failure, syncope, worsening pleural effusion , respiratory arrest or . She was able to verbalize understanding of these risks and repeat the risks back to me and so it was determined that she did have capacity to leave against medical advice. She stated that she would return to the emergency room tomorrow morning for further treatment. The patient did indicate that she would sign a form stating that she was going to leave against medical advice, though approximately 1 hour later, the patient was more agitated when she was waiting for a cab with nursing staff and at that point, she stated that she would not sign the AMA form unless we wrote on the form that we "neglected" her during the day today as she did not feel that her needs related to her dog were properly addressed. I did attempt to send in antibiotics for the patient and she would not provide me with a pharmacy for which to send the antibiotics and stated that she did not trust the hospital to send in any antibiotics due to the drug reaction that she experienced overnight. At that time, she stated that she would call her primary care provider in the morning to obtain a prescription for antibiotics. I did speak with the patient's primary care provider, Dr. Elizabeth this evening and did update her on the details of this hospitalization and the patient's plans to leave against medical advice, so she is aware that the patient will likely follow up with her for further treatment. I did recommend that the patient be placed on Levaquin if she were to take p.o. antibiotics, though obviously IV antibiotics are ideal due to the complex nature of this pneumonia. Most recent vitals are as follows: Temp 97.9, heart rate 93, respiratory rate 18, oxygen saturation 100% on 4 L, blood pressure 135/64. DISCHARGE MEDICATIONS: Continued medications: 1. Bupropion 150 mg p.o. daily. 2. Lamictal 100 mg p.o. b.i.d. 3. Venlafaxine 150 mg p.o. b.i.d. DISCHARGE PLAN: Ms. Almendarez is leaving against medical advice as she can continue her usual medications and ideally would be placed on some sort of antibiotics. At this point, I think that Levaquin would be the best outpatient choice, though she is not willing to let me send that prescription in for her and she reports that she will either return to the emergency room tomorrow or call her primary care provider in the morning for a prescription. If she ultimately does not return to the emergency room, it would be ideal that she follow up closely with her primary care provider to ensure resolution of the pneumonia and parapneumonic effusion as well as for followup on labs, cytology and cultures from the pleural fluid which are still pending at this time. DISCHARGE CONDITION: Guarded. DISCHARGE DISPOSITION: Against medical advice. This is the summary of a complex medical history and hospital stay. For further details, please see the entire medical record. TIME SPENT: Approximately 120 minutes were spent on this discharge. BEHZAD GARCES GRAIN WEIGHER [id number]/[facility] #: [id number] [facility] CENTERCatherine
[2019-01-07 12:43] LABS: Lactate Dehydrogenase, BF 789 U/L
== END 2019-01-06 17:30 | disposition left against medical advice (07) | DRG 720 ==
LOC: ED 22:37 → MED 01-02 07:46
PROVIDERS: ADMIT Student in an Organized Health Care Education/Training Program; ATTEND Internal Medicine
PROC: 0W993ZZ Drainage of Right Pleural Cavity, Percutaneous Approach (ICD-10-PCS; 2019-01-04)
PROC: 0W993ZZ Drainage of Right Pleural Cavity, Percutaneous Approach (ICD-10-PCS; principal; 2019-01-06)
DX: A41.9 Sepsis, unspecified organism (principal); J18.9 Pneumonia, unspecified organism; J96.01 Acute respiratory failure with hypoxia; F31.81 Bipolar II disorder; J91.8 Pleural effusion in other conditions classified elsewhere; F60.3 Borderline personality disorder; F90.9 Attention-deficit hyperactivity disorder, unspecified type; F41.0 Panic disorder [episodic paroxysmal anxiety]; F43.10 Post-traumatic stress disorder, unspecified; Z53.29 Procedure and treatment not carried out because of patient's decision for other reasons; L27.0 Generalized skin eruption due to drugs and medicaments taken internally; T36.0X5A Adverse effect of penicillins, initial encounter; Y92.239 Unspecified place in hospital as the place of occurrence of the external cause; Z88.1 Allergy status to other antibiotic agents; Z88.8 Allergy status to other drugs, medicaments and biological substances
CPT/HCPCS: 32551; 32555; 36415; 36600; 70450; 71045; 71250; 71260; 74177; 75989; 76604; 76705; 80048; 80053; 80202; 82803; 82945; 83615; 83690; 83986; 84157; 85025; 85610; 85730; 86140; 87040; 87070; 87205; 88112; 89051; 94640; 96374; 96375; 99284; A9270-GY; J0456; J0696; J1630; J1650; J1885; J1940; J2060; J2270; J2310; J2405; J2543; J3010; J3370; Q9967

== ENCOUNTER 2019-01-08 06:51 | Inpatient (IN) | payer OTHER ==
[2019-01-08] MEDS ORDERED: Albuterol/Ipratropium NEB.SOL* Albuterol 2.5 MG/Ipratropium 0.5 MG 3 ML INH ONE (07:05)
--- NOTE | 2019-01-08 07:06 | ED ---
Shortness of Breath - HPI Summary HPI Summary: Patient is a 58-year-old female who presents emergency department for ongoing shortness of breath after recently being admitted for pneumonia. Patient admitted to [facility] [place]. Patient on antibiotics and two thoracentesis. Patient states she needed to leave the hospital AGAINST MEDICAL ADVICE to take care of her pets at home. Patient is currently taking Levaquin at home which she states helping her shortness of breath. Patient has a history of bipolar disorder but otherwise denies past medical history. Patient also notes she developed a rash on her legs will not hospital that has increased. She states rash is not puritic. Pt otherwise denies fever, chills, CP, abd. pain. Sx are moderate in severity. No current modifying factors. - History of Current Complaint Time Seen by Provider: 01/08/19 06:56 Hx Obtained From: Patient - Allergy/Home Medications Allergies/Adverse Reactions: Allergies Allergy/AdvReac Type Severity Reaction Status Date / Time divalproex sodium Allergy Severe Rash Verified 01/08/19 07:21 [From Depakote] imipramine Allergy Severe Rash Verified 01/08/19 07:21 trazodone Allergy Severe Rash Verified 01/08/19 07:21 piperacillin [From Zosyn] Allergy Rash Verified 01/08/19 07:21 tazobactam [From Zosyn] Allergy Rash Verified 01/08/19 07:21 PMH/Surg Hx/FS Hx/Imm Hx Previously Healthy: Yes Endocrine/Hematology History: Denies: Hx Diabetes, Hx Thyroid Disease Cardiovascular History: Denies: Hx Hypertension Respiratory History: Denies: Hx Asthma, Hx Chronic Obstructive Pulmonary Disease (COPD) GI History: Denies: Hx Ulcer History: Denies: Hx Dialysis Sensory History: Reports: Hx Contacts or Glasses - reading glasses Denies: Hx Deafness, Hx Hearing Aid Opthamlomology History: Reports: Hx Contacts or Glasses - reading glasses Psychiatric History: Reports: Hx Anxiety, Hx Attention Deficit Hyperactivity Disorder, Hx Depression, Hx Panic Disorder, Hx Post Traumatic Stress Disorder, Hx Inpatient Treatment - Multiple [facility] admissions in the past 2 years, Hx Community Mental Health Tx, Hx Suicide Attempt, Hx Substance Abuse - Stimulants and sedatives, Other Psychiatric Issues/Disorders - Hx dysthymia, Hx ECT Denies: Hx Eating Disorder, Hx Schizophrenia, Hx Bipolar Disorder, Hx of Violent Episodes Against Others - Cancer History Cancer Type, Location and Year: None reported - Surgical History Surgery Procedure, Year, and Place: implants in - then removed Infectious Disease History: Reports: Hx Shingles Denies: Hx Clostridium Difficile, Hx Hepatitis, Hx Human Immunodeficiency Virus (HIV), Hx of Known/Suspected MRSA, Hx Tuberculosis, Hx Known/Suspected VRE , Hx Known/Suspected VRSA, History Other Infectious Disease - Family History Known Family History: Positive: Other - Lung CA, Depression-sister, Non- Contributory - Social History Occupation: Unemployed Lives: Alone Alcohol Use: None Hx Substance Use: No Substance Use Type: Reports: None Hx Tobacco Use: No Smoking Status (MU): Never Smoked Tobacco Have You Smoked in the Last Year: No Review of Systems Constitutional: Negative Negative: Fever, Chills Eyes: Negative ENT: Negative Cardiovascular: Negative Negative: Palpitations, Chest Pain Positive: Shortness Of Breath, Cough Gastrointestinal: Negative Positive: Rash Neurological: Negative All Other Systems Reviewed And Are Negative: Yes Physical Exam Triage Information Reviewed: Yes Vital Signs Reviewed: Yes Appearance: Positive: Well-Appearing - Pt. sitting up in bed in NAD. Talkative. O2 saturation 89% on RA but pt. appears to be breathing easily and speaking in full sentences. Skin: Positive: Warm, Dry, Other - Macular small erythematous rash noted mostly to legs and mildly on arms. Rash is nonblanchable. Does not appear to be urticaria. Negative nikolsky sign. No lesions or blisters on mouth. White plague noted to tongue. Head/Face: Positive: Normal Head/Face Inspection Eyes: Positive: Normal, EOMI, DEYSI Neck: Positive: Supple. Negative: Nuchal Rigidity Respiratory/Lung Sounds: Positive: Other - Diminshed breath sounds throughout. No retractions or accessory muscle use. Cardiovascular: Positive: Normal, RRR. Negative: Murmur Abdomen Description: Positive: Nontender, Soft Neurological: Positive: Normal, CN Intact II-III Psychiatric: Positive: Anxious Procedures - Sedation Patient Received Moderate/Deep Sedation with Procedure: No Diagnostics - Laboratory Result Diagrams: 01/08/19 08:35 01/08/19 07:29 Lab Statement: Any lab studies that have been ordered have been reviewed, and results considered in the medical decision making process. Course/Dx - Course Course Of Treatment: Pt. presenting for ongoing SOB after recently leaving [facility] AMA for pneumonia and large pleural effusion. Afebrile. O2 saturation 89% on RA , VS otherwise stable. Pt. refusing IV access. Breathing treatment, labs and cxr ordered. ECG done at 0737 shows a sinus rhythm of 92bpm, normal axis, no STEMI. CBC shows an increased WBC of 16, CRP 198. CXR per radiology: IMPRESSION: LARGE RIGHT PLEURAL EFFUSION WITH AIR-FLUID LEVEL SUGGESTING THE POSSIBILITY. OF AN EMPYEMA, BRONCHOPLEURAL FISTULA, LOCULATED HYDROPNEUMOTHORAX LESS LIKELY PULMONARY. ABSCESS. RECOMMEND A CT OF THE CHEST WITH CONTRAST FOR FURTHER EVALUATION. CT chest per radiology: IMPRESSION: Near complete compressive atelectasis of the RIGHT lung. Large complex RIGHT. pleural effusion with both nonloculated and loculated components. Dominant loculated. component at the superior to mid posterior aspect where there is a 6.3 cm AP by 6.6 cm. transverse by approximate 11.5 cm cephalocaudal thin- walled gas and fluid containing. collection. The loculated pleural fluid collection appears new compared with the 2018 CT. The overall volume of RIGHT pleural fluid appears decreased compared with the. December CT with intervening thoracentesis on January 06, 2019. Discussed with Dr. Steele who agrees with admission. Discussed case with Dr. Dey, hospitalist , who accepts pt. for admission. - Diagnoses Differential Diagnosis/HQI/PQRI: Positive: CHF, COPD Exacerbation, NM, Pneumonia , Pulmonary Embolism Provider Diagnoses: Pleural effusion Discharge ED - Sign-Out/Discharge Documenting (check all that apply): Patient Departure - Discharge Plan Condition: Stable Disposition: ADMITTED TO [facility] Referrals: Lory Elizabeth MD [Primary Care Provider] - - Billing Disposition and Condition Condition: STABLE Disposition: Admitted to [facility]
[2019-01-08] MEDS ORDERED: Albuterol/Ipratropium NEB.SOL* Albuterol 2.5 MG/Ipratropium 0.5 MG 3 ML ONE (07:21)
[2019-01-08 07:51] LABS: Albumin 2.8 g/dL (3.2-5.2); Calcium 7.7 mg/dL (8.6-10.3); Potassium 3.3 mmol/L (3.5-5.0); Total Bilirubin 0.3 mg/dL (0.2-1.0)
[2019-01-08 07:57] LABS: BUN/Creatinine Ratio 15.7 (8-20); EGFR African American 149.9 (>60); EGFR Non-African American 123.9 (>60); Globulin 2.9 g/dL (2-4); Total Protein 5.7 g/dL (6.4-8.9)
[2019-01-08 07:58] LABS: Troponin I 0.01 ng/mL (<0.03)
[2019-01-08 08:44] LABS: ABS Basophils 0.2 10^3/ul (0-0.2); ABS Eosinophils 0.2 10^3/ul (0-0.6); ABS Lymphocytes 1.5 10^3/ul (1.0-4.8); ABS Monocytes 0.9 10^3/ul (0-0.8); ABS Neutrophils 13.2 10^3/ul (1.5-7.7); Eosinophil % 1.1 %; Hematocrit 33 % (35-47); Lymphocyte % 9.3 %; Mean Corpuscular HGB Conc 33 g/dL (31-36); Mean Corpuscular Hemoglobin 28 pg (27-31); Mean Corpuscular Volume 83 fL (80-97); Mean Platelet Volume 7.4 fL (7.4-10.4); Nucleated Red Blood Cells % 0.1; Platelet Count 465 10^3/uL (150-450); Red Blood Count 3.97 10^6 /uL (3.70-4.87); Red Cell Distribution Width 15 % (10-15); White Blood Count 16.1 10^3/uL (3.5-10.8)
[2019-01-08] MEDS ORDERED: NS 0.9% 1000 ML** 1,000 ML IV ONE (09:03)
[2019-01-08 09:04] LABS: C Reactive Protein 198.82 mg/L (<8.01)
[2019-01-08] MEDS: Acetaminophen TAB* 325 MG PO ONE ×2 (09:29→09:38)
[2019-01-08] MEDS ORDERED: Iohexol 300* (CONTRAST) 10 ML SDV IV ONE (09:31)
[2019-01-08] MEDS ORDERED: traMADol TAB* 50 MG PO ONE (10:18)
[2019-01-08] MEDS ORDERED: Albuterol/Ipratropium NEB.SOL* Albuterol 2.5 MG/Ipratropium 0.5 MG 3 ML INH PRN (11:37)
[2019-01-08] MEDS ORDERED: NS 0.9% 1000 ML** 1,000 ML IV SCH (11:45)
[2019-01-08] MEDS ORDERED: Potassium Chlor TAB* 20 MEQ TAB.ER PO ONE (12:32)
[2019-01-08] MEDS ORDERED: Vancomycin per Pharmacy* NOTE FOLLOW UP SCH (13:00)
--- NOTE | 2019-01-08 13:00 | HP ---
HISTORY AND PHYSICAL: DATE OF ADMISSION: 01/08/19 PRIMARY CARE PROVIDER: Dr. Lory Elizabeth. ATTENDING PHYSICIAN: Dr. Mey Dey * (dictated by IFRAH Delcid). CHIEF COMPLAINT: 1. Nonproductive cough. 2. Shortness of breath. HISTORY OF PRESENT ILLNESS: Ms. Almendarez is a 58-year-old female with an extensive past psych history that includes psychiatric hospitalizations, bipolar disorder, depression and anxiety, who presented to the ER today with complaints of nonproductive cough, shortness of breath, subjective fevers and chills, fatigue. Ms. Almendarez was an inpatient at [facility] [place] [facility] from 01/02/19 to 01/06/19 where she was being treated for community-acquired pneumonia complicated by a parapneumonic effusion, acute hypoxic respiratory failure and a rash that she developed presumably after Zosyn. During her inpatient stay, she was treated with IV antibiotics ceftriaxone and azithromycin initially and then transitioned to Zosyn and vancomycin. She developed a rash after administration of Zosyn and prior to administration of vanco; therefore, Zosyn was stopped and replaced with aztreonam. A thoracentesis was performed on the day of discharge. The patient notes that she felt better after the thoracentesis and that her breathing improved, although she was still requiring oxygen. She then left AMA on 01/06/19. Since that time, the patient notes that she felt much better at discharge, but then started to develop worsening shortness of breath when she arrived home. The following day, 01/07/19, the patient saw her primary care provider, Dr. Elizabeth who prescribed her Levaquin. Ms. Almendarez took one dose of the Levaquin and noted that her rash worsened and her breathing did not improve, in fact her breathing worsened into the night and the following morning, today, she comes to the ER with continued cough and shortness of breath. She admits to subjective fevers, chills. She notes that she has difficulty with sleeping due to shortness of breath. She feels that her rash has worsened some since she took one dose of Levaquin yesterday. She denies itching or pain. She complains of "right lung pain" as well as neck pain. In the ER, the patient received full workup. Blood work reveals a leukocytosis , mild anemia, mild thrombocytosis, potassium is 3.3, CRP is elevated to 198.82. There is no lactic acidosis. Chest x-ray reveals a large right pleural effusion with recommendations for CT chest with contrast. CT chest with contrast shows compressive atelectasis of right lung, large complex right pleural effusion, non- loculated and loculated. Loculated pleural fluid collection appears new compared with 01/04/19 CT. Overall volume of right pleural effusion appears decreased compared to 01/04/19 CT with intervening thoracentesis on 01/06/19. In the ER, the patient received acetaminophen 650 mg p.o., one DuoNeb nebulizer, 1 L normal saline fluid bolus and tramadol 50 mg p.o. The hospitalist team was asked to evaluate the patient for admission. PAST MEDICAL HISTORY: 1. Bipolar disorder. 2. Depression. 3. Anxiety. 4. Recent hospitalization on 01/02/19 to 01/06/19 for CAP complicated by pleural effusion. PAST SURGICAL HISTORY: Breast reduction. HOME MEDICATIONS: 1. Bupropion 150 mg p.o. daily. 2. Lamotrigine 100 mg p.o. b.i.d. 3. Venlafaxine 150 mg p.o. b.i.d. DRUG ALLERGIES: DIVALPROEX, rash; IMIPRAMINE, rash; TRAZODONE, rash; PIPERACILLIN/TAZOBACTAM, rash. FAMILY HISTORY: Maternal grandfather had lung cancer. Father was murdered. The patient's mother approximately 3 years after her father was murdered, she is unsure of the cause of . Denies family history of heart disease, stroke, or diabetes mellitus. SOCIAL HISTORY: The patient denies current or former use of tobacco. She drinks rarely, less than weekly. She has not worked in the last approximately 1 year. She lives alone. In the event that she is unable to make her own medical decisions, she has appointed her workers compensation attorney, Luciana Franco to be her surrogate decision maker. REVIEW OF SYSTEMS: A 14-point review of systems has been performed and all the pertinent positives and negatives are in the HPI. All other systems are negative. PHYSICAL EXAMINATION GENERAL: Ms. Almendarez is a well-developed, well-nourished, obese, middle-aged white woman who is sitting up in bed. She is breathing comfortably on 2.5 L nasal cannula. She appears somewhat unkempt. She is pleasant and cooperative. VITAL SIGNS: Temperature 97.8 temporal, heart rate 86, respiratory rate 29, oxygen saturation 94% on 2 L O2, blood pressure 120/84. HEENT: PERRL. EOMI. Nonicteric sclerae. Hearing is grossly intact. Oral mucosa is dry. There are no lesions. Unable to visualize posterior pharynx. Palate elevates symmetrically. Tongue is at midline. PULMONARY: Symmetrical chest expansion without use of accessory muscles. Again , the patient is wearing 2 L of supplemental O2 per nasal cannula. Left lung clear to auscultation. Right lung with decreased breath sounds throughout, basilar rales. No digital clubbing, no cyanosis. CARDIOVASCULAR: Regular rate and rhythm with S1, S2 present without murmurs, rubs, clicks, or gallops. There is no JVD. Trace lower extremity edema. ABDOMEN: Obese. Bowel sounds in all quadrants. Soft, nontender to palpation. MUSCULOSKELETAL: Full range of motion with 5/5 strength bilaterally in upper and lower extremities. NEURO: The patient is awake. She is alert and oriented x3. Cranial nerves grossly intact. Muscle strength 5/5 bilaterally in the upper and lower extremities. SKIN: The patient has an extensive rash that is worse on the lower extremities , but is also noted on the torso and upper extremities. Rash is erythematous, maculopapular, nontender and nonpruritic. ASSESSMENT AND PLAN: Ms. Almendarez is a 58-year-old female with a past medical history of bipolar disorder, depression, anxiety and recent hospitalization with discharge AMA for community-acquired pneumonia complicated by pleural effusion. She will be admitted inpatient for: 1. Community-acquired pneumonia with associated pleural effusion. The patient was admitted on 01/02/19 to 01/06/19 for this and was being treated ultimately with vancomycin and aztreonam. She received a thoracentesis on 01/06/19 which led to improvement in breathing and she then left AMA. She is back today with continued nonproductive cough and shortness of breath. Blood cultures have been obtained already. We will order urine Legionella, Strep pneumo as well as sputum culture, although the patient reports nonproductive coughing. DuoNeb have been ordered q.4 hours p.r.n., supplemental O2 as needed. We will consult Infectious Disease for further recommendations on antibiotic choice in length of time. The patient may need a repeat thoracentesis. She will be continued on antibiotic coverage with aztreonam and vancomycin in the meantime while we await recommendations from Infectious Disease. 2. Acute hypoxic respiratory failure. This is likely in the setting of community- acquired pneumonia complicated by pleural effusion. Continue supplemental O2 as needed. The patient will be evaluated for need for thoracentesis. 3. Bipolar disorder. Continue lamotrigine. 4. Depression/anxiety. Continue venlafaxine, bupropion. 5. DVT prophylaxis: According to DVT Risk Assessment, the patient scores 2, placing her at moderate risk. She will be started on enoxaparin 40 subcu q.24 hours. 6. Code status: Full code. TIME SPENT: Approximately 60 minutes was spent on this admission, greater than half that time was spent [id number] with the patient obtaining history, performing physical, and reviewing the plan of care. The case has been reviewed with my attending Dr. Dey, who is in agreement with the plan of care. IFRAH CARRIZALES [id number]/[facility] #: [id number] NORIS
[2019-01-08] MEDS ORDERED: Venlafaxine EXT RELEASE CAP* 75 MG PO ONE (14:04)
[2019-01-08] MEDS: buPROPion SR TAB.SR* 150 MG PO SCH (14:52)
[2019-01-08] MEDS: lamoTRIgine TAB(*) 100 MG PO SCH ×2 (14:52→19:39)
[2019-01-08] MEDS: traMADol TAB* 50 MG PO PRN (14:52)
[2019-01-08] MEDS ORDERED: Vancomycin(*) 1,500 MG in NS 0.9% 250 ML* 250 ML IVPB ONE (15:45)
[2019-01-08] MEDS ORDERED: fentaNYL* 50 MCG/ML 2 ML VIAL (100 MCG VIAL) ONE (16:59)
[2019-01-08] MEDS: Enoxaparin(*) 40 MG/0.4 ML SYR SUBCUT SCH (17:14)
[2019-01-08] MEDS: Venlafaxine EXT RELEASE CAP* 75 MG PO SCH (19:39)
[2019-01-08] MEDS: Acetaminophen TAB* 325 MG PO PRN (19:39)
[2019-01-08] MEDS: Aztreonam (*) 2 GM in NS 0.9% 100 ML* 100 ML IVPB SCH (19:40)
[2019-01-08] MEDS ORDERED: Morphine INJ* 2 MG/ML 1 ML SYRINGE (TWO MG - NEW SYRINGE VERSION) ONE (20:19)
[2019-01-08] MEDS: Morphine INJ* 2 MG/ML 1 ML SYRINGE (TWO MG - NEW SYRINGE VERSION) IV PRN (20:20)
[2019-01-09] MEDS ORDERED: Lorazepam PYXIS KEY PRN (00:06)
[2019-01-09] MEDS ORDERED: LORazepam INJ* 2 MG/ML 1 ML VIAL ONE (00:10)
[2019-01-09] MEDS ORDERED: Lorazepam PYXIS KEY ONE (00:10)
[2019-01-09] MEDS: Morphine INJ* 2 MG/ML 1 ML SYRINGE (TWO MG - NEW SYRINGE VERSION) IV PRN ×2 (00:14→06:01)
[2019-01-09] MEDS: LORazepam INJ* 2 MG/ML 1 ML VIAL IV PUSH PRN ×4 (00:14→20:40)
[2019-01-09] MEDS: Aztreonam (*) 2 GM in NS 0.9% 100 ML* 100 ML IVPB SCH ×3 (02:18→17:10)
[2019-01-09] MEDS: traMADol TAB* 50 MG PO PRN ×3 (02:23→20:35)
[2019-01-09] MEDS: Acetaminophen TAB* 325 MG PO PRN ×4 (02:24→20:35)
[2019-01-09] MEDS: Vancomycin(*) 1,000 MG in NS 0.9% 250 ML* 250 ML IV SCH ×3 (05:19→21:54)
[2019-01-09] MEDS: lamoTRIgine TAB(*) 100 MG PO SCH ×2 (08:47→20:35)
[2019-01-09] MEDS: Venlafaxine EXT RELEASE CAP* 75 MG PO SCH ×2 (08:47→20:35)
[2019-01-09] MEDS: buPROPion SR TAB.SR* 150 MG PO SCH (08:48)
[2019-01-09] MEDS ORDERED: Morphine 4 MG/ML VIAL (1 ml) 4 MG/ML VIAL IV PRN (09:32)
[2019-01-09] MEDS ORDERED: DORNASE ALFA 1 mg/ml(NF) 5 MG in NS 0.9% 50 ML* 45 ML INTRAPLEUR ONE (10:00)
[2019-01-09] MEDS ORDERED: Alteplase (CATHFLO)* 10 MG in NS 0.9% 50 ML* 40 ML INTRAPLEUR ONE (10:00)
[2019-01-09] MEDS: ALPRAZolam TAB* 0.25 MG PO PRN ×2 (10:50→22:14)
--- NOTE | 2019-01-09 13:09 | CONS ---
PULMONARY CONSULTATION REPORT: DATE OF CONSULT: 01/09/19 CONSULTATION REQUESTED BY: IFRAH Delcid REASON FOR CONSULT: Evaluation of pleural effusion. HISTORY OF PRESENT ILLNESS: The patient is a 58-year-old female with alcohol abuse. The patient presents over the weekend for evaluation of shortness of breath, chest discomfort. The patient was found to have right-sided pleural effusion. The patient had thoracentesis with removal of 400 mL of yellow fluid. The patient at that time was also noted to have complexities of the pleural fluid. The patient subsequently underwent thoracentesis with help of IR on 01/06/19 with removal of another 550 mL of straw-colored fluid. The patient noted to have fluid with minimal septations after drainage. The patient subsequently signed out AMA on 01/06/19. The patient presented again on for evaluation of productive cough and shortness of breath. The patient with extensive psych history, prior hospitalization for bipolar disorder, depression and anxiety. The patient also presented with subjective fevers and chills. The patient reported fatigue. The patient was treated for parapneumonic effusion with Zosyn during recent hospitalization. She was also given Rocephin and Zithromax. She had developed rash after changed to Zosyn, which was stopped and replaced with aztreonam. She was still requiring oxygen at the time of recent discharge from the hospital on 01/06/19; however, she signed out AMA at that time. The patient felt better after discharge, then started developing worsening shortness of breath the following day. She saw her primary care physician, Dr. Elizabeth, who prescribed her Levaquin. The patient took 1 dose of Levaquin and noted that the rash has worsened and breathing did not improve. Her shortness of breath has worsened overnight and she decided to come into the emergency room for further evaluation. The patient also reports subjective fevers, chills, and fatigue. The patient denies any itching or pain with the rash. She has had pain on the right side radiating into her neck. Further evaluation in the ER included labs, which showed leukocytosis, anemia, and thrombocytosis. Potassium was 3.3. CRP was significantly elevated at 198. She did not have elevated lactic acid levels. The patient had chest x-ray and CT scans of the chest, which were personally reviewed by me and with the patient today - chest x-ray revealed large right pleural effusion with associated atelectasis. CT scan of the chest showed significant atelectasis of the right lung and large complex right pleural effusion with larger loculated component and multiple other areas of free flowing and loculated collections. The loculated pleural collection was not seen on the prior x-ray or CT. The patient subsequently underwent IR- guided drainage of the pleural fluid and pigtail catheter placement on 01/08/19. The patient at that time had 200 mL of serous fluid, which was also mixed with fibrinous material removed. Postprocedural ultrasound revealed the drain in place. The patient continues to have pain this morning on the site. She is receiving morphine and Toradol as needed for the pain. PAST MEDICAL HISTORY: 1. Extensive psych history with bipolar disorder, depression, anxiety. 2. Recent hospitalization for community-acquired pneumonia, complicated by parapneumonic effusion. PAST SURGICAL HISTORY: Breast reduction. MEDICATIONS AT HOME: 1. Bupropion. 2. Lamotrigine. 3. Venlafaxine. DRUG ALLERGIES: DIVALPROEX, IMIPRAMINE, TRAZODONE, ZOSYN, LEVAQUIN with rash. FAMILY HISTORY: Maternal grandfather had lung cancer. Father was murdered. The patient's mother approximately 3 years after the father was murdered, unsure cause of . Denies family history of stroke or diabetes. SOCIAL HISTORY: Denies smoking. She drinks rarely. REVIEW OF SYSTEMS: All 14 systems reviewed and as per HPI. PHYSICAL EXAM: Anxious female, uncomfortable from pain. Vital Signs: Temperature 97.9, pulse 101 beats per minute, respiratory rate 16 per minute, O2 sat 94% on room air, blood pressure 127/47. HEENT: Pupils equal, reactive to light. Mucous membranes moist. Lungs: Diminished air entry bilaterally, especially on the right side. Cardiovascular: S1, S2 present. Abdomen: Soft , nontender, nondistended. Bowel sounds present. Extremities: Normal range of motion. Skin: Has extensive rash on the extremities. Neuro: Alert, awake, oriented x3. No focal deficits. Psych: Anxiety . DIAGNOSTIC STUDIES/LAB DATA: WBC count 16.1, hemoglobin 11, hematocrit 33, platelet count 465. Sodium 135, potassium 3.3, chloride 104, bicarb 23, BUN 8, creatinine 0.5, lactic acid within normal limits. CRP elevated at 198, trending down. Body fluid analysis from 01/04/19 showed jory cloudy fluid with elevated neutrophils at 81%, glucose 67, total protein of 4.7, LDH of 787. Pleural fluid cultures from 01/04/19 showed no growth. Pleural fluid from did reveal nucleated cells, 3+ neutrophils and 3+ gram-positive cocci in chains resembling strep and possible 1+ gram-negative bacilli. Chest x-ray and CT scan of the chest as described above in HPI. IMPRESSION AND RECOMMENDATIONS: 58-year-old female with pneumonia and parapneumonic effusion possibly from Strep pneumo even though urinary antigen for Strep pneumo is negative. The patient with complicated pleural effusion with concern for parapneumonic effusion/empyema. The patient also noted to be having cultures from the pleural fluid sent from 01/08/19 showing 3+ gram-positive cocci in chains resembling strep and further identification pending. She also noted to be having 1+ gram-negative bacilli. The patient is currently on aztreonam. Alteplase and dornase estrella were attempted to be instilled into the pleural space this morning. The patient had dislodged the connection and the fluid all was drained before it sat there for long enough to work. The patient had new drainage put in and was reconnected to Pleur- evac. Dornase estrella and tPA was reordered, will be administered back into the pleural space. If the patient is unable to drain enough fluid post administration of the medications, she would need thoracic surgery. The patient had pigtail catheter placed by Interventional Radiology yesterday. The patient is not able to put out any pleural fluid out of the pigtail catheter. As per interventional radiologist, the patient noted to have fibrinous material drained during thoracentesis. She will have tPA and dornase also instilled into the pleural space with clamping of the tube for an hour after instillation and unclamp after an hour to see if that would help drain the fluid. However, given complexity of the fluid that was drained yesterday, she might not drain the fluid with the medication. She would then need VATS and would need transfer to a facility where VATS can be performed. Above recommendations were discussed in detail with the patient and Barb Guido, CHUY, and bedside RN. Thank you for allowing me to participate in the care of the patient. Will follow up with you. [id number]/[facility] #: [id number] NORIS
[2019-01-09] MEDS: Enoxaparin(*) 40 MG/0.4 ML SYR SUBCUT SCH (13:58)
--- NOTE | 2019-01-09 15:07 | PN ---
Subjective Date of Service: 01/09/19 Interval History: Patient seen and examined. Extremely anxious, difficult to console/de-escalate. Complaining of lung and feet pain and difficulty ambulating. Dr. Osman and Dr. Morales at bedside to adjust pigtail catheter for drainage. Patient otherwise denies fevers or chills, no n/v. Does endorse edema of the lower extremities and diffuse rash. Objective Active Medications: Acetaminophen (Tylenol Tab*) 650 mg PO Q4H PRN PRN Reason: mild to moderate pain Last Admin: 01/09/19 13:48 Dose: 650 mg Albuterol/Ipratropium (Duoneb (Albuterol 2.5 Mg/Ipratropium 0.5 Mg)) 1 neb INH [id number] AWAKE PRN PRN Reason: sob/wheexing Alprazolam (Xanax Tab*) 0.25 mg PO TID PRN PRN Reason: ANXIETY Last Admin: 01/09/19 10:50 Dose: 0.25 mg Alteplase, Recombinant (Cathflo Activase*) 10 mg IV BID [facility] Stop: 01/11/19 21:01 Bupropion HCl (Wellbutrin Sr Tab*) 150 mg PO DAILY [facility] Last Admin: 01/09/19 08:48 Dose: 150 mg Enoxaparin Sodium (Lovenox(*)) 40 mg SUBCUT Q24H [facility] Last Admin: 01/09/19 13:58 Dose: 40 mg Aztreonam 2 gm/ Sodium (Chloride) 100 mls @ 100 mls/hr IVPB Q8H [facility] Last Admin: 01/09/19 11:04 Dose: 100 mls/hr Vancomycin HCl 1,000 mg/ (Sodium Chloride) 250 mls @ 166.667 mls/hr IV Q8H [facility] Last Admin: 01/09/19 13:48 Dose: 166.667 mls/hr Dornase Pelon 5 mg/ Sodium (Chloride) 50 mls @ 0 mls/hr INTRAPLEUR Q12H [facility] Stop: 01/11/19 20:01 Lamotrigine (Lamictal Tab(*)) 100 mg PO BID [facility] Last Admin: 01/09/19 08:47 Dose: 100 mg Lorazepam (Ativan Inj*) 1 mg IV PUSH Q4H PRN PRN Reason: ANXIETY Last Admin: 01/09/19 13:49 Dose: 1 mg Miscellaneous (Ativan Pyxis Hidalgo) 1 ea N/A .ATIVAN IV HIDALGO PRN PRN Reason: PYXIS HIDALGO Morphine Sulfate (Morphine Inj (Syringe)*) 4 mg IV Q4H PRN PRN Reason: PAIN - SEVERE Pharmacy Consult (Vancomycin Per Pharmacy*) 1 note FOLLOW UP .VANC PER PHARMACY [facility]; Protocol Pharmacy Profile Note (Vancomycin Trough Check) 1 note FOLLOW UP 0600 ONE Stop: 01/10/19 06:01 Tramadol HCl (Ultram*) 50 mg PO Q8H PRN PRN Reason: PAIN - MODERATE Last Admin: 01/09/19 10:49 Dose: 50 mg Venlafaxine HCl (Effexor Xr Cap*) 150 mg PO BID [facility] Last Admin: 01/09/19 08:47 Dose: 150 mg Vital Signs - 8 hr 01/09/19 01/09/19 01/09/19 08:48 09:49 10:49 Respiratory 20 16 24 Rate 01/09/19 01/09/19 10:50 13:49 Respiratory 24 20 Rate Oxygen Devices in Use Now: None Appearance: alert, moderate to severe distress Eyes: PERRLA Ears/Nose/Mouth/Throat: Mucous Membranes Moist Neck: NL Appearance and Movements; NL JVP Respiratory: Symmetrical Chest Expansion and Respiratory Effort, - - clear left diminished right, no wheeze Cardiovascular: NL Sounds; No Murmurs; No JVD, RRR Extremities: - - edema and erythema to bilateral LE Skin: - - diffuse mac-pap rash and edema to bilateral LE Neurological: Alert and Oriented x 3 Nutrition: Taking PO's Result Diagrams: 01/08/19 08:35 01/08/19 07:29 Microbiology and Other Data: Microbiology 01/08/19 18:30 Gram Stain - Final Thoracentesis Fluid Body Fluid Culture - Preliminary No Growth Day 1 01/08/19 08:35 Aerobic Blood Culture - Preliminary Blood Venous No Growth Day 1 Anaerobic Blood Culture - Preliminary No Growth Day 1 01/08/19 07:29 Blood Culture - Preliminary Blood Venous No Growth Day 1 01/08/19 17:49 Legionella Urinary Antigen - Final Urine Negative Legionella Antigen Streptococcus pneumoniae Ag Screen - Final Negative S. pneumo Antigen 01/08/19 12:10 Nasal Screen MRSA (PCR) - Final Nasal Mrsa Detected Assess/Plan/Problems-Billing Assessment: This is a 58 year old female with recent admission for pneumonia with loculated pleural effusion that returned to the ER short of breat after signing out AMA, now found to have persistent parapneumonic effusion requiring thoracentesis with insertion of pigtail drainage catheter. - Patient Problems (1) Parapneumonic effusion Current Visit: No Code(s): J18.9 - PNEUMONIA, UNSPECIFIED ORGANISM; J91.8 - PLEURAL EFFUSION IN OTHER CONDITIONS CLASSIFIED ELSEWHERE SNOMED Code(s): 89656007 Comment: - Large right sided effusion and loculation, s/p thoracentesis x2 (01/04 and ) - Pigtail insertion with Dr. Ragland 01/08 noting purulent fluid - Consult with , recommends instilling dornase with alteplase Q12h x 6 doses to lyse and drain the pocket, if it does not drain, may have to transfer to tertiary care center. Will continue to monitor output closely - Continue aztreonam and vancomycin, follow fluid cytology and cultures - Continue pleur-evac to low wall suction (2) Pneumonia Code(s): J18.9 - PNEUMONIA, UNSPECIFIED ORGANISM SNOMED Code(s): 148387512 Comment: - As above - On room air, hemodynamically stable - Continue vanco, aztreonam (3) Rash Code(s): R21 - RASH AND OTHER NONSPECIFIC SKIN ERUPTION SNOMED Code(s): 399832296 Comment: - Maculopapular rash to BLE 2/2 zosyn reaction - Topical steroid, continue to monitor (4) Bipolar affective, mixed, severe Code(s): F31.63 - BIPOLAR DISORD, CRNT EPSD MIXED, SEVERE, W/O PSYCH FEATURES SNOMED Code(s): 046878401 Comment: - Previous hospitalizations in the past - Continue home meds and supportive care (5) Full code status Code(s): Z78.9 - OTHER SPECIFIED HEALTH STATUS SNOMED Code(s): 263955188 Comment: Status and Disposition: Inpatient, condition guarded.
[2019-01-09] MEDS ORDERED: Hydrocortisone 2.5% CREAM(NF) 30 GM TUBE TOPICAL SCH (15:30)
[2019-01-09] MEDS: Morphine INJ* 4 MG/ML 1 ML SYRINGE (NEW SYRINGE VERSION) IV PRN ×2 (18:23→22:14)
[2019-01-09] MEDS: Hydrocortisone 1% CREAM* 30 GM TUBE TOPICAL SCH (20:47)
[2019-01-09] MEDS ORDERED: Alteplase (CATHFLO)* 2 MG VIAL IV SCH (22:00)
[2019-01-09] MEDS: DORNASE ALFA 1 mg/ml(NF) 5 MG in NS 0.9% 50 ML* 45 ML INTRAPLEUR SCH (22:10)
[2019-01-09] MEDS: Alteplase (CATHFLO)* 10 MG in NS 0.9% 50 ML* 40 ML INTRAPLEUR SCH (22:11)
--- NOTE | 2019-01-09 22:13 | PN ---
Progress Note - Progress Note Date of Service: 01/09/19 Note: Dornaze and Ateplaze was injected via pigtail into pt's R chest with no complications. Pigtail is clamped. RN instructed to unclamp it to suction in one hr.
[2019-01-10] MEDS: Acetaminophen TAB* 325 MG PO PRN ×2 (00:40→05:11)
[2019-01-10] MEDS: LORazepam INJ* 2 MG/ML 1 ML VIAL IV PUSH PRN ×4 (00:41→23:57)
[2019-01-10] MEDS: Aztreonam (*) 2 GM in NS 0.9% 100 ML* 100 ML IVPB SCH ×3 (02:09→18:13)
[2019-01-10] MEDS: Morphine INJ* 4 MG/ML 1 ML SYRINGE (NEW SYRINGE VERSION) IV PRN ×4 (02:40→22:29)
[2019-01-10] MEDS: traMADol TAB* 50 MG PO PRN ×2 (05:10→20:48)
[2019-01-10] MEDS ORDERED: Vancomycin Trough Check NOTE FOLLOW UP ONE (06:00)
[2019-01-10] MEDS: buPROPion SR TAB.SR* 150 MG PO SCH (07:38)
[2019-01-10] MEDS: lamoTRIgine TAB(*) 100 MG PO SCH ×2 (07:38→20:48)
[2019-01-10] MEDS: Venlafaxine EXT RELEASE CAP* 75 MG PO SCH ×2 (07:38→20:48)
[2019-01-10] MEDS: Hydrocortisone 1% CREAM* 30 GM TUBE TOPICAL SCH ×3 (07:38→20:49)
[2019-01-10 07:42] LABS: Hematocrit 32 % (35-47); Hemoglobin 10.6 g/dL (12.0-16.0); Mean Corpuscular HGB Conc 33 g/dL (31-36); Mean Corpuscular Hemoglobin 27 pg (27-31); Mean Corpuscular Volume 83 fL (80-97); Mean Platelet Volume 7.4 fL (7.4-10.4); Platelet Count 496 10^3/uL (150-450); Red Blood Count 3.89 10^6 /uL (3.70-4.87); Red Cell Distribution Width 15 % (10-15); White Blood Count 16.7 10^3/uL (3.5-10.8)
[2019-01-10 07:57] LABS: BUN/Creatinine Ratio 20.7 (8-20); Calcium 7.7 mg/dL (8.6-10.3); EGFR African American 129.2 (>60); EGFR Non-African American 106.8 (>60); Potassium 3.3 mmol/L (3.5-5.0)
[2019-01-10 08:14] LABS: ABS Basophils 0.1 10^3/ul (0-0.2); ABS Eosinophils 0.2 10^3/ul (0-0.6); ABS Monocytes 0.6 10^3/ul (0-0.8); ABS Neutrophils 14.9 10^3/ul (1.5-7.7); Lymphocyte % 5.7 %
[2019-01-10 08:35] LABS: Vancomycin Trough 10.6 mcg/mL
[2019-01-10] MEDS: Vancomycin(*) 1,000 MG in NS 0.9% 250 ML* 250 ML IV SCH ×3 (08:41→21:40)
[2019-01-10] MEDS ORDERED: Morphine INJ* 2 MG/ML 1 ML SYRINGE (TWO MG - NEW SYRINGE VERSION) IV ONE (09:54)
[2019-01-10] MEDS: DORNASE ALFA 1 mg/ml(NF) 5 MG in NS 0.9% 50 ML* 45 ML INTRAPLEUR SCH ×3 (11:05→22:28)
[2019-01-10] MEDS: Alteplase (CATHFLO)* 10 MG in NS 0.9% 50 ML* 40 ML INTRAPLEUR SCH ×3 (11:05→22:28)
[2019-01-10] MEDS: Enoxaparin(*) 40 MG/0.4 ML SYR SUBCUT SCH (12:44)
--- NOTE | 2019-01-10 15:34 | PN ---
Progress Note - Progress Note Date of Service: 01/10/19 - Pulm f/u note Note: Pt seen and examined at bedside. Pt reports feeling better this am. Pt reprots pain is improved at chest tube sight. Has received tPA and dornase through chest tube last night, has about 150cc out, same amounts today afternoon as well. Active Medications Generic Name Dose Route Start Last Admin Trade Name Freq PRN Reason Stop Dose Admin Acetaminophen 650 mg 01/08/19 11:37 01/10/19 05:11 Tylenol Tab* PO 650 mg Q4H PRN Administration mild to moderate pain Albuterol/Ipratropium 1 neb 01/08/19 11:37 Duoneb (Albuterol 2.5 Mg/Ipratropium 0.5 Mg) INH [id number] AWAKE PRN sob/wheexing Alprazolam 0.25 mg 01/09/19 09:33 01/09/19 22:14 Xanax Tab* PO 0.25 mg TID PRN Administration ANXIETY Bupropion HCl 150 mg 01/08/19 14:00 01/10/19 07:38 Wellbutrin Sr Tab* PO 150 mg DAILY [facility] Administration Enoxaparin Sodium 40 mg 01/08/19 12:00 01/10/19 12:44 Lovenox(*) SUBCUT 40 mg Q24H [facility] Administration Hydrocortisone 1 applic 01/09/19 15:30 01/10/19 14:01 Hytone Cream 1%* TOPICAL 1 applic TID [facility]EN Administration Aztreonam 2 gm/ Sodium 100 mls @ 100 mls/hr 01/08/19 18:30 01/10/19 11:30 Chloride IVPB 100 mls/hr Q8H [facility] Administration Vancomycin HCl 1,000 mg/ 250 mls @ 166.667 mls/hr 01/09/19 06:00 01/10/19 14: 01 Sodium Chloride IV 166.667 mls/hr Q8H [facility] Administration Dornase Pelon 5 mg/ Sodium 50 mls @ 0 mls/hr 01/09/19 20:00 01/10/19 11:05 Chloride INTRAPLEUR 01/11/19 20:01 50 mls/hr Q12H [facility] Administration As Directed Alteplase, Recombinant 10 mg/ 50 mls @ 0 mls/hr 01/09/19 20:00 01/10/19 11:05 Sodium Chloride INTRAPLEUR 01/11/19 20:01 50 mls/hr BID@0800,2000 [facility]EN Administration As Directed Lamotrigine 100 mg 01/08/19 14:00 01/10/19 07:38 Lamictal Tab(*) PO 100 mg BID [facility] Administration Lorazepam 1 mg 01/09/19 00:06 01/10/19 11:29 Ativan Inj* IV PUSH 1 mg Q4H PRN Administration ANXIETY Miscellaneous 1 ea 01/09/19 00:06 Ativan Pyxis Richardson N/A .ATIVAN IV RICHARDSON PRN PYXIS RICHARDSON Morphine Sulfate 4 mg 01/10/19 15:14 Morphine Inj (Syringe)* IV Q6H PRN PAIN - SEVERE Pharmacy Consult 1 note 01/08/19 13:00 Vancomycin Per Pharmacy* FOLLOW UP .VANC PER PHARMACY [facility] Protocol Pharmacy Profile Note 1 note 01/12/19 06:00 Vancomycin Trough Check FOLLOW UP 01/12/19 06:01 0600 ONE Tramadol HCl 50 mg 01/08/19 14:04 01/10/19 05:10 Ultram* PO 50 mg Q8H PRN Administration PAIN - MODERATE Venlafaxine HCl 150 mg 01/08/19 21:00 01/10/19 07:38 Effexor Xr Cap* PO 150 mg BID [facility] Administration Vital Signs Temp Pulse Resp BP Pulse Ox 97.5 F 93 18 114/50 90 01/10/19 11:15 01/10/19 11:15 01/10/19 13:27 01/10/19 11:15 01/10/19 11:15 O/E: Pt in chair in NAD HEENT: PERRLA, no JVD Lungs: Diminished on right CVS: S1, S2+ Abd: Soft, BS+ Ext: Normal ROM Skin: No rash Laboratory Results - last 24 hr 01/10/19 01/10/19 07:35 07:35 WBC 16.7 H RBC 3.89 Hgb 10.6 L Hct 32 L MCV 83 MCH 27 MCHC 33 RDW 15 Plt Count 496 H MPV 7.4 Neut % (Auto) 89.6 Lymph % (Auto) 5.7 Ingham % (Auto) 3.4 Eos % (Auto) 1.0 Baso % (Auto) 0.3 Absolute Neuts (auto) 14.9 H Absolute Lymphs (auto) 1.0 Absolute Monos (auto) 0.6 Absolute Eos (auto) 0.2 Absolute Basos (auto) 0.1 Absolute Nucleated RBC 0.0 Nucleated RBC % 0.0 Sodium 136 Potassium 3.3 L Chloride 104 Carbon Dioxide 23 Anion Gap 9 BUN 12 Creatinine 0.58 Est GFR ( Amer) 129.2 Est GFR (Non-Af Amer) 106.8 BUN/Creatinine Ratio 20.7 H Glucose 158 H Calcium 7.7 L Vancomycin Trough 10.6 I/R: 58 y o f with complicated parapneumonic effusion and PNA on right side. Pt had pig tail placed by IR on 01/08/19, had tPA started with 1 st dose last night , had 2nd dose this am Pt with about 150cc fluid out with each administration over the volume of tPA fluid that was administered Will administer another dose today and obtain CT chest in am If not significant out put and CT shows loculated pocket, will need to refer for VATS If improved, pig tail can be removed c/w abx Pt on RA, not in reps distress D/w Emelina Guido NP
--- NOTE | 2019-01-10 16:38 | PN ---
Subjective Date of Service: 01/10/19 Interval History: Patient seen and examined this morning. Appears to be less agitated today, but still has periods of incredibly disorganized behavior with outbursts. Pain seems better controlled, mood overall is improved. Denies acute SOB, no chest pain, no fevers or chills. 11:22am: alteplase and dornase instilled into pleural space via pigtail cath 3- way stopcock to right chest. Chest tube clamped for 1 hour. Patient tolerated procedure well. Per RN, 140ml of fluid drained post procedure indicating ~40ml of pleural fluid evacuated, no sanguinous drainage noted. Objective Active Medications: Acetaminophen (Tylenol Tab*) 650 mg PO Q4H PRN PRN Reason: mild to moderate pain Last Admin: 01/10/19 05:11 Dose: 650 mg Albuterol/Ipratropium (Duoneb (Albuterol 2.5 Mg/Ipratropium 0.5 Mg)) 1 neb INH [id number] AWAKE PRN PRN Reason: sob/wheexing Alprazolam (Xanax Tab*) 0.25 mg PO TID PRN PRN Reason: ANXIETY Last Admin: 01/09/19 22:14 Dose: 0.25 mg Bupropion HCl (Wellbutrin Sr Tab*) 150 mg PO DAILY [facility] Last Admin: 01/10/19 07:38 Dose: 150 mg Enoxaparin Sodium (Lovenox(*)) 40 mg SUBCUT Q24H [facility] Last Admin: 01/10/19 12:44 Dose: 40 mg Hydrocortisone (Hytone Cream 1%*) 1 applic TOPICAL TID [facility] Last Admin: 01/10/19 14:01 Dose: 1 applic Aztreonam 2 gm/ Sodium (Chloride) 100 mls @ 100 mls/hr IVPB Q8H [facility] Last Admin: 01/10/19 11:30 Dose: 100 mls/hr Vancomycin HCl 1,000 mg/ (Sodium Chloride) 250 mls @ 166.667 mls/hr IV Q8H [facility] Last Admin: 01/10/19 14:01 Dose: 166.667 mls/hr Dornase Pelon 5 mg/ Sodium (Chloride) 50 mls @ 0 mls/hr INTRAPLEUR Q12H [facility] Stop: 01/11/19 20:01 Last Admin: 01/10/19 11:05 Dose: 50 mls/hr Alteplase, Recombinant 10 mg/ (Sodium Chloride) 50 mls @ 0 mls/hr INTRAPLEUR BID@08 [facility] Stop: 01/11/19 20:01 Last Admin: 01/10/19 11:05 Dose: 50 mls/hr Lamotrigine (Lamictal Tab(*)) 100 mg PO BID [facility] Last Admin: 01/10/19 07:38 Dose: 100 mg Lorazepam (Ativan Inj*) 1 mg IV PUSH Q4H PRN PRN Reason: ANXIETY Last Admin: 01/10/19 11:29 Dose: 1 mg Miscellaneous (Ativan Pyxis Richardson) 1 ea N/A .ATIVAN IV RICHARDSON PRN PRN Reason: PYXIS RICHARDSON Morphine Sulfate (Morphine Inj (Syringe)*) 4 mg IV Q6H PRN PRN Reason: PAIN - SEVERE Last Admin: 01/10/19 16:23 Dose: 4 mg Pharmacy Consult (Vancomycin Per Pharmacy*) 1 note FOLLOW UP .VANC PER PHARMACY [facility]; Protocol Pharmacy Profile Note (Vancomycin Trough Check) 1 note FOLLOW UP 0600 ONE Stop: 01/12/19 06:01 Tramadol HCl (Ultram*) 50 mg PO Q8H PRN PRN Reason: PAIN - MODERATE Last Admin: 01/10/19 05:10 Dose: 50 mg Venlafaxine HCl (Effexor Xr Cap*) 150 mg PO BID [facility] Last Admin: 01/10/19 07:38 Dose: 150 mg Vital Signs - 8 hr 01/10/19 01/10/19 01/10/19 09:07 10:07 11:15 Temperature 97.5 F Pulse Rate 93 Respiratory 18 18 18 Rate Blood Pressure 114/50 (mmHg) O2 Sat by Pulse 90 Oximetry 01/10/19 01/10/19 01/10/19 11:29 11:54 13:27 Temperature Pulse Rate Respiratory 18 18 18 Rate Blood Pressure (mmHg) O2 Sat by Pulse Oximetry 01/10/19 16:23 Temperature Pulse Rate Respiratory 18 Rate Blood Pressure (mmHg) O2 Sat by Pulse Oximetry Oxygen Devices in Use Now: None Appearance: alert, disorganized Eyes: PERRLA Ears/Nose/Mouth/Throat: Mucous Membranes Moist Neck: NL Appearance and Movements; NL JVP, Trachea Midline Respiratory: Symmetrical Chest Expansion and Respiratory Effort, - - diminished right side Abdominal: NL Sounds; No Tenderness; No Distention Extremities: No Clubbing, Cyanosis Skin: - - decreasing mac-pap rash bilat LE with some clearing noted, less edema , less red Neurological: Alert and Oriented x 3 Nutrition: Taking PO's Result Diagrams: 01/10/19 07:35 01/10/19 07:35 Microbiology and Other Data: Microbiology 01/08/19 18:30 Gram Stain - Final Thoracentesis Fluid Body Fluid Culture - Preliminary No Growth Day 1 01/08/19 08:35 Aerobic Blood Culture - Preliminary Blood Venous No Growth Day 1 Anaerobic Blood Culture - Preliminary No Growth Day 1 01/08/19 07:29 Blood Culture - Preliminary Blood Venous No Growth Day 1 01/08/19 17:49 Legionella Urinary Antigen - Final Urine Negative Legionella Antigen Streptococcus pneumoniae Ag Screen - Final Negative S. pneumo Antigen 01/08/19 12:10 Nasal Screen MRSA (PCR) - Final Nasal Mrsa Detected Assess/Plan/Problems-Billing Assessment: This is a 58 year old female with recent admission for pneumonia with loculated pleural effusion that returned to the ER short of breat after signing out AMA, now found to have persistent parapneumonic effusion requiring thoracentesis with insertion of pigtail drainage catheter. - Patient Problems (1) Parapneumonic effusion Current Visit: No Code(s): J18.9 - PNEUMONIA, UNSPECIFIED ORGANISM; J91.8 - PLEURAL EFFUSION IN OTHER CONDITIONS CLASSIFIED ELSEWHERE SNOMED Code(s): 38228824 Comment: - Large right sided effusion and loculation, s/p thoracentesis x2 (01/04 and ) - Pigtail insertion with Dr. Ragland 01/08 noting purulent fluid - following and recommends continuing dornase with alteplase Q12h dose 3 of 6 today to lyse and drain the pocket, if it does not drain, may have to transfer to tertiary care center. Will continue to monitor output closely - Continue aztreonam and vancomycin, follow fluid cytology and cultures - Seems to be improving overall, will decrease narcotics - Continue pleur-evac to low wall suction - Repeat CT scan in AM to evaluate loculation (2) Pneumonia Code(s): J18.9 - PNEUMONIA, UNSPECIFIED ORGANISM SNOMED Code(s): 617633768 Comment: - As above - On room air, hemodynamically stable - Continue vanco, aztreonam (3) Rash Code(s): R21 - RASH AND OTHER NONSPECIFIC SKIN ERUPTION SNOMED Code(s): 765979944 Comment: - Maculopapular rash to BLE 2/2 zosyn reaction - Topical steroid, continue to monitor (4) Bipolar affective, mixed, severe Code(s): F31.63 - BIPOLAR DISORD, CRNT EPSD MIXED, SEVERE, W/O PSYCH FEATURES SNOMED Code(s): 444527498 Comment: - Previous hospitalizations in the past - Continue home meds and supportive care (5) Full code status Code(s): Z78.9 - OTHER SPECIFIED HEALTH STATUS SNOMED Code(s): 222698799 Comment: Status and Disposition: Inpatient, condition fair.
[2019-01-10] MEDS ORDERED: Potassium Chlor TAB* 20 MEQ TAB.ER PO ONE (18:03)
[2019-01-10] MEDS ORDERED: DORNASE ALFA 1 mg/ml(NF) 5 MG in NS 0.9% 50 ML* 45 ML INTRAPLEUR SCH (22:00)
[2019-01-11] MEDS: Aztreonam (*) 2 GM in NS 0.9% 100 ML* 100 ML IVPB SCH ×2 (02:41→10:15)
[2019-01-11 04:39] LABS: Hematocrit 31 % (35-47); Hemoglobin 10.3 g/dL (12.0-16.0); Mean Corpuscular HGB Conc 33 g/dL (31-36); Mean Corpuscular Hemoglobin 27 pg (27-31); Mean Corpuscular Volume 83 fL (80-97); Mean Platelet Volume 7.5 fL (7.4-10.4); Platelet Count 514 10^3/uL (150-450); Red Blood Count 3.76 10^6 /uL (3.70-4.87); Red Cell Distribution Width 15 % (10-15); White Blood Count 13.8 10^3/uL (3.5-10.8)
[2019-01-11 05:06] LABS: Calcium 7.8 mg/dL (8.6-10.3); EGFR African American 153.3 (>60); EGFR Non-African American 126.7 (>60); Potassium 3.8 mmol/L (3.5-5.0)
[2019-01-11] MEDS: Vancomycin(*) 1,000 MG in NS 0.9% 250 ML* 250 ML IV SCH (05:25)
[2019-01-11 06:07] LABS: ABS Basophils 0.1 10^3/ul (0-0.2); ABS Eosinophils 0.3 10^3/ul (0-0.6); ABS Lymphocytes 1.5 10^3/ul (1.0-4.8); ABS Monocytes 0.7 10^3/ul (0-0.8); ABS Neutrophils 11.2 10^3/ul (1.5-7.7); Eosinophil % 2.3 %; Lymphocyte % 10.8 %
[2019-01-11] MEDS: LORazepam INJ* 2 MG/ML 1 ML VIAL IV PUSH PRN (06:21)
[2019-01-11] MEDS: buPROPion SR TAB.SR* 150 MG PO SCH (09:07)
[2019-01-11] MEDS: lamoTRIgine TAB(*) 100 MG PO SCH (09:07)
[2019-01-11] MEDS: Hydrocortisone 1% CREAM* 30 GM TUBE TOPICAL SCH (09:07)
[2019-01-11] MEDS: Venlafaxine EXT RELEASE CAP* 75 MG PO SCH (09:07)
[2019-01-11] MEDS: Morphine INJ* 4 MG/ML 1 ML SYRINGE (NEW SYRINGE VERSION) IV PRN (10:05)
[2019-01-11] MEDS: Alteplase (CATHFLO)* 10 MG in NS 0.9% 50 ML* 40 ML INTRAPLEUR SCH (10:10)
[2019-01-11] MEDS: DORNASE ALFA 1 mg/ml(NF) 5 MG in NS 0.9% 50 ML* 45 ML INTRAPLEUR SCH (10:10)
[2019-01-11 10:58] VITALS: BP 124/58
[2019-01-11] MEDS: ALPRAZolam TAB* 0.25 MG PO PRN (11:03)
--- NOTE | 2019-01-11 12:23 | TRS ---
CC: Dr. Lory Elizabeth; Dr. Angy Osman; Dr. Maikel Ragland; Dr. Lindsey * TRANSFER SUMMARY: DATE OF ADMISSION: 01/08/19 DATE OF TRANSFER: 01/11/19 ACCEPTING PHYSICIAN: Dr. Lindsey of Thoracic Surgery. TRANSFER LOCATION: Bed assignment is on [address] [place] [address], bed 2. PRIMARY CARE PROVIDER: Dr. Lory Elizabeth. SPECIALISTS INVOLVED IN THIS PATIENT'S CARE: Dr. Angy Osman of Pulmonology , Dr. Maikel Ragland of Interventional Radiology. ATTENDING FOR THIS DISCHARGE: Dr. Kamini Velazquez.* (DICTATED BY JOANNE LEIGH NP) HOSPITAL COURSE: Please refer to admitting H and P on 01/08/19, but in short, Ms. Almendarez is a 58-year-old female patient who presented to the emergency department on 01/08/19 with complaints of nonproductive cough, shortness of breath, fevers and chills. The patient was hospitalized previously from to 01/06/19 where she was being treated for right-sided community-acquired pneumonia with pleural effusion that required thoracentesis. The patient also experienced parapneumonic effusion with acute hypoxic respiratory failure that required 6 to 8 L of supplemental oxygen. Also during that previous admission, she was being empirically treated with Zosyn to which she experienced a rash, and allergic reaction that was maculopapular in nature bilaterally of the lower extremities. The patient became very frustrated during that stay and actually did sign out against medical advice. After she signed out, she did go see her primary care provider, Dr. Elizabeth, who placed her on Levaquin; however, within 24 hours the patient became progressively short of breath and noted that her rash from the Zosyn exposure was becoming increasingly worse. She came back to the emergency department when she noted that her dyspnea was worsening, her cough and shortness of breath also worsening, she was not able to lie flat and overall her condition seemed to be getting progressively worse. She was also complaining at that time of what she described as right-sided lung pain, which was increased pain with deep inspiration. At the time of her readmission on that date, she had a progressive leukocytosis, some mild anemia, low potassium and a CRP of 198.82. She was not septic at that time; however, she did not have any lactic acidosis; she did not have any end organ dysfunction. Chest x- ray at admission revealed a large right-sided pleural effusion. She had a followup chest CT with contrast, which showed some compressive atelectasis and revealed the complex right-sided pleural effusion which showed some areas of loculation. The area of loculation was new compared to the chest CT that was done on 01/04/19. The volume of the right-sided pleural effusion was initially decreased, but then did reveal this new area of loculation. The patient was treated with vancomycin and aztreonam. She was also receiving Tylenol for fevers and consultation was placed with Dr. Osman from Pulmonology. Dr. Osman recommended the patient undergo IR-guided drainage of the pleural fluid and the largest pocket of her effusion. She did undergo that procedure with Dr. Ragland on 01/08/19. A pigtail catheter was left in place. At that time, she had approximately 200 mL of serous turbid fluid that was mixed with fibrinous material that was sent for cytology and culture. Shortly after having the pigtail placed, Dr. Osman also recommended instillation of dornase and tPA through the pigtail catheter to encourage lysis of her smaller loculations. Initially, she did respond to 3 doses that were completed; however , the patient did also complain of some pain and pressure during the instillation and clamping of her catheter during these procedures. Ultimately, on 01/11/19, the patient did have a followup chest CT this morning, which reveals that the largest pocket where the pigtail catheter was placed does show some resolution and that area is smaller; however, there are other areas that are not clearing. The CT report today shows that the moderate complex right hydropneumothorax is decreased in volume where the pigtail catheter has been placed in the inferior aspect of the right hemothorax, but she is still showing subcutaneous emphysematous locules and gas tracking along the superficial aspect of the right chest wall. There was also increased edema along the right chest wall. There was patchy airspace opacification of the right lower lobe with air bronchograms. Her left lung does appear clear. At this time, Dr. Osman and I did have discussion that the patient is not making a great amount of progress and given her age, the patient is young and otherwise active, that the patient may benefit from evaluation by Thoracic Surgery. We did reach out to [facility] and presented the case to Dr. Lindsey of Thoracic Surgery, who is accepting the patient for transfer today for potential additional intervention of her parapneumonic effusions with empyema. The patient's only other medical condition during this time is she does have some psychiatric history. She has bipolar 1 disorder. She can be impulsive at times and sometimes emotionally labile, but she is otherwise very well controlled on her current medication regimen. She does require a lot of emotional support because she has never had previous illness before in this manner, but she is open to additional treatment and she is responding to anxiolytics as needed. She is less dependent on pain medication at this time. She was receiving morphine frequently when the pigtail catheter was first inserted, but she has not needed as much pain medication in the last 24 hours. Otherwise, the patient has remained hemodynamically stable and is stable for transport today. DISCHARGE DIAGNOSES: 1. Right-sided parapneumonic effusion with empyema secondary to right-sided pneumonia. 2. Rash secondary to allergic reaction from Zosyn, now improved. 3. History of bipolar affective disorder, mixed, stable. 4. Acute hypoxic respiratory failure, now resolved. 5. Leukocytosis, improving. 6. Thrombocytosis. 7. Mild hyperglycemia. MEDICATIONS FOR DISCHARGE: Include: 1. Tylenol 650 mg p.o. q.4 hours as needed for fever or mild pain. 2. DuoNeb 1 neb inhaled q.4 hours while awake as needed for shortness of breath or wheezing. 3. Xanax 0.25 mg 1 tab p.o. 3 times a day as needed for anxiety. 4. Wellbutrin sustained release 150 mg p.o. daily. 5. Lovenox 40 mg subcu q.24 hours for DVT prophylaxis. 6. Hydrocortisone 1% cream topical to bilateral lower extremities 3 times daily. 7. Lamictal 100 mg p.o. b.i.d. 8. Ativan IV 1 mg IV push as needed for anxiety or agitation. 9. Morphine sulfate 2 to 4 mg q.6 hours as needed for pain. 10. Vancomycin 1000 mg IV q.8 hours. 11. Venlafaxine XR 150 mg p.o. b.i.d. 12. Tramadol 50 mg p.o. q.8 hours as needed. 13. Aztreonam 2 g IV q.8 hours. REVIEW OF SYSTEMS: On the day of discharge, the patient denies any fever, fatigue, or chills. No acute shortness of breath, no chest pain. She does endorse some right-sided rib pain at the insertion site of her pigtail catheter. No nausea, no vomiting, no abdominal pain. No urinary complaints. She does complain of edema and some pruritus of the lower extremities. No other arthralgias or myalgias. No further constitutional complaints. PHYSICAL EXAMINATION: The patient is alert and tearful, in some mild distress. Vital signs are blood pressure 121/59, heart rate 93, respiratory rate 20, O2 saturation 92% to 95% on room air, temperature 98.7. HEENT: The patient is atraumatic, normocephalic. PERRLA. Nonicteric sclerae. Oral mucosa is moist. Tongue is midline. Neck is supple, nontender. No JVD noted. No carotid bruits auscultated. Cardiovascular: S1, S2 present. No murmurs, gallops, or rubs noted. Rate and rhythm are regular. Left lung is clear throughout all the lung jimenez with good air entry. Right lung diminished diffusely throughout the right lung base. No wheezing or rales noted. Clear at the right apex. Abdomen is soft, nontender, and nondistended. Positive bowel sounds in all 4 quadrants. No organomegaly noted. is deferred. Musculoskeletal: There is no clubbing, no cyanosis. She does have trace lower extremity edema to the knees with some erythema. Skin: She does have a diffuse maculopapular rash of the lower extremities from the feet up to the hips, which is now showing some clearing and resolution. Neurologic: She is grossly intact with no focal deficits. Psychiatric: She is tearful and somewhat emotionally labile, but otherwise alert and oriented x3. DIAGNOSTIC STUDIES/LAB DATA: WBCs 13.8, RBCs 3.76, hemoglobin 10.3, hematocrit 31, platelets 514. Sodium 136, potassium 3.8, chloride 104, CO2 26, BUN 8, creatinine 0.50, GFR 126.7, BUN/creatinine ratio of 16.0, glucose 108, lactic acid 1.1, calcium 7.8. Total bilirubin 0.30, AST 22, ALT 23, alk phos 90. Troponin 0.01. CRP 198.82. Total protein 5.7, albumin 2.8, globulin 2.9, albumin/globulin ratio 1.0. Imaging: Initial chest x-ray on 01/08/19 showed large right-sided pleural effusion with air-fluid level suggesting possibility of empyema, bronchopleural fistula, loculated hydropneumothorax, less likely pulmonary abscess. Recommend CT of the chest with contrast for further evaluation. Chest CT on 01/08/19 shows near complete compressive atelectasis of the right lung, large complex right pleural effusion with both non-loculated and loculated components, dominant loculated component of the right superior to mid posterior aspect where a 6.3 cm AP x 6.6 cm transverse by approximately 11.5 cm cephalocaudal thin-walled gas and fluid containing collection. The loculated pleural fluid collection appears new compared with 01/04/19 CT. Overall volume of the right pleural fluid appears decreased compared with 01/04/19 CT with intervening thoracentesis on 01/06/19. Followup chest CT on 01/11/19 shows small to moderate complex right hydropneumothorax has decreased in volume. The new right pigtail catheter terminates in the inferior aspect of the right hemothorax. A few subcutaneous emphysematous locules of gas tracking along the superficial aspect of the right chest wall. There was increased edema along the right chest wall, patchy airspace opacification of the right lower lobe with air bronchograms. DISPOSITION: The patient will be transferred via ambulance transport ALS to [facility] in [place], [place]. She is in fair to stable condition. DIET: Regular diet as tolerated. ACTIVITY: Out of bed to chair as tolerated. CONDITION: The patient again is stable for transport. TIME SPENT: Sixty minutes on transfer and discharge planning. JOANNE LEIGH NP [id number]/[facility] #: [id number] NORIS
--- NOTE | 2019-01-11 13:33 | PN ---
Progress Note - Progress Note Date of Service: 01/11/19 - Pulm note Note: Pt seen and examined this am. Pt declined dose of tPA and dornase last night. No t much out put through chest tube Active Medications Generic Name Dose Route Start Last Admin Trade Name Freq PRN Reason Stop Dose Admin Acetaminophen 650 mg 01/08/19 11:37 01/10/19 05:11 Tylenol Tab* PO 650 mg Q4H PRN Administration mild to moderate pain Albuterol/Ipratropium 1 neb 01/08/19 11:37 Duoneb (Albuterol 2.5 Mg/Ipratropium 0.5 Mg) INH [id number] AWAKE PRN sob/wheexing Alprazolam 0.25 mg 01/09/19 09:33 01/11/19 11:03 Xanax Tab* PO 0.25 mg TID PRN Administration ANXIETY Bupropion HCl 150 mg 01/08/19 14:00 01/11/19 09:07 Wellbutrin Sr Tab* PO 150 mg DAILY KIRSTEN Administration Enoxaparin Sodium 40 mg 01/08/19 12:00 01/10/19 12:44 Lovenox(*) SUBCUT 40 mg Q24H KIRSTEN Administration Hydrocortisone 1 applic 01/09/19 15:30 01/11/19 09:07 Hytone Cream 1%* TOPICAL 1 applic TID KIRSTEN Administration Aztreonam 2 gm/ Sodium 100 mls @ 100 mls/hr 01/08/19 18:30 01/11/19 10:15 Chloride IVPB 100 mls/hr Q8H KIRSTEN Administration Vancomycin HCl 1,000 mg/ 250 mls @ 166.667 mls/hr 01/09/19 06:00 01/11/19 05: 25 Sodium Chloride IV 166.667 mls/hr Q8H KIRSTEN Administration Alteplase, Recombinant 10 mg/ 50 mls @ 0 mls/hr 01/10/19 22:00 01/11/19 10:10 Sodium Chloride INTRAPLEUR 01/11/19 18:01 Not Given 0730,1800 KIRSTEN As Directed Dornase Pelon 5 mg/ Sodium 50 mls @ 0 mls/hr 01/10/19 22:00 01/11/19 10:10 Chloride INTRAPLEUR 01/11/19 18:01 Not Given 0731,1800 KIRSTEN As Directed Lamotrigine 100 mg 01/08/19 14:00 01/11/19 09:07 Lamictal Tab(*) PO 100 mg BID KIRSTEN Administration Lorazepam 1 mg 01/09/19 00:06 01/11/19 06:21 Ativan Inj* IV PUSH 1 mg Q4H PRN Administration ANXIETY Miscellaneous 1 ea 01/09/19 00:06 Ativan Pyxis Richardson N/A .ATIVAN IV RICHARDSON PRN PYXIS RICHARDSON Morphine Sulfate 4 mg 01/10/19 15:14 01/11/19 10:05 Morphine Inj (Syringe)* IV 4 mg Q6H PRN Administration PAIN - SEVERE Pharmacy Consult 1 note 01/08/19 13:00 Vancomycin Per Pharmacy* FOLLOW UP .VANC PER PHARMACY [facility] Protocol Pharmacy Profile Note 1 note 01/12/19 06:00 Vancomycin Trough Check FOLLOW UP 01/12/19 06:01 0600 ONE Tramadol HCl 50 mg 01/08/19 14:04 01/10/19 20:48 Ultram* PO 50 mg Q8H PRN Administration PAIN - MODERATE Venlafaxine HCl 150 mg 01/08/19 21:00 01/11/19 09:07 Effexor Xr Cap* PO 150 mg BID KIRSTEN Administration Vital Signs Temp Pulse Resp BP Pulse Ox 97.7 F 92 20 124/58 98 01/11/19 07:15 01/11/19 07:15 01/11/19 11:03 01/11/19 07:15 01/11/19 07:15 O/E: Pt in NAD HEENT: PERRLA, no JVD Lungs: Diminished on right, pig tail in place CVS: S1, S2+ Abd: Soft, BS+ Ext: Normal ROM Skin: No rash Laboratory Results - last 24 hr 01/11/19 01/11/19 04:20 04:20 WBC 13.8 H RBC 3.76 Hgb 10.3 L Hct 31 L MCV 83 MCH 27 MCHC 33 RDW 15 Plt Count 514 H MPV 7.5 Neut % (Auto) 81.0 Lymph % (Auto) 10.8 [place] % (Auto) 5.0 Eos % (Auto) 2.3 Baso % (Auto) 0.9 Absolute Neuts (auto) 11.2 H Absolute Lymphs (auto) 1.5 Absolute Monos (auto) 0.7 Absolute Eos (auto) 0.3 Absolute Basos (auto) 0.1 Absolute Nucleated RBC 0.0 Nucleated RBC % 0.0 Sodium 136 Potassium 3.8 Chloride 104 Carbon Dioxide 26 Anion Gap 6 BUN 8 Creatinine 0.50 L Est GFR ( Amer) 153.3 Est GFR (Non-Af Amer) 126.7 BUN/Creatinine Ratio 16.0 Glucose 108 H Calcium 7.8 L I/R: 58 y o f with complicated parapneumonic effusion and PNA on right side. Pt had pig tail placed by IR on 01/08/19, had tPA started with 1 st dose last night , had 2nd dose this am Pt with about 150cc fluid out with each administration over the volume of tPA fluid that was administered Pt declined last night dose Pt had only few cc through the chest tube Rpt CT chest was reviewed- pt with persistant loculated effusion, large pocket seen on last CT is smaller on present scan She also has subcutaneous emphysema and air in loculated fluid Given no improvement with chest tube drainage with usage of tPA and dornase, she would require VATS guided fibrinolysis Pt to be transferred to [facility] c/w abx Pt on RA, not in reps distress D/w Emelina Guido [employer]STU[employer] DIRECTOR
[2019-01-11 14:46] LABS: Fluid Type, Albumin PLEURAL; Fluid Type, Glucose PLEURAL
[2019-01-11 14:47] LABS: Fluid Type, Protein, Total PLEURAL
[2019-01-12] MEDS ORDERED: Vancomycin Trough Check NOTE FOLLOW UP ONE (06:00)
== END 2019-01-11 11:20 | disposition short-term general hospital (02) | DRG 139 ==
LOC: ED 06:51 → MED 11:37
PROVIDERS: ADMIT Internal Medicine; ATTEND Internal Medicine
PROC: 0W9B30Z Drainage of Left Pleural Cavity with Drainage Device, Percutaneous Approach (ICD-10-PCS; principal; 2019-01-08)
PROC: 3E0L3GC Introduction of Other Therapeutic Substance into Pleural Cavity, Percutaneous Approach (ICD-10-PCS; 2019-01-08)
DX: J18.9 Pneumonia, unspecified organism (principal); J86.9 Pyothorax without fistula; J96.01 Acute respiratory failure with hypoxia; J98.11 Atelectasis; J91.8 Pleural effusion in other conditions classified elsewhere; F31.63 Bipolar disorder, current episode mixed, severe, without psychotic features; D64.9 Anemia, unspecified; D47.3 Essential (hemorrhagic) thrombocythemia; F90.9 Attention-deficit hyperactivity disorder, unspecified type; F41.0 Panic disorder [episodic paroxysmal anxiety]; E66.9 Obesity, unspecified; R73.9 Hyperglycemia, unspecified; D72.829 Elevated white blood cell count, unspecified; L27.0 Generalized skin eruption due to drugs and medicaments taken internally; T36.0X5A Adverse effect of penicillins, initial encounter; Z88.1 Allergy status to other antibiotic agents; Z88.8 Allergy status to other drugs, medicaments and biological substances; Z28.21 Immunization not carried out because of patient refusal; Z68.36 Body mass index [BMI] 36.0-36.9, adult; Y92.9 Unspecified place or not applicable; Z79.899 Other long term (current) drug therapy
CPT/HCPCS: 32555; 36415; 71046; 71250; 71260; 80048; 80053; 80202; 82042; 82945; 83605; 83986; 84157; 84484; 85025; 86140; 87040; 87070; 87077; 87186; 87205; 87641; 87899; 88112; 93005; 99285; A9270-GY; C1894; J1650; J2060; J2270; J2997; J3010; J3370; J7639; Q9967

== ENCOUNTER 2019-01-18 23:33 | Emergency (ER) | payer OTHER ==
--- NOTE | 2019-01-19 00:23 | ED ---
Complex/Multi-Sys Presentation - HPI Summary HPI Summary: This patient is a 58 year old F presenting to [facility] by EMS with a chief complaint of severe right sided pain in ribs and side of chest since prior to arrival. Pt previously had pain in left flank. Pt last took pain medications at approx 1600. Pt was dx with pneumonia a couple weeks ago and she had a procedure to take out part of the fluid. Pt then also had a surgical procedure on back, and afterword she had pain in back. Pt was given morphine in hospital and was worried she would have withdrawals. When she was discharged she took muscle relaxer, and the other medications that were prescribed but it did not reduce the pain. Then pt went to other facility and pt was there until 01/16/19, where she had another procedure. Pt was told not to take antibiotics, and she has not been able to follow the other discharge instructions. Pt has not been able to walk due to SOB. Per triage, the patient rates the pain 10/10 in severity. Symptoms aggravated by coughing. Patient reports nausea, edema in legs. Patient denies fever. Pt has appointment with PCP on 01/20/19. Pt reports coming to the ED because she is afraid. - History Of Current Complaint Chief Complaint: EDChestWallPain Time Seen by Provider: 01/19/19 00:00 Hx Obtained From: Patient Onset/Duration: Gradual Onset, Still Present Timing: Constant Severity Currently: Severe Severity Initially: Severe Aggravating Factor(s): Coughing Alleviating Factor(s): Nothing Associated Signs And Symptoms: Positive: SOB, Cough, Edema, Nausea, Other - right sided pain in ribs and side of chest. Negative: Vomiting, Fever - Allergies/Home Medications Allergies/Adverse Reactions: Allergies Allergy/AdvReac Type Severity Reaction Status Date / Time divalproex sodium Allergy Severe Rash Verified 01/21/19 18:30 [From Depakote] imipramine Allergy Severe Rash Verified 01/21/19 18:30 trazodone Allergy Severe Rash Verified 01/21/19 18:30 piperacillin [From Zosyn] Allergy Rash Verified 01/21/19 18:30 tazobactam [From Zosyn] Allergy Rash Verified 01/21/19 18:30 PMH/Surg Hx/FS Hx/Imm Hx Endocrine/Hematology History: Denies: Hx Diabetes, Hx Thyroid Disease Cardiovascular History: Denies: Hx Hypertension Respiratory History: Denies: Hx Asthma, Hx Chronic Obstructive Pulmonary Disease (COPD) GI History: Denies: Hx Ulcer History: Denies: Hx Dialysis Sensory History: Reports: Hx Contacts or Glasses - reading glasses Denies: Hx Deafness, Hx Hearing Aid Opthamlomology History: Reports: Hx Contacts or Glasses - reading glasses Psychiatric History: Reports: Hx Anxiety, Hx Attention Deficit Hyperactivity Disorder, Hx Depression, Hx Panic Disorder, Hx Post Traumatic Stress Disorder, Hx Inpatient Treatment - Multiple [facility] admissions in the past 2 years, Hx Community Mental Health Tx, Hx Suicide Attempt, Hx Substance Abuse - Stimulants and sedatives, Other Psychiatric Issues/Disorders - Hx dysthymia, Hx ECT Denies: Hx Eating Disorder, Hx Schizophrenia, Hx Bipolar Disorder, Hx of Violent Episodes Against Others - Cancer History Cancer Type, Location and Year: None reported - Surgical History Surgery Procedure, Year, and Place: implants in - then removed Infectious Disease History: No Infectious Disease History: Reports: Hx of Known/Suspected MRSA, Hx Shingles Denies: Hx Clostridium Difficile, Hx Hepatitis, Hx Human Immunodeficiency Virus (HIV), Hx Tuberculosis, Hx Known/Suspected VRE, Hx Known/Suspected VRSA, History Other Infectious Disease, Traveled Outside the [place] in Last 30 Days - Family History Known Family History: Positive: Other - Lung CA, Depression-sister, Non- Contributory - Social History Alcohol Use: None Hx Substance Use: No Substance Use Type: Reports: None Hx Tobacco Use: No Smoking Status (MU): Never Smoked Tobacco Have You Smoked in the Last Year: No - Additional Comments History Additional Comments: Home Medications Medication Instructions Recorded Confirmed Type Venlafaxine ER (NF) [Effexor ER 150 mg PO BID 02/21/18 01/18/19 History (NF)] buPROPion HCl [Bupropion HCl Sr] 150 mg PO DAILY 10/29/18 01/18/19 History lamoTRIgine [Lamotrigine] 100 mg PO BID 01/02/19 01/18/19 History Cyclobenzaprine TAB* [Flexeril 10 5 mg PO BID PRN 01/18/19 01/18/19 History MG TAB*] oxyCODONE/Acetamin 10/325(NF) 1 tab PO Q6H PRN 01/18/19 01/18/19 History [Percocet 10/325 (NF)] Review of Systems Negative: Fever Positive: Cough Positive: Nausea, Other - right sided pain in ribs and side of chest Positive: Edema All Other Systems Reviewed And Are Negative: Yes Physical Exam - Summary Physical Exam Summary: General: Well-developed, Well-nourished FEMALE. No acute distress. HEENT: Normocephalic, Atraumatic. Eyes: Conjuctiva normal, PERRL. Oropharynx: Clear, mucous membranes moist, (-) exudates. Neck: Soft, FROM, (-) lymphadenopathy, (-) thyromegaly, (-) JVD. Cardiovascular: Normal sinus rhythm, (-) murmur. Lungs: Good air exchange bilateral, Crackles on right base, and No wheezing Abdomen: Soft, non-tender, non-distended, (-) organomegaly, normal bowel sounds. Back: (-) CVA tenderness Extremities: No edema. Skin: Warm, dry, (-) rash. Large surgical scar on right mid back, clean dry and intact, no edema, not erythematous Neuro: Alert and oriented x3, no focal deficits. Psychiatric: Mood normal, affect normal. Triage Information Reviewed: Yes Vital Signs On Initial Exam: Initial Vitals Temp Pulse Resp BP Pulse Ox 98.4 F 99 20 158/79 97 01/18/19 23:35 01/18/19 23:35 01/18/19 23:35 01/18/19 23:35 01/18/19 23:35 Vital Signs Reviewed: Yes Procedures - Sedation Patient Received Moderate/Deep Sedation with Procedure: No Diagnostics - Vital Signs Vital Signs Temp Pulse Resp BP Pulse Ox 01/18/19 23:35 98.4 F 99 20 158/79 97 - Laboratory Result Diagrams: 01/19/19 03:18 01/19/19 03:18 Lab Statement: Any lab studies that have been ordered have been reviewed, and results considered in the medical decision making process. - Radiology Chest/Thorax CTA Radiology Interpretation Completed By: Radiologist Summary of Radiographic Findings: Chest/Thorax CTA reveals, per radiologist IMPRESSION: 1. There is significant subcutaneous emphysema noted overlying the right chest. wall. There is a complex right-sided pleural effusion with small foci of again. noted. There has been interval removal of the pigtail catheter. 2. There are scattered regions of consolidation and linear atelectasis versus. scarring noted in the right lung. There also scattered groundglass opacity. noted in the left lung field. Findings are concerning for a multifocal. infectious process. 3. There is suboptimal opacification noted of the pulmonary vasculature. limiting evaluation of the segmental and subsegmental branches. There is no. central or main lobar pulmonary embolus. ED physician has reviewed this radiology report. - EKG 23:38 Cardiac Rate: NL EKG Rhythm: Sinus Rhythm Summary of EKG Findings: EKG at 23:38 reveals normal sinus rhythm with rate of 98 BPM, no acute changes, no ischemic changes. This EKG was reviewed and interpreted by Dr. Callaway. Re-Evaluation - Re-Evaluation First Eval Re-Evaluation Time: 19:06 Comment: Discussed results and plan of care with pt. Pt has an appointment with surgeon for tomorrow. Complex Multi-Symp Course/Dx Course Of Treatment: 58 year old female with recent pneumonia with complications. had thoracic surgery. patient has follow up with surgeon tomorrow. she presents today with severe anxiety, chest pain, sob. workup showed no significant abnormalities. ct chest hard to interpret as attempts to get previous cts and records from [facility] was unsuccessful. patient stable and followup appt tomorrow so patient was discharged to home. follow up sooner for any worsening symptoms. During course pt receive toradol 15 mg IV, zofran 4 mg , 2 x oxycodone (1 tab), and rocephin 2 gm. - Diagnoses Provider Diagnoses: Chest pain, SOB (shortness of breath) - Physician Notifications Discussed Care Of Patient With: Davina Blount Time Discussed With Above Provider: 05:46 Instructed by Provider To: Other - Dr. Blount will come see pt in ED Discharge ED - Sign-Out/Discharge Documenting (check all that apply): Patient Departure - Discharge Plan Condition: Stable Disposition: HOME Patient Education Materials: Chest Pain (ED), Shortness of Breath (ED) Referrals: Lory Elizabeth MD [Primary Care Provider] - Additional Instructions: Please follow up with surgeon tomorrow. Please follow up with your primary care physician within three days. Please return to ED for any new or worsening symptoms. - Billing Disposition and Condition Condition: STABLE Disposition: Home - Attestation Statements Document Initiated by Scribe: Yes Documenting Scribe: Kamini Jung Provider For Whom Emmanuel is Documenting (Include Credential): Dr. Alee Callaway MD Scribe Attestation: I, Kamini Jung, scribed for Dr. Alee Callaway MD on 01/22/19 at 1930. Scribe Documentation Reviewed: Yes Provider Attestation: The documentation as recorded by the [email or web address] accurately reflects the service I personally performed and the decisions made by me, Dr. Alee Callaway MD Status of Scribe Document: Viewed
[2019-01-19] MEDS ORDERED: oxyCODONE/Acetamin 5/325 MG* TAB PO ONE ×2 (00:39→07:17)
[2019-01-19] MEDS ORDERED: Ketorolac INJ* 30 MG/ML 1 ML VIAL IV PUSH ONE (00:39)
[2019-01-19] MEDS ORDERED: Ondansetron INJ* 2 MG/ML VIAL IV ONE (00:39)
[2019-01-19] MEDS ORDERED: Iohexol 350* (CONTRAST) 500 ML MDV IV ONE (03:11)
[2019-01-19 03:31] LABS: ABS Basophils 0.1 10^3/ul (0-0.2); ABS Eosinophils 0.4 10^3/ul (0-0.6); ABS Lymphocytes 1.2 10^3/ul (1.0-4.8); ABS Monocytes 0.4 10^3/ul (0-0.8); ABS Neutrophils 6.5 10^3/ul (1.5-7.7); Eosinophil % 4.5 %; Hematocrit 25 % (35-47); Hemoglobin 8.1 g/dL (12.0-16.0); Lymphocyte % 13.6 %; Mean Corpuscular HGB Conc 33 g/dL (31-36); Mean Corpuscular Hemoglobin 28 pg (27-31); Mean Corpuscular Volume 83 fL (80-97); Mean Platelet Volume 6.6 fL (7.4-10.4); Platelet Count 700 10^3/uL (150-450); Red Blood Count 2.96 10^6 /uL (3.70-4.87); Red Cell Distribution Width 16 % (10-15); White Blood Count 8.4 10^3/uL (3.5-10.8)
[2019-01-19 03:35] LABS: INR 1.26 (0.82-1.09)
[2019-01-19 03:46] LABS: Albumin 2.7 g/dL (3.2-5.2); Albumin/Globulin Ratio 0.8 (1-3); BUN/Creatinine Ratio 13.1 (8-20); Calcium 8.3 mg/dL (8.6-10.3); EGFR African American 121.9 (>60); EGFR Non-African American 100.7 (>60); Globulin 3.4 g/dL (2-4); Potassium 3.7 mmol/L (3.5-5.0); Total Bilirubin 0.2 mg/dL (0.2-1.0); Total Protein 6.1 g/dL (6.4-8.9)
[2019-01-19 03:48] LABS: Troponin I 0.01 ng/mL (<0.03)
[2019-01-19] MEDS ORDERED: cefTRIAXone(*) 2 GM in NS 0.9% 100 ML* 100 ML IVPB ONE (05:36)
--- NOTE | 2019-01-19 07:03 | ED ---
Progress - Progress Note Progress Note: This pt is a sign out from Dr. Callaway @ the 0700 01/19/2019 shift change pending admission. Course/Dx - Course Course Of Treatment: This pt is a sign out from Dr. Callaway @ the 0701/19/2019 shift change pending admission. - Diagnoses Provider Diagnoses: Chest pain, SOB (shortness of breath) - Provider Notifications Time Discussed With Above Provider: 05:46 Instructed by Provider To: Other - Dr. Blount will come see pt in ED Discharge ED - Sign-Out/Discharge Documenting (check all that apply): Receiving Sign-Out Signing out patient TO: Keith Steele Receiving patient FROM: Alee Callaway - Discharge Plan Referrals: Lory Elizabeth MD [Primary Care Provider] - - Attestation Statements Document Initiated by Scribe: Yes Documenting Scribe: Santosh Mitchell Provider For Whom Scribe is Documenting (Include Credential): Keith Steele MD Scribe Attestation: ISantosh, scribed for Keith Steele MD on 01/19/19 at 0703.
[2019-01-19 07:55] VITALS: BP 131/69
== END 2019-01-19 07:54 | disposition home or self-care (01) ==
LOC: ED 23:33
DX: R07.9 Chest pain, unspecified (principal); R06.02 Shortness of breath; F41.9 Anxiety disorder, unspecified; F43.10 Post-traumatic stress disorder, unspecified; F32.9 Major depressive disorder, single episode, unspecified; F90.9 Attention-deficit hyperactivity disorder, unspecified type; Z79.899 Other long term (current) drug therapy; Z88.1 Allergy status to other antibiotic agents; Z88.0 Allergy status to penicillin; Z88.8 Allergy status to other drugs, medicaments and biological substances
CPT/HCPCS: 36415; 71275; 80053; 82803; 83605; 83880; 84484; 85025; 85610; 87040; 93005; 96365; 96375; 99283; A9270-GY; J0696; J1885; J2405; Q9967

== ENCOUNTER 2019-01-19 15:23 | Emergency (ER) | payer OTHER ==
[2019-01-19] MEDS ORDERED: oxyCODONE/Acetamin 10/325(NF) TAB PO ONE (17:25)
--- NOTE | 2019-01-19 17:35 | ED ---
Complex/Multi-Sys Presentation - HPI Summary HPI Summary: 58 year old female presents to the ED with a chief complaint of continued back and abdominal pain starting after her surgery for empyema 2 weeks ago, worse since this morning. Patient was at the ED last night for the same pain. She reports being unable to walk due to the pain. She was prescribed 15 pills 5 mg Flexeril on 01/16/19 that she finished 2 days early. Was prescribed 25 Percocet 10/325s also on 01/16/19 which she finished too. Per ROR patient was transfered to [facility] for CT surgery after found to have complicated empyema from PNA. Patient was admitted on morphine, discharged on percocet. PDMP reviewed, no narcotic Rx found. Patient brought in her empty bottles. Patient has a history of suicide attempt, depression, and heavy alcohol drinking. Per [facility]OR there were some psychiatric concerns during her admission. On interview here patient is very emotional. - History Of Current Complaint Chief Complaint: EDMedicationRefill Time Seen by Provider: 01/19/19 16:35 Hx Obtained From: Patient Onset/Duration: Gradual Onset, Lasting Days, Still Present Timing: Constant Severity Currently: Severe Severity Initially: Severe Location: Pain At: - Back pain and abdominal pain Character: Sharp Associated Signs And Symptoms: Positive: Back Pain - Allergies/Home Medications Allergies/Adverse Reactions: Allergies Allergy/AdvReac Type Severity Reaction Status Date / Time divalproex sodium Allergy Severe Rash Verified 01/20/19 04:40 [From Depakote] imipramine Allergy Severe Rash Verified 01/20/19 04:40 trazodone Allergy Severe Rash Verified 01/20/19 04:40 piperacillin [From Zosyn] Allergy Rash Verified 01/20/19 04:40 tazobactam [From Zosyn] Allergy Rash Verified 01/20/19 04:40 PMH/Surg Hx/FS Hx/Imm Hx Endocrine/Hematology History: Denies: Hx Diabetes, Hx Thyroid Disease Cardiovascular History: Denies: Hx Hypertension Respiratory History: Denies: Hx Asthma, Hx Chronic Obstructive Pulmonary Disease (COPD) GI History: Denies: Hx Ulcer History: Denies: Hx Dialysis Sensory History: Reports: Hx Contacts or Glasses - reading glasses Denies: Hx Deafness, Hx Hearing Aid Opthamlomology History: Reports: Hx Contacts or Glasses - reading glasses Psychiatric History: Reports: Hx Anxiety, Hx Attention Deficit Hyperactivity Disorder, Hx Depression, Hx Panic Disorder, Hx Post Traumatic Stress Disorder, Hx Inpatient Treatment - Multiple [facility] admissions in the past 2 years, Hx Community Mental Health Tx, Hx Suicide Attempt, Hx Substance Abuse - Stimulants and sedatives, Other Psychiatric Issues/Disorders - Hx dysthymia, Hx ECT Denies: Hx Eating Disorder, Hx Schizophrenia, Hx Bipolar Disorder, Hx of Violent Episodes Against Others - Cancer History Cancer Type, Location and Year: None reported - Surgical History Surgery Procedure, Year, and Place: implants in - then removed Infectious Disease History: No Infectious Disease History: Reports: Hx of Known/Suspected MRSA, Hx Shingles Denies: Hx Clostridium Difficile, Hx Hepatitis, Hx Human Immunodeficiency Virus (HIV), Hx Tuberculosis, Hx Known/Suspected VRE, Hx Known/Suspected VRSA, History Other Infectious Disease, Traveled Outside the in Last 30 Days - Family History Known Family History: Positive: Other - Lung CA, Depression-sister, Non- Contributory - Social History Alcohol Use: None Hx Substance Use: No Substance Use Type: Reports: None Hx Tobacco Use: No Smoking Status (MU): Never Smoked Tobacco Have You Smoked in the Last Year: No Review of Systems Negative: Fever Positive: Abdominal Pain Positive: Myalgia - Back Pain Positive: Anxious All Other Systems Reviewed And Are Negative: Yes Physical Exam - Summary Physical Exam Summary: Constitutional: Well-developed. Anxious. Skin: Warm, Dry. Well-healing incision to posterior R thorax C/D/I HENT: Normocephalic; Atraumatic Eyes: Conjunctiva normal Neck: Musculoskeletal ROM normal neck. (-) JVD, (-) Stridor, (-) Nuchal rigidity Cardio: Rhythm regular, rate normal, Heart sounds normal; Intact distal pulses; Radial pulses are 2+ and symmetric. (-) Murmur Pulmonary/Chest wall: Effort normal. (-) Respiratory distress, (-) Wheezes, (-) Rales Abd: Soft, (-) tenderness, (-) Distension, (-) Guarding, (-) Rebound Musculoskeletal: (-) Edema Lymph: (-) Cervical adenopathy Neuro: Alert, Oriented x3 Psych: tearful Triage Information Reviewed: Yes Vital Signs On Initial Exam: Initial Vitals Temp Pulse Resp BP Pulse Ox 98.1 F 88 16 142/63 98 01/19/19 15:34 01/19/19 15:34 01/19/19 15:34 01/19/19 15:34 01/19/19 15:34 Vital Signs Reviewed: Yes Procedures - Sedation Patient Received Moderate/Deep Sedation with Procedure: No Diagnostics - Vital Signs Vital Signs Temp Pulse Resp BP Pulse Ox 01/19/19 15:34 98.1 F 88 16 142/63 98 - Laboratory Lab Statement: Any lab studies that have been ordered have been reviewed, and results considered in the medical decision making process. - EKG 1529 Cardiac Rate: NL - 86 bpm EKG Rhythm: Sinus Rhythm ST Segment: Normal Summary of EKG Findings: An EKG at 1529 reveals normal sinus rhythm 86 bpm, nml axis, nml intervals. No STEMI. No acute changes. Dr. Vásquez has interpreted and reviewed this EKG. Complex Multi-Symp Course/Dx Course Of Treatment: 58 y/o F w recent empyema presents for medication refill. - Per review of records patient was prescribed Percocet and Flexeril. Patient states she ran out of these medications. Explained to patient importance of taking them as prescribed, will give a short course of pain medication given that she has been on chronic narcotics and had significant surgery with the understanding that she will follow-up with her surgeon tomorrow. Advised patient we will not be refilling her narcotics in the emergency department and that she needs to go to her surgeon. Patient in agreement. - Diagnoses Provider Diagnoses: Medication refill Is Visit Related: No Discharge ED - Sign-Out/Discharge Documenting (check all that apply): Patient Departure - discharge - Discharge Plan Condition: Stable Disposition: HOME Patient Education Materials: Opioid Safety (ED) Referrals: Lory Elizabeth MD [Primary Care Provider] - Additional Instructions: You were seen in the emergency department for refill. Please take your medications as prescribed. Please clear surgeon tomorrow regarding your pain. Please follow up with your primary care doctor in next 2-3 days and return to emergency department for worsening or concerning symptoms. It was a pleasure taking care of you today. - Billing Disposition and Condition Condition: STABLE Disposition: Home - Attestation Statements Document Initiated by Scribe: Yes Documenting Scribe: Foreign Carvajal Provider For Whom Scribe is Documenting (Include Credential): Alesha Vásquez MD. Scribe Attestation: I, Foreign Carvajal, scribed for Alesha Vásquez MD. on 01/20/19 at 1741. Scribe Documentation Reviewed: Yes Provider Attestation: The documentation as recorded by the scribe, Foreign Carvajal accurately reflects the service I personally performed and the decisions made by me, Alesha Vásquez MD. Status of Scribe Document: Viewed
[2019-01-19] MEDS ORDERED: Cyclobenzaprine TAB* 10 MG PO ONE (17:51)
[2019-01-19] MEDS ORDERED: oxyCODONE/Acetamin 5/325 MG* TAB PO ONE (18:00)
[2019-01-19] MEDS ORDERED: oxyCODONE TAB* 5 MG TAB PO ONE (18:00)
[2019-01-19 18:13] VITALS: BP 151/83
== END 2019-01-19 18:12 | disposition home or self-care (01) ==
LOC: ED 15:23
DX: Z76.0 Encounter for issue of repeat prescription (principal); R10.9 Unspecified abdominal pain; Z98.890 Other specified postprocedural states; F41.9 Anxiety disorder, unspecified; F90.9 Attention-deficit hyperactivity disorder, unspecified type; F43.10 Post-traumatic stress disorder, unspecified
CPT/HCPCS: 93005; 99282; A9270-GY

== ENCOUNTER 2019-01-20 04:28 | Emergency (ER) | payer OTHER ==
[2019-01-20] MEDS ORDERED: HYDROmorphone TAB* 4 MG PO ONE ×2 (04:41→06:26)
--- NOTE | 2019-01-20 05:02 | ED ---
Back Pain - HPI Summary HPI Summary: Pt is a 58 y/o F presenting to the ED with a chief complaint of flank pain. Pt was recently here, had procedures done, and then was transferred to [facility] where she had another procedure. She was d/zelda with pain medications and a muscle relaxer, and she states she has run out of the medication. She currently reports pain in the R side of her back. She denies fever. - History of Current Complaint Chief Complaint: EDGeneral Stated Complaint: LUNG PAIN PER EMS Time Seen by Provider: 01/20/19 04:33 Hx Obtained From: Patient Hx Last Menstrual Period: a year ago Onset/Duration: Sudden Onset, Lasting Hours, Still Present Onset/Duration: Started Hours Ago, Still Present Timing: Constant, Lasting Hours Back Pain Location: Is Discrete @ - R back Severity Initially: Moderate Severity Currently: Severe Pain Intensity: 10 Pain Scale Used: 0-10 Numeric Aggravating Symptom(s): Nothing Alleviating Symptom(s): Nothing Associated Signs And Symptoms: Negative: Fever - Allergies/Home Medications Allergies/Adverse Reactions: Allergies Allergy/AdvReac Type Severity Reaction Status Date / Time divalproex sodium Allergy Severe Rash Verified 01/20/19 04:40 [From Depakote] imipramine Allergy Severe Rash Verified 01/20/19 04:40 trazodone Allergy Severe Rash Verified 01/20/19 04:40 piperacillin [From Zosyn] Allergy Rash Verified 01/20/19 04:40 tazobactam [From Zosyn] Allergy Rash Verified 01/20/19 04:40 PMH/Surg Hx/FS Hx/Imm Hx Previously Healthy: Yes Endocrine/Hematology History: Denies: Hx Diabetes, Hx Thyroid Disease Cardiovascular History: Denies: Hx Hypertension Respiratory History: Denies: Hx Asthma, Hx Chronic Obstructive Pulmonary Disease (COPD) GI History: Denies: Hx Ulcer History: Denies: Hx Dialysis Sensory History: Reports: Hx Contacts or Glasses - reading glasses Denies: Hx Deafness, Hx Hearing Aid Opthamlomology History: Reports: Hx Contacts or Glasses - reading glasses Psychiatric History: Reports: Hx Anxiety, Hx Attention Deficit Hyperactivity Disorder, Hx Depression, Hx Panic Disorder, Hx Post Traumatic Stress Disorder, Hx Inpatient Treatment - Multiple [facility] admissions in the past 2 years, Hx Community Mental Health Tx, Hx Suicide Attempt, Hx Substance Abuse - Stimulants and sedatives, Other Psychiatric Issues/Disorders - Hx dysthymia, Hx ECT Denies: Hx Eating Disorder, Hx Schizophrenia, Hx Bipolar Disorder, Hx of Violent Episodes Against Others - Cancer History Cancer Type, Location and Year: None reported - Surgical History Surgery Procedure, Year, and Place: implants in - then removed Infectious Disease History: No Infectious Disease History: Reports: Hx of Known/Suspected MRSA, Hx Shingles Denies: Hx Clostridium Difficile, Hx Hepatitis, Hx Human Immunodeficiency Virus (HIV), Hx Tuberculosis, Hx Known/Suspected VRE, Hx Known/Suspected VRSA, History Other Infectious Disease, Traveled Outside the [place] in Last 30 Days - Family History Known Family History: Positive: Other - Lung CA, Depression-sister - Social History Alcohol Use: None Hx Substance Use: No Substance Use Type: Reports: None Hx Tobacco Use: No Smoking Status (MU): Never Smoked Tobacco Have You Smoked in the Last Year: No Review of Systems Negative: Fever Positive: Myalgia - back pain All Other Systems Reviewed And Are Negative: Yes Physical Exam - Summary Physical Exam Summary: Appearance: Well-appearing, Well-nourished, lying in bed comfortably Skin: Warm, dry, no obvious rash Eyes: sclera anicteric, no conjunctival pallor ENT: mucous membranes moist, pharynx appears normal Neck: Supple, nontender Respiratory: Clear to auscultation, no signs of respiratory distress. R posterior thoracotomy wound with kye in place that is clean and dry and appears to be healing normally. Below this, there is a small wound from some type of tube that appears to be healing normally. There is no drainage on either of these. Cardiovascular: Normal S1, S2. No murmurs. Normal distal pulses in tibial and radial bilaterally. Abdomen: Soft, nontender, normal active bowel sounds present Musculoskeletal: Normal, Strength/ROM Intact Neurological: A&Ox3, awake and alert, mentation is normal, speech is fluent and appropriate Psychiatric: affect is normal, does not appear anxious or depressed Triage Information Reviewed: Yes Vital Signs On Initial Exam: Initial Vitals Temp Pulse Resp BP Pulse Ox 98.8 F 88 19 150/83 98 01/20/19 04:32 01/20/19 04:32 01/20/19 04:32 01/20/19 04:32 01/20/19 04:32 Vital Signs Reviewed: Yes Procedures - Sedation Patient Received Moderate/Deep Sedation with Procedure: No Diagnostics - Vital Signs Vital Signs Temp Pulse Resp BP Pulse Ox 01/20/19 04:47 21 01/20/19 04:32 98.8 F 88 19 150/83 98 - Laboratory Lab Statement: Any lab studies that have been ordered have been reviewed, and results considered in the medical decision making process. Back Pain Course/Dx - Course Course Of Treatment: Pt is a 58 y/o F presenting to the ED with a chief complaint of flank pain. Pt was recently here, had procedures done, and then was transferred to [facility] where she had another procedure. She was d/c ed with pain medications and a muscle relaxer, and she states she has run out of the medication. She currently reports pain in the R side of her back. Denies fever. On exam, she has a R posterior thoracotomy wound with kye in place that is clean and dry and appears to be healing normally. Below this, there is a small wound from some type of tube that appears to be healing normally. There is no drainage on either of these. In sum, this is a previously healthy middle aged woman who is getting over an empyema, having had full decortication via open thoracotomy a week ago. I am not at all surprised that she is having trouble with pain management. There does not appear to be any excess sedation. I think what she would benefit from is more aggressive opioid therapy. I had a long discussion with her explaining that we will not eliminate her pain, only get it to a tolerable level so she can function at home. Certainly her underlying emotional state being as fragile as it is and having no help at home is not helping either. If we don't seem to make any headway into controlling her pain perhaps a rehab stay might be helpful. Pt will be signed out to Dr. Alan at 0700 pending social work consult and pain resolution. Dx of intractable pain. - Diagnoses Provider Diagnoses: Intractable pain Discharge ED - Sign-Out/Discharge Documenting (check all that apply): Sign-Out Patient Signing out patient TO: Ahsan Alan - Discharge Plan Condition: Stable Disposition: HOME Prescriptions: Cyclobenzaprine TAB* [Flexeril 10 MG TAB*] 10 mg PO TID PRN #12 tab PRN Reason: Spasms - Back oxyCODONE/Acetamin 10/325(NF) [Percocet 10/325 (NF)] 1 tab PO Q6H PRN #10 tab MDD 4 PRN Reason: Pain - Severe Patient Education Materials: Pain Management (ED) Referrals: Lory Elizabeth MD [Primary Care Provider] - 3 Days Additional Instructions: Follow up with your primary care provider in 2-3 days. Return to the emergency department for any new or worsening symptoms. - Billing Disposition and Condition Condition: STABLE Disposition: Home - Attestation Statements Document Initiated by Scribe: Yes Documenting Scribe: Kristie Jackson Provider For Whom Emmanuel is Documenting (Include Credential): Henry Romero MD. Scribe Attestation: Kristie Schultz scribed for Henry Romero MD. on 01/21/19 at 0615. Scribe Documentation Reviewed: Yes Provider Attestation: The documentation as recorded by the scribe, Kristie Jackson accurately reflects the service I personally performed and the decisions made by , Henry Romero MD. Status of Scribe Document: Viewed
[2019-01-20] MEDS ORDERED: hydrOXYzine HCL TAB* 25 MG PO ONE (06:29)
[2019-01-20 06:53] VITALS: BP 136/73
--- NOTE | 2019-01-20 07:17 | ED ---
Progress - Progress Note Progress Note: The patient is a sign-out from Dr. Henry Romero MD, to Dr. Keith Steele MD, at change of shift at 0700 on 01/20/19, pending social work consultation, pain management, and disposition. 0715 - patient is agitated; we discussed plan for social work consult, and she declines this treatment as she would like to go home now Re-Evaluation - Re-Evaluation First Eval Re-Evaluation Time: 07:15 Change: Unchanged Comment: Patient is agitated upon shift change. We discussed plan for treatment. She would like to go home now. Course/Dx - Course Course Of Treatment: This patient was signed out to Dr. Romero pending improvement of the patients pain. I went to see the patient, and she initially refused to see me; however, she had no other choice since I am the only doctor in the ED. After talking to her, what she wants is to go home with pain medications and muscle relaxants. She is walking and talking, she is alert and oriented 3, and she seems very comfortable. She is hemodynamically stable alert and oriented 3. She did not want to stay to see the social secretary. She reports that she is going to see her primary care physician Lukas. There are no other complaints. The patient was ambulating, alert and oriented 3, normal vital signs, and she will be discharged home to follow-up with primary care physician. - Diagnoses Provider Diagnoses: Intractable pain Discharge ED - Sign-Out/Discharge Documenting (check all that apply): Patient Departure - Patient will be discharged home., Receiving Sign-Out Receiving patient FROM: Henry Romero - Patient is a sign-out from Dr. Henry Romero MD, at change of shift at 0700 on 01/20/19, pending social work consultation, pain resolution, and disposition. - Discharge Plan Condition: Stable Disposition: HOME Prescriptions: Cyclobenzaprine TAB* [Flexeril 10 MG TAB*] 10 mg PO TID PRN #12 tab PRN Reason: Spasms - Back oxyCODONE/Acetamin 10/325(NF) [Percocet 10/325 (NF)] 1 tab PO Q6H PRN #10 tab MDD 4 PRN Reason: Pain - Severe Patient Education Materials: Pain Management (ED) Referrals: Lory Elizabeth MD [Primary Care Provider] - 3 Days Additional Instructions: Follow up with your primary care provider in 2-3 days. Return to the emergency department for any new or worsening symptoms. - Billing Disposition and Condition Condition: STABLE Disposition: Home - Attestation Statements Document Initiated by Emmanuel: Yes Documenting Scribe: Hyun Griffith Provider For Whom Emmanuel is Documenting (Include Credential): Dr. Keith Steele MD Scribe Attestation: IHyun scribed for Dr. Keith Steele MD on 01/20/19 at 1843. Scribe Documentation Reviewed: Yes Provider Attestation: The documentation as recorded by the Hyun lopez accurately reflects the service I personally performed and the decisions made by me, Dr. Keith Steele MD Status of Scribe Document: Viewed Procedures - Sedation Patient Received Moderate/Deep Sedation with Procedure: No
== END 2019-01-20 07:59 | disposition home or self-care (01) ==
LOC: ED 04:28
DX: R52 Pain, unspecified (principal); F41.9 Anxiety disorder, unspecified; F90.9 Attention-deficit hyperactivity disorder, unspecified type; F43.10 Post-traumatic stress disorder, unspecified; Z88.1 Allergy status to other antibiotic agents; Z88.0 Allergy status to penicillin; Z88.8 Allergy status to other drugs, medicaments and biological substances
CPT/HCPCS: 99282; A9270-GY

== ENCOUNTER 2019-01-20 14:50 | Emergency (ER) | payer OTHER ==
--- NOTE | 2019-01-20 15:31 | ED ---
Psychiatric Complaint - HPI Summary HPI Summary: This pt is a 58 y/o female presenting to [facility] via EMS for increased SI today. Pt reports SI thoughts but denies SI plan. She states she has suicidal ideation because she keeps getting discharged from [facility] despite her right chest pain. Pt reports she has had 4 procedures done in total for pneumonia recently. Pt notes she has been having pain ever since her first procedure done by Dr. Ragland approximately 2 weeks ago. She states she was transferred to [facility] for 1 or 2 procedures. Denies HI. Denies any other symptoms, fever, chills, erythema of eyes, sore throat, SOB, cough, abd pain, nausea, vomiting, dysuria, hematuria, myalgia, edema, rash or dizziness. Pt has been to the ED for the same pain on 01/18, 01/19, and twice today so far requesting pain medications. Pt states she called her PCP, Dr. Elizabeth, and was advised to come to the ED. She also notes she called her surgeon at [facility] "but couldn't get through." - History Of Current Complaint Chief Complaint: EDMentalHealth Time Seen by Provider: 01/20/19 15:04 Hx Obtained From: Patient Hx Last Menstrual Period: a year ago Onset/Duration: Lasting Days, Still Present Timing: Days Severity Currently: Moderate Character: Depressed Aggravating Factor(s): Recent Stress Alleviating Factor(s): Nothing Related History: Positive For: Prior Psychiatric Issues Has Suicidal: Reports: Thoughts. Denies: With A Plan Has Homicidal: Denies: Thoughts, With A Plan - Allergies/Home Medications Allergies/Adverse Reactions: Allergies Allergy/AdvReac Type Severity Reaction Status Date / Time divalproex sodium Allergy Severe Rash Verified 01/21/19 18:30 [From Depakote] imipramine Allergy Severe Rash Verified 01/21/19 18:30 trazodone Allergy Severe Rash Verified 01/21/19 18:30 piperacillin [From Zosyn] Allergy Rash Verified 01/21/19 18:30 tazobactam [From Zosyn] Allergy Rash Verified 01/21/19 18:30 PMH/Surg Hx/FS Hx/Imm Hx Endocrine/Hematology History: Denies: Hx Diabetes, Hx Thyroid Disease Cardiovascular History: Denies: Hx Hypertension Respiratory History: Denies: Hx Asthma, Hx Chronic Obstructive Pulmonary Disease (COPD) GI History: Denies: Hx Ulcer History: Denies: Hx Dialysis Sensory History: Reports: Hx Contacts or Glasses - reading glasses Denies: Hx Deafness, Hx Hearing Aid Opthamlomology History: Reports: Hx Contacts or Glasses - reading glasses Psychiatric History: Reports: Hx Anxiety, Hx Attention Deficit Hyperactivity Disorder, Hx Depression, Hx Panic Disorder, Hx Post Traumatic Stress Disorder, Hx Inpatient Treatment - Multiple [facility] admissions in the past 2 years, Hx Community Mental Health Tx, Hx Suicide Attempt, Hx Substance Abuse - Stimulants and sedatives, Other Psychiatric Issues/Disorders - Hx dysthymia, Hx ECT Denies: Hx Eating Disorder, Hx Schizophrenia, Hx Bipolar Disorder, Hx of Violent Episodes Against Others - Cancer History Cancer Type, Location and Year: None reported - Surgical History Surgery Procedure, Year, and Place: implants in - then removed Infectious Disease History: No Infectious Disease History: Reports: Hx of Known/Suspected MRSA, Hx Shingles Denies: Hx Clostridium Difficile, Hx Hepatitis, Hx Human Immunodeficiency Virus (HIV), Hx Tuberculosis, Hx Known/Suspected VRE, Hx Known/Suspected VRSA, History Other Infectious Disease, Traveled Outside the [place] in Last 30 Days - Family History Known Family History: Positive: Other - Lung CA, Depression-sister - Social History Alcohol Use: None Hx Substance Use: No Substance Use Type: Reports: None Hx Tobacco Use: No Smoking Status (MU): Never Smoked Tobacco Have You Smoked in the Last Year: No Review of Systems Negative: Fever, Chills Negative: Erythema Negative: Sore Throat Positive: Chest Pain Negative: Shortness Of Breath, Cough Negative: Abdominal Pain, Vomiting, Nausea Negative: dysuria, hematuria Negative: Myalgia, Edema Negative: Rash Neurological: Other - NEGATIVE: dizziness Psychological: Other - POSITIVE: SI Positive: Depressed. Negative: Other - NEGATIVE: HI All Other Systems Reviewed And Are Negative: Yes Physical Exam - Summary Physical Exam Summary: Constitutional: Well-developed, Well-nourished, Alert. (-) Distressed Skin: Warm, Dry HENT: Normocephalic; Atraumatic Eyes: Conjunctiva normal Neck: Musculoskeletal ROM normal neck. (-) JVD, (-) Stridor, (-) Tracheal deviation Cardio: Rhythm regular, rate normal, Heart sounds normal; Intact distal pulses; The pedal pulses are 2+ and symmetric. Radial pulses are 2+ and symmetric. (-) Murmur Pulmonary/Chest wall: Effort normal. (-) Respiratory distress, (-) Wheezes, (-) Rales Abd: Soft, (-) tenderness, (-) Distension, (-) Guarding, (-) Rebound Musculoskeletal: (-) Edema Lymph: (-) Cervical adenopathy Neuro: Alert, Oriented x3 Psych: Refusing eye contact, flat affect Triage Information Reviewed: Yes Vital Signs On Initial Exam: Initial Vitals Temp Pulse Resp BP Pulse Ox 98.6 F 90 16 144/72 96 01/20/19 15:16 01/20/19 15:16 01/20/19 15:16 01/20/19 15:16 01/20/19 15:16 Vital Signs Reviewed: Yes Procedures - Sedation Patient Received Moderate/Deep Sedation with Procedure: No Diagnostics - Vital Signs Vital Signs Temp Pulse Resp BP Pulse Ox 01/20/19 15:16 98.6 F 90 16 144/72 96 - Laboratory Result Diagrams: 01/20/19 18:14 01/20/19 16:04 Lab Statement: Any lab studies that have been ordered have been reviewed, and results considered in the medical decision making process. - Radiology Chest XR Radiology Interpretation Completed By: Radiologist Summary of Radiographic Findings: IMPRESSION: Postoperative changes and relatively improved aeration of the right lung compared to the January 08, 2019 chest x-ray, but with persistent density obscuring the right lower lung. Dr. Alan has reviewed this report. - EKG 15:37 Cardiac Rate: NL - at 88 bpm EKG Rhythm: Sinus Rhythm Summary of EKG Findings: EKG at 1537 shows normal sinus rhythm at a rate of 88 bpm. No STEMI. Course/Dx - Course Assessment/Plan: Pt is a 58 y/o female presenting to [facility] via EMS for increased SI today. Pt reports SI thoughts but denies SI plan. She states she has suicidal ideation because she keeps getting discharged from [facility] [place] despite her right chest pain. Pt reports she has had 4 procedures done in total for pneumonia recently. Pt notes she has been having pain ever since her first procedure done by Dr. Raglnad approximately 2 weeks ago. Reviewed note from yesterday and says she has an appointment with her surgeon today. Chest XR shows postoperative changes and relatively improved aeration of the right lung compared to the January 08, 2019 chest x-ray, but with persistent density obscuring the right lower lung. Blood work obtained. Patient was medically cleared. She is waiting for a MHE. Patient will be signed out to Dr. Romero pending MHE and dispo. - Differential Dx/Clinical Impression Provider Diagnosis: Bipolar disorder Discharge ED - Sign-Out/Discharge Documenting (check all that apply): Sign-Out Patient Signing out patient TO: Henry Romero - pending MHE and dispo - Discharge Plan Condition: Stable Disposition: HOME Referrals: Lory Elizabeth MD [Primary Care Provider] - - Billing Disposition and Condition Condition: STABLE Disposition: Home - Attestation Statements Document Initiated by Scribe: Yes Documenting Scribe: Mey Velasquez Provider For Whom Scribe is Documenting (Include Credential): Ahsan Alan MD Scribe Attestation: Mey Schultz, scribed for Ahsan Alan MD on 02/01/19 at 0940. Scribe Documentation Reviewed: Yes Provider Attestation: The documentation as recorded by the Mey lopez accurately reflects the service I personally performed and the decisions made by , Ahsan Alan MD Status of Scribe Document: Viewed
[2019-01-20 16:38] LABS: Anion Gap 12 mmol/L (2-11); CO2 Carbon Dioxide 21 mmol/L (22-32); Calcium 8.4 mg/dL (8.6-10.3); Chloride 105 mmol/L (101-111); Potassium 3.6 mmol/L (3.5-5.0); Sodium 138 mmol/L (135-145)
[2019-01-20 16:58] LABS: ALT 15 U/L (7-52); AST 16 U/L (13-39); Albumin/Globulin Ratio 0.9 (1-3); Alkaline Phosphatase 104 U/L (34-104); BUN/Creatinine Ratio 9.4 (8-20); Blood Urea Nitrogen 5 mg/dL (6-24); EGFR African American 143.4 (>60); EGFR Non-African American 118.5 (>60); Globulin 3.4 g/dL (2-4); Glucose 103 mg/dL (70-100); Total Protein 6.4 g/dL (6.4-8.9)
[2019-01-20 17:12] LABS: Acetaminophen < 15 mcg/mL; Alcohol < 10 mg/dL (<10); Salicylate < 2.50 mg/dL (<30); TSH (Thyroid Stimulating Horm) 0.14 mcIU/mL (0.34-5.60)
[2019-01-20 17:29] LABS: Urine Appearance Clear; Urine Bilirubin Negative (Negative); Urine Blood Negative (Negative); Urine Color Straw; Urine Glucose Negative (Negative); Urine Ketones 1+ (Negative); Urine Nitrite Negative (Negative); Urine Protein Negative (Negative); Urine Specific Gravity 1.005 (1.010-1.030); Urine Urobilinogen Negative (Negative)
[2019-01-20 17:52] LABS: Urine Bacteria 1+ (Absent); Urine Red Blood Cell Trace(0-2/hpf) (Absent); Urine Squamous Epithelial Cell Present (Absent); Urine White Blood Cell 2+(11-20/hpf) (Absent)
[2019-01-20 17:53] LABS: Urine Benzodiazepine Screen None Detected (None Detect); Urine Opiates Screen Presumptive Positive (None Detect)
[2019-01-20 18:23] LABS: ABS Basophils 0.1 10^3/ul (0-0.2); ABS Eosinophils 0.2 10^3/ul (0-0.6); ABS Lymphocytes 1.2 10^3/ul (1.0-4.8); ABS Monocytes 0.5 10^3/ul (0-0.8); ABS Neutrophils 6.2 10^3/ul (1.5-7.7); Eosinophil % 2.3 %; Hematocrit 26 % (35-47); Hemoglobin 8.7 g/dL (12.0-16.0); Lymphocyte % 14.7 %; Mean Corpuscular HGB Conc 33 g/dL (31-36); Mean Corpuscular Hemoglobin 27 pg (27-31); Mean Corpuscular Volume 82 fL (80-97); Mean Platelet Volume 6.5 fL (7.4-10.4); Nucleated Red Blood Cells % 0.1; Platelet Count 700 10^3/uL (150-450); Red Blood Count 3.17 10^6 /uL (3.70-4.87); Red Cell Distribution Width 15 % (10-15); White Blood Count 8.1 10^3/uL (3.5-10.8)
[2019-01-20] MEDS ORDERED: Acetaminophen TAB* 325 MG PO ONE (22:19)
--- NOTE | 2019-01-20 22:26 | ED ---
Progress - Progress Note Progress Note: Pt is a signout from Dr. Alan at 2200 pending MHE. Course/Dx - Course Course Of Treatment: Pt is a signout from Dr. Alan at 2200 pending MHE. Pt will be signed out to Dr. Oshea at 0700 on 01/21/19. - Diagnoses Provider Diagnoses: Suicidal ideation Discharge ED - Sign-Out/Discharge Documenting (check all that apply): Sign-Out Patient, Receiving Sign-Out Signing out patient TO: Dawson Oshea Receiving patient FROM: Ahsan Alan - Discharge Plan Referrals: Lory Elizabeth MD [Primary Care Provider] - - Attestation Statements Document Initiated by Scribe: Yes Documenting Scribe: Kristie Jackson Provider For Whom Emmanuel is Documenting (Include Credential): Henry Romero MD. Scribe Attestation: Kristie Schultz, mked for Henry Romero MD. on 01/21/19 at 0643. Scribe Documentation Reviewed: Yes Provider Attestation: The documentation as recorded by the Kristie lopez accurately reflects the service I personally performed and the decisions made by Henry bach MD. Status of Scribe Document: Viewed
--- NOTE | 2019-01-21 07:19 | ED ---
Progress - Progress Note Progress Note: Patient is received as a sign-out from Dr. Romero to Dr. Bonilla at 0700 shift change pending E. 09 - Patient's case was reviewed by Dr. Leach, patient will be discharged to home with outpatient mental health follow up. Dx of bipolar disorder. Course/Dx - Course Course Of Treatment: Pt is a signout from Dr. Alan at 2200 pending MHE. Pt will be signed out to Dr. Bonilla at 0700 on 01/21/19. - Diagnoses Provider Diagnoses: Bipolar disorder - Provider Notifications Discussed Care Of Patient With: Paramjit Leach Time Discussed With Above Provider: 09:03 Instructed by Provider To: Other - 902 - Patient's case was reviewed by psychiatrist, patient will be discharged to home with outpatient mental health follow up. Dx of bipolar disorder. Discharge ED - Sign-Out/Discharge Documenting (check all that apply): Patient Departure - discharge , Receiving Sign-Out Receiving patient FROM: Henry Romero - Discharge Plan Condition: Stable Disposition: HOME Referrals: Lory Elizabeth MD [Primary Care Provider] - - Billing Disposition and Condition Condition: STABLE Disposition: Home - Attestation Statements Document Initiated by Scribe: Yes Documenting Scribe: MILADYS TROY Provider For Whom Emmanuel is Documenting (Include Credential): DANIEL BONILLA MD Scribe Attestation: MILADYS Schultz, scribed for DANILE BONILLA MD on 01/21/19 at 1700. Scribe Documentation Reviewed: Yes Provider Attestation: The documentation as recorded by the MILADYS lopez accurately reflects the service I personally performed and the decisions made by DANIEL bach MD Status of Scribe Document: Viewed
[2019-01-21 09:45] VITALS: BP 0/0
--- NOTE | 2019-01-21 10:33 | PN ---
ED Psychiatric Progress Note Date of Service: 01/21/19 Subjective: 58 y.o. single, white female with a history of bipolar disorder returns to ED, upset about not being admitted to Medicine for somatic issues and endorsing SI without plan. Patient is informed that the [facility] has no beds and is encouraged to accept voluntary transfer to an outside hospital. She declines this, saying "This is the only hospital that I can go to...I have a dog that needs taking care of and I can't be out of town." She denies intent to harm herself and states that she will return to the ED later this week "when you have beds." Objective: middle aged white female with dark brown hair; somewhat demanding; anxious and somatic; denies SI to me and insists that she is safe to leave the hospital to take care of her dog and return at a later time Assessment: Bipolar DO Plan: Patient meets criteria for voluntary (9.13) admission to the [facility], however, we have no beds and no expected discharges and patient is strongly declining transfer outside the community. She does not meet the legal requirement for 9.39 involuntary care as she is currently denying SI. Instead she is referred to [facility], where she sees Dr. Mohamud. Vital Signs Temp Pulse Resp BP Pulse Ox 0 F 0 0 0/0 0 01/21/19 09:44 01/21/19 09:44 01/21/19 09:44 01/21/19 09:44 01/21/19 09:44 Lab Results - Entire Visit 01/20/19 01/20/19 01/20/19 18:14 16:51 16:51 WBC 8.1 RBC 3.17 L Hgb 8.7 L Hct 26 L MCV 82 MCH 27 MCHC 33 RDW 15 Plt Count 700 H MPV 6.5 L Neut % (Auto) 76.4 Lymph % (Auto) 14.7 Oliver % (Auto) 5.8 Eos % (Auto) 2.3 Baso % (Auto) 0.8 Absolute Neuts (auto) 6.2 Absolute Lymphs (auto) 1.2 Absolute Monos (auto) 0.5 Absolute Eos (auto) 0.2 Absolute Basos (auto) 0.1 Absolute Nucleated RBC 0.0 Nucleated RBC % 0.1 Sodium Potassium Chloride Carbon Dioxide Anion Gap BUN Creatinine Est GFR ( Amer) Est GFR (Non-Af Amer) BUN/Creatinine Ratio Glucose Lactic Acid Calcium Total Bilirubin AST ALT Alkaline Phosphatase Troponin I Total Protein Albumin Globulin Albumin/Globulin Ratio TSH Urine Color Straw Urine Appearance Clear Urine pH 8.0 Ur Specific Salem 1.005 L Urine Protein Negative Urine Ketones 1+ A Urine Blood Negative Urine Nitrate Negative Urine Bilirubin Negative Urine Urobilinogen Negative Ur Leukocyte Esterase 1+ A Urine WBC (Auto) 2+(11-20/hpf) A Urine RBC (Auto) Trace(0-2/hpf) Ur Squamous Epith Cells Present A Urine Bacteria 1+ A Urine Glucose Negative Salicylates Urine Opiates Screen Presumptive positive A Acetaminophen Ur Barbiturates Screen None detected Ur Phencyclidine Scrn None detected Ur Amphetamines Screen None detected U Benzodiazepines Scrn None detected Urine Cocaine Screen None detected U Cannabinoids Screen None detected Serum Alcohol 01/20/19 01/20/19 16:04 16:04 WBC RBC Hgb Hct MCV MCH MCHC RDW Plt Count MPV Neut % (Auto) Lymph % (Auto) Oliver % (Auto) Eos % (Auto) Baso % (Auto) Absolute Neuts (auto) Absolute Lymphs (auto) Absolute Monos (auto) Absolute Eos (auto) Absolute Basos (auto) Absolute Nucleated RBC Nucleated RBC % Sodium 138 Potassium 3.6 Chloride 105 Carbon Dioxide 21 L Anion Gap 12 H BUN 5 L Creatinine 0.53 Est GFR ( Amer) 143.4 Est GFR (Non-Af Amer) 118.5 BUN/Creatinine Ratio 9.4 Glucose 103 H Lactic Acid 0.5 Calcium 8.4 L Total Bilirubin 0.20 AST 16 ALT 15 Alkaline Phosphatase 104 Troponin I 0.00 Total Protein 6.4 Albumin 3.0 L Globulin 3.4 Albumin/Globulin Ratio 0.9 L TSH 0.14 L Urine Color Urine Appearance Urine pH Ur Specific Salem Urine Protein Urine Ketones Urine Blood Urine Nitrate Urine Bilirubin Urine Urobilinogen Ur Leukocyte Esterase Urine WBC (Auto) Urine RBC (Auto) Ur Squamous Epith Cells Urine Bacteria Urine Glucose Salicylates < 2.50 Urine Opiates Screen Acetaminophen < 15 Ur Barbiturates Screen Ur Phencyclidine Scrn Ur Amphetamines Screen U Benzodiazepines Scrn Urine Cocaine Screen U Cannabinoids Screen Serum Alcohol < 10
== END 2019-01-21 09:44 | disposition home or self-care (01) ==
LOC: ED 14:50
DX: R45.851 Suicidal ideations (principal); F31.9 Bipolar disorder, unspecified; F41.9 Anxiety disorder, unspecified; F90.9 Attention-deficit hyperactivity disorder, unspecified type; F43.10 Post-traumatic stress disorder, unspecified; Z88.1 Allergy status to other antibiotic agents; Z88.0 Allergy status to penicillin; Z88.8 Allergy status to other drugs, medicaments and biological substances
CPT/HCPCS: 36415; 71045; 80053; 80307; 80320; 80329; 81003; 81015; 83605; 84443; 84484; 85025; 87086; 93005; 99284; A9270-GY; G0480

== ENCOUNTER 2019-01-21 18:07 | Emergency (ER) | payer OTHER ==
--- NOTE | 2019-01-21 19:01 | ED ---
Psychiatric Complaint - HPI Summary HPI Summary: The patient is a 58 y/o F arriving by ambulance to [facility] with a chief complaint of seeking out a mental health evaluation for increasing depression recently. She states that she feels suicidal but denies a plan. She has been taking opioids for pain relief, specifically in the right scapula, but she stopped taking the medications because she felt they were making her depression worse. She was seen here multiple times recently for pain management. She was discharged this morning following consultation with Dr. Leach, who she states gave her the choice to either be discharged or transferred, and she chose to be transferred. She states she has not taken any opioids today, but she took a Flexeril this morning. PMHx: anxiety, ADHD, depression, panic disorder, PTSD, inpatient treatment, suicide attempt, substance abuse. Nonsmoker, no EtOH, daily opioid use. Medications reviewed. Allergies noted. - History Of Current Complaint Chief Complaint: EDMentalHealth Time Seen by Provider: 01/21/19 18:28 Hx Obtained From: Patient Hx Last Menstrual Period: a year ago Onset/Duration: Gradual Onset, Lasting Hours, Still Present Timing: Hours Severity Initially: Moderate Severity Currently: Moderate Character: Depressed Aggravating Factor(s): Other - taking opioids Alleviating Factor(s): Nothing Related History: Positive For: Prior Psychiatric Issues Has Suicidal: Reports: Thoughts. Denies: With A Plan - Allergies/Home Medications Allergies/Adverse Reactions: Allergies Allergy/AdvReac Type Severity Reaction Status Date / Time divalproex sodium Allergy Severe Rash Verified 01/21/19 18:30 [From Depakote] imipramine Allergy Severe Rash Verified 01/21/19 18:30 trazodone Allergy Severe Rash Verified 01/21/19 18:30 piperacillin [From Zosyn] Allergy Rash Verified 01/21/19 18:30 tazobactam [From Zosyn] Allergy Rash Verified 01/21/19 18:30 PMH/Surg Hx/FS Hx/Imm Hx Endocrine/Hematology History: Denies: Hx Diabetes, Hx Thyroid Disease Cardiovascular History: Denies: Hx Hypertension Respiratory History: Denies: Hx Asthma, Hx Chronic Obstructive Pulmonary Disease (COPD) GI History: Denies: Hx Ulcer History: Denies: Hx Dialysis Sensory History: Reports: Hx Contacts or Glasses - reading glasses Denies: Hx Deafness, Hx Hearing Aid Opthamlomology History: Reports: Hx Contacts or Glasses - reading glasses Psychiatric History: Reports: Hx Anxiety, Hx Attention Deficit Hyperactivity Disorder, Hx Depression, Hx Panic Disorder, Hx Post Traumatic Stress Disorder, Hx Inpatient Treatment - Multiple [facility] admissions in the past 2 years, Hx Community Mental Health Tx, Hx Suicide Attempt, Hx Substance Abuse - Stimulants and sedatives, Other Psychiatric Issues/Disorders - Hx dysthymia, Hx ECT Denies: Hx Eating Disorder, Hx Schizophrenia, Hx Bipolar Disorder, Hx of Violent Episodes Against Others - Cancer History Cancer Type, Location and Year: None reported - Surgical History Surgical History: Yes Surgery Procedure, Year, and Place: implants in - then removed Infectious Disease History: No Infectious Disease History: Reports: Hx of Known/Suspected MRSA, Hx Shingles Denies: Hx Clostridium Difficile, Hx Hepatitis, Hx Human Immunodeficiency Virus (HIV), Hx Tuberculosis, Hx Known/Suspected VRE, Hx Known/Suspected VRSA, History Other Infectious Disease, Traveled Outside the [place] in Last 30 Days - Family History Known Family History: Positive: Other - Lung CA, Depression-sister - Social History Alcohol Use: None Hx Substance Use: Yes - opioid use Substance Use Type: Reports: None Substance Use Comment - Amount & Last Used: no longer on opiods Hx Tobacco Use: No Smoking Status (MU): Never Smoked Tobacco Have You Smoked in the Last Year: No Review of Systems Positive: Other - right scapular pain Positive: Depressed, Other - SI without plan All Other Systems Reviewed And Are Negative: Yes Physical Exam - Summary Physical Exam Summary: General: Well appearing, no distress HEENT: PERRL Cardiovascular: Skin is well perfused Pulmonary: No respiratory distress, no tachypnea Abdomen: Non-distended Skin: Warm, pink, dry MSK: No edema Psych: Anxious Neuro: A&Ox3 Triage Information Reviewed: Yes Vital Signs On Initial Exam: Initial Vitals Temp Pulse Resp BP Pulse Ox 97.3 F 88 18 137/74 95 01/21/19 18:15 01/21/19 18:15 01/21/19 18:15 01/21/19 18:15 01/21/19 18:15 Vital Signs Reviewed: Yes Procedures - Sedation Patient Received Moderate/Deep Sedation with Procedure: No Diagnostics - Vital Signs Vital Signs Temp Pulse Resp BP Pulse Ox 01/21/19 18:15 97.3 F 88 18 137/74 95 - Laboratory Lab Statement: Any lab studies that have been ordered have been reviewed, and results considered in the medical decision making process. Re-Evaluation - Re-Evaluation First Eval Re-Evaluation Time: 18:40 Comment: Patient is medically clear for MHE. Course/Dx - Course Course Of Treatment: 50-year-old female with a history of recent empyema, bipolar disorder, alcohol abuse who presents with suicidal ideation. Just seen in the ED for similar complaints of left patient requesting to be admitted. We' ll have mental health team evaluate. Patient had labs last night, deferred at this time. - Differential Dx/Clinical Impression Provider Diagnosis: Suicidal ideation Discharge ED - Sign-Out/Discharge Documenting (check all that apply): Sign-Out Patient Signing out patient TO: Henry Romero - Patient is a sign-out to Dr. Henry Romero MD, at change of shift at 2200 on 01/21/19, pending MHE and disposition. - Discharge Plan Referrals: Lory Elizabeth MD [Primary Care Provider] - - Attestation Statements Document Initiated by Scribe: Yes Documenting Scribe: Hyun Griffith Provider For Whom Vonibe is Documenting (Include Credential): Dr. Alesha Vásquez MD Scribe Attestation: I, Hyun Griffith, scribed for Dr. Alesha Vásquez MD on 01/21/19 at 2137. Status of Scribe Document: Ready
[2019-01-21] MEDS ORDERED: Cyclobenzaprine TAB* 10 MG PO ONE (19:55)
[2019-01-21] MEDS ORDERED: Acetaminophen TAB* 325 MG PO ONE (19:55)
--- NOTE | 2019-01-21 22:21 | ED ---
Progress - Progress Note Progress Note: Patient is a sign-out at 22:00 on 01/21/[address] Alesha Vásquez MD to Dr. Henry Romero MD at shift change, pending MHE and disposition. Patient will be discharged with a diagnosis of depression and suicidal ideation. Follow up with PCP as soon as possible. Re-Evaluation - Re-Evaluation First Eval Re-Evaluation Time: 18:40 Comment: Patient is medically clear for MHE. Course/Dx - Course Course Of Treatment: Patient is a sign-out at 22:00 on 01/21/[address] Alesha Vásquez MD to Dr. Henry Romero MD at shift change, pending MHE and disposition. In the ED course, patient was given Soma 350 mg PO. Patient will be discharged with a diagnosis of depression and suicidal ideation. Follow up with PCP as soon as possible. - Diagnoses Provider Diagnoses: Suicidal ideation, Depression Discharge ED - Sign-Out/Discharge Documenting (check all that apply): Patient Departure - Discharge, Receiving Sign-Out Receiving patient FROM: Alesha Vásquez - Patient is a sign-out at 22:00 on 01/21/[address] Alesha Vásquez MD to Dr. Henry Romero MD at shift change, pending MHE and disposition. - Discharge Plan Condition: Good Disposition: HOME Patient Education Materials: Depression (ED) Referrals: Lory Elizabeth MD [Primary Care Provider] - As Soon As Possible - Billing Disposition and Condition Condition: GOOD Disposition: Home - Attestation Statements Document Initiated by Emmanuel: Yes Documenting Scribe: Madhavi Rouse Provider For Whom Emmanuel is Documenting (Include Credential): Henry Romero MD Scribe Attestation: Madhavi Schultz, scribed for Henry Romero MD on 01/22/19 at 0626. Scribe Documentation Reviewed: Yes Provider Attestation: The documentation as recorded by the Madhavi lopez accurately reflects the service I personally performed and the decisions made by me, Henry Romero MD Status of Scribe Document: Viewed
[2019-01-22] MEDS ORDERED: Carisoprodol TAB* 350 MG PO ONE (01:03)
[2019-01-22 01:31] VITALS: BP 147/78
== END 2019-01-22 01:27 | disposition home or self-care (01) ==
LOC: ED 18:07
DX: R45.851 Suicidal ideations (principal); F32.9 Major depressive disorder, single episode, unspecified
CPT/HCPCS: 99284; A9270-GY

== ENCOUNTER 2019-03-08 13:13 | Emergency (ER) | payer MEDICARE, OTHER ==
[2019-03-08 14:11] VITALS: BP 143/85
--- NOTE | 2019-03-08 14:14 | UC ---
Skin Complaint HPI - HPI Summary HPI Summary: 58 yo female presents with nose complaint. She tells me that for the last 2-3 days she has had pain, redness, and swelling to the inside of her left nostril. Hurts to touch. Last night she scratched it and has yellow drainage expressed. She is having a headache due to this pain. 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 Denies fever or injury. - History of Current Complaint Chief Complaint: UCGeneralIllness Time Seen by Provider: 03/08/19 14:13 Stated Complaint: NOSE PAIN Hx Obtained From: Patient Hx Last Menstrual Period: a year ago Onset/Duration: Gradual Onset Onset Severity: Moderate Current Severity: Severe Pain Intensity: 10 Pain Scale Used: 0-10 Numeric - Allergy/Home Medications Allergies/Adverse Reactions: Allergies Allergy/AdvReac Type Severity Reaction Status Date / Time divalproex sodium Allergy Severe Rash Verified 03/08/19 14:12 [From Depakote] imipramine Allergy Severe Rash Verified 03/08/19 14:12 trazodone Allergy Severe Rash Verified 03/08/19 14:12 piperacillin [From Zosyn] Allergy Rash Verified 03/08/19 14:12 tazobactam [From Zosyn] Allergy Rash Verified 03/08/19 14:12 PMH/Surg Hx/FS Hx/Imm Hx Psychological History: Anxiety, Depression, Bipolar Disorder - Surgical History Surgical History: Yes Surgery Procedure, Year, and Place: implants in - then removed - Family History Known Family History: Positive: Other - Lung CA, Depression-sister - Social History Alcohol Use: None Substance Use Type: None Smoking Status (MU): Never Smoked Tobacco Have You Smoked in the Last Year: No - Immunization History Most Recent Influenza Vaccination: n/a Most Recent Pneumonia Vaccination: n/a Review of Systems All Other Systems Reviewed And Are Negative: No Constitutional: Positive: Negative Skin: Positive: Other - nose pain Respiratory: Positive: Negative Cardiovascular: Positive: Negative Neurological: Positive: Negative Psychological: Positive: Negative Physical Exam - Summary Physical Exam Summary: GENERAL: NAD. WDWN. No pain distress. SKIN: LEFT NOSTRIL: Medial aspect with 7mm area of induration, erythema, and edema with central dried spot of yellow purulent matter. TTP. No active drainage. No nasal bridge edema or tenderness. HEENT: Head: AT/NC Nose: Nasal mucosa pink and moist. NTTP maxillary and frontal sinus. No septal hematoma or ulceration Throat: Posterior oropharynx without exudates, erythema, or tonsillar enlargement. Uvula midline. NECK: Supple. Nontender. No lymphadenopathy. CHEST: No accessory muscle use. Breathing comfortably and in no distress. CV: Cap refill <2seconds NEURO: Alert. PSYCH: Age appropriate behavior. Triage Information Reviewed: Yes Vital Signs: Initial Vital Signs Temp 98.4 F 03/08/19 14:06 Pulse 97 03/08/19 14:06 Resp 16 03/08/19 14:06 BP 143/85 03/08/19 14:06 Pulse Ox 98 03/08/19 14:06 Vital Signs Reviewed: Yes Course/Dx - Course Course Of Treatment: Suspect skin abscess of left nostril. Discussed attempt at I&D, but pt declined as the area is too painful. Will place her on clindamycin and bactroban given her hx of MRSA and have her f/ u if symptoms do not improve. - Diagnoses Provider Diagnosis: Skin abscess Discharge ED - Sign-Out/Discharge Documenting (check all that apply): Patient Departure All imaging exams completed and their final reports reviewed: No Studies - Discharge Plan Condition: Stable Disposition: HOME Prescriptions: Clindamycin HCl 300 mg PO TID #21 capsule Mupirocin 2% OINT* [Bactroban 2 % Oint*] 1 applic TOPICAL BID #1 tube Patient Education Materials: Abscess (ED) Referrals: Lory Elizabeth MD [Primary Care Provider] - Additional Instructions: If you develop a fever, shortness of breath, chest pain, new or worsening symptoms - please call your PCP or go to the ED immediately. Your blood pressure was high at todays visit. Please see your primary provider within 4 weeks for recheck and re-evaluation. - Billing Disposition and Condition Condition: STABLE Disposition: Home
== END 2019-03-08 14:32 | disposition home or self-care (01) ==
LOC: UCEAST 13:13
DX: J34.0 Abscess, furuncle and carbuncle of nose (principal); Z88.8 Allergy status to other drugs, medicaments and biological substances
CPT/HCPCS: 99212; G0463